=== PATIENT | female | born 1990 | race African-American/Black ===

== ENCOUNTER 2017-08-23 00:05 | Emergency (ER) | payer SELFPAY ==
--- OUTSIDE RECORDS SUMMARY | 2017-08-23 00:08 | XMS REPORT ---
:1990 [facility] Address [address] [place] [address] Dr. Hernandez [address] [place] [id number] Care Team Providers Name Role Phone UNKNOWN, REFFERING Primary Care Provider Unavailable SAMPSON TRISTAN M.D. Unavailable Unavailable Problems This patient has no known problems. Allergies, Adverse Reactions, Alerts This patient has no known allergies or adverse reactions. Medications This patient has no known medications.
[2017-08-23] MEDS ORDERED: NA CHLORIDE 0.9% 1,000 ML ONE (01:10)
[2017-08-23] MEDS ORDERED: ONDANSETRON 4 MG/2 ML VIAL ONE (01:16)
[2017-08-23] MEDS ORDERED: FENTANYL CITR 100 MCG/2 ML ONE (01:16)
[2017-08-23 02:13] LABS: Absolute Lymphocytes (CBC) 1.8 K/uL (0.7-4.9); Absolute Monocytes 0.6 K/uL (0.1-1.3); Absolute Neutrophil 3.5 K/uL (1.8-8.0); Basophils % 0.5 % (0-1.3); Eosinophils % 5.3 % (0-4.4); Hematocrit 32.2 % (36.0-45.0); Lymphocytes % 28.4 % (15.3-44.8); MCH 29.2 pg (27.0-35.0); MCV 87.2 fL (80-100); Monocytes % 9.1 % (3.3-12.3)
[2017-08-23] MEDS ORDERED: KETOROLAC 30 MG/ML INJ ONE (02:33)
[2017-08-23 02:44] LABS: Glucose Level 78 mg/dL (65-120); Lipase 18 U/L (22-51)
[2017-08-23 02:45] LABS: Glomerular Filtration Rate > 60 mL/min (>60)
[2017-08-23 02:50] LABS: ALT/SGPT 9 IU/L (10-60); AST/SGOT 14 IU/L (10-42); Albumin 3.6 g/dL (3.2-5.5); Amylase Level 93 U/L (28-100); BUN Blood Urea Nitrogen 9 mg/dL (6-20); Bilirubin Direct < 0.1 mg/dL (0-0.2); Bilirubin Total 0.4 mg/dL (0.3-1.2); Glomerular Filtration Rate > 90 mL/min (=/>90); Protein, Total 6.9 g/dL (6.0-8.3)
[2017-08-23 03:02] LABS: Bicarbonate 29 mEq/L (21-31); Sodium Level 141 mEq/L (135-145)
[2017-08-23 03:04] LABS: Potassium 2.8 mEq/L (3.6-5.0)
[2017-08-23] MEDS ORDERED: POTASSIUM 25 MEQ EFFERV TAB ONE (03:43)
[2017-08-23] MEDS ORDERED: KCL 20 MEQ/100 mL IVPB 20 MEQ/100 ML BAG IV ONE (03:43)
[2017-08-23] MEDS ORDERED: NA CHLORIDE 0.9% 250 ML ONE (03:52)
[2017-08-23 04:00] LABS: Urine Blood NEGATIVE (NEG); Urine Glucose NEGATIVE (NEG); Urine Protein NEGATIVE (NEG); Urine Specific Gravity 1.015 (1.005-1.030); Urine pH 7.5 (5.0-7.0)
[2017-08-23 04:08] LABS: Alkaline Phosphatase 51 IU/L (42-121)
[2017-08-23 04:15] LABS: Urine Amorphous Sediment 1+ /HPF (NONE SEEN); Urine Bacteria <20 /HPF (<20); Urine Culture Reflex Order NOT NEEDED; Urine RBC NONE SEEN /HPF (NONE SEEN)
--- NOTE | 2017-08-23 04:48 | ER ---
Nurse's Notes [facility] Name: Emilie Holland Age: 27 yrs Sex: Female : 1990 Arrival Date: 08/23/2017 Time: 00:08 Bed 16 Private MD: Diagnosis: Lower abdominal pain, unspecified;Left lower quadrant abdominal swelling, mass and lump;Hypokalemia Presentation: 08/23 00:25 Presenting complaint: Patient states: she has hx of abdominal mass and endometriosis bb has been trying to get on Medicaid for treatment but mass seems to be getting bigger and pain has worsened the last three days now is 10/10. Transition of care: patient was not received from another setting of care. Onset of symptoms is unknown. Care prior to arrival: None. 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 - Social history:: Smoking status: Patient uses tobacco products, smokes one pack cigarettes per day. Patient uses alcohol, occasionally. Patient/guardian denies using street drugs. Screenin:31 Fall Risk None identified. fu 06:14 Abuse screen: Denies threats or abuse. Nutritional screening: No deficits noted. fu Assessment: 00:46 General: Appears uncomfortable, Behavior is calm, cooperative, appropriate for age, fu Denies fever, chills. Pain: Complains of pain in abdomen Pain does not radiate. Pain currently is 8 out of 10 on a pain scale. at worst was 10 out of 10 on a pain scale. Neuro: Level of Consciousness is awake, alert, obeys commands. Respiratory: Breath sounds are clear bilaterally. 04:15 Reassessment: patient resting on stretcher, room air, IV potassium ongoing to IV access fu in left AC. . Vital Signs: 00:28 BP 126 / 80; Pulse 105; Resp 18 S; Temp 98.8(O); Pulse Ox 98% on R/A; Weight 74.84 kg bb (R); Height 5 ft. 2 in. (157.48 cm) (R); Pain 10/10; 02:15 BP 98 / 60; Pulse 84; Resp 18; Pulse Ox 97% on R/A; Pain 10/10; fu 03:15 BP 108 / 68; Pulse 75; Resp 16; Pulse Ox 95% on R/A; fu 04:45 BP 112 / 72; Pulse 78; Resp 16; Pulse Ox 97% on R/A; Pain 0/10; fu 00:28 Body Mass Index 30.18 (74.84 kg, 157.48 cm) ED Course: 00:08 Patient arrived in ED. al2 00:25 Manny Zavala PA is PHCP. cp 00:25 Jonathan Vee MD is Attending Physician. cp 00:26 Triage completed. bb 00:28 Arm band placed on Patient placed in an exam room, on a stretcher, on pulse oximetry. bb 00:49 Door closed. Warm blanket given. socks given to pt. ak1 00:54 Benjamin Avila, RN is Primary Nurse. fu 00:55 Inserted saline lock: 20 gauge in left antecubital area, using aseptic technique. Blood fu collected. 03:03 Notified Nurse Practitioner and/or Physician Manager Fine of a critical lab result(s), potassium of 2.8 Manny GALLARDO notified. 03:43 Urine --Ancillary (enter results) Sent. cc 03:43 Urine Dipstick--Ancillary (enter results) Sent. cc 03:43 EKG done, by ED staff. cc 04:15 Patient has correct armband on for positive identification. Side rails up X2. fu 05:06 Appears to be sleeping. fu 05:22 Awaiting: IV Potassium to finish. Patient for discharge. fu 05:50 IV discontinued, bleeding controlled, Pressure dressing applied. fu 06:00 No provider procedures requiring assistance completed. fu Administered Medications: 01:00 Drug: NS 0.9% 1000 ml Route: IV; Rate: 1 bolus; Site: left antecubital; fu 01:05 Drug: Zofran 4 mg Route: IVP; Infused Over: 2 mins; Site: left antecubital; fu 01:10 Drug: fentaNYL (PF) 25 mcg Route: IVP; Site: left antecubital; fu 02:17 Drug: TORadol 30 mg Route: IVP; Site: left antecubital; fu 03:30 Drug: Potassium Effervescent Tablet 50 mEq Route: PO; fu 03:50 Drug: Potassium Chloride 20 mEq Route: IV; Rate: calculated rate; Site: left fu antecubital; 05:30 Not Given (as per PAULINA Houston): UltRAM 50 mg PO once fu Outcome: 04:48 Discharge ordered by MD. cp 06:12 Discharged to home via wheelchair. fu 06:12 Condition: improved 06:12 Discharge instructions given to patient, family, Instructed on discharge instructions, follow up and referral plans. Demonstrated understanding of instructions, follow-up care, medications, Prescriptions given X 2. 06:15 Patient left the ED. fu Signatures: Bernice Ron RN RN Justina Osborne Amber, RN RN wv1 Manny Zavala PA PA cp Umadhay, Felix, RN RN Elise Costa Corrections: (The following items were deleted from the chart) 05:05 04:45 BP 108 / 68; Pulse 75bpm; Resp 16bpm; Pulse Ox 95% RA; fu fu 05:27 05:25 Reassessment: patient resting on stretcher, room air, IV potassium ongoing to IV fu access in left AC. . fu
--- NOTE | 2017-08-23 04:49 | EDPHYS ---
Physician Documentation [facility] Name: Emilie Holland Age: 27 yrs Sex: Female : 1990 Arrival Date: 08/23/2017 Time: 00:08 Bed 16 Private MD: ED Physician Jonathan Vee HPI: 08/23 00:45 This 27 yrs old Black Female presents to ER via Ambulatory with complaints of Back Pain.cp 00:45 The patient presents with abdominal pain in the lower abdomen. cp 00:45 Onset: The symptoms/episode began/occurred and became worse 3 day(s) ago, chronic. cp 00:45 The symptoms do not radiate. cp 00:45 Associated signs and symptoms: Pertinent negatives: anorexia, blood in stools, chest cp pain, constipation, diarrhea, dysuria, fever, vaginal discharge, vomiting. 00:45 The patient has experienced similar episodes in the past, chronically, but today's cp symptoms are worse, more painful. 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 - Social history:: Smoking status: Patient uses tobacco products, smokes one pack cigarettes per day. Patient uses alcohol, occasionally. Patient/guardian denies using street drugs. ROS: 01:00 Constitutional: Negative for body aches, chills, fever, poor PO intake. cp 01:00 Eyes: Negative for injury, pain, redness, and discharge. cp 01:00 ENT: Negative for drainage from ear(s), ear pain, sore throat, difficulty swallowing, difficulty handling secretions. 01:00 Cardiovascular: Negative for chest pain, edema, palpitations. 01:00 Respiratory: Negative for cough, shortness of breath, wheezing. 01:00 Abdomen/GI: Positive for abdominal pain, of the right lower quadrant and left lower quadrant, Negative for vomiting, diarrhea, constipation, anorexia, black/tarry stool, rectal bleeding. 01:00 Back: Negative for injury or acute deformity, radiated pain. 01:00 : Negative for urinary symptoms, vaginal bleeding, vaginal discharge. 01:00 Skin: Negative for cellulitis, rash. 01:00 Neuro: Negative for altered mental status, dizziness, headache, weakness. 01:00 All other systems are negative. Exam: 01:05 Constitutional: The patient appears in no acute distress, alert, awake, non-toxic, well cp developed, well nourished. 01:05 Head/Face: Normocephalic, atraumatic. cp 01:05 Eyes: Periorbital structures: appear normal, Conjunctiva: normal, no exudate, no injection, Sclera: no appreciated abnormality, Lids and lashes: appear normal, bilaterally. 01:05 ENT: External ear(s): are unremarkable, Nose: is normal, Mouth: Lips: moist, Oral mucosa: moist, Posterior pharynx: is normal, airway is patent, no erythema, no exudate. 01:05 Chest/axilla: Inspection: normal, Palpation: is normal, no crepitus, no tenderness. 01:05 Cardiovascular: Rate: tachycardic, Rhythm: regular. 01:05 Respiratory: the patient does not display signs of respiratory distress, Respirations: normal, no use of accessory muscles, no retractions, no splinting, no tachypnea, labored breathing, is not present, Breath sounds: are clear throughout, no decreased breath sounds, no stridor, no wheezing. 01:05 Abdomen/GI: Inspection: abdomen appears normal, Bowel sounds: active, all quadrants, Palpation: soft, in all quadrants, moderate abdominal tenderness, in the left lower quadrant, voluntary guarding, is elicited in the left lower quadrant, noted tender mass left lower abdomen. 01:05 Back: pain, is absent, ROM is normal. 01:05 Skin: cellulitis, is not appreciated, no rash present. 01:05 Neuro: Orientation: to person, place \T\ time. Mentation: lucid, able to follow commands, Cerebellar function: is grossly normal, Motor: moves all fours, strength is normal, Sensation: is normal. Vital Signs: 00:28 BP 126 / 80; Pulse 105; Resp 18 S; Temp 98.8(O); Pulse Ox 98% on R/A; Weight 74.84 kg bb (R); Height 5 ft. 2 in. (157.48 cm) (R); Pain 10/10; 02:15 BP 98 / 60; Pulse 84; Resp 18; Pulse Ox 97% on R/A; Pain 10/10; fu 03:15 BP 108 / 68; Pulse 75; Resp 16; Pulse Ox 95% on R/A; fu 04:45 BP 112 / 72; Pulse 78; Resp 16; Pulse Ox 97% on R/A; Pain 0/10; fu 00:28 Body Mass Index 30.18 (74.84 kg, 157.48 cm) bb MDM: 00:32 Patient medically screened. cp 01:00 Differential diagnosis: bowel obstruction, Ectopic , Endometriosis, Ovarian cp Torsion, Pelvic Inflammatory Disease, Pyelonephritis, Ureterolithiasis, urinary tract infection. 04:45 Data reviewed: vital signs, nurses notes, old medical records, labs, radiology reports cp from previous ED visits lab test result(s), EKG, and as a result, I will discharge patient. 04:45 Counseling: I had a detailed discussion with the patient and/or guardian regarding: the cp historical points, exam findings, and any diagnostic results supporting the discharge/admit diagnosis, lab results, the need for outpatient follow up, an OB/Gyne specialist, to return to the emergency department if symptoms worsen or persist or if there are any questions or concerns that arise at home. Response to treatment: the patient's symptoms have markedly improved after treatment, VSS. Pain improved, patient observed sleeping in exam room. 08/23 00:45 Order name: Amylase, Serum cp 08/23 00:45 Order name: Basic Metabolic Panel cp 08/23 00:45 Order name: CBC with Diff cp 08/23 00:45 Order name: Creatinine for Radiology cp 08/23 00:45 Order name: Hepatic Function cp 08/23 00:45 Order name: Lipase cp 08/23 02:40 Order name: CBC with Automated Diff; Complete Time: 02:43 EDMS 08/23 02:43 Interpretation: Normal except: RBC 3.70; HGB 10.8; HCT 32.2; MCV 87.2; EOSINOPHIL % 5.3.cp 08/23 02:44 Order name: Basic Metabolic Panel; Complete Time: 04:33 EDMS 08/23 04:34 Interpretation: Normal except: K 2.8. cp 08/23 02:44 Order name: Lipase; Complete Time: 04:33 EDMS 08/23 02:45 Interpretation: LIP 18; Reviewed. cp 08/23 02:45 Order name: Creatinine (Radiology Only); Complete Time: 02:55 EDMS 08/23 02:55 Interpretation: Within normal limits. cp 08/23 02:48 Order name: Urine Dipstick--Ancillary (enter results) cc 08/23 02:48 Order name: Urine --Ancillary (enter results) cc 08/23 02:51 Order name: Liver (Hepatic) Function; Complete Time: 04:33 EDMS 08/23 02:55 Interpretation: Normal except: SGPT 9. cp 08/23 00:45 Order name: Urine Test (obtain specimen); Complete Time: 02:43 cp 08/23 00:45 Order name: IV Saline Lock; Complete Time: 01:19 cp 08/23 00:45 Order name: Labs collected and sent; Complete Time: 01:19 cp 08/23 00:45 Order name: Urine Dipstick-Ancillary (obtain specimen); Complete Time: 02:43 cp 08/23 02:51 Order name: Amylase Level; Complete Time: 04:33 EDMS 08/23 03:18 Order name: EKG; Complete Time: 03:37 cp 08/23 04:00 Order name: Urine --Ancillary; Complete Time: 04:33 EDMS 08/23 04:00 Order name: Urine Dipstick-Ancillary; Complete Time: 04:33 EDMS 08/23 04:16 Order name: Urine Microscopic Only; Complete Time: 04:33 EDMS 08/23 04:34 Interpretation: Reviewed. cp 08/23 03:18 Order name: EKG - Nurse/Tech; Complete Time: 03:43 cp Administered Medications: 01:00 Drug: NS 0.9% 1000 ml Route: IV; Rate: 1 bolus; Site: left antecubital; fu 01:05 Drug: Zofran 4 mg Route: IVP; Infused Over: 2 mins; Site: left antecubital; fu 01:10 Drug: fentaNYL (PF) 25 mcg Route: IVP; Site: left antecubital; fu 02:17 Drug: TORadol 30 mg Route: IVP; Site: left antecubital; fu 03:30 Drug: Potassium Effervescent Tablet 50 mEq Route: PO; fu 03:50 Drug: Potassium Chloride 20 mEq Route: IV; Rate: calculated rate; Site: left fu antecubital; 05:30 Not Given (as per PAULINA Houston): UltRAM 50 mg PO once fu Disposition: 19:29 Co-signature as Attending Physician, Jonathan Vee MD. Disposition: 08/23/17 04:48 Discharged to Home. Impression: Lower abdominal pain, unspecified, Left lower quadrant abdominal swelling, mass and lump, Hypokalemia. - Condition is Stable. - Discharge Instructions: Chronic Pain, Potassium Content of Foods, Pelvic Mass, Hypokalemia. - Prescriptions for Potassium Chloride 10 mEq Oral Capsule, Sustained Release - take 1 tablet by ORAL route every 12 hours for 5 days; 10 tablet. Diclofenac Sodium 75 mg Oral Tablet Sustained Release - take 1 tablet by ORAL route 2 times per day; 30 tablet. - Medication Reconciliation Form, Thank You Letter, Antibiotic Education, Prescription Opioid Use form. - Follow up: Private Physician; When: 1 - 2 days; Reason: Recheck today's complaints. - Problem is chronic. - Symptoms have improved. Signatures: Dispatcher [employer] EDMS Bernice Ron RN RN Manny Johnson PA PA cp Starr, Gregory, MD MD Benjamin Avila RN RN Corrections: (The following items were deleted from the chart) 01:02 00:46 UA MICROSCOPIC+U.LAB.BRZ ordered. EDMS EDMS
[2017-08-23 06:27] VITALS: TEMP 98.8
[2017-08-23 06:31] VITALS: BP 112/72; O2SAT 97
--- NOTE | 2017-08-23 06:34 | EKG ---
Test Date: 2017-08-23 Test Time: 03:27:16 Salt Manager: BRO MEASUREMENT RESULTS: Intervals: Rate: 75 [place]: 138 QRSD: 78 QT: 408 QTc: 455 Ferney: P: 59 [place]: 138 QRS: 29 T: 29 INTERPRETIVE STATEMENTS: Normal sinus rhythm Nonspecific T wave abnormality Abnormal ECG Compared to ECG 06/12/2017 20:29:02 T-wave abnormality now present Prolonged QT interval no longer present Electronically Signed On 08-23-17 06:33:47 CDT by Buzz Cooney
== END 2017-08-23 06:15 | disposition home or self-care (01) ==
LOC: ER 00:05
DX: R22.2 Localized swelling, mass and lump, trunk (principal); E87.6 Hypokalemia; F17.210 Nicotine dependence, cigarettes, uncomplicated; F41.9 Anxiety disorder, unspecified; Z88.5 Allergy status to narcotic agent; Z91.048 Other nonmedicinal substance allergy status
CPT/HCPCS: 36415; 80048; 80076; 81003; 81015; 81025; 82150; 83690; 85025; 93005; 96374; 96375; 99284; J2405; J3010; J7030

== ENCOUNTER 2017-09-24 18:37 | Emergency (ER) | payer SELFPAY ==
--- OUTSIDE RECORDS SUMMARY | 2017-09-24 18:39 | XMS REPORT ---
:1990 [facility] Address [address] [place] [address] Dr. Hernandez [address] [place] [id number] Care Team Providers Name Role Phone UNKNOWN, REFFERING Primary Care Provider Unavailable SAMPSON TRISTAN M.D. Unavailable Unavailable Problems This patient has no known problems. Allergies, Adverse Reactions, Alerts This patient has no known allergies or adverse reactions. Medications This patient has no known medications. Encounters Start End Encounter Admission Attending Care Care Encounter Date/Time Date/Time Type Type Clinicians Facility Department ID 2017-06-14 2017-06-17 Inpatient [facility] [id number] 21:05:00 13:02:00 SAMPSON Pickard M.D.
[2017-09-24 19:35] LABS: Urine Blood NEGATIVE (NEG); Urine Glucose NEGATIVE (NEG); Urine Protein 1+ (NEG); Urine Specific Gravity 1.025 (1.005-1.030); Urine pH 6.5 (5.0-7.0)
[2017-09-24 19:36] LABS: Absolute Lymphocytes (CBC) 2.1 K/uL (0.7-4.9); Absolute Monocytes 0.5 K/uL (0.1-1.3); Absolute Neutrophil 3.7 K/uL (1.8-8.0); Basophils % 0.9 % (0-1.3); Eosinophils % 4.5 % (0-4.4); Hematocrit 39.5 % (36.0-45.0); Lymphocytes % 31.1 % (15.3-44.8); MCH 29.1 pg (27.0-35.0); MCV 88.4 fL (80-100); MPV 8.3 fL (7.6-11.3); Monocytes % 7.8 % (3.3-12.3); RBC Red Blood Cell Count 4.47 M/uL (3.86-4.86)
[2017-09-24 19:44] LABS: Bicarbonate 27 mEq/L (21-31); Glucose Level 78 mg/dL (65-120); Lipase 16 U/L (22-51); Potassium 3.3 mEq/L (3.6-5.0); Sodium Level 138 mEq/L (135-145)
[2017-09-24 19:50] LABS: ALT/SGPT 13 IU/L (10-60); AST/SGOT 18 IU/L (10-42); Albumin 4.3 g/dL (3.2-5.5); Alkaline Phosphatase 55 IU/L (42-121); BUN Blood Urea Nitrogen 10 mg/dL (6-20); Bilirubin Direct 0.1 mg/dL (0-0.2); Bilirubin Total 0.7 mg/dL (0.3-1.2); Protein, Total 8.2 g/dL (6.0-8.3)
[2017-09-24] MEDS ORDERED: FENTANYL CITR 100 MCG/2 ML ONE (20:37)
[2017-09-24] MEDS ORDERED: POTASSIUM 25 MEQ EFFERV TAB ONE (20:38)
[2017-09-24] MEDS ORDERED: ONDANSETRON 4 MG/2 ML VIAL ONE (20:38)
--- NOTE | 2017-09-24 21:35 | ER ---
Nurse's Notes [facility] Name: Emilie Holland Age: 27 yrs Sex: Female : 1990 Arrival Date: 09/24/2017 Time: 18:40 Bed 26 Private MD: Diagnosis: Unspecified abdominal pain Presentation: 09/24 18:45 Presenting complaint: Patient states: "My endometriosis is causing me to be in pain." aj reports pain started 1 week ago and got worse today. Transition of care: patient was not received from another setting of care. Onset of symptoms was September 17, 2017. Initial Sepsis Screen: Does the patient meet any 2 criteria? No. Patient's initial sepsis screen is negative. Does the patient have a suspected source of infection? No. Patient's initial sepsis screen is negative. Care prior to arrival: None. 18:45 Method Of Arrival: Ambulatory 18:45 Acuity: ADITYA 3 aj Triage Assessment: 18:48 General: Appears in no apparent distress. comfortable, Behavior is calm, cooperative, aj appropriate for age. Pain: Complains of pain in suprapubic area, right inguinal area and left inguinal area Pain currently is 8 out of 10 on a pain scale. Neuro: Level of Consciousness is awake, alert, obeys commands, Oriented to person, place, time, situation, Appropriate for age. Respiratory: Airway is patent Respiratory effort is even, unlabored, Respiratory pattern is regular, symmetrical. GI: Reports nausea. Derm: Skin is intact, is healthy with good turgor, Skin is pink, warm \\T\\ dry. normal. 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 - Social history:: Smoking status: Patient uses tobacco products, smokes one pack cigarettes per day. Patient uses street drugs, marijuana. Screenin:04 Abuse screen: Denies threats or abuse. Nutritional screening: No deficits noted. ea Tuberculosis screening: No symptoms or risk factors identified. Fall Risk None identified. Assessment: 19:02 General: Appears uncomfortable, Behavior is calm, cooperative, appropriate for age. ea Pain: Complains of pain in suprapubic area Quality of pain is described as crampy, Pain began suddenly. Neuro: Level of Consciousness is awake, alert, obeys commands, Oriented to person, place, time, situation. Cardiovascular: No deficits noted. Patient's skin is warm and dry. Respiratory: No deficits noted. Breath sounds are clear bilaterally. GI: Bowel sounds present X 4 quads. Abd is soft and non tender X 4 quads. : Reports endometrosis. Derm: Skin is dry, Skin is normal, Skin temperature is warm. 20:50 Reassessment: Patient and/or family updated on plan of care and expected duration. Pain ea level reassessed. Patient is alert, oriented x 3, equal unlabored respirations, skin warm/dry/pink. 21:28 Reassessment: Patient and/or family updated on plan of care and expected duration. Pain ea level reassessed. pt resting with eyes closed, respirations even and unlabored, chest expansions even and symmetrical. 22:13 Reassessment: Patient and/or family updated on plan of care and expected duration. Pain ea level reassessed. Patient is alert, oriented x 3, equal unlabored respirations, skin warm/dry/pink. discharge instructions given to patient, verbalized understanding of instructions. Vital Signs: 18:48 BP 125 / 79; Pulse 86; Resp 18; Temp 98.1; Pulse Ox 99% on R/A; Weight 72.57 kg; Height aj 5 ft. 2 in. (157.48 cm); Pain 8/10; 19:02 BP 130 / 89; Pulse 80; Resp 18 S; Pulse Ox 99% on R/A; ea 20:51 BP 127 / 86; Pulse 78; Resp 18 S; Pulse Ox 98% on R/A; ea 22:20 BP 130 / 78; Pulse 80; Resp 18 S; Temp 98(O); Pulse Ox 99% ; ea 18:48 Body Mass Index 29.26 (72.57 kg, 157.48 cm) aj ED Course: 18:40 Patient arrived in ED. mr 18:47 Triage completed. aj 18:48 Arm band placed on left wrist. Patient placed in an exam room. aj 18:52 Raymond Magaña NP is PHCP. pm1 18:53 Manny Ho MD is Attending Physician. pm1 18:58 Maryam Diaz RN is Primary Nurse. ea 18:58 Patient has correct armband on for positive identification. Bed in low position. Call ea light in reach. Side rails up X 1. 19:30 Inserted saline lock: 22 gauge in right forearm, using aseptic technique. Blood ea collected. 21:34 Herlinda Solis MD is Referral Physician. pm1 21:35 Dimple Mckinnon MD is Referral Physician. pm1 22:21 No provider procedures requiring assistance completed. ea 22:25 IV discontinued, intact, bleeding controlled, No redness/swelling at site. Pressure ea dressing applied. Administered Medications: 20:47 Drug: Potassium Effervescent Tablet 50 mEq Route: PO; ea 22:26 Follow up: Response: No adverse reaction ea 20:47 Drug: fentaNYL (PF) 25 mcg Route: IVP; Site: right forearm; ea 21:25 Follow up: Response: No adverse reaction; Pain is decreased ea 20:47 Drug: Zofran 4 mg Route: IVP; Site: right forearm; ea 21:25 Follow up: Response: No adverse reaction ea Outcome: 21:35 Discharge ordered by MD. pm1 22:21 Condition: good ea 22:21 Discharge instructions given to patient, Instructed on discharge instructions, follow up and referral plans. medication usage, Demonstrated understanding of instructions, follow-up care, Prescriptions given X 2. 22:25 Discharged to home ambulatory, with significant other. ea 22:25 Patient left the ED. ea Signatures: Sara Montgomery, RN RN Mone Jones mr Raymond Magaña, JAMIE PIN GAME MACHINE INSPECTOR pm1 Maryam Diaz RN RN ea
--- NOTE | 2017-09-24 21:36 | EDPHYS ---
Physician Documentation [facility] Name: Emilie Holland Age: 27 yrs Sex: Female : 1990 Arrival Date: 09/24/2017 Time: 18:40 Bed 26 Private MD: ED Physician Manny Ho HPI: 09/24 19:26 This 27 yrs old Black Female presents to ER via Ambulatory with complaints of Abdominal pm1 Pain, Back Pain. 19:26 The patient presents with abdominal pain from her endometriosis. Onset: The pm1 symptoms/episode began/occurred 5 month(s) ago, and became worse 1 week(s) ago. The symptoms do not radiate. Associated signs and symptoms: Pertinent negatives: nausea, vomiting, and diarrhea, chest pain, dysuria, fever, shortness of breath, vaginal discharge. Modifying factors: The symptoms are alleviated by nothing, the symptoms are aggravated by nothing. The patient has been recently seen at the [facility] Emergency Department, last month, for similar complaints. 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 - Social history:: Smoking status: Patient uses tobacco products, smokes one pack cigarettes per day. Patient uses street drugs, marijuana. ROS: 19:26 Constitutional: Negative for fever, chills, and weight loss, Eyes: Negative for injury, pm1 pain, redness, and discharge, ENT: Negative for injury, pain, and discharge, Neck: Negative for injury, pain, and swelling, Cardiovascular: Negative for chest pain, palpitations, and edema, Respiratory: Negative for shortness of breath, cough, wheezing, and pleuritic chest pain. 19:26 Back: Negative for injury and pain, : Negative for injury, bleeding, discharge, and swelling, MS/Extremity: Negative for injury and deformity, Skin: Negative for injury, rash, and discoloration, Neuro: Negative for headache, weakness, numbness, tingling, and seizure. 19:26 Abdomen/GI: Positive for abdominal pain, of the left of suprapubic area, mass, Negative for nausea, vomiting, and diarrhea. Exam: 19:26 Constitutional: This is a well developed, well nourished patient who is awake, alert, pm1 and in no acute distress. Head/Face: Normocephalic, atraumatic. Eyes: Pupils equal round and reactive to light, extra-ocular motions intact. Lids and lashes normal. Conjunctiva and sclera are non-icteric and not injected. Cornea within normal limits. Periorbital areas with no swelling, redness, or edema. ENT: Nares patent. No nasal discharge, no septal abnormalities noted. Tympanic membranes are normal and external auditory canals are clear. Oropharynx with no redness, swelling, or masses, exudates, or evidence of obstruction, uvula midline. Mucous membranes moist. Neck: Trachea midline, no thyromegaly or masses palpated, and no cervical lymphadenopathy. Supple, full range of motion without nuchal rigidity, or vertebral point tenderness. No Meningismus. Chest/axilla: Normal chest wall appearance and motion. Nontender with no deformity. No lesions are appreciated. Cardiovascular: Regular rate and rhythm with a normal S1 and S2. No gallops, murmurs, or rubs. Normal PMI, no JVD. No pulse deficits. Respiratory: Lungs have equal breath sounds bilaterally, clear to auscultation and percussion. No rales, rhonchi or wheezes noted. No increased work of breathing, no retractions or nasal flaring. 19:26 Back: No spinal tenderness. No costovertebral tenderness. Full range of motion. Skin: Warm, dry with normal turgor. Normal color with no rashes, no lesions, and no evidence of cellulitis. MS/ Extremity: Pulses equal, no cyanosis. Neurovascular intact. Full, normal range of motion. 19:26 Abdomen/GI: Inspection: abdomen appears normal, Bowel sounds: normal, Palpation: abdomen is soft and non-tender, soft, in all quadrants, nontender, in all quadrants, mass, that is nontender, approximately 2 cm(s), of the left suprapubic area, rebound tenderness, is not appreciated. 19:26 Neuro: Orientation: is normal, Motor: moves all fours, Gait: is steady, at a normal pace, without difficulty. Vital Signs: 18:48 BP 125 / 79; Pulse 86; Resp 18; Temp 98.1; Pulse Ox 99% on R/A; Weight 72.57 kg; Height aj 5 ft. 2 in. (157.48 cm); Pain 8/10; 19:02 BP 130 / 89; Pulse 80; Resp 18 S; Pulse Ox 99% on R/A; ea 20:51 BP 127 / 86; Pulse 78; Resp 18 S; Pulse Ox 98% on R/A; ea 22:20 BP 130 / 78; Pulse 80; Resp 18 S; Temp 98(O); Pulse Ox 99% ; ea 18:48 Body Mass Index 29.26 (72.57 kg, 157.48 cm) aj MDM: 18:53 Patient medically screened. [facility] 21:26 Data reviewed: vital signs. Data interpreted: Pulse oximetry: on room air is 98 %. pm1 Interpretation: normal. Counseling: I had a detailed discussion with the patient and/or guardian regarding: the historical points, exam findings, and any diagnostic results supporting the discharge/admit diagnosis, lab results, the need for outpatient follow up, for definitive care, an OB/Gyne specialist, to return to the emergency department if symptoms worsen or persist or if there are any questions or concerns that arise at home. 09/24 19:02 Order name: Basic Metabolic Panel; Complete Time: 20:06 pm1 09/24 19:02 Order name: CBC with Diff; Complete Time: 20:06 pm1 09/24 19:02 Order name: Hepatic Function; Complete Time: 20:06 pm1 09/24 19:02 Order name: Lipase; Complete Time: 20:06 pm09/24 19:29 Order name: Urine Dipstick--Ancillary (enter results); Complete Time: 20:06 2 09/24 19:29 Order name: Urine --Ancillary (enter results); Complete Time: 20:06 2 09/24 19:02 Order name: Urine Test (obtain specimen); Complete Time: 19:48 pm1 09/24 19:02 Order name: IV Saline Lock; Complete Time: 19:48 pm1 09/24 19:02 Order name: Labs collected and sent; Complete Time: 19:48 pm1 09/24 19:02 Order name: Urine Dipstick-Ancillary (obtain specimen); Complete Time: 19:48 pm1 Administered Medications: 20:47 Drug: Potassium Effervescent Tablet 50 mEq Route: PO; ea 22:26 Follow up: Response: No adverse reaction ea 20:47 Drug: fentaNYL (PF) 25 mcg Route: IVP; Site: right forearm; ea 21:25 Follow up: Response: No adverse reaction; Pain is decreased ea :47 Drug: Zofran 4 mg Route: IVP; Site: right forearm; ea 21:25 Follow up: Response: No adverse reaction ea Disposition: 09/24/17 21:35 Discharged to Home. Impression: Unspecified abdominal pain. - Condition is Stable. - Discharge Instructions: Abdominal Pain, Adult. - Prescriptions for Diclofenac Sodium 75 mg Oral Tablet Sustained Release - take 1 tablet by ORAL route 2 times per day; 30 tablet. Zofran 4 mg Oral Tablet - take 1 tablet by ORAL route every 8 hours As needed; 20 tablet. - Medication Reconciliation Form, Thank You Letter form. - Follow up: Emergency Department; When: As needed; Reason: Worsening of condition. Follow up: Herlinda Solis MD; When: 2 - 3 days; Reason: Recheck today's complaints, Continuance of care, Re-evaluation by your physician. Follow up: Dimple Mckinnon MD; When: 2 - 3 days; Reason: Recheck today's complaints, Continuance of care, Re-evaluation by your physician. - Problem is chronic. - Symptoms have improved. Addendum: 09/27/2017 07:24 Co-signature as Attending Physician, Manny Ho MD I agree with the assessment and c bowen plan of care. Signatures: Dispatcher [employer] Sara Viramontes RN RN aj Anderson, Corey, MD MD cha Marinas, Patrick, EQUIPMENT OR MACHINERY CLEANER EQUIPMENT OR MACHINERY CLEANER pm1 Maryam Diaz RN RN ea
[2017-09-24] MEDS ORDERED: DIPHENHYDRAMINE 50 MG/ML VIAL ONE (21:39)
[2017-09-24 22:45] VITALS: BP 130/78; TEMP 98; O2SAT 99
== END 2017-09-24 22:25 | disposition home or self-care (01) ==
LOC: ER 18:37
DX: R10.9 Unspecified abdominal pain (principal); F17.210 Nicotine dependence, cigarettes, uncomplicated; Z88.5 Allergy status to narcotic agent; Z91.048 Other nonmedicinal substance allergy status
CPT/HCPCS: 36415; 80048; 80076; 81003; 81025; 83690; 85025; 96374; 96375; 99284; J2405; J3010

== ENCOUNTER 2017-09-27 14:00 | Emergency (ER) | payer SELFPAY ==
--- OUTSIDE RECORDS SUMMARY | 2017-09-27 14:02 | XMS REPORT ---
:1990 [facility] [address] [place] [address] Dr. Hernandez [address] [place] [id number] Care Team Providers Name Role Phone UNKNOWN, [...] Department ID 2017-06-14 2017-06-17 Inpatient E [facility]ALEA [facility] [id number] 21:05:00 13:02:00 SAMPSON Pickard M.D.
[2017-09-27 16:26] LABS: Absolute Lymphocytes (CBC) 1.8 K/uL (0.7-4.9); Absolute Monocytes 0.5 K/uL (0.1-1.3); Absolute Neutrophil 4.1 K/uL (1.8-8.0); Basophils % 0.7 % (0-1.3); Eosinophils % 5.2 % (0-4.4); Hematocrit 38.9 % (36.0-45.0); Lymphocytes % 26.6 % (15.3-44.8); MCV 88.9 fL (80-100); MPV 8.8 fL (7.6-11.3); Monocytes % 7.6 % (3.3-12.3); RBC Red Blood Cell Count 4.37 M/uL (3.86-4.86)
[2017-09-27 16:29] LABS: Bicarbonate 27 mEq/L (21-31); Glucose Level 81 mg/dL (65-120); Potassium 3.5 mEq/L (3.6-5.0); Sodium Level 136 mEq/L (135-145)
[2017-09-27 16:30] LABS: BUN Blood Urea Nitrogen 8 mg/dL (6-20)
[2017-09-27] MEDS ORDERED: ONDANSETRON 4 MG/2 ML VIAL ONE (16:56)
[2017-09-27] MEDS ORDERED: KETOROLAC 30 MG/ML INJ ONE (16:57)
[2017-09-27 17:03] LABS: Urine Blood NEGATIVE (NEG); Urine Glucose NEGATIVE (NEG); Urine Protein NEGATIVE (NEG); Urine pH 6.5 (5.0-7.0)
--- NOTE | 2017-09-27 17:12 | ER ---
Nurse's Notes [facility] Name: Emilie Holland Age: 27 yrs Sex: Female : 1990 Arrival Date: 09/27/2017 Time: 14:01 Bed 30 Private MD: Diagnosis: Abdominal and pelvic pain-chronic Presentation: 09/27 14:05 Presenting complaint: EMS states: abd pain x 3 days has been getting worse. Pt reports ss a history of endometriosis. Transition of care: patient was not received from another setting of care. Onset of symptoms was September 24, 2017. Initial Sepsis Screen: Does the patient meet any 2 criteria? No. Patient's initial sepsis screen is negative. Does the patient have a suspected source of infection? No. Patient's initial sepsis screen is negative. Care prior to arrival: Glucose check: 86. 14:05 Method Of Arrival: EMS: [facility] ss 14:05 Acuity: ADITYA 3 ss 14:10 Note Patient reports she was seen here in the ER on 09/24, and was given medication and ss told to follow up with a specialist, but has not yet because she does not have insurance. Triage Assessment: 18:42 General: Appears in no apparent distress. Behavior is calm, cooperative. ak1 Historical: - Allergies: 14:09 Hydrocodone-Acetaminophen; ss 14:09 Iodine; ss - Home Meds: 14:09 Zofran Oral [Active]; diclofenac sodium [Active]; ss - PMHx: 14:09 Post concussive syndrome; Endometrosis; Anxiety; ss - PSHx: 14:09 ; ss - Immunization history:: Adult Immunizations up to date. - Social history:: Smoking status: Patient uses tobacco products, smokes one-half pack cigarettes per day. Screenin:42 Abuse screen: Denies threats or abuse. Denies injuries from another. Nutritional ak1 screening: No deficits noted. Tuberculosis screening: No symptoms or risk factors identified. Fall Risk None identified. Assessment: 18:42 Pain: Complains of pain in abdomen. GI: Bowel sounds present X 4 quads. Abd is soft and ak1 non tender. Vital Signs: 14:09 BP 118 / 65; Pulse 98; Resp 15; Temp 97.4(TE); Pulse Ox 99% on R/A; Weight 72.57 kg; ss Height 5 ft. 2 in. (157.48 cm); Pain 10/10; 14:09 Body Mass Index 29.26 (72.57 kg, 157.48 cm) ED Course: 14:01 Patient arrived in ED. as 14:07 Triage completed. 14:09 Arm band placed on right wrist. 15:26 Shey Degroot FNP-C [facility]. kb 15:27 Manny Ho MD is Attending Physician. kb 15:46 Penny Butler, RN is Primary Nurse. ak1 16:12 Initial lab(s) drawn, by me, sent to lab. Inserted saline lock: 22 gauge in right 3 antecubital area, using aseptic technique. Blood collected. 16:36 Urine collected: clean catch specimen, clear. 3 18:42 Patient has correct armband on for positive identification. Bed in low position. Call ak1 light in reach. Side rails up X 1. Adult w/ patient. Pulse ox on. NIBP on. 18:44 No provider procedures requiring assistance completed. IV discontinued, intact, ak1 bleeding controlled, No redness/swelling at site. Pressure dressing applied. Administered Medications: 16:45 Not Given (Patient Refused): fentaNYL (PF) 25 mcg IVP once ak1 17:04 Drug: Zofran 4 mg Route: IVP; Site: right antecubital; ak1 17:04 Drug: TORadol 30 mg Route: IVP; Site: right antecubital; ak1 Outcome: 17:12 Discharge ordered by MD. kb 18:44 Discharged to home ambulatory, with family. ak1 18:44 Condition: good 18:44 Discharge instructions given to patient, family, Instructed on discharge instructions, follow up and referral plans. Demonstrated understanding of instructions, follow-up care, pt waited for d/c due to primary nurse doing one on one care with critical patient. pt very unhappy that multiple trips to main ER nurses station did not result in any other nurse including charge nurse discharging pt. 18:45 Patient left the ED. ak1 Signatures: Shey Degroot FNP-C FNP-Lidia Carlson Shelby RN RN Penny Butler, RN RN ak1 Maria De Jesus Mello [facility]
--- NOTE | 2017-09-27 17:13 | EDPHYS ---
Physician Documentation [facility] Name: Emilie Holland Age: 27 yrs Sex: Female : 1990 Arrival Date: 09/27/2017 Time: 14:01 Bed 30 Private MD: ED Physician Manny Ho HPI: 09/27 17:08 This 27 yrs old Black Female presents to ER via EMS with complaints of Abdominal Pain. kb 17:08 The patient presents with abdominal pain that is diffuse. Onset: The symptoms/episode kb began/occurred 2 year(s) ago. The symptoms do not radiate. Associated signs and symptoms: none. The symptoms are described as achy, constant. Modifying factors: The symptoms are alleviated by nothing, the symptoms are aggravated by pressure. Severity of pain: At its worst the pain was moderate in the emergency department the pain is unchanged. The patient has experienced similar episodes in the past. The patient has been recently seen at the [facility] Emergency Department, this week, for similar complaints labs were performed, was given a prescription for pain medications, was given a prescription for an antiemetic. Pt states she has had abd pain for 2 years and she comes in when it gets bad. States she was diagnosed with endometriosis and a mass a while ago. Told she needed to follow up with [facility] to have surgery, but has not been able to yet. . Historical: - Allergies: 14:09 Hydrocodone-Acetaminophen; ss 14:09 Iodine; ss - Home Meds: 14:09 Zofran Oral [Active]; diclofenac sodium [Active]; ss - PMHx: 14:09 Post concussive syndrome; Endometrosis; Anxiety; ss - PSHx: 14:09 ; ss - Immunization history:: Adult Immunizations up to date. - Social history:: Smoking status: Patient uses tobacco products, smokes one-half pack cigarettes per day. ROS: 17:08 Constitutional: Negative for fever, chills, and weight loss, Cardiovascular: Negative kb for chest pain, palpitations, and edema, Respiratory: Negative for shortness of breath, cough, wheezing, and pleuritic chest pain, Back: Negative for injury and pain, : Negative for injury, bleeding, discharge, and swelling, MS/Extremity: Negative for injury and deformity, Skin: Negative for injury, rash, and discoloration, Neuro: Negative for headache, weakness, numbness, tingling, and seizure. 17:08 Abdomen/GI: Positive for abdominal pain, Negative for nausea, vomiting, and diarrhea, constipation, abdominal cramps, abdominal distension, anorexia. Exam: 17:08 Constitutional: This is a well developed, well nourished patient who is awake, alert, kb and in no acute distress. Head/Face: Normocephalic, atraumatic. Chest/axilla: Normal chest wall appearance and motion. Nontender with no deformity. No lesions are appreciated. Cardiovascular: Regular rate and rhythm with a normal S1 and S2. No gallops, murmurs, or rubs. Normal PMI, no JVD. No pulse deficits. Respiratory: Lungs have equal breath sounds bilaterally, clear to auscultation and percussion. No rales, rhonchi or wheezes noted. No increased work of breathing, no retractions or nasal flaring. Back: No spinal tenderness. No costovertebral tenderness. Full range of motion. Skin: Warm, dry with normal turgor. Normal color with no rashes, no lesions, and no evidence of cellulitis. MS/ Extremity: Pulses equal, no cyanosis. Neurovascular intact. Full, normal range of motion. Neuro: Awake and alert, GCS 15, oriented to person, place, time, and situation. Cranial nerves II-XII grossly intact. Motor strength 5/5 in all extremities. Sensory grossly intact. Cerebellar exam normal. Normal gait. 17:08 Abdomen/GI: Inspection: abdomen appears normal, Bowel sounds: normal, in all quadrants, Palpation: soft, in all quadrants, mild abdominal tenderness, in all quadrants. Vital Signs: 14:09 BP 118 / 65; Pulse 98; Resp 15; Temp 97.4(TE); Pulse Ox 99% on R/A; Weight 72.57 kg; ss Height 5 ft. 2 in. (157.48 cm); Pain 10/10; 14:09 Body Mass Index 29.26 (72.57 kg, 157.48 cm) ss MDM: 15:30 Patient medically screened. [facility] 17:08 Data reviewed: vital signs, nurses notes. Data interpreted: Pulse oximetry: on room air kb is 99 %. Interpretation: normal. Counseling: I had a detailed discussion with the patient and/or guardian regarding: the historical points, exam findings, and any diagnostic results supporting the discharge/admit diagnosis, lab results, the need for outpatient follow up, an OB/Gyne specialist, to return to the emergency department if symptoms worsen or persist or if there are any questions or concerns that arise at home. 09/27 15:51 Order name: CBC with Diff; Complete Time: 16:31 kb 09/27 15:51 Order name: Basic Metabolic Panel; Complete Time: 16:38 kb 09/27 16:57 Order name: Urine Dipstick--Ancillary (enter results); Complete Time: 17:07 eb 09/27 16:57 Order name: Urine --Ancillary (enter results); Complete Time: 17:07 eb 09/27 15:51 Order name: Urine Dipstick-Ancillary (obtain specimen); Complete Time: 16:37 kb 09/27 15:51 Order name: Urine Test (obtain specimen); Complete Time: 16:37 kb Administered Medications: 16:45 Not Given (Patient Refused): fentaNYL (PF) 25 mcg IVP once ak1 17:04 Drug: Zofran 4 mg Route: IVP; Site: right antecubital; ak1 17:04 Drug: TORadol 30 mg Route: IVP; Site: right antecubital; ak1 Disposition: 09/28 09:14 Co-signature as Attending Physician, Manny Ho MD I agree with the assessment and binh plan of care. Disposition: 09/27/17 17:12 Discharged to Home. Impression: Abdominal and pelvic pain - chronic. - Condition is Stable. - Discharge Instructions: Abdominal Pain, Women. - Medication Reconciliation Form, Thank You Letter, Antibiotic Education, Prescription Opioid Use form. - Follow up: Emergency Department; When: As needed; Reason: Worsening of condition. Follow up: Private Physician; When: 2 - 3 days; Reason: Recheck today's complaints, Continuance of care, Re-evaluation by your physician. Signatures: Dispatcher [employer] Shey Ruiz, BAILEY DAMICO-Manny Zaldivar MD MD cha Smirch, Shelby, RN RN Penny White RN RN ak1
[2017-09-27 18:53] VITALS: BP 118/65; TEMP 97.4; O2SAT 99
== END 2017-09-27 18:45 | disposition home or self-care (01) ==
LOC: ER 14:00
DX: R10.9 Unspecified abdominal pain (principal); R10.2 Pelvic and perineal pain
CPT/HCPCS: 36415; 80048; 81003; 81025; 85025; 96374; 96375; 99284; J2405

== ENCOUNTER 2017-12-23 18:09 | Emergency (ER) | payer SELFPAY ==
--- OUTSIDE RECORDS SUMMARY | 2017-12-23 18:11 | XMS REPORT ---
:1990 [facility] [address] [place] [address] Dr. Hernandez [address] [place] [id number] Care Team Providers Name Role Phone UNKNOWN, [...] Department ID 2017-06-14 2017-06-17 Inpatient E [facility]A [facility] [id number] 21:05:00 13:02:00 SAMPSON Pickard M.D.
[2017-12-23] MEDS ORDERED: NA CHLORIDE 0.9% 1,000 ML ONE ×3 (18:34→21:29)
[2017-12-23] MEDS ORDERED: ACETAMINOPHEN 500 MG TAB ONE (19:38)
[2017-12-23 19:39] LABS: Absolute Lymphocytes (CBC) 1.1 K/uL (0.7-4.9); Absolute Monocytes 1.9 K/uL (0.1-1.3); Absolute Neutrophil 16.7 K/uL (1.8-8.0); Basophils % 0.3 % (0-1.3); Eosinophils % 0.1 % (0-4.4); Hematocrit 39.4 % (36.0-45.0); Lymphocytes % 5.4 % (15.3-44.8); MCH 30.2 pg (27.0-35.0); MCV 91.2 fL (80-100); MPV 9.2 fL (7.6-11.3); Monocytes % 9.6 % (3.3-12.3); RBC Red Blood Cell Count 4.32 M/uL (3.86-4.86)
[2017-12-23 20:13] LABS: Urine Blood 2+ (NEG); Urine Glucose NEGATIVE (NEG); Urine Protein 2+ (NEG); Urine Specific Gravity >1.030 (1.005-1.030); Urine pH 5.5 (5.0-7.0)
--- NOTE | 2017-12-23 20:13 | RAD REPORT ---
EXAM DESCRIPTION: Matilda Single View12/23/2017 7:36 pm CLINICAL HISTORY: cough COMPARISON: none FINDINGS: The lungs appear clear of acute infiltrate. The heart is normal size IMPRESSION: No acute abnormalities displayed
[2017-12-23 20:22] LABS: ALT/SGPT 21 U/L (12-78); AST/SGOT 19 U/L (15-37); Albumin 3.3 g/dL (3.4-5.0); Alkaline Phosphatase 74 U/L (45-117); Amylase Level 85 U/L (25-115); BUN Blood Urea Nitrogen 16 mg/dL (7-18); Bicarbonate 25 mmol/L (21-32); Bilirubin Direct 0.1 mg/dL (0-0.2); Bilirubin Total 0.4 mg/dL (0.2-1.0); CKMB Creatine Kinase MB < 1.0 ng/mL (0.3-3.6); Creatine Phosphokinase 168 U/L (26-192); Glucose Level 86 mg/dL (74-106); Lipase 61 U/L (73-393); Potassium 3.5 mmol/L (3.5-5.1); Protein, Total 8.3 g/dL (6.4-8.2); Sodium Level 134 mmol/L (136-145)
[2017-12-23 20:22] LABS: Urine Amorphous Sediment 1+ /HPF (NONE SEEN); Urine Bacteria <20 /HPF (<20); Urine Culture Reflex Order NOT NEEDED; Urine Mucus SLIGHT /HPF (NONE SEEN)
[2017-12-23] MEDS ORDERED: DEXAMETHASONE 10 MG/ML VIAL ONE (20:36)
[2017-12-23] MEDS ORDERED: MORPHINE 4 MG/ML SYR ONE (20:38)
[2017-12-23] MEDS ORDERED: KETOROLAC 30 MG/ML INJ ONE (20:38)
[2017-12-23] MEDS ORDERED: CEFTRIAXONE/SWI 1gm 1 GM/10 ML SYR ONE (20:38)
[2017-12-23] MEDS ORDERED: CLINDAMYCIN 900MG/D5W 900 MG/50 ML BAG IV ONE (22:29)
[2017-12-23] MEDS ORDERED: MAGNE/ALUM HYDROXD 30 ML UCUP ONE (22:42)
[2017-12-23] MEDS ORDERED: LIDOCAINE VISCOUS 2% SOLN 15 ML UDC ONE (22:43)
--- NOTE | 2017-12-23 23:11 | EDPHYS ---
Physician Documentation [facility] Name: Emilie Holland Age: 27 yrs Sex: Female : 1990 Arrival Date: 12/23/2017 Time: 18:10 Bed 17 Private MD: None, None ED Physician Kvng Dupree HPI: 12/23 19:20 This 27 yrs old Black Female presents to ER via Ambulatory with complaints of Flu cp Symptoms. 19:20 The patient reports fever, that was measured at 102.7 degrees Fahrenheit. cp 19:20 Onset: The symptoms/episode began/occurred 3 day(s) ago. Associated signs and symptoms: cp Pertinent positives: cough, nausea, sore throat. 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 - Social history:: Smoking status: Patient uses tobacco products, smokes one pack cigarettes per day. - Ebola Screening: : No symptoms or risks identified at this time. ROS: 19:25 Constitutional: Positive for body aches, fever, poor PO intake. cp 19:25 Eyes: Negative for injury, pain, redness, and discharge. cp 19:25 ENT: Positive for ear pain, sore throat, Negative for drainage from ear(s), rhinorrhea, cp sinus congestion, difficulty swallowing, difficulty handling secretions. 19:25 Neck: Positive for swollen nodes, Negative for stiffness. 19:25 Cardiovascular: Negative for edema, palpitations. 19:25 Respiratory: Positive for cough, Negative for shortness of breath, wheezing. 19:25 Abdomen/GI: Positive for nausea, Negative for vomiting, diarrhea, constipation. 19:25 : Negative for urinary symptoms, vaginal bleeding, vaginal discharge. 19:25 Skin: Negative for cellulitis, rash. 19:25 Neuro: Positive for headache, Negative for altered mental status, seizure activity. 19:25 All other systems are negative. Exam: 19:32 Constitutional: The patient appears in no acute distress, alert, awake, non-toxic, well cp developed, well nourished, uncomfortable. 19:32 Head/Face: Normocephalic, atraumatic. cp 19:32 Eyes: Periorbital structures: appear normal, Pupils: equal, round, and reactive to cp light and accomodation, Extraocular movements: intact throughout, Conjunctiva: normal, no exudate, no injection, Sclera: no appreciated abnormality, Lids and lashes: appear normal, bilaterally. 19:32 ENT: External ear(s): are unremarkable, Ear canal(s): erythema, bilaterally, TM's: bulging, is not appreciated, bilaterally, erythema, bilaterally, Nose: is normal, Mouth: Lips: dry, Oral mucosa: dry, Posterior pharynx: is normal, airway is patent, no erythema, no exudate, Voice: is normal. 19:32 Neck: ROM/movement: is normal, is supple, no range of motions limitations, no cp meningismus, no nuchal rigidity, Lymph nodes: lymphadenopathy is appreciated, anterior cervical nodes. 19:32 Chest/axilla: Inspection: normal, Palpation: is normal, no crepitus, no tenderness. 19:32 Cardiovascular: Rate: tachycardic, Rhythm: regular. 19:32 Respiratory: the patient does not display signs of respiratory distress, Respirations: normal, no use of accessory muscles, no retractions, no splinting, no tachypnea, labored breathing, is not present, Breath sounds: are clear throughout, no decreased breath sounds, no stridor, no wheezing. 19:32 Abdomen/GI: Inspection: obese Bowel sounds: active, all quadrants, Palpation: soft, in all quadrants, mild abdominal tenderness, in the right lower quadrant and left lower quadrant, voluntary guarding, is not appreciated, involuntary guarding, is not appreciated. 19:32 Back: CVA tenderness, is absent. 19:32 Skin: cellulitis, is not appreciated, no rash present. 19:32 Neuro: Orientation: to person, place \T\ time. Mentation: lucid, able to follow commands, Cerebellar function: is grossly normal, Motor: moves all fours, strength is normal, Sensation: no obvious gross deficits. 19:33 ECG was reviewed by the Attending Physician. Vital Signs: 18:36 BP 116 / 74; Pulse 144; Resp 22; Temp 100.4(O); Pulse Ox 96% on R/A; Weight 78.47 kg; ph Height 5 ft. 2 in. (157.48 cm); Pain 10/10; 20:01 BP 117 / 69; Pulse 138; Resp 20; Pulse Ox 97% on R/A; Pain 10/10; ed1 20:57 BP 105 / 62; Pulse 121; Resp 18; Temp 98.6; Pulse Ox 97% on R/A; Pain 6/10; ed1 21:57 BP 111 / 70; Pulse 121; Resp 20; Temp 98.9(O); Pulse Ox 97% on R/A; bs1 22:57 BP 111 / 68; Pulse 101; Resp 19; Temp 98.9(O); Pulse Ox 100% on R/A; Pain 4/10; bs1 18:36 Body Mass Index 31.64 (78.47 kg, 157.48 cm) ph MDM: 18:23 Patient medically screened. cp 20:00 Differential diagnosis: viral Infection, bacterial infection, bronchitis, pneumonia cp UTI, gastroenteritis, meningitis, dehydration, sepsis, tonsillitis. 23:08 Data reviewed: vital signs, nurses notes, lab test result(s), EKG, radiologic studies, cp plain films. 23:08 Test interpretation: by ED physician or midlevel provider: ECG, plain radiologic cp studies. 23:10 Counseling: I had a detailed discussion with the patient and/or guardian regarding: the cp historical points, exam findings, and any diagnostic results supporting the discharge/admit diagnosis, lab results, radiology results, the need for outpatient follow up, a family practitioner, to return to the emergency department if symptoms worsen or persist or if there are any questions or concerns that arise at home. 23:10 Response to treatment: the patient's symptoms have markedly improved after treatment, cp VSS. Pain and symptoms improved. Will discharge to home for continued monitoring. 12/23 19:17 Order name: Urine Culture cp 12/23 19:17 Order name: Urine Microscopic Only; Complete Time: 20:39 cp 12/23 20:39 Interpretation: Normal except: UWBC 5-10; URBC 5-10; SQEPI 20-50. cp 12/23 19:17 Order name: Amylase, Serum; Complete Time: 20:39 cp 12/23 19:17 Order name: Basic Metabolic Panel; Complete Time: 20:39 cp 07/18 21:52 Interpretation: Normal except: NA 134; GFR 65; CA 8.2. cp 18 19:17 Order name: Blood Culture Adult (2) cp 12/23 19:17 Order name: CBC with Diff; Complete Time: 20:15 cp 18 21:53 Interpretation: Normal except: WBC 19.8; SVEN% 84.6; LYM% 5.4; NEUT A 16.7; MNA 1.9. cp /18 19:17 Order name: Ckmb; Complete Time: 20:39 cp 18 19:17 Order name: CPK; Complete Time: 20:39 cp 18 19:17 Order name: Lactate; Complete Time: 20:15 cp 18 19:17 Order name: LFT's; Complete Time: 20:39 cp 18 20:40 Interpretation: Normal except: TP 8.3; ALB 3.3; GLOB 5.0; A/G 0.7. cp 18 19:17 Order name: Lipase; Complete Time: 20:39 cp 18 19:17 Order name: Procalcitonin; Complete Time: 20:39 cp 18 20:40 Interpretation: Abnormal: Procalcitonin 0.62. cp 18 19:17 Order name: Ptt, Activated; Complete Time: 20:39 cp 12/23 19:17 Order name: Ector Screen Profile; Complete Time: 20:39 cp 18 20:40 Interpretation: MONO NEG; Reviewed. cp 18 19:17 Order name: Urine Test (obtain specimen); Complete Time: 19:57 cp 18 19:17 Order name: Chest Single View XRAY; Complete Time: 20:15 cp 18 19:17 Order name: Accucheck; Complete Time: 19:41 cp 18 19:17 Order name: Cardiac monitoring; Complete Time: 19:42 cp 18 19:17 Order name: EKG - Nurse/Tech; Complete Time: 19:42 cp 18 20:04 Order name: Urine Dipstick--Ancillary (enter results); Complete Time: 20:15 ms 18 21:53 Interpretation: Normal except: UKET 1+; UBLD 2+; UPROT 2+. cp 18 20:04 Order name: Urine --Ancillary (enter results); Complete Time: 20:15 ms 12/23 21:53 Interpretation: Reviewed. cp 12/23 19:17 Order name: IV Saline Lock - Large Bore; Complete Time: 19:42 cp 12/23 19:17 Order name: Labs collected and sent; Complete Time: 19:42 cp 12/23 19:17 Order name: O2 Per Protocol; Complete Time: 19:42 cp 12/23 19:17 Order name: O2 Sat Monitoring; Complete Time: 19:42 cp 12/23 19:17 Order name: Urine Dipstick-Ancillary (obtain specimen); Complete Time: 19:57 cp 12/23 21:25 Order name: PO challenge; Complete Time: 21:34 cp EC:33 Rate is 141 beats/min. Rhythm is regular. MD interval is normal at 116 msec. QRS cp interval is normal at 72 msec. QT interval is normal. Interpreted by me. Reviewed by me. Administered Medications: 19:41 Drug: Acetaminophen 1000 mg Route: PO; ed1 23:26 Follow up: Response: No adverse reaction bs1 19:42 Drug: NS 0.9% (30 ml/kg) 30 ml/kg Route: IV; Rate: bolus; Site: right antecubital; ed1 20:46 Drug: TORadol 30 mg Route: IVP; Site: right antecubital; bb 23:26 Follow up: Response: No adverse reaction bs1 20:46 Drug: Decadron - Dexamethasone 10 mg Route: IVP; Site: right antecubital; bb 23:26 Follow up: Response: No adverse reaction bs1 20:46 Drug: Rocephin - (cefTRIAXone) 1 grams Route: IVPB; Infused Over: 30 mins; Site: right bb antecubital; 20:47 Drug: morphine 2 mg Route: IVP; Site: right antecubital; bb 23:26 Follow up: Response: No adverse reaction bs1 21:34 Drug: NS 0.9% 1000 ml Route: IV; Rate: 1 bolus; Site: right forearm; bs1 23:30 Follow up: IV Status: Completed infusion bs1 22:38 Drug: Clindamycin 900 mg Route: IVPB; Infused Over: 30 mins; Site: right forearm; bs1 23:30 Follow up: IV Status: Completed infusion bs1 23:23 Drug: Lortab Liquid 15 ml Route: PO; bs1 23:27 Follow up: Response: No adverse reaction bs1 Disposition: 12/23/17 23:10 Discharged to Home. Impression: Acute tonsillitis. - Condition is Stable. - Discharge Instructions: Tonsillitis. - Prescriptions for Clindamycin HCl 300 mg Oral Capsule - take 1 capsule by ORAL route every 6 hours for 10 days; 40 capsule. Tylenol- Codeine #3 300-30 mg Oral Tablet - take 2 tablets by ORAL route every 6 hours As needed; 15 tablet. - Medication Reconciliation Form, Thank You Letter, Antibiotic Education, Prescription Opioid Use form. - Follow up: Private Physician; When: 1 - 2 days; Reason: Recheck today's complaints. - Problem is new. - Symptoms have improved. Addendum: 12/25/2017 20:03 Co-signature as Attending Physician, Kvng Dupree MD I agree with the assessment and w a plan of care. Signatures: Dispatcher [employer] EDMS Bernice Ron RN RN bb Henna Colon LVN LEGAL ADMINISTRATIVE SECRETARY ed1 Natasha Frias RN RN ph Sally, Manny, PA PA cp Kvng Dupree MD MD wa Salazar, Brittany RN RN bs1 Corrections: (The following items were deleted from the chart) 12/23 21:52 20:39 Normal except: NA 134; GFR 65. cp cp 21:53 20:15 Normal except: WBC 19.8; SVEN% 84.6; LYM% 5.4; NEUT A 16.7. cp cp 23:29 23:10 12/23/2017 23:10 Discharged to Home. Impression: Acute tonsillitis. Condition is bs1 Stable. Forms are Medication Reconciliation Form, Thank You Letter, Antibiotic Education, Prescription Opioid Use. Follow up: Private Physician; When: 1 - 2 days; Reason: Recheck today's complaints. Problem is new. Symptoms have improved. cp
--- NOTE | 2017-12-23 23:11 | ER ---
Nurse's Notes [facility] Name: Emilie Holland Age: 27 yrs Sex: Female : 1990 Arrival Date: 12/23/2017 Time: 18:10 Bed 17 Private MD: None, None Diagnosis: Acute tonsillitis Presentation: 12/23 18:34 Presenting complaint: Patient states: " On Thursday I started getting a cough and sore ph throat, then my ears started hurting and I started getting body aches and running a fever." TMAX 102.7, pt also reports nausea, denies V/D or abdominal pain. Transition of care: patient was not received from another setting of care. Onset of symptoms was December 23, 2017. Risk Assessment: Do you want to hurt yourself or someone else? Patient reports no desire to harm self or others. Initial Sepsis Screen: Does the patient meet any 2 criteria? No. Patient's initial sepsis screen is negative. Does the patient have a suspected source of infection? No. Patient's initial sepsis screen is negative. Care prior to arrival: None. 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 - Social history:: Smoking status: Patient uses tobacco products, smokes one pack cigarettes per day. - Ebola Screening: : No symptoms or risks identified at this time. Screenin:55 Abuse screen: Denies threats or abuse. Denies injuries from another. Nutritional ed1 screening: No deficits noted. Tuberculosis screening: No symptoms or risk factors identified. Fall Risk None identified. Assessment: 18:55 General: Appears uncomfortable, Behavior is calm, cooperative. Pain: Complains of pain ed1 in bilat ears, head, throat Pain currently is 10 out of 10 on a pain scale. Quality of pain is described as aching, throbbing, Pain began 2-3 days ago. Is continuous. Neuro: Level of Consciousness is awake, alert, obeys commands, Oriented to person, place, time, situation. Cardiovascular: Denies chest pain, Heart tones S1 S2 present. Respiratory: Airway is patent Respiratory effort is even, unlabored, Respiratory pattern is regular, symmetrical, Breath sounds are clear bilaterally. GI: Reports nausea. : No signs and/or symptoms were reported regarding the genitourinary system. EENT: Oral mucosa is dry. Derm: Skin is intact, is healthy with good turgor, Skin is dry, Skin is normal, Skin temperature is hot. Musculoskeletal: Circulation, motion, and sensation intact. 20:01 Reassessment: Patient appears in no apparent distress at this time. No changes from ed1 previously documented assessment. Patient and/or family updated on plan of care and expected duration. Pain level reassessed. Patient is alert, oriented x 3, equal unlabored respirations, skin warm/dry/pink. Patient states symptoms have not improved. 20:57 Reassessment: Patient appears in no apparent distress at this time. No changes from ed1 previously documented assessment. Patient and/or family updated on plan of care and expected duration. Pain level reassessed. Patient is alert, oriented x 3, equal unlabored respirations, skin warm/dry/pink. Patient states feeling better. Patient states symptoms have improved. 21:08 Reassessment: Report received from AKOSUA Aguillon. General: Appears in no apparent bs1 distress. uncomfortable, Behavior is calm, cooperative, appropriate for age. Pain: Complains of pain in bilateral ears, head/throat. Neuro: Level of Consciousness is awake, alert, obeys commands. Cardiovascular: Denies chest pain, Heart tones S1 S2 present Capillary refill < 3 seconds. GI: Reports nausea. : No signs and/or symptoms were reported regarding the genitourinary system. EENT: Oral mucosa is dry. Derm: Skin is intact, Skin is pink, warm \\T\\ dry. normal. Musculoskeletal: Circulation, motion, and sensation intact. Capillary refill < 3 seconds. 22:00 Reassessment: Patient tolerated PO challenge, given 1 cup of sprite. bs1 23:00 Reassessment: Patient appears in no apparent distress at this time. Patient and/or bs1 family updated on plan of care and expected duration. Pain level reassessed. Patient is alert, oriented x 3, equal unlabored respirations, skin warm/dry/pink. patient informed of DC instructions, medications, when to return to ER, patient states understanding of POC. Vital Signs: 18:36 BP 116 / 74; Pulse 144; Resp 22; Temp 100.4(O); Pulse Ox 96% on R/A; Weight 78.47 kg; ph Height 5 ft. 2 in. (157.48 cm); Pain 10/10; 20:01 BP 117 / 69; Pulse 138; Resp 20; Pulse Ox 97% on R/A; Pain 10/10; ed1 20:57 BP 105 / 62; Pulse 121; Resp 18; Temp 98.6; Pulse Ox 97% on R/A; Pain 6/10; ed1 21:57 BP 111 / 70; Pulse 121; Resp 20; Temp 98.9(O); Pulse Ox 97% on R/A; bs1 22:57 BP 111 / 68; Pulse 101; Resp 19; Temp 98.9(O); Pulse Ox 100% on R/A; Pain 4/10; bs1 18:36 Body Mass Index 31.64 (78.47 kg, 157.48 cm) ph ED Course: 18:10 Patient arrived in ED. sb2 18:10 None, None is Private Physician. sb2 18:19 Henna Colon LVN is Primary Nurse. ed1 18:23 Manny Zavala PA is PHCP. cp 18:23 Kvng Dupree MD is Attending Physician. cp 18:36 Triage completed. ph 18:37 Arm band placed on Patient placed in an exam room, in view of staff members, on cardiac ph monitor, on pulse oximetry. 18:55 Patient has correct armband on for positive identification. ed1 18:55 Inserted saline lock: 20 gauge in right antecubital area, using aseptic technique. ed1 19:34 X-ray completed. Portable x-ray completed in exam room. Patient tolerated procedure bb2 well. 19:36 Chest Single View XRAY In Process Unspecified. EDMS 20:58 Primary Nurse role handed off by Henna Colon LVN ed1 21:08 Jayshree Angel, RN is Primary Nurse. bs1 23:27 No provider procedures requiring assistance completed. IV discontinued, bleeding bs1 controlled, No redness/swelling at site. Pressure dressing applied. Administered Medications: 19:41 Drug: Acetaminophen 1000 mg Route: PO; ed1 23:26 Follow up: Response: No adverse reaction bs1 19:42 Drug: NS 0.9% (30 ml/kg) 30 ml/kg Route: IV; Rate: bolus; Site: right antecubital; ed1 20:46 Drug: TORadol 30 mg Route: IVP; Site: right antecubital; bb 23:26 Follow up: Response: No adverse reaction bs1 20:46 Drug: Decadron - Dexamethasone 10 mg Route: IVP; Site: right antecubital; bb 23:26 Follow up: Response: No adverse reaction bs1 20:46 Drug: Rocephin - (cefTRIAXone) 1 grams Route: IVPB; Infused Over: 30 mins; Site: right bb antecubital; 20:47 Drug: morphine 2 mg Route: IVP; Site: right antecubital; bb 23:26 Follow up: Response: No adverse reaction bs1 21:34 Drug: NS 0.9% 1000 ml Route: IV; Rate: 1 bolus; Site: right forearm; bs1 23:30 Follow up: IV Status: Completed infusion bs1 22:38 Drug: Clindamycin 900 mg Route: IVPB; Infused Over: 30 mins; Site: right forearm; bs1 23:30 Follow up: IV Status: Completed infusion bs1 23:23 Drug: Lortab Liquid 15 ml Route: PO; bs1 23:27 Follow up: Response: No adverse reaction bs1 Outcome: 23:10 Discharge ordered by . cp 23:27 Discharged to home with family. bs1 23:27 Condition: stable 23:27 Discharge instructions given to patient, Instructed on discharge instructions, follow up and referral plans. medication usage, Demonstrated understanding of instructions, follow-up care, medications, Prescriptions given X 2. 23:29 Patient left the ED. bs1 Signatures: Dispatcher [employer] EDMS Bernice Ron RN RN bb Henna Colon LVN RESULTS ENGINEER ed1 Natasha Frias RN RN Manny Han, PAULINA GALLARDO cp Jayshree French bb2 Jayshree Angel RN RN bs1 Criss Gill sb2
[2017-12-23] MEDS ORDERED: HYDROCOD 2.5mg-ACETAMIN 108mg/5mL Soln ONE (23:20)
[2017-12-23 23:36] VITALS: TEMP 98.9
[2017-12-23 23:38] VITALS: BP 111/68; O2SAT 100
--- NOTE | 2017-12-24 13:54 | EKG ---
Test Date: 2017-12-23 Test Time: 19:25:49 Payloader Machine Operator: MATILDE MEASUREMENT RESULTS: Intervals: Rate: 141 [place]: 116 QRSD: 72 QT: 300 QTc: 459 Gordon: P: 63 [place]: 116 QRS: 116 T: 27 INTERPRETIVE STATEMENTS: Sinus tachycardia Right axis deviation Abnormal ECG Compared to ECG 08/23/2017 03:27:16 Right-axis deviation now present Sinus rhythm no longer present T-wave abnormality no longer present Electronically Signed On 12-24-17 13:52:06 CDT by Crow [place]
== END 2017-12-23 23:29 | disposition home or self-care (01) ==
LOC: ER 18:09
DX: J03.90 Acute tonsillitis, unspecified (principal); F17.210 Nicotine dependence, cigarettes, uncomplicated; Z88.5 Allergy status to narcotic agent; Z88.6 Allergy status to analgesic agent; Z91.048 Other nonmedicinal substance allergy status
CPT/HCPCS: 36415; 71045; 80048; 80076; 81003; 81015; 81025; 82150; 82550; 82553; 82962; 83605; 83690; 84145; 85025; 85730; 86308; 87040; 87086; 87088; 93005; 96361; 96365; 96375; 99284; J0696; J1100; J7030

== ENCOUNTER 2018-01-17 11:08 | Emergency (ER) | payer SELFPAY ==
--- OUTSIDE RECORDS SUMMARY | 2018-01-17 11:10 | XMS REPORT ---
:1990 [facility] Address [address] [place] [address] Dr. Hernaned[address] [place] [id number] Care Team Providers Name Role Phone UNKNOWN, [...] Department ID 2017-06-14 2017-06-17 Inpatient [facility] [id number] 21:05:00 13:02:00 SAMPSON Pickard M.D.
[2018-01-17 12:24] LABS: Absolute Lymphocytes (CBC) 1.8 K/uL (0.7-4.9); Absolute Monocytes 0.5 K/uL (0.1-1.3); Absolute Neutrophil 3.3 K/uL (1.8-8.0); Basophils % 0.5 % (0-1.3); Eosinophils % 2.1 % (0-4.4); Hematocrit 36.2 % (36.0-45.0); Lymphocytes % 31.7 % (15.3-44.8); MCH 30.7 pg (27.0-35.0); MCV 90.4 fL (80-100); MPV 8.6 fL (7.6-11.3); Monocytes % 8.8 % (3.3-12.3)
[2018-01-17] MEDS ORDERED: ONDANSETRON 4 MG/2 ML VIAL ONE (12:25)
[2018-01-17 12:39] LABS: BUN Blood Urea Nitrogen 9 mg/dL (7-18); Bicarbonate 25 mmol/L (21-32); Glucose Level 84 mg/dL (74-106); Potassium 3.4 mmol/L (3.5-5.1); Sodium Level 141 mmol/L (136-145)
--- NOTE | 2018-01-17 12:46 | RAD REPORT ---
EXAM DESCRIPTION: RAD - Chest Pa And Lat (2 Views) - 01/17/2018 11:57 am CLINICAL HISTORY: Back pain, chest pain COMPARISON: December 24 TECHNIQUE: PA and lateral views of the chest were obtained. FINDINGS: The lungs are clear of a focal mass, infiltrate or failure finding. Lung markings are tyra lar to the comparison. Heart size is normal and central vasculature is within normal limits. No pl eural effusion or pneumothorax seen. No acute bone finding. Thoracic scoliosis is stable. No aortic abnormality. IMPRESSION: No acute cardiopulmonary process. No significant change from comparison.
--- NOTE | 2018-01-17 13:32 | ER ---
Nurse's Notes [facility] Name: Emilie Holland Age: 27 yrs Sex: Female : 1990 Arrival Date: 01/17/2018 Time: 11:10 Bed 20 Private MD: None, None Diagnosis: Chest pain, unspecified Presentation: 01/17 11:17 Presenting complaint: Patient states: Substernal chest pain and back pain since aj1 yesterday. Reports shortness of breath, palpitations, nausea dizziness. Denies syncope, vomiting. Denies cough, fever. Transition of care: patient was not received from another setting of care. Onset of symptoms was January 16, 2018. Risk Assessment: Do you want to hurt yourself or someone else? Patient reports no desire to harm self or others. Initial Sepsis Screen: Does the patient meet any 2 criteria? HR > 90 bpm. No. Patient's initial sepsis screen is negative. Does the patient have a suspected source of infection? No. Patient's initial sepsis screen is negative. Care prior to arrival: None. 11:17 Method Of Arrival: Ambulatory aj1 11:17 Acuity: ADITYA 3 aj1 Triage Assessment: 11:24 General: Appears in no apparent distress. comfortable, Behavior is calm, cooperative, aj1 appropriate for age. Pain: Complains of pain in back and mid-sternal area Pain currently is 8 out of 10 on a pain scale. Neuro: Level of Consciousness is awake, alert, obeys commands. Cardiovascular: Reports chest pain, Patient's skin is warm and dry. Respiratory: Reports shortness of breath Airway is patent Respiratory effort is even, unlabored, Respiratory pattern is regular, symmetrical. 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 - Social history:: Smoking status: Patient uses tobacco products, smokes one pack cigarettes per day. - Ebola Screening: : Patient denies travel to an Ebola-affected area in the 21 days before illness onset. - Family history:: not pertinent. - Hospitalizations: : No recent hospitalization is reported. Screenin:16 Abuse screen: Denies threats or abuse. Nutritional screening: No deficits noted. em Tuberculosis screening: No symptoms or risk factors identified. Fall Risk None identified. Assessment: 11:44 General: Appears in no apparent distress. comfortable, Behavior is cooperative, em anxious, Reports chest pain for 2 days, with nausea, denies vomiting, has hx of anxiety. Pain: Complains of pain in mid-sternal area Pain radiates to back Pain currently is 8 out of 10 on a pain scale. Pain began 2-3 days ago. Neuro: Level of Consciousness is awake, alert, obeys commands, Oriented to person, place, time, situation. Cardiovascular: Capillary refill < 3 seconds Patient's skin is warm and dry. Respiratory: Airway is patent Respiratory effort is even, unlabored, Respiratory pattern is regular, symmetrical. GI: Abdomen is round non-distended, Reports nausea, Patient currently denies vomiting. : No signs and/or symptoms were reported regarding the genitourinary system. EENT: No signs and/or symptoms were reported regarding the EENT system. Derm: Skin is intact, Skin is pink, warm \T\ dry. Musculoskeletal: Range of motion: intact in all extremities. 11:45 Reassessment: I agree with previous assessment. hb 13:19 Reassessment: Patient appears in no apparent distress at this time. Patient and/or em family updated on plan of care and expected duration. Pain level reassessed. Patient is alert, oriented x 3, equal unlabored respirations, skin warm/dry/pink. Vital Signs: 11:24 BP 132 / 96; Pulse 96; Resp 18; Temp 98.2; Pulse Ox 99% on R/A; Weight 83.01 kg (R); aj1 Height 5 ft. 2 in. (157.48 cm) (R); Pain 8/10; 12:15 BP 123 / 101; Pulse 87; Resp 18; Pulse Ox 97% on R/A; Pain 8/10; em 13:10 BP 112 / 86; Pulse 73; Resp 18; Pulse Ox 97% on R/A; Pain 3/10; em 11:24 Body Mass Index 33.47 (83.01 kg, 157.48 cm) aj1 ED Course: 11:10 Patient arrived in ED. sb2 11:10 None, None is Private Physician. sb2 11:21 Triage completed. aj1 11:24 Arm band placed on Patient placed in an exam room. aj1 11:26 Kevon Aazr MD is Attending Physician. rn 11:45 Chris Kelly LVN is Primary Nurse. em 11:54 XRAY Chest Pa And Lat (2 Views) In Process Unspecified. EDMS 12:16 Patient has correct armband on for positive identification. Pulse ox on. NIBP on. em 12:16 No provider procedures requiring assistance completed. Initial lab(s) drawn, by me, em sent to lab. Inserted saline lock: 20 gauge in right antecubital area, using aseptic technique. Blood collected. Patient maintains SpO2 saturation greater than 95% on room air. 13:58 IV discontinued, intact, bleeding controlled, No redness/swelling at site. Pressure em dressing applied. Administered Medications: 12:40 Drug: Zofran 4 mg Route: IVP; Site: right antecubital; hb 13:48 Follow up: Response: No adverse reaction; Nausea is decreased em 13:57 Drug: TORadol 30 mg Route: IVP; Site: right antecubital; hb 13:59 Follow up: Response: Medication administered at discharge. em Outcome: 13:31 Discharge ordered by MD. rn 13:58 Discharged to home ambulatory. em 13:58 Condition: good 13:58 Discharge instructions given to patient, Instructed on discharge instructions, follow up and referral plans. Demonstrated understanding of instructions, follow-up care. 14:00 Patient left the ED. em Signatures: Dispatcher [employer] EDElizabeth Dozier RN RN aj1 Chris Kelly LVN LVN em Kevon Azar MD MD rn Baxter, Heather, RN RN hb Billeau, Sheri sb2
--- NOTE | 2018-01-17 13:32 | EDPHYS ---
Physician Documentation [facility] Name: Emilie Holland Age: 27 yrs Sex: Female : 1990 Arrival Date: 01/17/2018 Time: 11:10 Bed 20 Private MD: None, None ED Physician Kevon Azar HPI: 01/17 11:44 This 27 yrs old Black Female presents to ER via Ambulatory with complaints of Chest rn Pain. 11:44 The patient or guardian reports chest pain that is located primarily in the substernal rn area. The pain does not radiate. Associated signs and symptoms: Pertinent positives: lightheadedness, + fatigue, anxiety. The chest pain is described as aching. Duration: The patient or guardian reports a single episode, that is still ongoing. Modifying factors: The symptoms are alleviated by nothing. the symptoms are aggravated by emotionally stressful situations. Severity of pain: At its worst the pain was mild in the emergency department the pain is unchanged. The patient has experienced similar episodes in the past. Reports chest pain, aching, non-radiating, assoc with feelings of anxiety, has had this happen multiple times, feels alittle different than other anxiety, states is worried because of somewhat recent suicide of her significant other, no fever/cough/sob. . 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 - Social history:: Smoking status: Patient uses tobacco products, smokes one pack cigarettes per day. - Ebola Screening: : Patient denies travel to an Ebola-affected area in the 21 days before illness onset. - Family history:: not pertinent. - Hospitalizations: : No recent hospitalization is reported. ROS: 11:44 Constitutional: Negative for fever, chills, and weight loss, Eyes: Negative for injury, rn pain, redness, and discharge, Neck: Negative for injury, pain, and swelling, Respiratory: Negative for shortness of breath, cough, wheezing, and pleuritic chest pain, Abdomen/GI: Negative for abdominal pain, nausea, vomiting, diarrhea, and constipation, MS/Extremity: Negative for injury and deformity, Skin: Negative for injury, rash, and discoloration, Neuro: Negative for numbness, tingling, and seizure. Exam: 11:44 Constitutional: This is a well developed, well nourished patient who is awake, alert, rn and in no acute distress. Legs crossed and using her phone. Head/Face: Normocephalic, atraumatic. Eyes: Pupils equal round and reactive to light, extra-ocular motions intact. Lids and lashes normal. Conjunctiva and sclera are non-icteric and not injected. Cornea within normal limits. Periorbital areas with no swelling, redness, or edema. Neck: Trachea midline, no thyromegaly or masses palpated, and no cervical lymphadenopathy. Supple, full range of motion without nuchal rigidity, or vertebral point tenderness. No Meningismus. Cardiovascular: Regular rate and rhythm with a normal S1 and S2. No gallops, murmurs, or rubs. Normal PMI, no JVD. No pulse deficits. Respiratory: Lungs have equal breath sounds bilaterally, clear to auscultation and percussion. No rales, rhonchi or wheezes noted. No increased work of breathing, no retractions or nasal flaring. Abdomen/GI: Soft, non-tender, with normal bowel sounds. No distension or tympany. No guarding or rebound. No evidence of tenderness throughout. Skin: Warm, dry with normal turgor. Normal color with no rashes, no lesions, and no evidence of cellulitis. MS/ Extremity: Pulses equal, no cyanosis. Neurovascular intact. Full, normal range of motion. Equal circumference. Neuro: Awake and alert, GCS 15, oriented to person, place, time, and situation. Cranial nerves II-XII grossly intact. Motor strength 5/5 in all extremities. Sensory grossly intact. Vital Signs: 11:24 BP 132 / 96; Pulse 96; Resp 18; Temp 98.2; Pulse Ox 99% on R/A; Weight 83.01 kg (R); aj1 Height 5 ft. 2 in. (157.48 cm) (R); Pain 8/10; 12:15 BP 123 / 101; Pulse 87; Resp 18; Pulse Ox 97% on R/A; Pain 8/10; em 13:10 BP 112 / 86; Pulse 73; Resp 18; Pulse Ox 97% on R/A; Pain 3/10; em 11:24 Body Mass Index 33.47 (83.01 kg, 157.48 cm) aj1 MDM: 11:26 Patient medically screened. rn 13:29 Differential diagnosis: acute pericarditis, anxiety, chest wall pain, costochondritis, rn gastritis, gastroesophageal reflux disease (GERD), pericarditis, pleurisy, pneumothorax. Data reviewed: vital signs, nurses notes, lab test result(s), EKG, radiologic studies, plain films, and as a result, I will discharge patient. Counseling: I had a detailed discussion with the patient and/or guardian regarding: the historical points, exam findings, and any diagnostic results supporting the discharge/admit diagnosis, lab results, radiology results, the need for outpatient follow up, to return to the emergency department if symptoms worsen or persist or if there are any questions or concerns that arise at home. Special discussion: Based on the patient's history, exam, and Dx evaluation, there is no indication for emergent intervention or inpatient Tx. It is understood by the patient/guardian that if the Sx's persist or worsen they need to return immediately for re-evaluation. I discussed with the patient/guardian in detail that at this point there is no indication for admission to the hospital. It is understood, however, that if the symptoms persist or worsen the patient needs to return immediately for re-evaluation. ED course: Meets PERC criteria, normal trop and ECG will dc home. . 01/17 11:39 Order name: CBC with Diff; Complete Time: 12:43 rn 01/17 11:39 Order name: Basic Metabolic Panel; Complete Time: 12:43 rn 01/17 11:39 Order name: XRAY Chest Pa And Lat (2 Views); Complete Time: 12:52 rn 01/17 11:39 Order name: Troponin (emerg Dept Use Only); Complete Time: 12:43 rn 01/17 11:39 Order name: IV Start; Complete Time: 12:14 rn 01/17 11:39 Order name: EKG; Complete Time: 11:40 rn 01/17 11:39 Order name: EKG - Nurse/Tech; Complete Time: 12:15 rn Administered Medications: 12:40 Drug: Zofran 4 mg Route: IVP; Site: right antecubital; hb 13:48 Follow up: Response: No adverse reaction; Nausea is decreased em 13:57 Drug: TORadol 30 mg Route: IVP; Site: right antecubital; hb 13:59 Follow up: Response: Medication administered at discharge. em Disposition: 01/17/18 13:31 Discharged to Home. Impression: Chest pain, unspecified. - Condition is Stable. - Discharge Instructions: Nonspecific Chest Pain. - Medication Reconciliation Form, Thank You Letter, Antibiotic Education, Prescription Opioid Use form. - Follow up: Private Physician; When: As needed; Reason: Recheck today's complaints, Re-evaluation by your physician. - Problem is new. - Symptoms have improved. Signatures: Dispatcher [employer] Elizabeth Joe RN RN aj1 Chris Kelly, ACCOUNTS PAYABLE PROCESSOR ACCOUNTS PAYABLE PROCESSOR Kevon Sánchez MD MD rn Baxter, Heather, RN RN Corrections: (The following items were deleted from the chart) 14:00 13:31 01/17/2018 13:31 Discharged to Home. Impression: Chest pain, unspecified. em Condition is Stable. Forms are Medication Reconciliation Form, Thank You Letter, Antibiotic Education, Prescription Opioid Use. Follow up: Private Physician; When: As needed; Reason: Recheck today's complaints, Re-evaluation by your physician. Problem is new. Symptoms have improved. rn
[2018-01-17] MEDS ORDERED: KETOROLAC 30 MG/ML INJ ONE (13:54)
[2018-01-17 14:06] VITALS: TEMP 98.2
[2018-01-17 14:07] VITALS: O2SAT 97
[2018-01-17 14:09] VITALS: BP 112/86
--- NOTE | 2018-01-17 15:15 | EKG ---
Test Date: 2018-01-17 Test Time: 12:21:08 Sustainability Specialist: TATYANA MEASUREMENT RESULTS: Intervals: Rate: 80 HI: 126 QRSD: 76 QT: 420 QTc: 484 Tatum: P: 65 HI: 126 QRS: 62 T: 39 INTERPRETIVE STATEMENTS: Normal sinus rhythm Prolonged QT Abnormal ECG Compared to ECG 12/23/2017 19:25:49 Prolonged QT interval now present Sinus tachycardia no longer present Right-axis deviation no longer present Electronically Signed On 01-17-18 15:14:21 CDT by Buzz Cooney
== END 2018-01-17 14:00 | disposition home or self-care (01) ==
LOC: ER 11:08
DX: R07.9 Chest pain, unspecified (principal); F41.9 Anxiety disorder, unspecified; F17.210 Nicotine dependence, cigarettes, uncomplicated; Z88.5 Allergy status to narcotic agent; Z88.6 Allergy status to analgesic agent; Z91.048 Other nonmedicinal substance allergy status
CPT/HCPCS: 36415; 71046; 80048; 84484; 85025; 93005; 96374; 96375; 99284; J2405

== ENCOUNTER 2018-04-14 08:11 | Emergency (ER) | payer SELFPAY ==
--- OUTSIDE RECORDS SUMMARY | 2018-04-14 08:14 | XMS REPORT ---
:1990 Author Organization [facility] Address [address] [place] [address] [address] [place] [address] Care Team Providers Name Role Phone UNKNOWN, [...] Department ID 2017-06-14 2017-06-17 Inpatient E [facility] [id number] 21:05:00 13:02:00 SAMPSON Pickard M.D.
[2018-04-14 08:58] LABS: Urine Blood NEGATIVE (NEG); Urine Glucose NEGATIVE (NEG); Urine Protein NEGATIVE (NEG)
[2018-04-14 09:08] LABS: Urine Bacteria <20 /HPF (<20); Urine Culture Reflex Order NOT NEEDED; Urine RBC NONE SEEN /HPF (NONE SEEN)
[2018-04-14 09:10] LABS: Absolute Lymphocytes (CBC) 1.9 K/uL (0.7-4.9); Absolute Monocytes 0.4 K/uL (0.1-1.3); Absolute Neutrophil 1.9 K/uL (1.8-8.0); Basophils % 1.2 % (0-1.3); Eosinophils % 2.8 % (0-4.4); Hematocrit 33.4 % (36.0-45.0); Lymphocytes % 43.1 % (15.3-44.8); MCH 31.4 pg (27.0-35.0); MCV 92.1 fL (80-100); MPV 8.9 fL (7.6-11.3); Monocytes % 9.9 % (3.3-12.3); RBC Red Blood Cell Count 3.62 M/uL (3.86-4.86)
[2018-04-14 09:28] LABS: ALT/SGPT 15 U/L (12-78); AST/SGOT 11 U/L (15-37); Alkaline Phosphatase 81 U/L (45-117); BUN Blood Urea Nitrogen 8 mg/dL (7-18); Bicarbonate 24 mmol/L (21-32); Bilirubin Direct < 0.1 mg/dL (0-0.2); Bilirubin Total 0.2 mg/dL (0.2-1.0); Glucose Level 83 mg/dL (74-106); Lipase 147 U/L (73-393); Potassium 3.4 mmol/L (3.5-5.1); Protein, Total 6.5 g/dL (6.4-8.2); Sodium Level 141 mmol/L (136-145)
--- NOTE | 2018-04-14 09:42 | ER ---
Nurse's Notes [facility] Name: Emilie Holland Age: 27 yrs Sex: Female : 1990 Arrival Date: 04/14/2018 Time: 08:14 Bed 17 Private MD: None, None Diagnosis: Lower abdominal pain, unspecified Presentation: 04/14 08:25 Presenting complaint: Patient states: LLQ pain that has been continuous x 2.5 years, ss gets worse about once a month during menstrual cycle. Pt reports she is not on her cycle so she is concerned something else may be going on. Transition of care: patient was not received from another setting of care. Onset of symptoms is unknown. Risk Assessment: Do you want to hurt yourself or someone else? Patient reports no desire to harm self or others. Initial Sepsis Screen: Does the patient meet any 2 criteria? HR > 90 bpm. Does the patient have a suspected source of infection? No. Patient's initial sepsis screen is negative. Care prior to arrival: None. 08:25 Method Of Arrival: Ambulatory ss 08:25 Acuity: ADITYA 3 ss Historical: - Allergies: 08:36 Hydrocodone-Acetaminophen; ss 08:36 Tramadol HCl; ss 08:36 Iodine; ss - PMHx: 08:36 Anxiety; Endometrosis; Post concussive syndrome; ovarian cysts; "5 cysts on stomach"; ss - Immunization history:: Adult Immunizations up to date. - Social history:: Smoking status: Patient uses tobacco products, smokes one pack cigarettes per day. - Ebola Screening: : Patient denies exposure to infectious person Patient denies travel to an Ebola-affected area in the 21 days before illness onset. - Family history:: not pertinent. - Hospitalizations: : No recent hospitalization is reported. Screenin:47 Abuse screen: Denies threats or abuse. Denies injuries from another. Nutritional hb screening: No deficits noted. Tuberculosis screening: No symptoms or risk factors identified. Fall Risk None identified. Assessment: 08:48 General: Appears in no apparent distress. Behavior is calm, cooperative. Pain: Pain hb currently is 6 out of 10 on a pain scale. Neuro: Level of Consciousness is awake, alert, obeys commands, Oriented to person, place, time, situation. Cardiovascular: Heart tones S1 S2 present Capillary refill < 3 seconds Patient's skin is warm and dry. Respiratory: Airway is patent Trachea midline Respiratory effort is even, unlabored, Respiratory pattern is regular, symmetrical, Breath sounds are clear bilaterally. GI: Abdomen is non-distended, Bowel sounds present X 4 quads. Abd is soft X 4 quads Abdomen is tender to palpation LUQ Reports upper abdominal pain, diarrhea, nausea. : No signs and/or symptoms were reported regarding the genitourinary system. EENT: No signs and/or symptoms were reported regarding the EENT system. Derm: Skin is intact, is healthy with good turgor. Musculoskeletal: No signs and/or symptoms reported regarding the musculoskeletal system. 09:59 Reassessment: Patient appears in no apparent distress at this time. Patient and/or sv family updated on plan of care and expected duration. Pain level reassessed. Patient is alert, oriented x 3, equal unlabored respirations, skin warm/dry/pink. Pt was sleeping under blankets upon entry to the room. Pt easily woken up. 10:06 Reassessment: Waiting for Dr Azar to speak with pt regarding discharge diagnosis. sv 10:33 Reassessment: Patient appears in no apparent distress at this time. Patient and/or sv family updated on plan of care and expected duration. Pain level reassessed. Patient is alert, oriented x 3, equal unlabored respirations, skin warm/dry/pink. Dr Azar spoke with the pt regarding discharge. Vital Signs: 08:36 BP 139 / 99; Pulse 102; Resp 15; Temp 98.3; Pulse Ox 98% on R/A; Weight 78.47 kg; ss Height 5 ft. 2 in. (157.48 cm); Pain 8/10; 09:28 BP 138 / 90; Pulse 106; Resp 18; Pulse Ox 95% ; sv 08:36 Body Mass Index 31.64 (78.47 kg, 157.48 cm) ED Course: 08:14 Patient arrived in ED. sb2 08:14 None, None is Private Physician. sb2 08:25 Kevon Azar MD is Attending Physician. rn 08:32 Inserted saline lock: 20 gauge in right antecubital area, using aseptic technique. hb Blood collected. 08:35 Triage completed. ss 08:35 Patient has correct armband on for positive identification. Placed in gown. Bed in low hb position. Call light in reach. Side rails up X 1. 08:36 Jayda, Berenice, RN is Primary Nurse. sv 08:36 Arm band placed on right wrist. 09:00 Urine collected: clean catch specimen, cloudy. [facility] 09:27 Basic Metabolic Panel Sent. sv 09:27 CBC with Diff Sent. sv 09:28 Hepatic Function Sent. sv 09:28 Lipase Sent. sv 09:29 Awaiting lab results, Awaiting re-evaluation by ER provider. sv 10:33 No provider procedures requiring assistance completed. IV discontinued, intact, sv bleeding controlled, No redness/swelling at site. Pressure dressing applied. Administered Medications: 09:59 Drug: TORadol 30 mg Route: IVP; Site: right antecubital; sv 10:34 Follow up: Response: No adverse reaction sv Outcome: 09:41 Discharge ordered by . rn 10:33 Discharged to home ambulatory, with family. sv 10:33 Condition: stable 10:33 Discharge instructions given to patient, Instructed on discharge instructions, follow up and referral plans. Demonstrated understanding of instructions, follow-up care. 10:34 Patient left the ED. sv Signatures: Berenice Montelongo, RN Kevon Huynh MD MD rn Smirch, Shelby, RN RN ss Baxter, Heather, RN RN hb Martinez, Maria 5 Criss Gill sb2
--- NOTE | 2018-04-14 09:42 | EDPHYS ---
Physician Documentation [facility] Name: Emilie Holland Age: 27 yrs Sex: Female : 1990 Arrival Date: 04/14/2018 Time: 08:14 Bed 17 Private MD: None, None ED Physician Kevon Azar HPI: 04/14 08:38 This 27 yrs old Black Female presents to ER via Ambulatory with complaints of Abdominal rn Pain. 08:38 The patient presents with abdominal pain. Onset: The symptoms/episode began/occurred 2 rn year(s) ago. The symptoms do not radiate. Associated signs and symptoms: Pertinent negatives: nausea and vomiting, blood in stools, chest pain, constipation, diarrhea, dysuria, fever, hematuria, shortness of breath, vaginal discharge, vomiting, vomiting blood. Modifying factors: The symptoms are alleviated by nothing, the symptoms are aggravated by nothing. Severity of pain: At its worst the pain was moderate in the emergency department the pain has improved. The patient has experienced similar episodes in the past, chronically. REports abd pain, "stays in pain", for 2 years, told has ovarian cysts and cysts of stomach, no fever/vomiting, + diarrhea, no change in her symptoms, reports has days where pain gets worse, usually period related, and today was one of those days. Pain left lower abd and suprapubic.. Historical: - Allergies: 08:36 Hydrocodone-Acetaminophen; ss 08:36 Tramadol HCl; ss 08:36 Iodine; ss - PMHx: 08:36 Anxiety; Endometrosis; Post concussive syndrome; ovarian cysts; "5 cysts on stomach"; ss - Immunization history:: Adult Immunizations up to date. - Social history:: Smoking status: Patient uses tobacco products, smokes one pack cigarettes per day. - Ebola Screening: : Patient denies exposure to infectious person Patient denies travel to an Ebola-affected area in the 21 days before illness onset. - Family history:: not pertinent. - Hospitalizations: : No recent hospitalization is reported. ROS: 08:38 Constitutional: Negative for fever, chills, and weight loss, Neck: Negative for injury, rn pain, and swelling, Cardiovascular: Negative for chest pain, palpitations, and edema, Respiratory: Negative for shortness of breath, cough, wheezing, and pleuritic chest pain, Abdomen/GI: + abd pain and diarrhea Back: Negative for injury and pain, MS/Extremity: Negative for injury and deformity, Skin: Negative for injury, rash, and discoloration, Neuro: Negative for headache, weakness, numbness, tingling, and seizure. Exam: 08:38 Constitutional: This is a well developed, well nourished patient who is awake, alert, rn and in no acute distress. Head/Face: Normocephalic, atraumatic. ENT: MMM Abdomen/GI: soft, mild suprapubic and LLQ tenderness, no rebound Back: No spinal tenderness. No CVAT Skin: Warm, dry with normal turgor. Normal color with no rashes, no lesions, and no evidence of cellulitis. MS/ Extremity: Pulses equal, no cyanosis. Neurovascular intact. Full, normal range of motion. Equal circumference. Neuro: Awake and alert, GCS 15, oriented to person, place, time, and situation. Cranial nerves II-XII grossly intact. Motor strength 5/5 in all extremities. Sensory grossly intact. Vital Signs: 08:36 BP 139 / 99; Pulse 102; Resp 15; Temp 98.3; Pulse Ox 98% on R/A; Weight 78.47 kg; ss Height 5 ft. 2 in. (157.48 cm); Pain 8/10; 09:28 BP 138 / 90; Pulse 106; Resp 18; Pulse Ox 95% ; sv 08:36 Body Mass Index 31.64 (78.47 kg, 157.48 cm) ss MDM: 08:25 Patient medically screened. rn 09:39 Differential diagnosis: Dysmenorrhea, Ectopic , Endometriosis, non-specific rn abd pain, Ureterolithiasis, urinary tract infection. Data reviewed: vital signs, nurses notes, old medical records, lab test result(s), and as a result, I will discharge patient. Counseling: I had a detailed discussion with the patient and/or guardian regarding: the historical points, exam findings, and any diagnostic results supporting the discharge/admit diagnosis, lab results, the need for outpatient follow up, to return to the emergency department if symptoms worsen or persist or if there are any questions or concerns that arise at home. Response to treatment: the patient's symptoms have mildly improved after treatment, and as a result, I will discharge patient. ED course: No new symptoms, normal bloodwork, symptoms for 2 years, likely ovarian cyst vs endometriosis. . 10:34 ED course: Pt sleeping upon my return.. rn 04/14 08:30 Order name: Basic Metabolic Panel rn 04/14 08:30 Order name: CBC with Diff rn 04/14 08:30 Order name: Hepatic Function rn 04/14 08:30 Order name: Lipase rn 04/14 08:30 Order name: Urine Microscopic Only; Complete Time: 09:39 rn 04/14 08:31 Order name: Basic Metabolic Panel; Complete Time: 09:39 EDMS 04/14 08:30 Order name: IV Saline Lock; Complete Time: 08:47 rn 04/14 08:30 Order name: Labs collected and sent; Complete Time: 08:47 rn 04/14 08:31 Order name: CBC with Automated Diff; Complete Time: 09:39 EDMS 04/14 08:31 Order name: Liver (Hepatic) Function; Complete Time: 09:39 EDMS 04/14 08:31 Order name: Lipase; Complete Time: 09:39 EDMS 04/14 08:46 Order name: Urine Dipstick--Ancillary (enter results); Complete Time: 09:02 bd 04/14 08:46 Order name: Urine --Ancillary (enter results); Complete Time: 09:02 bd 04/14 08:30 Order name: Urine Test (obtain specimen); Complete Time: 08:46 rn 04/14 08:30 Order name: Urine Dipstick-Ancillary (obtain specimen); Complete Time: 08:46 rn Administered Medications: 09:59 Drug: TORadol 30 mg Route: IVP; Site: right antecubital; sv 10:34 Follow up: Response: No adverse reaction sv Disposition: 04/14/18 09:41 Discharged to Home. Impression: Lower abdominal pain, unspecified. - Condition is Stable. - Discharge Instructions: Abdominal Pain, Adult. - Medication Reconciliation Form, Thank You Letter, Antibiotic Education, Prescription Opioid Use form. - Follow up: Private Physician; When: As needed; Reason: Recheck today's complaints, Re-evaluation by your physician. - Problem is chronic. - Symptoms have improved. Signatures: Dispatcher [employer] Berenice Murray RN RN sv Nieto, Roman, MD MD rn Smirch, Shelby, RN RN ss Corrections: (The following items were deleted from the chart) 10:34 09:41 04/14/2018 09:41 Discharged to Home. Impression: Lower abdominal pain, sv unspecified. Condition is Stable. Forms are Medication Reconciliation Form, Thank You Letter, Antibiotic Education, Prescription Opioid Use. Follow up: Private Physician; When: As needed; Reason: Recheck today's complaints, Re-evaluation by your physician. Problem is chronic. Symptoms have improved. rn
[2018-04-14] MEDS ORDERED: KETOROLAC 30 MG/ML INJ ONE (10:03)
[2018-04-14 10:52] VITALS: TEMP 98.3
[2018-04-14 10:54] VITALS: BP 138/90; O2SAT 95
== END 2018-04-14 10:34 | disposition home or self-care (01) ==
LOC: ER 08:11
DX: R10.32 Left lower quadrant pain (principal); F17.210 Nicotine dependence, cigarettes, uncomplicated; Z88.5 Allergy status to narcotic agent; Z91.048 Other nonmedicinal substance allergy status
CPT/HCPCS: 36415; 80048; 80076; 81003; 81015; 81025; 83690; 85025; 96374; 99283

== ENCOUNTER 2018-04-21 18:52 | Emergency (ER) | payer SELFPAY ==
--- OUTSIDE RECORDS SUMMARY | 2018-04-21 18:54 | XMS REPORT ---
:1990 [facility] Address [address] [place] [address] Dr. Hernandez [address] [place] [id number] Care Team Providers Name Role Phone UNKNOWN, [...] Department ID 2017-06-14 2017-06-17 Inpatient E AZALEA [facility] [id number] 21:05:00 13:02:00 SAMPSON Pickard M.D.
[2018-04-21] MEDS ORDERED: NA CHLORIDE 0.9% 1,000 ML ONE (20:38)
[2018-04-21] MEDS ORDERED: HALOPERIDOL LACT 5 MG/ML INJ ONE (20:38)
[2018-04-21 21:54] LABS: Absolute Lymphocytes (CBC) 0.6 K/uL (0.7-4.9); Absolute Monocytes 0.7 K/uL (0.1-1.3); Absolute Neutrophil 9.3 K/uL (1.8-8.0); Basophils % 0.3 % (0-1.3); Eosinophils % 0.4 % (0-4.4); Hematocrit 37.5 % (36.0-45.0); MCH 31.4 pg (27.0-35.0); MCV 91.6 fL (80-100); MPV 8.9 fL (7.6-11.3); Monocytes % 6.7 % (3.3-12.3); RBC Red Blood Cell Count 4.09 M/uL (3.86-4.86)
[2018-04-21 22:15] LABS: Blood Morphology Comment NOT SEEN (NOT SEEN); Platelet Estimate ADEQ
[2018-04-21 22:34] LABS: ALT/SGPT 17 U/L (12-78); AST/SGOT 21 U/L (15-37); Alkaline Phosphatase 65 U/L (45-117); BUN Blood Urea Nitrogen 6 mg/dL (7-18); Bicarbonate 21 mmol/L (21-32); Bilirubin Total 0.3 mg/dL (0.2-1.0); Glucose Level 83 mg/dL (74-106); Potassium 3.9 mmol/L (3.5-5.1); Sodium Level 138 mmol/L (136-145)
[2018-04-21 22:35] LABS: Albumin 3.4 g/dL (3.4-5.0); Bilirubin Direct < 0.1 mg/dL (0-0.2); Protein, Total 7.6 g/dL (6.4-8.2)
[2018-04-21 22:37] LABS: Lipase 108 U/L (73-393)
[2018-04-21 23:17] LABS: Urine Specific Gravity 1.025 (1.005-1.030)
[2018-04-21 23:17] LABS: Urine Blood TRACE (NEG); Urine Glucose NEGATIVE (NEG); Urine Protein NEGATIVE (NEG); Urine Specific Gravity 1.025 (1.005-1.030); Urine pH 6.5 (5.0-7.0)
--- NOTE | 2018-04-22 00:45 | EDPHYS ---
Physician Documentation [facility] Name: Emilie Holland Age: 27 yrs Sex: Female : 1990 Arrival Date: 04/21/2018 Time: 18:55 Bed 26 Private MD: None, None ED Physician Jonathan Vee HPI: 04/22 02:05 This 27 yrs old Black Female presents to ER via Wheelchair with complaints of Vomiting, gs Abdominal Pain. 02:05 The patient presents to the emergency department with nausea, vomiting, abdominal pain. gs Onset: The symptoms/episode began/occurred 1 week(s) ago. Possible causes: flare up of bowel problem. The symptoms are aggravated by food . Associated signs and symptoms: Pertinent negatives: dysuria, fever. Severity of symptoms: At their worst the symptoms were moderate in the emergency department the symptoms are unchanged. The patient has experienced similar episodes in the past, chronically. The patient has been recently seen by a physician:. 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 - Social history:: Smoking status: Patient uses tobacco products, smokes one-half pack cigarettes per day. - Ebola Screening: : Patient negative for fever greater than or equal to 101.5 degrees Fahrenheit, and additional compatible Ebola Virus Disease symptoms Patient denies exposure to infectious person Patient denies travel to an Ebola-affected area in the 21 days before illness onset No symptoms or risks identified at this time. ROS: 04/22 02:05 All other systems are negative. gs Exam: 02:05 Head/Face: Normocephalic, atraumatic. Eyes: Pupils equal round and reactive to light, gs extra-ocular motions intact. Lids and lashes normal. Conjunctiva and sclera are non-icteric and not injected. Cornea within normal limits. Periorbital areas with no swelling, redness, or edema. ENT: Nares patent. No nasal discharge, no septal abnormalities noted. Tympanic membranes are normal and external auditory canals are clear. Oropharynx with no redness, swelling, or masses, exudates, or evidence of obstruction, uvula midline. Mucous membranes moist. Neck: Trachea midline, no thyromegaly or masses palpated, and no cervical lymphadenopathy. Supple, full range of motion without nuchal rigidity, or vertebral point tenderness. No Meningismus. Chest/axilla: Normal chest wall appearance and motion. Nontender with no deformity. No lesions are appreciated. Respiratory: Lungs have equal breath sounds bilaterally, clear to auscultation and percussion. No rales, rhonchi or wheezes noted. No increased work of breathing, no retractions or nasal flaring. Back: No spinal tenderness. No costovertebral tenderness. Full range of motion. Skin: Warm, dry with normal turgor. Normal color with no rashes, no lesions, and no evidence of cellulitis. MS/ Extremity: Pulses equal, no cyanosis. Neurovascular intact. Full, normal range of motion. Neuro: Awake and alert, GCS 15, oriented to person, place, time, and situation. Cranial nerves II-XII grossly intact. Motor strength 5/5 in all extremities. Sensory grossly intact. Cerebellar exam normal. Normal gait. 02:05 Constitutional: The patient appears alert, awake. 02:05 Cardiovascular: Rate: tachycardic, Rhythm: regular, Pulses: no pulse deficits are appreciated. 02:05 Abdomen/GI: Palpation: moderate abdominal tenderness, in all quadrants, rebound tenderness, is not appreciated. Vital Signs: 04/21 19:04 BP 135 / 93; Pulse 117; Resp 20; Temp 100.1; Pulse Ox 97% on R/A; Weight 77.11 kg; aj Height 5 ft. 2 in. (157.48 cm); 23:55 BP 128 / 67; Pulse 112; Resp 18; Temp 99.8(O); Pulse Ox 98% on R/A; Pain 2/10; mg2 04/22 00:58 BP 122 / 85; Pulse 102; Resp 19; Pulse Ox 100% on R/A; Pain 0/10; mg2 04/21 19:04 Body Mass Index 31.09 (77.11 kg, 157.48 cm) aj MDM: 04/21 20:23 Patient medically screened. 04/22 02:05 Differential diagnosis: Nonspecific abd pain, pancreatitis, appendicitis. Data reviewed: vital signs, nurses notes. Counseling: I had a detailed discussion with the patient and/or guardian regarding: the historical points, exam findings, and any diagnostic results supporting the discharge/admit diagnosis, the need for outpatient follow up. Response to treatment: the patient's symptoms have resolved after treatment, and as a result, I will discharge patient. 04/21 20:26 Order name: Basic Metabolic Panel; Complete Time: 22:45 gs 04/21 20:26 Order name: CBC with Diff; Complete Time: 22:19 04/21 20:26 Order name: Hepatic Function; Complete Time: 22:45 04/21 20:26 Order name: Lipase; Complete Time: 22:45 04/21 22:04 Order name: Manual Differential; Complete Time: 22:19 EDMS 04/21 22:26 Order name: Urine Dipstick--Ancillary (enter results); Complete Time: 23:19 em 04/21 20:26 Order name: IV Saline Lock; Complete Time: 20:42 04/21 20:26 Order name: Labs collected and sent; Complete Time: 20:42 04/21 21:10 Order name: Misc. Order: lab recollect needed; Complete Time: 21:42 04/21 22:27 Order name: Urine --Ancillary (enter results); Complete Time: 23:19 em 04/21 23:17 Order name: CT Stone Protocol gs Administered Medications: 04/21 20:36 Drug: NS 0.9% 1000 ml Route: IV; Rate: 1 bolus; Site: left antecubital; Delivery: tl3 Primary tubing; 23:17 Follow up: Response: No adverse reaction; IV Status: Completed infusion mg2 20:37 Drug: HALdol 2.5 mg Route: IVP; Infused Over: 1 mins; Site: right antecubital; tl3 23:17 Follow up: Response: No adverse reaction; Marked relief of symptoms mg2 Disposition: 04/22/18 00:44 Discharged to Home. Impression: Chronic pain syndrome, Vomiting. - Condition is Stable. - Discharge Instructions: Nausea and Vomiting, Adult. - Prescriptions for Zofran 4 mg Oral Tablet - take 1 tablet by ORAL route every 12 hours As needed; 6 tablet. - Medication Reconciliation Form, Thank You Letter, Antibiotic Education, Prescription Opioid Use, Family Work Release form. - Follow up: None, None; When: 2 - 3 days; Reason: Re-evaluation by your physician. Signatures: Dispatcher [employer] Sara Viramontes RN Maritza Yanez RN RN ss Jonathan Vee MD MD Dinorah Tafoya RN RN tl3 Judd Laguerre RN RN mg2 Corrections: (The following items were deleted from the chart) 04/22 00:59 00:44 04/22/2018 00:44 Discharged to Home. Impression: Chronic pain syndrome; Vomiting. mg2 Condition is Stable. Forms are Medication Reconciliation Form, Thank You Letter, Antibiotic Education, Prescription Opioid Use. Follow up: None None; When: 2 - 3 days; Reason: Re-evaluation by your physician. gs
--- NOTE | 2018-04-22 00:45 | ER ---
Nurse's Notes [facility] Name: Emilie Holland Age: 27 yrs Sex: Female : 1990 Arrival Date: 04/21/2018 Time: 18:55 Bed 26 Private MD: None, None Diagnosis: Chronic pain syndrome;Vomiting Presentation: 04/21 19:03 Presenting complaint: Patient states: Fever and body aches with nausea that started aj last night. Transition of care: patient was not received from another setting of care. Onset of symptoms was April 20, 2018. Risk Assessment: Do you want to hurt yourself or someone else? Patient reports no desire to harm self or others. Initial Sepsis Screen: Does the patient meet any 2 criteria? No. Patient's initial sepsis screen is negative. Does the patient have a suspected source of infection? No. Patient's initial sepsis screen is negative. Care prior to arrival: None. 19:03 Method Of Arrival: Wheelchair aj 19:03 Acuity: ADITYA 3 aj Triage Assessment: 19:04 General: Appears in no apparent distress. uncomfortable, Behavior is calm, cooperative, aj appropriate for age. Pain: Complains of pain in entire body. Neuro: Level of Consciousness is awake, alert, obeys commands, Oriented to person, place, time, situation, Appropriate for age. Respiratory: Airway is patent Respiratory effort is even, unlabored, Respiratory pattern is regular, symmetrical. GI: Reports nausea, vomiting. Derm: Skin is intact, is healthy with good turgor, Skin is pink, warm \\T\\ dry. normal. 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 - Social history:: Smoking status: Patient uses tobacco products, smokes one-half pack cigarettes per day. - Ebola Screening: : Patient negative for fever greater than or equal to 101.5 degrees Fahrenheit, and additional compatible Ebola Virus Disease symptoms Patient denies exposure to infectious person Patient denies travel to an Ebola-affected area in the 21 days before illness onset No symptoms or risks identified at this time. Screenin:24 Abuse screen: Denies threats or abuse. Denies injuries from another. Nutritional mg2 screening: No deficits noted. Tuberculosis screening: No symptoms or risk factors identified. Fall Risk IV access (20 points). Assessment: 20:24 General: Appears in no apparent distress. uncomfortable, Behavior is calm, cooperative. mg2 Pain: Complains of pain in abdomen Pain does not radiate. Pain currently is 5 out of 10 on a pain scale. Neuro: Level of Consciousness is awake, alert, obeys commands, Oriented to person, place, time, situation. Cardiovascular: Capillary refill < 3 seconds Patient's skin is warm and dry. Respiratory: Airway is patent Respiratory effort is even, unlabored, Respiratory pattern is regular, symmetrical. GI: Pt is actively vomiting clear fluid. : No deficits noted. EENT: No deficits noted. Derm: Skin is intact, is healthy with good turgor, Skin is pink, warm \\T\\ dry. normal. Musculoskeletal: No signs and/or symptoms reported regarding the musculoskeletal system. 22:10 Reassessment: patient is sleeping. improved. mg2 23:55 Reassessment: Patient appears in no apparent distress at this time. Patient and/or mg2 family updated on plan of care and expected duration. Pain level reassessed. Patient is alert, oriented x 3, equal unlabored respirations, skin warm/dry/pink. Vital Signs: 19:04 BP 135 / 93; Pulse 117; Resp 20; Temp 100.1; Pulse Ox 97% on R/A; Weight 77.11 kg; aj Height 5 ft. 2 in. (157.48 cm); 23:55 BP 128 / 67; Pulse 112; Resp 18; Temp 99.8(O); Pulse Ox 98% on R/A; Pain 2/10; mg2 04/22 00:58 BP 122 / 85; Pulse 102; Resp 19; Pulse Ox 100% on R/A; Pain 0/10; mg2 04/21 19:04 Body Mass Index 31.09 (77.11 kg, 157.48 cm) aj ED Course: 04/21 18:55 Patient arrived in ED. mr 18:55 None, None is Private Physician. mr 19:03 Triage completed. aj 19:04 Arm band placed on left wrist. Patient placed in waiting room, Patient notified of wait aj time. 19:49 Judd Laguerre, RN is Primary Nurse. mg2 20:11 Jonathan Vee MD is Attending Physician. gs 20:24 No provider procedures requiring assistance completed. Inserted saline lock: 20 gauge mg2 in right antecubital area, using aseptic technique. Blood collected. 20:26 Patient has correct armband on for positive identification. Pulse ox on. NIBP on. mg2 21:00 Urine collected: clean catch specimen, clear, omega colored. jp3 23:41 CT Stone Protocol In Process Unspecified. EDMS 23:47 CT completed. Patient tolerated procedure well. Patient moved to [place] via wheelchair. Patient moved back from [place]. 04/22 00:43 None, None is Referral Physician. gs 00:58 IV discontinued, intact, bleeding controlled, No redness/swelling at site. Pressure mg2 dressing applied. Administered Medications: 04/21 20:36 Drug: NS 0.9% 1000 ml Route: IV; Rate: 1 bolus; Site: left antecubital; Delivery: tl3 Primary tubing; 23:17 Follow up: Response: No adverse reaction; IV Status: Completed infusion mg2 20:37 Drug: HALdol 2.5 mg Route: IVP; Infused Over: 1 mins; Site: right antecubital; tl3 23:17 Follow up: Response: No adverse reaction; Marked relief of symptoms mg2 Outcome: 04/22 00:44 Discharge ordered by . gs 00:58 Discharged to home ambulatory, with family. mg2 00:58 Condition: stable 00:58 Discharge instructions given to patient, family, Instructed on discharge instructions, follow up and referral plans. medication usage, Demonstrated understanding of instructions, follow-up care, medications, Prescriptions given X 1. 00:59 Patient left the ED. mg2 Signatures: Dispatcher [employer] EDMS Sara Montgomery, CHAVEZ scott Sinai Brown Ervin Jonathan Vee MD MD Dinorah Tafoya RN RN tl3 Judd Laguerre, Christoph Foy RN jp3
[2018-04-22 03:30] VITALS: TEMP 99.8
[2018-04-22 03:32] VITALS: BP 122/85; O2SAT 100
--- NOTE | 2018-04-22 08:16 | RAD REPORT ---
EXAM DESCRIPTION: CT - Stone Protocol - 04/22/2018 2:48 am CLINICAL HISTORY: Abdominal pain. Left lower quadrant pain COMPARISON: April 2017 TECHNIQUE: Computed axial tomography of the abdomen pelvis was obtained without oral or IV contrast. Lack of IV and oral contrast limits evaluation of solid organs, bowel, and vessels. Coronal reformat дмитрий images were obtained and reviewed. Preliminary report was generated by [employer] and rev iewed prior to dictation is All CT scans are performed using dose optimization technique as appropriate and may include automated exposure control or mA/KV adjustment according to patient size. FINDINGS: A renal calculus is not seen. An ureteral calculus is not noted. A bladder calculus is not present. The liver, spleen, pancreas and adrenals appear grossly normal There is no evidence of diverticulitis. The appendix appears normal A 4 centimeter cyst is present within the left pelvis. A 2.9 centimeter mass is present within the anterior subcutaneous fat of the left pelvis abutting the rectus muscle. It has enlarged since the prior exam in which it measured 2.1 centimeters IMPRESSION: Negative for a genitourinary calculus 4 centimeter left ovarian cyst without significant free fluid. Follow up ultrasound in a couple month s is recommended to assess stability/resolution Enlargement of a 2.9 centimeter mass within the anterior subcutaneous fat of the left pelvis. This ma y represent an endometrioma. Neoplasm is another consideration. The mass would be amenable to an ultr asound-guided core biopsy
== END 2018-04-22 00:59 | disposition home or self-care (01) ==
LOC: ER 18:52
DX: G89.4 Chronic pain syndrome (principal); F17.210 Nicotine dependence, cigarettes, uncomplicated; Z88.5 Allergy status to narcotic agent; Z88.6 Allergy status to analgesic agent; Z91.048 Other nonmedicinal substance allergy status
CPT/HCPCS: 36415; 74176; 76377; 80048; 80076; 81003; 81025; 83690; 85025; 96361; 96374; 99284; J1630; J7030

== ENCOUNTER 2018-06-22 09:38 | Emergency (ER) | payer SELFPAY ==
--- OUTSIDE RECORDS SUMMARY | 2018-06-22 09:51 | XMS REPORT ---
:1990 [facility] Address [address] [place] [address] Dr. Hernandez [address] [place] [address] Care Team Providers Name Role Phone UNKNOWN, [...] Department ID 2017-06-14 2017-06-17 Inpatient E [facility] [id number] 21:05:00 13:02:00 SAMPSON Pickard M.D.
[2018-06-22 10:28] LABS: Urine Blood NEGATIVE (NEG); Urine Glucose NEGATIVE (NEG); Urine Protein NEGATIVE (NEG); Urine Specific Gravity 1.025 (1.005-1.030)
[2018-06-22 10:31] LABS: Urine Bacteria <20 /HPF (<20); Urine RBC NONE SEEN /HPF (NONE SEEN)
[2018-06-22 10:32] LABS: Urine Culture Reflex Order NOT NEEDED
--- NOTE | 2018-06-22 11:32 | RAD REPORT ---
EXAM DESCRIPTION: US - 1St Trimest Single 1St Fetus - 06/22/2018 11:16 am CLINICAL HISTORY: with abdominal pain COMPARISON: None FINDINGS: The uterus measures 9 x 7 x 7 centimeters. A gestational sac is present within the endomet rium. Within this is a pole crown-rump length 1.6 centimeters. Cardiac activity 163 beats per m inute. Left ovary normal in size and echotexture A 6.5 centimeter right ovarian cyst is present. Blood flow within the right ovary is seen. Small amount of free fluid IMPRESSION: Single live intrauterine with an estimated gestational age 8 weeks 3 days GERMAN 01/29/2019 6.5 centimeter right ovarian cyst. Followup ultrasound in a couple of months recommended to assess st ability/resolution
--- NOTE | 2018-06-22 11:32 | RAD REPORT ---
EXAM DESCRIPTION: US - Renal Ultrasound-Complete - 06/22/2018 11:12 am CLINICAL HISTORY: . Abdominal pain/right flank pain COMPARISON: None. FINDINGS: The right kidney measures 11 cm with a normal echotexture. The left kidney measures 13 cm with a normal echotexture. Hydronephrosis is not seen. The bladder is decompressed and not well evaluated IMPRESSION: Unremarkable renal ultrasound.
[2018-06-22 11:48] LABS: Absolute Lymphocytes (CBC) 1.7 K/uL (0.7-4.9); Absolute Monocytes 0.6 K/uL (0.1-1.3); Absolute Neutrophil 4.1 K/uL (1.8-8.0); Basophils % 0.9 % (0-1.3); Eosinophils % 2.1 % (0-4.4); Hematocrit 37.5 % (36.0-45.0); Lymphocytes % 26.3 % (15.3-44.8); Monocytes % 8.4 % (3.3-12.3); RBC Red Blood Cell Count 4.13 M/uL (3.86-4.86)
[2018-06-22 11:54] LABS: BUN Blood Urea Nitrogen 6 mg/dL (7-18); Bicarbonate 25 mmol/L (21-32); Glucose Level 78 mg/dL (74-106); Potassium 3.8 mmol/L (3.5-5.1); Sodium Level 139 mmol/L (136-145)
--- NOTE | 2018-06-22 12:21 | ER ---
Nurse's Notes [facility] Name: Emilie Holland Age: 27 yrs Sex: Female : 1990 Arrival Date: 06/22/2018 Time: 09:40 Bed 15 Private MD: None, None Diagnosis: Low back pain Presentation: 06/22 09:44 Presenting complaint: Patient states: LMP- 04/22/18; i have back pain for a week now hj and have a bad cough as week; reports N/V; haven't visited OB yet; denies fever;. Transition of care: patient was not received from another setting of care. Onset of symptoms was June 22, 2018. Risk Assessment: Do you want to hurt yourself or someone else? Patient reports no desire to harm self or others. Initial Sepsis Screen: Does the patient meet any 2 criteria? No. Patient's initial sepsis screen is negative. Does the patient have a suspected source of infection? No. Patient's initial sepsis screen is negative. Care prior to arrival: None. 09:44 Method Of Arrival: Ambulatory 09:44 Acuity: ADITYA 3 Triage Assessment: 09:47 General: Appears in no apparent distress. uncomfortable, Behavior is calm, cooperative, hj appropriate for age. Pain: Complains of pain in back Pain currently is 8 out of 10 on a pain scale. Musculoskeletal: Circulation, motion, and sensation intact. Capillary refill. 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 - Social history:: Smoking status: Patient uses tobacco products, Patient/guardian denies using alcohol. - Ebola Screening: : Patient negative for fever greater than or equal to 101.5 degrees Fahrenheit, and additional compatible Ebola Virus Disease symptoms Patient denies exposure to infectious person Patient denies travel to an Ebola-affected area in the 21 days before illness onset. Screenin:47 Abuse screen: Denies threats or abuse. Denies injuries from another. Nutritional hj screening: No deficits noted. Tuberculosis screening: No symptoms or risk factors identified. Fall Risk None identified. Assessment: 09:46 General: Appears in no apparent distress. uncomfortable, Behavior is calm, cooperative, hj appropriate for age. Pain: Complains of pain in back Pain currently is 8 out of 10 on a pain scale. Neuro: Level of Consciousness is awake, alert, obeys commands, Oriented to person, place, time, situation, Appropriate for age. Cardiovascular: Capillary refill < 3 seconds Patient's skin is warm and dry. Respiratory: Airway is patent Respiratory effort is even, unlabored, Respiratory pattern is regular, symmetrical. Respiratory: Reports cough that is. GI: No signs and/or symptoms were reported involving the gastrointestinal system. : No signs and/or symptoms were reported regarding the genitourinary system. EENT: No signs and/or symptoms were reported regarding the EENT system. Derm: No signs and/or symptoms reported regarding the dermatologic system. Musculoskeletal: Reports pain in back. 11:16 Reassessment: pt in US not back yet;. hj 11:48 Reassessment: awaiting results and POC;. Vital Signs: 09:47 BP 111 / 70; Pulse 81; Resp 18; Temp 98.4(TE); Pulse Ox 100% on R/A; Weight 77.11 kg; hj Height 5 ft. 2 in. (157.48 cm); Pain 8/10; 11:48 BP 125 / 75; Pulse 80; Resp 18; Pulse Ox 100% on R/A; hj 09:47 Body Mass Index 31.09 (77.11 kg, 157.48 cm) ED Course: 09:40 Patient arrived in ED. mr 09:41 None, None is Private Physician. mr 09:44 Herbert Atwood, CHAVEZ is Primary Nurse. hj 09:46 Triage completed. hj 09:47 Arm band placed on right wrist. hj 09:48 Patient has correct armband on for positive identification. Bed in low position. Call light in reach. Side rails up X 1. 10:05 Jonathan Vee MD is Attending Physician. gs 10:09 Urine Microscopic Only Sent. hj 11:14 Renal Ultrasound-Complete In Process Unspecified. EDMS 11:16 1St Trimest Single 1St Fetus In Process Unspecified. EDMS 12:57 No provider procedures requiring assistance completed. IV discontinued, intact, hj bleeding controlled, No redness/swelling at site. Pressure dressing applied. Administered Medications: No medications were administered Outcome: 12:20 Discharge ordered by . gs 12:58 Discharged to home ambulatory. hj 12:58 Condition: stable 12:58 Discharge instructions given to patient, Instructed on discharge instructions, follow up and referral plans. medication usage, Demonstrated understanding of instructions, follow-up care, medications, Prescriptions given X 1. 12:58 Patient left the ED. Signatures: Dispatcher [employer] EDNJ Sinai Brown RaiHerbert RN RN Jonathan Carr MD MD Corrections: (The following items were deleted from the chart) 09:49 09:47 Pulse 81bpm; Resp 18bpm; Pulse Ox 100% RA; Temp 98.4F Temporal; 77.11 kg; Height hj 5 ft. 2 in.; BMI: 31.0; Pain 8/10; hj
--- NOTE | 2018-06-22 12:21 | EDPHYS ---
Physician Documentation [facility] Name: Emilie Holland Age: 27 yrs Sex: Female : 1990 Arrival Date: 06/22/2018 Time: 09:40 Bed 15 Private MD: None, None ED Physician Jonathan Vee HPI: 06/22 11:38 This 27 yrs old Black Female presents to ER via Ambulatory with complaints of right gs sides back pain. 11:40 The patient presents with pain that is acute. The symptoms are located in the right low gs back. The pain does not radiate. Associated signs and symptoms: Pertinent negatives: abdominal pain, chest pain, hematuria, incontinence. The problem was sustained from twisting. Modifying factors: the patient symptoms are aggravated by any movement. Severity of symptoms: At their worst the symptoms were moderate, in the emergency department the symptoms are unchanged. The patient has experienced similar episodes in the past, a few times. The patient has not recently seen a physician. 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 - Social history:: Smoking status: Patient uses tobacco products, Patient/guardian denies using alcohol. - Ebola Screening: : Patient negative for fever greater than or equal to 101.5 degrees Fahrenheit, and additional compatible Ebola Virus Disease symptoms Patient denies exposure to infectious person Patient denies travel to an Ebola-affected area in the 21 days before illness onset. ROS: 11:40 All other systems are negative. gs Exam: 11:40 Head/Face: Normocephalic, atraumatic. Eyes: Pupils equal round and reactive to light, gs extra-ocular motions intact. Lids and lashes normal. Conjunctiva and sclera are non-icteric and not injected. Cornea within normal limits. Periorbital areas with no swelling, redness, or edema. ENT: Nares patent. No nasal discharge, no septal abnormalities noted. Tympanic membranes are normal and external auditory canals are clear. Oropharynx with no redness, swelling, or masses, exudates, or evidence of obstruction, uvula midline. Mucous membranes moist. Neck: Trachea midline, no thyromegaly or masses palpated, and no cervical lymphadenopathy. Supple, full range of motion without nuchal rigidity, or vertebral point tenderness. No Meningismus. Chest/axilla: Normal chest wall appearance and motion. Nontender with no deformity. No lesions are appreciated. Cardiovascular: Regular rate and rhythm with a normal S1 and S2. No gallops, murmurs, or rubs. Normal PMI, no JVD. No pulse deficits. Respiratory: Lungs have equal breath sounds bilaterally, clear to auscultation and percussion. No rales, rhonchi or wheezes noted. No increased work of breathing, no retractions or nasal flaring. Abdomen/GI: Soft, non-tender, with normal bowel sounds. No distension or tympany. No guarding or rebound. No evidence of tenderness throughout. 11:40 Skin: Warm, dry with normal turgor. Normal color with no rashes, no lesions, and no evidence of cellulitis. MS/ Extremity: Pulses equal, no cyanosis. Neurovascular intact. Full, normal range of motion. Neuro: Awake and alert, GCS 15, oriented to person, place, time, and situation. Cranial nerves II-XII grossly intact. Motor strength 5/5 in all extremities. Sensory grossly intact. Cerebellar exam normal. Normal gait. 11:40 Constitutional: The patient appears alert, awake. 11:40 Back: CVA tenderness, that is moderate, is noted on the right. Vital Signs: 09:47 BP 111 / 70; Pulse 81; Resp 18; Temp 98.4(TE); Pulse Ox 100% on R/A; Weight 77.11 kg; Height 5 ft. 2 in. (157.48 cm); Pain 8/10; 11:48 BP 125 / 75; Pulse 80; Resp 18; Pulse Ox 100% on R/A; hj 09:47 Body Mass Index 31.09 (77.11 kg, 157.48 cm) MDM: 10:15 Patient medically screened. 11:40 Differential diagnosis: Pyelonephritis sprain, Ureterolithiasis. Data reviewed: vital gs signs, nurses notes. Counseling: I had a detailed discussion with the patient and/or guardian regarding: the historical points, exam findings, and any diagnostic results supporting the discharge/admit diagnosis, lab results, radiology results, the need for outpatient follow up. Response to treatment: the patient's symptoms have mildly improved after treatment. 11:40 ED course: pt requests a few codeine pills for pain says Tylenol doesn't work gave warning for opiates during . 06/22 10:02 Order name: Urine Microscopic Only; Complete Time: 11:25 06/22 10:13 Order name: Urine Dipstick--Ancillary (enter results); Complete Time: 11:25 bd 06/22 10:13 Order name: Urine --Ancillary (enter results); Complete Time: 11: 06/22 10:16 Order name: CBC with Diff; Complete Time: 12:24 gs 06/22 10:16 Order name: Basic Metabolic Panel; Complete Time: 12:24 06/22 10:02 Order name: Urine Dipstick-Ancillary (obtain specimen); Complete Time: 10: 06/22 10:02 Order name: Urine Test (obtain specimen); Complete Time: 10: 06/22 10:22 Order name: 1St Trimest Single 1St Fetus; Complete Time: 11:37 EDMS 06/22 11:10 Order name: Renal Ultrasound-Complete; Complete Time: 11:37 EDMS Administered Medications: No medications were administered Disposition: 06/22/18 12:20 Discharged to Home. Impression: Low back pain. - Condition is Stable. - Discharge Instructions: Back Pain, Adult. - Prescriptions for Tylenol- Codeine #3 300-30 mg Oral Tablet - take 1 tablet by ORAL route every 6 hours As needed; 6 tablet. - Medication Reconciliation Form, Thank You Letter, Antibiotic Education, Prescription Opioid Use form. - Follow up: Private Physician; When: 2 - 3 days; Reason: Re-evaluation by your physician. Signatures: Dispatcher [employer] EDHerbert Caldwell RN RN hj Starr, Gregory, MD MD gs Corrections: (The following items were deleted from the chart) 10:02 10:02 UA MICROSCOPIC+U.LAB.BRZ ordered. EDMS EDMS 10:22 10:17 OB Complete+US.RAD.BRZ ordered. EDMS EDMS 11:10 10:17 Rp Exam Limited+US.RAD.BRZ ordered. EDIL EDMS 12:58 12:20 06/22/2018 12:20 Discharged to Home. Impression: Low back pain. Condition is hj Stable. Forms are Medication Reconciliation Form, Thank You Letter, Antibiotic Education, Prescription Opioid Use. Follow up: Private Physician; When: 2 - 3 days; Reason: Re-evaluation by your physician. gs
[2018-06-22 13:05] VITALS: TEMP 98.4; O2SAT 100
[2018-06-22 13:06] VITALS: BP 125/75
== END 2018-06-22 12:58 | disposition home or self-care (01) ==
LOC: ER 09:38
DX: O26.891 Other specified pregnancy related conditions, first trimester (principal); M54.5 Low back pain; O34.81 Maternal care for other abnormalities of pelvic organs, first trimester; N83.201 Unspecified ovarian cyst, right side; Z3A.08 8 weeks gestation of pregnancy
CPT/HCPCS: 36415; 76770; 76801; 80048; 81003; 81015; 81025; 85025; 99283

== ENCOUNTER 2018-08-26 09:48 | Emergency (ER) | payer OTHER ==
--- OUTSIDE RECORDS SUMMARY | 2018-08-26 09:51 | XMS REPORT ---
:1990 [facility] Address [address] [place] [address] [address]. [address] [place] [address] Care Team Providers Name Role Phone UNKNOWN, [...] Department ID 2017-06-14 2017-06-17 Inpatient E AZALEA [facility] [id number] 21:05:00 13:02:00 SAMPSON Pickard M.D.
--- NOTE | 2018-08-26 10:09 | EDPHYS ---
Physician Documentation [facility] Name: Emilie Holland Age: 28 yrs Sex: Female : 1990 Arrival Date: 08/26/2018 Time: 09:51 Bed 14 Private MD: None, None ED Physician Jordan Carmichael HPI: 08/26 10:30 This 28 yrs old Black Female presents to ER via Ambulatory with complaints of abscess pm1 tooth. 18:43 The patient presents with pain, swelling. The problem is located in the lower left pm1 second molar. 18:43 Onset: The symptoms/episode began/occurred 3 day(s) ago. Duration: The symptoms are pm1 continuous. Modifying factors: The symptoms are alleviated by nothing, the symptoms are aggravated by nothing. Associated signs and symptoms: Pertinent negatives: dysphagia, fever, inability to eat, nausea, vomiting. The patient has experienced similar episodes in the past, multiple times. The patient has not recently seen a physician. Patient ate breakfast this AM. 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 - Social history:: Smoking status: . - Ebola Screening: : Patient denies travel to an Ebola-affected area in the 21 days before illness onset. ROS: 18:43 Constitutional: Negative for fever, chills, and weight loss, Eyes: Negative for injury, pm1 pain, redness, and discharge. 18:43 Neck: Negative for injury, pain, and swelling, Cardiovascular: Negative for chest pain, palpitations, and edema, Respiratory: Negative for shortness of breath, cough, wheezing, and pleuritic chest pain, Abdomen/GI: Negative for abdominal pain, nausea, vomiting, diarrhea, and constipation, Back: Negative for injury and pain, : Negative for injury, bleeding, discharge, and swelling, MS/Extremity: Negative for injury and deformity, Skin: Negative for injury, rash, and discoloration, Neuro: Negative for headache, weakness, numbness, tingling, and seizure. 18:43 ENT: Positive for dental pain, Negative for ear pain, sinus pain, sore throat, difficulty swallowing, difficulty handling secretions, hoarseness. Exam: 18:43 Constitutional: This is a well developed, well nourished patient who is awake, alert, pm1 and in no acute distress. Head/Face: Normocephalic, atraumatic. Eyes: Pupils equal round and reactive to light, extra-ocular motions intact. Lids and lashes normal. Conjunctiva and sclera are non-icteric and not injected. Cornea within normal limits. Periorbital areas with no swelling, redness, or edema. 18:43 Neck: Trachea midline, no thyromegaly or masses palpated, and no cervical lymphadenopathy. Supple, full range of motion without nuchal rigidity, or vertebral point tenderness. No Meningismus. Chest/axilla: Normal chest wall appearance and motion. Nontender with no deformity. No lesions are appreciated. Cardiovascular: Regular rate and rhythm with a normal S1 and S2. No gallops, murmurs, or rubs. Normal PMI, no JVD. No pulse deficits. Respiratory: Lungs have equal breath sounds bilaterally, clear to auscultation and percussion. No rales, rhonchi or wheezes noted. No increased work of breathing, no retractions or nasal flaring. Abdomen/GI: Soft, non-tender, with normal bowel sounds. No distension or tympany. No guarding or rebound. No evidence of tenderness throughout. Back: No spinal tenderness. No costovertebral tenderness. Full range of motion. Skin: Warm, dry with normal turgor. Normal color with no rashes, no lesions, and no evidence of cellulitis. MS/ Extremity: Pulses equal, no cyanosis. Neurovascular intact. Full, normal range of motion. 18:43 ENT: External ear(s): are unremarkable, Ear canal(s): are normal, TM's: are normal, Nose: is normal, Mouth: is normal, no abscess, no drooling, no injury, no laceration, no lesion(s), (-) tongue elevation (-) trismus no ulcerations, Posterior pharynx: is normal, airway is patent, no erythema, no exudate, no peritonsilar mass, no pooling of secretions, no swelling, Dental exam: dental caries, that is mild, specifically in the lower left second molar (#18). 18:43 Neuro: Orientation: is normal, Motor: is normal, moves all fours. Vital Signs: 09:56 BP 113 / 72; Pulse 108; Resp 19; Temp 98.5(O); Pulse Ox 98% on R/A; Pain 10/10; tw2 MDM: 09:57 Patient medically screened. pm1 10:05 Data reviewed: vital signs. Data interpreted: Pulse oximetry: on room air is 98 %. pm1 Interpretation: normal. Counseling: I had a detailed discussion with the patient and/or guardian regarding: the historical points, exam findings, and any diagnostic results supporting the discharge/admit diagnosis, the need for outpatient follow up, for definitive care, a dentist, to return to the emergency department if symptoms worsen or persist or if there are any questions or concerns that arise at home. 10:10 ED course: Patient offered narcotics medication for her pain. Patient refused wants to pm1 check with her OB if she can take it. She usually has to take Benadryl with the pain medications. 08/26 10:09 Order name: FHT's; Complete Time: 10:15 pm1 Administered Medications: 10:06 Not Given (md discretion): Clindamycin 600 mg IM once tw2 10:12 Drug: Tylenol 650 mg Route: PO; tw2 10:18 Follow up: Response: No adverse reaction tw2 10:12 Drug: Augmentin 875 mg Route: PO; tw2 10:18 Follow up: Response: No adverse reaction tw2 Disposition: 08/27 07:13 Co-signature as Attending Physician, Jordan Carmichael MD I agree with the assessment and kdr plan of care. Disposition: 08/26/18 10:08 Discharged to Home. Impression: Dental pain, Periapical abscess without sinus. - Condition is Stable. - Discharge Instructions: Dental Abscess, Dental Pain, Diet and Dental Disease. - Prescriptions for Augmentin 875- 125 mg Oral Tablet - take 1 tablet by ORAL route every 12 hours for 10 days; 20 tablet. - Medication Reconciliation Form, Thank You Letter, Antibiotic Education, Prescription Opioid Use form. - Follow up: Emergency Department; When: As needed; Reason: Worsening of condition. Follow up: Private Physician; When: 2 - 3 days; Reason: Recheck today's complaints, Continuance of care, Re-evaluation by your physician. - Problem is new. - Symptoms have improved. - Notes: Take tylenol as needed for your pain Signatures: Jordan Carmichael MD MD kdr Raymond Magaña NP ACCESS TECH pm1 Michelle Kovacs RN RN tw2 Corrections: (The following items were deleted from the chart) 08/26 10:09 10:08 08/26/2018 10:08 Discharged to Home. Impression: Dental pain. Condition is pm1 Stable. Forms are Medication Reconciliation Form, Thank You Letter, Antibiotic Education, Prescription Opioid Use. Follow up: Emergency Department; When: As needed; Reason: Worsening of condition. Follow up: Private Physician; When: 2 - 3 days; Reason: Recheck today's complaints, Continuance of care, Re-evaluation by your physician. Problem is new. Symptoms have improved. pm1 10:19 10:09 08/26/2018 10:08 Discharged to Home. Impression: Dental pain; Periapical abscess tw2 without sinus. Condition is Stable. Discharge Instructions: Dental Pain. Forms are Medication Reconciliation Form, Thank You Letter, Antibiotic Education, Prescription Opioid Use. Follow up: Emergency Department; When: As needed; Reason: Worsening of condition. Follow up: Private Physician; When: 2 - 3 days; Reason: Recheck today's complaints, Continuance of care, Re-evaluation by your physician. Problem is new. Symptoms have improved. pm1
--- NOTE | 2018-08-26 10:09 | ER ---
Nurse's Notes [facility] Name: Emilie Holland Age: 28 yrs Sex: Female : 1990 Arrival Date: 08/26/2018 Time: 09:51 Bed 14 Private MD: None, None Diagnosis: Dental pain;Periapical abscess without sinus Presentation: 08/26 09:55 Presenting complaint: Patient states: i have a tooth that needs to be pulled but they tw2 wont pull it until i have the baby, i am 18 weeks , i have an ob appt next week. Transition of care: patient was not received from another setting of care. Onset of symptoms was August 26, 2018. Risk Assessment: Do you want to hurt yourself or someone else? Patient reports no desire to harm self or others. Initial Sepsis Screen: Does the patient meet any 2 criteria? No. Patient's initial sepsis screen is negative. Does the patient have a suspected source of infection? No. Patient's initial sepsis screen is negative. Care prior to arrival: None. 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 - Social history:: Smoking status: . - Ebola Screening: : Patient denies travel to an Ebola-affected area in the 21 days before illness onset. Screenin:02 Abuse screen: Denies threats or abuse. Nutritional screening: No deficits noted. tw2 Tuberculosis screening: No symptoms or risk factors identified. Fall Risk None identified. Assessment: 10:00 General: Appears in no apparent distress. Behavior is calm, cooperative, appropriate tw2 for age. Pain: Complains of pain in left corner of mouth, upper left first molar, upper left second molar, upper left third molar, lower left second molar, lower left first molar and lower left second bicuspid. Neuro: Level of Consciousness is awake, alert, obeys commands, Oriented to person, place, time, situation. Cardiovascular: Capillary refill < 3 seconds Patient's skin is warm and dry. Respiratory: Airway is patent Respiratory effort is even, unlabored, Respiratory pattern is regular, symmetrical. GI: No signs and/or symptoms were reported involving the gastrointestinal system. : No signs and/or symptoms were reported regarding the genitourinary system. EENT: Reports pain since "a tooth that needs to be pulled". Musculoskeletal: No signs and/or symptoms reported regarding the musculoskeletal system. 10:18 Reassessment: Patient appears in no apparent distress at this time. No changes from tw2 previously documented assessment. Patient is alert, oriented x 3, equal unlabored respirations, skin warm/dry/pink. Vital Signs: 09:56 BP 113 / 72; Pulse 108; Resp 19; Temp 98.5(O); Pulse Ox 98% on R/A; Pain 10/10; tw2 Vitals: 10:15 Heart Tones 132 bmp. tw2 ED Course: 09:51 Patient arrived in ED. mr 09:51 None, None is Private Physician. mr 09:51 Bed in low position. Call light in reach. Pulse ox on. NIBP on. Warm blanket given. tw2 09:55 Michelle Kovacs, CHAVEZ is Primary Nurse. tw2 09:56 Triage completed. tw2 09:57 Raymond Magaña NP is PHCP. pm1 09:57 Jordan Carmichael MD is Attending Physician. pm1 09:57 Arm band placed on. tw2 10:15 No provider procedures requiring assistance completed. Patient did not have IV access tw2 during this emergency room visit. Administered Medications: 10:06 Not Given (md discretion): Clindamycin 600 mg IM once tw2 10:12 Drug: Tylenol 650 mg Route: PO; tw2 10:18 Follow up: Response: No adverse reaction tw2 10:12 Drug: Augmentin 875 mg Route: PO; tw2 10:18 Follow up: Response: No adverse reaction tw2 Outcome: 10:08 Discharge ordered by MD. pm1 10:18 Discharged to home ambulatory. tw2 10:18 Condition: stable 10:18 Discharge instructions given to patient, Instructed on discharge instructions, follow up and referral plans. medication usage, Demonstrated understanding of instructions, follow-up care, medications, Prescriptions given X 1. 10:19 Patient left the ED. tw2 Signatures: Sinai Brown Patrick, NP [employer] pm1 Michelle Kovacs RN RN tw2
[2018-08-26] MEDS ORDERED: ACETAMINOPHEN 325 MG TABLET ONE (10:20)
[2018-08-26] MEDS ORDERED: AMOX/K CLAV 875 MG TAB ONE (10:20)
[2018-08-26 10:30] VITALS: BP 113/72; TEMP 98.5; O2SAT 98
== END 2018-08-26 10:19 | disposition home or self-care (01) ==
LOC: ER 09:48
DX: K04.7 Periapical abscess without sinus (principal); Z88.5 Allergy status to narcotic agent; Z88.8 Allergy status to other drugs, medicaments and biological substances
CPT/HCPCS: 99284

== ENCOUNTER 2018-08-31 09:02 | Emergency (ER) | payer OTHER ==
--- OUTSIDE RECORDS SUMMARY | 2018-08-31 09:04 | XMS REPORT ---
:1990 Author Organization [facility] Address [address] [place] [address] [address]. [address] [place] [address] Care Team Providers Name Role Phone UNKNOWN, [...] Department ID 2017-06-14 2017-06-17 Inpatient E AZALEA [facility] [id number] 21:05:00 13:02:00 SAMPSON Pickard M.D.
[2018-08-31] MEDS ORDERED: ACETAMINOPHEN 325 MG TABLET ONE (11:13)
[2018-08-31 11:44] LABS: Absolute Lymphocytes (CBC) 1.9 K/uL (0.7-4.9); Absolute Monocytes 0.6 K/uL (0.1-1.3); Absolute Neutrophil 5.6 K/uL (1.8-8.0); Basophils % 0.4 % (0-1.3); Eosinophils % 1.9 % (0-4.4); Hematocrit 33.5 % (36.0-45.0); Lymphocytes % 22.9 % (15.3-44.8); MPV 8.8 fL (7.6-11.3); Monocytes % 7.7 % (3.3-12.3); RBC Red Blood Cell Count 3.73 M/uL (3.86-4.86)
[2018-08-31 11:45] LABS: ALT/SGPT 13 U/L (12-78); AST/SGOT 14 U/L (15-37); Alkaline Phosphatase 58 U/L (45-117); BUN Blood Urea Nitrogen 6 mg/dL (7-18); Bicarbonate 26 mmol/L (21-32); Bilirubin Total 0.4 mg/dL (0.2-1.0); Glucose Level 76 mg/dL (74-106); Potassium 4.2 mmol/L (3.5-5.1); Protein, Total 6.9 g/dL (6.4-8.2); Sodium Level 141 mmol/L (136-145)
[2018-08-31 12:14] LABS: Urine Blood NEGATIVE (NEG); Urine Glucose NEGATIVE (NEG); Urine Protein TRACE (NEG); Urine Specific Gravity 1.015 (1.005-1.030)
--- NOTE | 2018-08-31 12:37 | ER ---
Nurse's Notes [facility] Name: Emilie Holland Age: 28 yrs Sex: Female : 1990 Arrival Date: 08/31/2018 Time: 09:04 Bed 19 Private MD: Diagnosis: Fall from standing height;Lower abdominal pain. Presentation: 08/31 09:10 Presenting complaint: Patient states: LMP- unknown, but US says 18 weeks 5 days from [facility], today i was running around with my son and fell down forward and hurt my L side of my body and and inner thigh; denies vaginal bleeding; denies N/V; pain is 10/10; denies hitting head and LOC;. Transition of care: patient was not received from another setting of care. Onset of symptoms was August 31, 2018. Risk Assessment: Do you want to hurt yourself or someone else? Patient reports no desire to harm self or others. Initial Sepsis Screen: Does the patient meet any 2 criteria? No. Patient's initial sepsis screen is negative. Does the patient have a suspected source of infection? No. Patient's initial sepsis screen is negative. Care prior to arrival: None. 09:10 Method Of Arrival: Ambulatory 09:10 Acuity: ADITYA 4 09:14 Mechanism of Injury: Fall from standing position. Trauma event details: Injury occurred in the [facility], Injury occurred: at home. Injury occurred: August 31, 2018 Injury occurred at: 07:30. Trauma Activation: Not Applicable Physician: ED Physician; Name: ; Notified At: ; Arrived At: Physician: General Surgeon; Name: ; Notified At: ; Arrived At: Physician: Radiology; Name: ; Notified At: ; Arrived At: Physician: Respiratory; Name: ; Notified At: ; Arrived At: Physician: Lab; Name: ; Notified At: ; Arrived At: Historical: - Allergies: 09:14 Hydrocodone-Acetaminophen (Vomiting); 09:14 Iodine; 09:14 Tramadol HCl; - Home Meds: 09:14 Vitamin Oral [Active]; - PMHx: 09:14 "5 cysts on stomach"; Anxiety; Endometrosis; Ovarian cysts; Post concussive syndrome; - PSHx: 09:14 ; hj - Immunization history:: Adult Immunizations up to date. - Social history:: Smoking status: Patient/guardian denies using tobacco, Patient/guardian denies using alcohol. - Immunization history: Last tetanus immunization: - up to date. - Ebola Screening: : Patient negative for fever greater than or equal to 101.5 degrees Fahrenheit, and additional compatible Ebola Virus Disease symptoms Patient denies exposure to infectious person Patient denies travel to an Ebola-affected area in the 21 days before illness onset. Screenin:14 Abuse screen: Denies threats or abuse. Denies injuries from another. Nutritional hj screening: No deficits noted. Tuberculosis screening: No symptoms or risk factors identified. Fall Risk None identified. Primary Survey: 09:45 NO uncontrolled hemorrhage observed. A: The patient is alert. Airway: patent, No hb supplemental oxygen in use on arrival. Breathing/Chest: Respiratory pattern: regular, Respiratory effort: spontaneous, unlabored, Chest inspection: symmetrical rise and fall of the chest. Circulation: Skin color: pink, Skin temperature: warm, dry. Disability Alert. Exposure/Environment: A warming method has been applied: A warm blanket has been provided to the patient. 10:45 Reassessment Airway Airway Patent Breathing/Chest Respiratory pattern Regular hb Respiratory effort Spontaneous Unlabored Chest inspection Symmetrical Circulation Color [place] Disability Alert. 11:45 Reassessment Airway Airway Patent Breathing/Chest Respiratory pattern Regular hb Respiratory effort Spontaneous Unlabored Chest inspection Symmetrical Circulation Temperature Warm Disability Alert. Secondary Survey: 09:45 HEENT: No deficits noted. Gastrointestinal: Abdomen is soft. : No deficits noted. No hb signs and/or symptoms were reported regarding the genitourinary system. Musculoskeletal: Reports pain in left thigh, left knee, lower abdomen, left elbow. Assessment: 09:45 General: Appears in no apparent distress. uncomfortable, Behavior is calm, cooperative. hb Pain: Pain currently is 8 out of 10 on a pain scale. Neuro: Level of Consciousness is awake, alert, obeys commands, Oriented to person, place, time, situation. EENT: No deficits noted. No signs and/or symptoms were reported regarding the EENT system. Cardiovascular: Heart tones S1 S2 present Capillary refill < 3 seconds Patient's skin is warm and dry. Respiratory: Airway is patent Respiratory effort is even, unlabored, Respiratory pattern is regular, symmetrical, Breath sounds are clear bilaterally. GI: Abdomen is round Bowel sounds present X 4 quads. Abd is soft and non tender X 4 quads. : No signs and/or symptoms were reported regarding the genitourinary system. Derm: Skin is healthy with good turgor. Musculoskeletal: Reports pain in left elbow, left thigh, left knee, lower abdomen. Injury Description: abrasions to left elbow, left thigh, left knee, contusion noted ot left thigh. Vital Signs: 09:15 BP 109 / 68; Pulse 106; Resp 18; Temp 98.0(O); Pulse Ox 98% on R/A; Weight 82.1 kg; hj Height 5 ft. 2 in. (157.48 cm); Pain 10/10; 10:45 BP 118 / 68; Pulse 100; Resp 16; Pulse Ox 99% on R/A; hb 09:15 Body Mass Index 33.10 (82.10 kg, 157.48 cm) hj Vitals: 11:22 Heart Tones 146 BPM, variable. hb Brooklyn Coma Score: 09:45 Eye Response: spontaneous(4). Verbal Response: oriented(5). Motor Response: obeys hb commands(6). Total: 15. Trauma Score (Adult): 09:45 Eye Response: spontaneous(1); Verbal Response: oriented(1); Motor Response: obeys hb commands(2); Systolic BP: > 89 mm Hg(4); Respiratory Rate: 10 to 29 per min(4); Brooklyn Score: 15; Trauma Score: 12 10:45 Eye Response: spontaneous(1); Verbal Response: oriented(1); Motor Response: obeys hb commands(2); Systolic BP: > 89 mm Hg(4); Respiratory Rate: 10 to 29 per min(4); Brooklyn Score: 15; Trauma Score: 12 11:45 Eye Response: spontaneous(1); Verbal Response: oriented(1); Motor Response: obeys hb commands(2); Systolic BP: > 89 mm Hg(4); Respiratory Rate: 10 to 29 per min(4); Wagner Score: 15; Trauma Score: 12 ED Course: 09:04 Patient arrived in ED. as 09:13 Triage completed. hj 09:14 Arm band placed on left wrist. hj 09:16 Patient has correct armband on for positive identification. Placed in gown. Bed in low hj position. Call light in reach. Side rails up X 1. 09:45 Patient maintains SpO2 saturation greater than 95% on room air. hb 09:51 Vashti Whitley, RN is Primary Nurse. hb 10:12 Thermoregulation: warm blanket given to patient. hb 10:26 Urine collected: clean catch specimen, cloudy, omega colored. jb1 10:29 Will Harrington MD is Attending Physician. ps1 11:18 Inserted saline lock: 20 gauge in right antecubital area, using aseptic technique. hb Blood collected. 12:41 No provider procedures requiring assistance completed. IV discontinued, intact, tw2 bleeding controlled, No redness/swelling at site. Pressure dressing applied. Administered Medications: 11:21 Drug: Tylenol 650 mg Route: PO; hb 12:30 Follow up: Response: No adverse reaction; Pain is decreased hb Intake: 12:41 PO: 0ml; Total: 0ml. tw2 Outcome: 12:36 Discharge ordered by . ps1 12:41 Discharged to home ambulatory. tw2 12:41 Condition: stable 12:41 Discharge instructions given to patient, family, Instructed on discharge instructions, follow up and referral plans. Demonstrated understanding of instructions, follow-up care. 12:42 Patient's length of stay in the Emergency Department was greater than 2 hours. d/t tw2 resultsPatient's length of stay extended due to 12:43 Patient left the ED. tw2 Signatures: Timi Pfeiffer jb1 Lidia Mancini Henry, RN RN hj Baxter, Heather, RN RN hb Wise, Tara, RN RN tw2 Will Harrington MD MD ps1 Corrections: (The following items were deleted from the chart) 09:17 09:15 Pulse 106bpm; Resp 18bpm; Pulse Ox 98% RA; Temp 98.0F Oral; 82.1 kg; Height 5 ft. hj 2 in.; BMI: 33.1; Pain 10; hj
--- NOTE | 2018-08-31 12:37 | EDPHYS ---
Physician Documentation [facility] Name: Emilie Holland Age: 28 yrs Sex: Female : 1990 Arrival Date: 08/31/2018 Time: 09:04 Bed 19 Private MD: ED Physician Will Harrington HPI: 08/31 12:30 This 28 yrs old Black Female presents to ER via Ambulatory with complaints of Fall ps1 Injury - 18 Weeks Preg. 12:30 patient reported 18wks gestation presenting with fall. Patient states that she had a ps1 fall from standing height. Has lower abdominal pain. Rated as moderate. No VB, LOF, Ctx, or LOM. FHT 146. Historical: - Allergies: 09:14 Hydrocodone-Acetaminophen (Vomiting); hj 09:14 Iodine; hj 09:14 Tramadol HCl; hj - Home Meds: 09:14 Vitamin Oral [Active]; hj - PMHx: 09:14 "5 cysts on stomach"; Anxiety; Endometrosis; Ovarian cysts; Post concussive syndrome; hj - PSHx: 09:14 ; hj - Immunization history:: Adult Immunizations up to date. - Social history:: Smoking status: Patient/guardian denies using tobacco, Patient/guardian denies using alcohol. - Immunization history: Last tetanus immunization: - up to date. - Ebola Screening: : Patient negative for fever greater than or equal to 101.5 degrees Fahrenheit, and additional compatible Ebola Virus Disease symptoms Patient denies exposure to infectious person Patient denies travel to an Ebola-affected area in the 21 days before illness onset. ROS: 12:30 Constitutional: Negative for fever, chills, and weight loss, Eyes: Negative for injury, ps1 pain, redness, and discharge, Cardiovascular: Negative for chest pain, palpitations, and edema, Respiratory: Negative for shortness of breath, cough, wheezing, and pleuritic chest pain, MS/Extremity: Negative for injury and deformity, Skin: Negative for injury, rash, and discoloration, Neuro: Negative for headache, weakness, numbness, tingling, and seizure. 12:30 Abdomen/GI: Positive for abdominal pain. Exam: 12:30 Constitutional: This is a well developed, well nourished patient who is awake, alert, ps1 and in no acute distress. Head/Face: Normocephalic, atraumatic. Chest/axilla: Normal chest wall appearance and motion. Nontender with no deformity. No lesions are appreciated. Cardiovascular: Regular rate and rhythm. No gallops, murmurs, or rubs. Normal PMI, no JVD. No pulse deficits. Respiratory: Lungs have equal breath sounds bilaterally, clear to auscultation and percussion. No rales, rhonchi or wheezes noted. No increased work of breathing, no retractions or nasal flaring. Abdomen/GI: Soft, non-tender, with normal bowel sounds. No distension or tympany. No guarding or rebound. No evidence of tenderness throughout. MS/ Extremity: Pulses equal, no cyanosis. Neurovascular intact. Full, normal range of motion. Neuro: Awake and alert, GCS 15, oriented to person, place, time, and situation. Cranial nerves II-XII grossly intact. Sensory grossly intact. Psych: Awake, alert, with orientation to person, place and time. Behavior, mood, and affect are within normal limits. Vital Signs: 09:15 BP 109 / 68; Pulse 106; Resp 18; Temp 98.0(O); Pulse Ox 98% on R/A; Weight 82.1 kg; Height 5 ft. 2 in. (157.48 cm); Pain 10/10; 10:45 BP 118 / 68; Pulse 100; Resp 16; Pulse Ox 99% on R/A; hb 09:15 Body Mass Index 33.10 (82.10 kg, 157.48 cm) Gary Coma Score: 09:45 Eye Response: spontaneous(4). Verbal Response: oriented(5). Motor Response: obeys hb commands(6). Total: 15. Trauma Score (Adult): 09:45 Eye Response: spontaneous(1); Verbal Response: oriented(1); Motor Response: obeys hb commands(2); Systolic BP: > 89 mm Hg(4); Respiratory Rate: 10 to 29 per min(4); Gary Score: 15; Trauma Score: 12 10:45 Eye Response: spontaneous(1); Verbal Response: oriented(1); Motor Response: obeys hb commands(2); Systolic BP: > 89 mm Hg(4); Respiratory Rate: 10 to 29 per min(4); Wagner Score: 15; Trauma Score: 12 11:45 Eye Response: spontaneous(1); Verbal Response: oriented(1); Motor Response: obeys hb commands(2); Systolic BP: > 89 mm Hg(4); Respiratory Rate: 10 to 29 per min(4); Wagner Score: 15; Trauma Score: 12 MDM: 10:57 Patient medically screened. ps1 12:30 Data reviewed: vital signs, nurses notes, and as a result, I will discharge patient. ps1 Special discussion: Based on the patient's Hx, exam, and Dx evaluation, there is no indication for emergent surgery or inpatient Tx. It is understood by the patient/guardian that if the Sx's persist or worsen they need to return immediately for re-evaluation. 08/31 09:49 Order name: Urine Dipstick--Ancillary (enter results); Complete Time: 12:22 bd 08/31 09:49 Order name: Urine --Ancillary (enter results) 08/31 10:59 Order name: CBC with Diff; Complete Time: 11:55 ps1 08/31 10:59 Order name: CMP; Complete Time: 11:55 ps1 08/31 11:24 Order name: FHT's; Complete Time: 11:24 hb Administered Medications: 11:21 Drug: Tylenol 650 mg Route: PO; hb 12:30 Follow up: Response: No adverse reaction; Pain is decreased hb Disposition: 08/31/18 12:36 Discharged to Home. Impression: Fall from standing height, Lower abdominal pain.. - Condition is Stable. - Discharge Instructions: Abdominal Pain During . - Medication Reconciliation Form, Thank You Letter, Antibiotic Education, Prescription Opioid Use form. - Follow up: Private Physician; When: 48 Hours; Reason: Continuance of care. Follow up: Emergency Department; When: As needed; Reason: Worsening of condition. - Problem is new. - Symptoms have improved. Signatures: Dispatcher [employer] EDMS Herbert Atwood RN RN Vashti Whitley RN RN Michelle Kovacs RN RN tw2 Will Harrington MD MD ps1 Corrections: (The following items were deleted from the chart) 12:43 12:36 08/31/2018 12:36 Discharged to Home. Impression: Fall from standing height; Lower tw2 abdominal pain.. Condition is Stable. Forms are Medication Reconciliation Form, Thank You Letter, Antibiotic Education, Prescription Opioid Use. Follow up: Private Physician; When: 48 Hours; Reason: Continuance of care. Follow up: Emergency Department; When: As needed; Reason: Worsening of condition. Problem is new. Symptoms have improved. ps1
[2018-08-31 12:48] VITALS: TEMP 98
[2018-08-31 12:49] VITALS: BP 118/68; O2SAT 99
== END 2018-08-31 12:43 | disposition home or self-care (01) ==
LOC: ER 09:02
DX: O26.892 Other specified pregnancy related conditions, second trimester (principal); R10.30 Lower abdominal pain, unspecified; Z3A.18 18 weeks gestation of pregnancy; W18.30XA Fall on same level, unspecified, initial encounter; Z88.5 Allergy status to narcotic agent; Z88.8 Allergy status to other drugs, medicaments and biological substances
CPT/HCPCS: 36415; 80053; 81003; 81025; 85025; 99284

== ENCOUNTER 2019-02-03 11:14 | Emergency (ER) | payer MEDICAID, OTHER ==
--- OUTSIDE RECORDS SUMMARY | 2019-02-03 11:24 | XMS REPORT ---
:1990 [facility] Address [address] [place] [address] [address] [place] [address] Care Team Providers Name Role Phone UNKNOWN, [...] Department ID 2017-06-14 2017-06-17 Inpatient E AZALEA [facility] [id number] 21:05:00 13:02:00 SAMPSON Pickard M.D.
--- OUTSIDE RECORDS SUMMARY | 2019-02-03 11:24 | XMS REPORT | Summary of Care ---
:[address] [facility] Address [address] [place] [id number] Care Team Providers Name Role Phone Sylvia Wolf Insurance Hmo Cassius Reagan Primary Care Provider Reason for Visit Reason Comments Care Encounter Details Date Type Department Care Team Description 01/10/2019 Routine [facility]- Cassius Reagan High risk , antepartum (Primary Dx); Visit MOOKIE Velarde Previous section; [address] [place] [address]; [place], [place] Maternal tobacco use in third trimester [address] [place], [place] [phone] [id number] Allergies Active Allergy Reactions Severity Noted Date Comments Hydrocodone Nausea and/or Vomiting 11/11/2016 Iodine Anaphylaxis 10/04/2012 Seafood/Fish Anaphylaxis 10/04/2012 documented as of this encounter (statuses as of 01/10/2019) Medications Medication Sig Dispensed Refills Start Date End Date Status traMADOL 50 mg tablet Take 1 tablet by 12 tablet 0 11/12/2016 Active mouth every 6 (six) hours as needed for Pain (scale 7-10) for up to 12 doses. vit Take 1 Packet by 30 Each 6 06/29/2018 Active 56-xwun-ndkrr-dha mouth daily. (SELECT-OB + DHA) 29 mg iron-1 mg -250 mg combo packIndications: High risk , antepartum proMETHazine 25 mg Take 1 tablet by 30 tablet 1 10/11/2018 Active tabletIndications: mouth every 4 Nausea and vomiting in (four) hours as prior to 22 needed for Nausea weeks gestation, High and Vomiting risk , (N/V). antepartum metroNIDAZOLE 250 mg Take 2 tablets by 14 tablet 0 11/15/2018 Active tabletIndications: 29 mouth 2 (two) weeks gestation of times daily. , BV (bacterial vaginosis), Round ligament pain Hospital, Clinic, or Other Ordered Dose Route Frequency Start Date End Date Status Facility Administered Medication medroxyPROGESTERone 150 mg IM [id number] 08/15/2014 Active (DEPO-PROVERA) injection 150 mgIndications: Routine gynecological examination documented as of this encounter (statuses as of 01/10/2019) Active Problems Problem Noted Date Drug use 11/23/2018 Acute bilateral low back pain with bilateral sciatica 11/23/2018 Abnormal maternal glucose tolerance, antepartum 10/19/2018 Maternal tobacco use in second trimester 10/18/2018 Right ovarian cyst 09/01/2018 Heartburn during 07/27/2018 Multiparity 06/29/2018 Endometriosis 06/29/2018 Depression, unspecified depression type 06/29/2018 Anxiety disorder, unspecified type 06/29/2018 Hx of abnormal Pap smear 08/17/2013 Overview: 2013- NIL with absent ECC. Repeat in 1 year 2012- ASCUS High risk , antepartum 10/04/2012 Overview: Medical records received. DOS- 10/29/2012. O+, beta hcg- 01799. Endovaginal US: Single IUP at 8 weeks 6 days. GERMAN-06/04/2013. ICD10 Diagnosis Term Beef Skinner Utility Tobacco use disorder 10/04/2012 Previous section 10/04/2012 Overview: X2. Awaiting medical records. Medical records: 03/03/2011- Primary low transverse . Failure to progress. Medical records: 03/16/2012- Repeat low transverse . Estimated Date of Delivery Comments Yes 01/27/2019 Based on last menstrual period of 04/22/2018 (Within Days) documented as of this encounter (statuses as of 01/10/2019) Resolved Problems Problem Noted Date Resolved Date Chlamydia trachomatis infection of lower genitourinary sites 08/22/201406/29 Surveillance of previously prescribed contraceptive method 08/15/20142018 Overview: ICD10 Diagnosis Term Beef Skinner Utility Encounter for routine gynecological examination 08/15/2014 06/29/2018 Overview: ICD10 Diagnosis Term Beef Skinner Utility Screening for STD (sexually transmitted disease) 08/15/2014 06/29/2018 Obesity 08/15/2014 06/29/2018 Overview: ICD10 Diagnosis Term Beef Skinner Utility Depo-Provera contraceptive status 08/08/2013 06/29/2018 Immune to rubella 10/15/2012 08/15/2014 Immune to varicella 10/15/2012 08/08/2013 Papanicolaou smear of cervix with atypical squamous cells of 10/08/201208/17 undetermined significance (ASC-US) Overview: Refer to colpo prior to 32 weeks Abnormal maternal glucose tolerance, antepartum 10/05/2012 08/08/2013 Overview: 3 hour gtt-passed. Repeat at 28 weeks Pain pelvic 10/04/2012 08/08/2013 Heartburn in 10/04/2012 08/08/2013 BV (bacterial vaginosis) 10/04/2012 08/08/2013 Nausea 10/04/2012 08/08/2013 documented as of this encounter (statuses as of 01/10/2019) Immunizations Name Administration Dates Next Due Influenza Virus Vaccine 06/14/2017 Rubella 10/04/2012, 09/17/2010 TDAP (ADACEL) VACCINE 11/08/2018 Td 02/03/2006 Varicella (varivax)(chicken pox) 09/17/2010 documented as of this encounter Social History Tobacco Use Types Packs/Day Years Used Date Current Some Day Smoker Cigarettes 0.15 1 Started: 2012 Smokeless Tobacco: Never Used Alcohol Use Drinks/Week oz/Week Comments Yes 1 Glasses of wine 0.6 on occasion Estimated Date of Delivery Comments Yes 01/27/2019 Based on last menstrual period of 04/22/2018 (Within Days) Sex Assigned at Date Recorded Not on file Job Start Date Occupation Industry Not on file Not on file Not on file Travel History Travel Start Travel End No recent travel history available. documented as of this encounter Last Filed Vital Signs Vital Sign Reading Time Taken Comments Blood Pressure 126/70 01/10/2019 12:58 PM CDT Pulse 99 01/10/2019 12:58 PM CDT Temperature 37.1 C (98.7 F) 01/10/2019 12:58 PM CDT Respiratory Rate 18 01/10/2019 12:58 PM CDT Oxygen Saturation - - Inhaled Oxygen Concentration - - Weight 83.1 kg (183 lb 2 oz) 01/10/2019 12:58 PM CDT Height 157.5 cm (5' 2") 01/10/2019 12:58 PM CDT Body Mass Index 33.49 01/10/2019 12:58 PM CDT documented in this encounter Progress Notes Cassius Reagan, [employer]CH[employer] - 01/10/2019 12:45 PM CDT Chief complaint: Chief Complaint Patient presents with Care HPI CC: Follow Up Visit Emilie Holland is a 28 year old, , Black or female. Patient's last menstrual period was 04/22/2018 (within days). She is 37w4d with an intrauterine . Her estimated date of delivery is 2018, by Last Menstrual Period. She complains of lower pain, same a previous weeks. Patient reports tried of being . She reports +FM and denies contractions, LOF and bleeding today. Patient denies current or past physical, sexual or emotional abuse. Histories OB History Para Term AB Living 5 3 3 1 3 SAB TAB Ectopic Multiple Live Births 1 3 # Outcome Date GA Lbr Jt/2nd Weight Sex Delivery Anes PTL Lv 5 Current 4 Term 13 M CS-LTranv JORGE Comments: System Generated. Please review and update details. Complications: Other Excessive Bleeding 3 Term 03/16/12 39w0d 6 lb 14 oz (3.118 kg) F CS-LTranv EPIDURAL JORGE Comments: repeat c/section 2 Term 03/03/11 39w0d 6 lb 7 oz (2.92 kg) M CS-LTranv EPIDURAL JORGE Comments: failure to dilate 1 SAB 2008 OB History Para Term AB Living 5 3 3 1 3 SAB TAB Ectopic Multiple Live Births 1 3 # Outcome Date GA Lbr Jt/2nd Weight Sex Delivery Anes PTL Lv 5 Current 4 Term 13 M CS-LTranv JORGE Comments: System Generated. Please review and update details. Complications: Other Excessive Bleeding 3 Term 03/16/12 39w0d 6 lb 14 oz (3.118 kg) F CS-LTranv EPIDURAL JORGE Comments: repeat c/section 2 Term 03/03/11 39w0d 6 lb 7 oz (2.92 kg) M CS-LTranv EPIDURAL JORGE Comments: failure to dilate 1 2008 Past Medical History: Diagnosis Date Abnormal maternal glucose tolerance, antepartum resolved Anxiety disorder, unspecified type 06/29/2018 not taking medication at this time. BV (bacterial vaginosis) 10/04/2012 resolved Depression, unspecified depression type 06/29/2018 not taking medication at this time. Drug use 11/23/2018 Endometriosis 06/29/2018 ongoing Papanicolaou smear of cervix with atypical squamous cells of undetermined significance (ASC-US) 10/08/2012 Screening for STD (sexually transmitted disease) 08/15/2014 resolved Staph infection Tobacco use disorder 10/04/2012 Vision problem wears glasses Family History Problem Relation Age of Onset Heart Mother Hypertension Mother Hypertension Father Cancer Maternal Grandmother lung No Significant Medical Problems Sister No Significant Medical Problems Brother Cancer Maternal Grandfather Cancer Paternal Grandfather Arthritis NoFHx Breast Cancer NoFHx Colon Cancer NoFHx defects NoFHx Asthma NoFHx Ovarian Cancer NoFHx Uterine Cancer NoFHx Depression NoFHx High cholesterol NoFHx Osteoporosis NoFHx Psychiatry NoFHx Other - see comments NoFHx Neurological NoFHx Mental retardation NoFHx Family Status Relation Name Status Mo Alive Fa Alive MGMo Sis Alive Bro Alive MGFa PGMo Alive PGFa NoFHx (Not Specified) Past Surgical History: Procedure Laterality Date SECTION 2010,2011,2012 Social History Socioeconomic History Marital status: Single Spouse name: Not on file Number of children: 2 Years of education: 12+ Highest education level: Not on file Occupational History Occupation: [employer] Social Needs Financial resource strain: Not on file Food insecurity: Worry: Not on file Inability: Not on file Transportation needs: Medical: Not on file Non-medical: Not on file Tobacco Use Smoking status: Current Some Day Smoker Packs/day: 0.15 Years: 1.00 Pack years: 0.15 Types: Cigarettes Start date: 2012 Smokeless tobacco: Never Used Substance and Sexual Activity Alcohol use: Yes Alcohol/week: 0.6 oz Types: 1 Glasses of wine per week Comment: on occasion Drug use: No Sexual activity: Yes Partners: Male control/protection: Injection, None Comment: last sexual intercourse 06/01/2018 Lifestyle Physical activity: Days per week: Not on file Minutes per session: Not on file Stress: Not on file Relationships Social connections: Talks on phone: Not on file Gets together: Not on file Attends scientologist service: Not on file Active member of club or organization: Not on file Attends meetings of clubs or organizations: Not on file Relationship status: Not on file Intimate partner violence: Fear of current or ex partner: Not on file Emotionally abused: Not on file Physically abused: Not on file Forced sexual activity: Not on file Other Topics Concern Service Not Asked Blood Transfusions No Caffeine Concern Not Asked Occupational Exposure Not Asked Hobby Hazards Not Asked Sleep Concern Not Asked Stress Concern Not Asked Weight Concern Not Asked Special Diet Not Asked Back Care Not Asked Exercise Not Asked Bike Helmet Not Asked Seat Belt Not Asked Self-Exams Not Asked Social History Narrative Pt states her scientologist preference is Worship Lives alone. No domestic violence or abuse at this time. Social History Substance and Sexual Activity Sexual Activity Yes Partners: Male control/protection: Injection, None Comment: last sexual intercourse 06/01/2018 Labs No new labs Radiology Radiology pending. Allergies Emilie is allergic to hydrocodone; iodine; and seafood/fish. Medications Emilie has a current medication list which includes the following prescription(s ): metronidazole, promethazine, vit 18-uhof-xtaqq-dha, and tramadol, and the following Facility-Administered Medications: medroxyprogesterone. Review of Systems Eyes: Negative for visual disturbance. Cardiovascular: Negative for leg swelling. Gastrointestinal: Negative for abdominal pain, nausea and vomiting. Genitourinary: Negative for vaginal bleeding, vaginal discharge and pelvic pain. Neurological: Negative for headaches. BP 126/70 (BP Location: Right arm, Patient Position: Sitting, BP CUFF SIZE: Adult Small) | Pulse 99 | Temp 37.1 C (98.7 F) (Oral) | Resp 18 | Ht 5' 2 " (1.575 m) | Wt 183 lb 2 oz (83.1 kg) | LMP 04/22/2018 (Within Days) | BMI 33.49 kg/m Pregravid BMI: 32.9 Physical Exam PHYSICAL: General Exam: Neurological: Normal Abdomen: Normal Extremities: Normal Pelvic Exam: Uterus: 38cm Weeks Assessment/Plan High risk , antepartum (primary encounter diagnosis) Previous section [place] Comment: Routine Visit Plan: POCT URINALYSIS W/O SPECIFIC GRAVITY Denies zika virus risk, signs and symptoms such as fever,rash,joint pain, conjunctivitis (red eyes), muscle pain, headaches; outside [place] travel to areas affected by zika, and FOB exposure to zika. Educated on use of mosquito repellent. Maternal tobacco use in third trimester Comment: current smoker Plan: smoking cessation encouraged Return to clinic in 2 weeks. Discussed treatment options. Medications as ordered. Reviewed patient instructions and provided printed copy. This visit did not involve counseling and coordination that comprised more than 50% of the visit time. MOOKIE Varela 01/10/2019 1:54 PM documented in this encounter Plan of Treatment Date Type Specialty Care Team Description 01/17/2019 Routine OB Satellites Cassius Reagan, Visit [employer]CH[employer] [address] [place] [address] [phone] 01/20/2019 Hospital Encounter Obstetrics Ken Juarez MD [address], [place] [address] [phone] 01/20/2019 Surgery Surgery Faculty, Ob SECTION [address] [place] [id number] Health Maintenance Due Date Last Done Comments PNEUMOCOCCAL 0-64 YEARS COMBINED 1996 SERIES (1 of 1 - PPSV23) INFLUENZA VACCINE 02/06/2019 06/14/2017, 06/14/2017 PAP SMEAR 06/29/2021 06/29/2018, 08/15/2014, 08/08/2013, Additional history exists DTaP,Tdap,and Td Vaccines (3 - Td) 11/08/2028 11/08/2018, 02/03/2006 documented as of this encounter Procedures Procedure Name Priority Date/Time Associated Comments Diagnosis POCT URINALYSIS W/O Routine 01/10/2019 1:02 PM High risk Results for this SPECIFIC GRAVITY CDT , procedure are in antepartum the results section. documented in this encounter Results POCT URINALYSIS W/O SPECIFIC GRAVITY (01/10/2019 1:02 PM CDT) POCT PH U . 5 - 8 mg/dl POCT U LEUK EST . Negative - Negative POCT U NIT . Negative - Negative POCT U PROT neg Negative - Negative POCT U GLU neg Negative - Negative POCT U KETONE . Negative - Negative POCT U BLD . Negative - Negative Specimen Urine - URINE, CLEAN CATCH documented in this encounter Visit Diagnoses Diagnosis High risk , antepartum - Primary Previous section Other postprocedural status [place] Maternal tobacco use in third trimester documented in this encounter Insurance Payer Benefit Plan / Subscriber ID Effective Phone Address Type Group Dates BERTRAM BURDEN xxxxxxxxx 2018-[address] [place] [id number] MANAGED MEDICAID [place], [place] documented as of this encounter Advance Directives Name Relationship Healthcare Agent Communication Relationship Lizzy Holland Mother Primary healthcare agent
--- OUTSIDE RECORDS SUMMARY | 2019-02-03 11:24 | XMS REPORT | Summary of Care ---
:1990 Author Organization [facility] Address [address] [place] [id number] Care Team Providers Name Role Phone Sylvia Wolf Insurance Hmo Cassius Reagan WEAP[employer] MECHANIC Primary Care Provider Reason for Visit Reason Comments Care Encounter Details Date Type Department Care Team Description 01/03/2019 Routine [facility]- Cassius Reagan High risk , antepartum (Primary Dx); Visit MOOKIE Velarde Previous section; [address] [place] [address]; [place], [place] Tobacco use disorder [id number] [place], [place] [phone] [address] Allergies Active Allergy Reactions Severity Noted Date Comments Hydrocodone Nausea and/or Vomiting 11/11/2016 Iodine Anaphylaxis 10/04/2012 Seafood/Fish Anaphylaxis 10/04/2012 documented as of this encounter (statuses as of 01/03/2019) Medications Medication Sig Dispensed Refills Start Date End Date Status traMADOL 50 mg tablet Take 1 tablet by 12 tablet 0 11/12/2016 Active mouth every 6 (six) hours as needed for Pain (scale 7-10) for up to 12 doses. vit Take 1 Packet by 30 Each 6 06/29/2018 Active 85-yuuc-abcpo-dha mouth daily. (SELECT-OB + DHA) 29 mg [...] Facility Administered Medication medroxyPROGESTERone 150 mg IM [id number] 08/15/2014 Active (DEPO-PROVERA) injection 150 mgIndications: Routine gynecological examination documented as of this encounter (statuses as of 01/03/2019) Active Problems Problem Noted Date Drug use [...] records received. DOS- 10/29/2012. O+, beta hcg- 90292. Endovaginal US: Single IUP at 8 weeks 6 days. GERMAN-06/04/2013. ICD10 Diagnosis Term Coffee Urn Attendant Utility Tobacco use disorder 10/04/2012 Previous section 10/04/2012 Overview: X2. Awaiting medical records. Medical records: 03/03/2011- Primary low transverse . Failure to progress. Medical records: 03/16/2012- Repeat low transverse . Estimated Date of Delivery Comments Yes 01/27/2019 Based on last menstrual period of 04/22/2018 (Within Days) documented as of this encounter (statuses as of 01/03/2019) Resolved Problems Problem Noted Date Resolved Date Chlamydia trachomatis infection of lower genitourinary sites 08/22/201406/29 Surveillance of previously prescribed contraceptive method 08/15/20142018 Overview: ICD10 Diagnosis Term Coffee Urn Attendant Utility Encounter for routine gynecological examination 08/15/2014 06/29/2018 Overview: ICD10 Diagnosis Term Coffee Urn Attendant Utility Screening for STD (sexually transmitted disease) 08/15/2014 06/29/2018 Obesity 08/15/2014 06/29/2018 Overview: ICD10 Diagnosis Term Coffee Urn Attendant Utility Depo-Provera contraceptive status 08/08/2013 06/29/2018 Immune [...] as of this encounter (statuses as of 01/03/2019) Immunizations Name Administration Dates Next Due Influenza [...] Sign Reading Time Taken Comments Blood Pressure 125/65 01/03/2019 12:58 PM CDT Pulse 97 01/03/2019 12:58 PM CDT Temperature 36.8 C (98.3 F) 01/03/2019 12:58 PM CDT Respiratory Rate 16 01/03/2019 12:58 PM CDT Oxygen Saturation - - Inhaled Oxygen Concentration - - Weight 82.1 kg (181 lb) 01/03/2019 12:58 PM CDT Height 157.5 cm (5' 2") 01/03/2019 12:58 PM CDT Body Mass Index 33.11 01/03/2019 12:58 PM CDT documented in this encounter Progress Notes Cassius Reagan, WEAPONS MECHANIC - 01/03/2019 12:45 PM CDT Chief complaint: Chief Complaint Patient presents with Care HPI CC: Follow Up Visit Emilie Holland is a 28 year old, , Black or female. Patient's last menstrual period was 04/22/2018 (within days). She is 36w4d with an intrauterine . Her estimated date of delivery is 2018, by Last Menstrual Period. She has no complaints today. She reports +FM and denies contractions, LOF and bleeding today. Patient denies current or past physical, sexual or emotional abuse. Histories OB History Para Term AB Living 5 3 3 1 3 SAB TAB Ectopic Multiple Live Births 1 3 # Outcome Date GA Lbr Jt/2nd Weight Sex Delivery Anes PTL Lv 5 Current 4 Term 05/20/13 M CS-LTranv JORGE Comments: System Generated. Please [...] level: Not on file Occupational History Occupation: [employer] Social Needs Financial resource strain: Not on [...] file Gets together: Not on file Attends anabaptism service: Not on file Active member of [...] Asked Social History Narrative Pt states her anabaptism preference is Sikh Lives alone. No domestic violence or abuse at this time. Social History Substance and Sexual Activity Sexual Activity Yes Partners: Male control/protection: Injection, None Comment: last sexual intercourse 06/01/2018 Labs Labs are pending. Radiology No new radiology. Allergies Emilie is allergic to hydrocodone; iodine; and seafood/fish. Medications Emilie has a current medication list which includes the following prescription(s ): metronidazole, promethazine, vit 47-gymu-xmgnr-dha, and tramadol, and the following Facility-Administered Medications: medroxyprogesterone. Review of Systems Eyes: Negative for visual disturbance. Cardiovascular: Negative for leg swelling. Gastrointestinal: Negative for abdominal pain, nausea and vomiting. Genitourinary: Negative for vaginal bleeding, vaginal discharge and pelvic pain. Neurological: Negative for headaches. BP 125/65 (BP Location: Right arm, Patient Position: Sitting, BP CUFF SIZE: Adult Medium) | Pulse 97 | Temp 36.8 C (98.3 F) (Oral) | Resp 16 | Ht 5 ' 2" (1.575 m) | Wt 181 lb (82.1 kg) | LMP 04/22/2018 (Within Days) | BMI 33.11 kg/m Pregravid BMI: 32.9 Physical Exam PHYSICAL: General Exam: Neurological: Normal Abdomen: Normal Extremities: Normal Pelvic Exam: Vagina: Deckhand Sponge Boat present for the exam: Kasia Holbrook RN Cervix: Closed/50/-3 Membrane status: Intact Uterus: 37cm Weeks Assessment/Plan High risk , antepartum (primary encounter diagnosis) Previous section [place] Comment: Routine Visit Plan: CBC WITH DIFF, GROUP B STREPTOCOCCUS BY PCR, CBC WITH DIFFERENTIAL, POCT URINALYSIS GLUCOSE & PROTEIN Denies zika virus risk, signs and symptoms such as fever,rash,joint pain, conjunctivitis (red eyes), muscle pain, headaches; outside [place] travel to areas affected by zika, and FOB exposure to zika.Educated on use of mosquito repellent. Tobacco use disorder Comment: current smoker Plan: smoking cessation encouraged. Return to clinic in 2 weeks. Discussed treatment options. Medications as ordered. Reviewed patient instructions and provided printed copy. This visit did not involve counseling and coordination that comprised more than 50% of the visit time. MOOKIE Varela 01/03/2019 1:31 PM documented in this encounter Plan of Treatment Date Type Specialty Care Team Description 01/10/2019 Routine OB Satellites Cassius Reagan, Visit [employer] MECH[employer]IC [address] [place] [address] [phone] 01/20/2019 Hospital Encounter Obstetrics Ken Juarez MD [address] [place] [address] 01/20/2019 Surgery Surgery Faculty, Ob SECTION [address] [place] [address] Name Type Priority Associated Diagnoses Date/Time CBC WITH DIFF LAB Routine High risk , 01/03/2019 12:50 PM antepartum CDT GROUP B STREPTOCOCCUS BY LAB Routine High risk , 01/03/2019 12:50 PM PCR antepartum CDT CBC WITH DIFFERENTIAL LAB Routine High risk , 01/03/2019 12:50 PM antepartum CDT Health Maintenance Due Date Last Done Comments PNEUMOCOCCAL 0-64 YEARS COMBINED 1996 SERIES (1 of 1 - PPSV23) INFLUENZA VACCINE 02/06/2019 06/14/2017 PAP SMEAR 06/29/2021 06/29/2018, 08/15/2014, 08/08/2013, Additional history exists DTaP,Tdap,and Td Vaccines (3 - Td) 11/08/2028 11/08/2018, 02/03/2006 documented as of this encounter Procedures Procedure Name Priority Date/Time Associated Comments Diagnosis POCT URINALYSIS Routine 01/03/2019 1:00 PM High risk Results for this GLUCOSE & PROTEIN CDT , procedure are in antepartum the results section. documented in this encounter Results POCT URINALYSIS GLUCOSE & PROTEIN (01/03/2019 1:00 PM CDT) POCT U PROT trace Negative - Negative POCT U GLU neg Negative - Negative Specimen Urine - URINE, CLEAN CATCH documented in this encounter Visit Diagnoses Diagnosis High risk , antepartum - Primary Previous section Other postprocedural status [place] Tobacco use disorder documented in this encounter Insurance Payer Benefit Plan / Subscriber ID Effective Phone Address Type Group Dates BERTRAM BURDEN xxxxxxxxx 2018-[address] Medicaid HEALTHCARE - [facility] [id number] MANAGED MEDICAID [place], [place]ICAID [place] documented as of this encounter Advance Directives Name Relationship Healthcare Agent Communication Relationship Lizzy Holland Mother Primary healthcare agent
--- OUTSIDE RECORDS SUMMARY | 2019-02-03 11:25 | XMS REPORT | Summary of Care ---
:1990 Author Organization [facility] Address [address] [place] [id number] Care Team Providers Name Role Phone Sylvia Wolf Insurance [employer] Cassius Reagan [employer] INSTALLER Primary Care Provider Reason for Referral (Routine) Status Reason Specialty Diagnoses / Referred By Contact Referred To Procedures Contact New Request Diagnoses S/P section Mariah Allen MD Procedures DISCHARGE FOLLOW-UP: [facility] [address] [place] [address]. [place] [address] Reason for Visit Auth/Cert Status Reason Specialty Diagnoses / Referred By Contact Referred To Contact Procedures Obstetrics Diagnoses 39 weeks C section Jsa3 Procedures [place] FULL ROUT OBSTE CARE, DELIV SECTION [address] [place] [address] Encounter Details Date Type Department Care Team Description 01/20/2019 - Hospital Encounter Mother Baby Unit Gonsalo Alejandre [address] [id number] 39 weeks gestation 01/23/2019 (J7C) Marcia Wong MD [address] [id number] of [address] [place] [id number] Allergies Active Allergy Reactions Severity Noted Date Comments Hydrocodone Nausea and/or Vomiting 11/11/2016 Iodine Anaphylaxis 10/04/2012 Seafood/Fish Anaphylaxis 10/04/2012 documented as of this encounter (statuses as of 01/23/2019) Medications Medication Sig Dispensed Refills Start Date End Date Status docusate calcium Take 1 capsule 60 capsule 1 01/22/2019 Active 240 mg by mouth once capsuleIndication daily as s: S/P needed for section Constipation. ferrous sulfate Take 1 tablet 60 tablet 2 01/22/2019 Active 325 mg (65 mg by mouth 2 iron) (two) times tabletIndications daily. : S/P section ibuprofen 600 mg Take 1 tablet 60 tablet 1 01/22/2019 Active tabletIndications by mouth every : S/P 6 (six) hours section as needed for Pain (scale 1-3) or Pain (scale 4-6) (Pain). Take with food or milk. HYDROcodone-aceta Take 1 tablet 28 tablet 0 01/22/2019 01/29/2019 Active minophen 5-325 mg by mouth every tabletIndications 6 (six) hours : S/P as needed for section Pain (scale 7-10) (Pain scale above 4) for up to 7 days. traMADOL 50 mg Take 1 tablet 12 tablet 0 11/12/2016 01/22/2019 Discontinued tablet by mouth every 6 (six) hours as needed for Pain (scale 7-10) for up to 12 doses. vit Take 1 Packet 30 Each 6 06/29/2018 01/22/2019 Discontinued [id number] by mouth (SELECT-OB + DHA) daily. 29 mg iron-1 mg -250 mg combo packIndications: High risk , antepartum documented as of this encounter (statuses as of 01/23/2019) Active Problems Problem Noted Date 39 weeks gestation of 01/19/2019 Drug use 11/23/2018 Acute bilateral low back [...] ECC. Repeat in 1 year 2012- [facility] Supervision of high risk in third trimester 10/04/2012 Overview: Medical records received. DOS- 10/29/2012. O+, beta hcg- [address]84. Endovaginal US: Single IUP at 8 weeks 6 days. GERMAN-06/04/2013. ICD10 Diagnosis Term Fork Assembler Utility Tobacco use disorder 10/04/2012 Previous section 10/04/2012 Overview: X2. Awaiting medical records. Medical records: 03/03/2011- Primary low transverse . Failure to progress. Medical records: 03/16/2012- Repeat low transverse . Comments Yes documented as of this encounter (statuses as of 01/23/2019) Resolved Problems Problem Noted Date Resolved Date Chlamydia trachomatis infection of lower genitourinary sites 08/22/201406/29 Surveillance of previously prescribed contraceptive method 08/15/20142018 Overview: ICD10 Diagnosis Term Fork Assembler Utility Encounter for routine gynecological examination 08/15/2014 06/29/2018 Overview: ICD10 Diagnosis Term [employer] Screening for STD (sexually transmitted disease) 08/15/2014 06/29/2018 Obesity 08/15/2014 06/29/2018 Overview: ICD10 Diagnosis Term [employer] Utility Depo-Provera contraceptive status 08/08/2013 06/29/2018 Immune [...] as of this encounter (statuses as of 01/23/2019) Immunizations Name Administration Dates Next Due Influenza Virus Vaccine 06/14/2017 Rubella 10/04/2012, 09/17/2010 TDAP (ADACEL) VACCINE 11/08/2018 Td 02/03/2006 Varicella (varivax)(chicken pox) 09/17/2010 documented as of this encounter Social History Tobacco Use Types Packs/Day Years Used Date Current Some Day Smoker Cigarettes 0.15 1 Started: 2012 Smokeless Tobacco: Never Used Alcohol Use Drinks/Week oz/Week Comments Yes 1 Glasses of wine 0.6 on occasion Comments Yes Sex Assigned at Date Recorded Not on file Job Start Date Occupation Industry Not on file Not on file Not on file Travel History Travel Start Travel End No recent travel history available. documented as of this encounter Last Filed Vital Signs Vital Sign Reading Time Taken Comments Blood Pressure 119/89 01/23/2019 8:00 AM CDT Pulse 111 01/23/2019 8:00 AM CDT Temperature 36.7 C (98 F) 01/23/2019 8:00 AM CDT Respiratory Rate 18 01/23/2019 8:00 AM CDT Oxygen Saturation 98% 01/23/2019 8:00 AM CDT Inhaled Oxygen Concentration - - Weight 85 kg (187 lb 6.3 oz) 01/20/2019 7:29 AM CDT Height 157.5 cm (5' 2.01") 01/20/2019 7:29 AM CDT Body Mass Index 34.27 01/20/2019 7:29 AM CDT documented in this encounter Discharge Instructions Marietta Camargo RN - 01/23/2019Multidisciplinary Discharge Instructions (may include diet, dressing changes, activity limits, written materials given to patient: DIET: Eat a well balanced diet; drink 6-8 glasses of fluids daily; eat fruits and green, leafy vegetables. DAILY ACTIVITIES: 1. As much as you feel able to do. Rest when you are tired. 2. Limitations: Specify; No heavy lifting other than your baby for 4 weeks if you had surgery. TREATMENT AT HOME 1. Use a well-fitting bra to prevent breast engorgement 2. Resume intercourse as instructed by your physician. 3. Do not use douches or tampons for four weeks. 4. To help prevent urinary tract infection; after each urination and bowel movement, wipe and dry from front to back and change byron pad. 5. Follow discharge instructions regarding baby care. 6. Follow family planning instructions. IMMEDIATE TREATMENT - Call Clinic or Your Physician 1. Increase in pain and tenderness of uterus. 2. Increased vaginal bleeding (bright red blood which soaks 2 pads in 1 hour or pass large clots). 3. Foul smelling vaginal discharge. 4. Burning in the tube that empties the urine from the bladder. 5. Painful breast engorgement or cracked nipples. 6. Pain, discharges, or gaping incision. 7. Temperature greater than 38.0C or 100.4F 8. Pain and tenderness of calf or thigh muscles. 9. No bowel movements in 4 days. For Problems or Questions Call: OB Clinic Family Planning [phone] or Emergency: Go to the closest emergency room or call 911 AttachmentsThe following attachments cannot be sent through Care Everywhere., Breast Care After (Israeli), After (Israeli) Depression, Understanding (Israeli)Incision Care (Israeli)documented in this encounter Progress Notes Sylvia Alfred, CNP - 01/23/2019 7:56 AM CDT RENEWABLE ENERGY PROJECT MANAGER note Emilie Holland 01/23/2019 Subjective: Overnight patient had no complaints. Her pain is well controlled on oral pain medications. She is tolerating a regular diet. She has passed flatus post-operatively. She is ambulating without difficulty. Lochia is scant. She is urinating without difficulty. Patient denies having headache, RUQ pain, vision changes, dizziness. Objective: Patient Vitals for the past 24 hrs: BP Temp Temp src Pulse Resp SpO2 01/23/19 0800 119/89 36.7 C (98 F) Oral 111 18 98 % 01/23/19 0000 118/81 36.7 C (98 F) Oral 98 18 98 % 01/22/19 2000 114/70 36.7 C (98.1 F) Oral 105 19 99 % 01/22/19 1600 124/68 36.9 C (98.4 F) Oral 107 19 98 % Intake/Output Summary (Last 24 hours) at 01/23/2019 0934 Last data filed at 01/23/2019 0400 Gross per 24 hour Intake Output 800 ml Net -800 ml PE: General: alert and oriented x4 Lungs: clear to auscultation bilaterally Cardiology: regular rhythm, tachycardia noted Abdomen: soft, non-distended, appropriately tender to palpation post- operatively. Bowel sounds present, fundus is firm below level of umbilicus Incision: Clean, dry, with jhonatan intact, no erythema or induration noted. Extremities: no calf tenderness bilaterally LABS: WBC x10^3 (/uL) Date Value 08/08/2013 6.3 10/04/2012 4.7 WBC (10*3/L) Date Value 01/21/2019 13.57 (H) 01/20/2019 12.05 (H) HGB Date Value 01/21/2019 10.7 g/dL (L) 01/20/2019 10.4 g/dL (L) 08/08/2013 11.8 G/DL 10/04/2012 12.1 G/DL HCT (%) Date Value 01/21/2019 34.1 (L) 01/20/2019 32.4 (L) 08/08/2013 36.2 10/04/2012 36.5 PLT x10^3 (/uL) Date Value 08/08/2013 364 (H) 10/04/2012 345 PLT (10*3/L) Date Value 01/21/2019 259 01/20/2019 264 Assessment: Emilie Holland is a 28 year [id number]#3s/p repeatLTCS on at 39w0d forERCS. Plan: Postoperative Review: - Admitted for:ERCS - Surgical procedure:Repeat Lower uterine transverse sectionwith no extension - Skin incision:pfannenstiel - Closure:jhonatan - Estimated blood loss:1000mL - Intraoperative Complications:area of bladded denuded, reinforced with suture intraoperatively - Clinical trials:none - Preop H/H:10.4 / 32.4 - Postop H/H:10.7/34.1 Bladder reinforcement - Bladder with area appearing denuded and thin - Reinforced with suture intra-op - Garcia was removed POD#2, patient reports being able to urinate. Clear yellow per patient. - UOP sufficient volume Tachycardia - apical pulse 110 - patient denies all tox s/s - denies feeling light headed or having dizziness - will order CBC Depressionand Anxiety -Stopped medications at start of - denies SI/HI today, denies need for meds Postoperative care: - Diet: Advance as tolerated - Fluid: Encourage oral intake - Activity: Encourage ambulation and incentive spirometry - Pain: False Pass and Ibuprofen - DVT prophylaxis: SCDs TEDs when not ambulating Discharge Planning - Contraception:undecided, will address in clinic - Vaccines:None indicated - [facility] - Dispo: Anticipate dischargePOD#3 if meeting discharge criteria and CBC appropriate BRIANNE Newell Yoana Barnhart MD - 01/23/2019 6:54 AM CDT POST-OPERATIVE PROGRESS NOTE 01/23/2019 6:54 AM Subjective: Overnight patient had no complaints. Her pain is well controlled on oral pain medications. She is tolerating a regular diet. She has passed flatus. She is ambulating without difficulty. Lochia is Scant. She is urinating without garcia. Patient denies chest pain, SOB, n/v, headache, RUQ pain, vision changes, dizziness. Objective: VITALS: Patient Vitals for the past 24 hrs: BP Temp Temp src Pulse Resp SpO2 01/23/19 0000 118/81 36.7 C (98 F) Oral 98 18 98 % 01/22/19 2000 114/70 36.7 C (98.1 F) Oral 105 19 99 % 01/22/19 1600 124/68 36.9 C (98.4 F) Oral 107 19 98 % 01/22/19 0800 115/72 36.7 C (98 F) Oral 105 19 98 % I/O: Intake/Output Summary (Last 24 hours) at 01/23/2019 0654 Last data filed at 01/23/2019 0400 Gross per 24 hour Intake Output 800 ml Net -800 ml PE: General: patient alert and in no acute distress Lungs: clear to auscultation bilaterally Cardiology: regular rate and rhythm, no murmur Abdomen: normal tenderness to palpation, soft, bowel sounds present. Fundus is firm and at umbilicus Incision: Clean, dry, and intact, no erythema or induration Extremities: no clubbing, cyanosis, or edema : deferred MEDS: Current Facility-Administered Medications Medication Dose Route Frequency Last Rate Last Dose famotidine (PEPCID AC) tablet 20 mg 20 mg Oral [id number] 20 mg at 01/23/19 06 benzocaine-menthol (DERMOPLAST) 20-0.5 % topical spray Topical PRN bisacodyl (DULCOLAX) suppository 10 mg 10 mg Rectal QDAILYPRN diphenhydrAMINE (BENADRYL) 25 mg in NaCl 0.9% (NS) piggyback 25 mg IV Piggyback Q6HPRN diphenhydrAMINE (BENADRYL) tablet 25 mg 25 mg Oral Q6HPRN 25 mg at 221 docusate calcium (SURFAK) capsule 240 mg 240 mg Oral QDAILYPRN 240 mg at 01/23/19 06 HYDROcodone-acetaminophen (NORCO 5) 5-325 mg tablet 1 tablet 1 tablet Oral Q6HPRN 1 tablet at01/21/19 2229 HYDROcodone-acetaminophen (NORCO) 10-325 mg tablet 1 tablet 1 tablet Oral Q6HPRN 1 tablet at 01/21/19 1450 ibuprofen (IBU) tablet 600 mg 600 mg Oral Q6HPRN 600 mg at 01/22/19 0729 magnesium hydroxide (MILK OF MAGNESIA) 400 mg/5 mL suspension 30 mL 30 mL Oral QDAILYPRN 30 mL at 01/23/19 06 ondansetron (ZOFRAN (PF)) injection 4 mg 4 mg Slow IV Push Q8HPRN ondansetron (ZOFRAN) tablet 4 mg 4 mg Oral PRN - SEE INSTRUCTIONS simethicone (GAS RELIEF) chewable tablet 160 mg 160 mg Oral PC+HSPRN 160 mg at 01/23/19 022 bupivacaine 0.0625% epidural infusion 250 mL Epidural CONTINUOUS HYDROcodone-acetaminophen (NORCO 5) 5-325 mg tablet 2 tablet 2 tablet Oral Q6HPRN 2 tablet at01/23/19 022 ibuprofen (IBU) tablet 600 mg 600 mg Oral Q6H 600 mg at 01/23/19 022 LABS: WBC x10^3 (/uL) Date Value 08/08/2013 6.3 10/04/2012 4.7 WBC (10*3/L) Date Value 01/21/2019 13.57 (H) 01/20/2019 12.05 (H) HGB Date Value 01/21/2019 10.7 g/dL (L) 01/20/2019 10.4 g/dL (L) 08/08/2013 11.8 G/DL 10/04/2012 12.1 G/DL HCT (%) Date Value 01/21/2019 34.1 (L) 01/20/2019 32.4 (L) 08/08/2013 36.2 10/04/2012 36.5 PLT x10^3 (/uL) Date Value 08/08/2013 364 (H) 10/04/2012 345 PLT (10*3/L) Date Value 01/21/2019 259 01/20/2019 264 Assessment: Emilie Holland is a 28 year [id number]#3s/p repeatLTCS on at 39w0d forERCS. Patient is recovering well: hemodynamically stable, good UOP, pain well-controlled, vitals within normal limits. Plan: Postoperative Review: - Admitted for:ERCS - Surgical procedure:Repeat Lower uterine transverse sectionwith no extension - Skin incision:pfannenstiel - Closure:jhonatan - Estimated blood loss:1000mL - Intraoperative Complications:none - Clinical trials:none - Urine output:900cc overnight - Preop H/H:10.4 / 32.4 - Postop H/H:10.7/34.1 Bladder reinforcement - Bladder with area appearing denuded and thin - Reinforced with suture intra-op - Garcia was removed POD#2, patient reports being able to urinate. Clear yellow per patient. Depressionand Anxiety -Stopped medications at start of - No symptoms today. Antepartum Course Reviewed - 1 [id number], Seronegative, Rimmune, VZVimmune, Blood TypeO+, GBSneg, PAPNIL 06/2018 Postoperative care: - Diet: Advance as tolerated - Fluid: Encourage oral intake - Activity: Encourage ambulation and incentive spirometry - Pain: False Pass and Ibuprofen - DVT prophylaxis: SCDs and TEDs when not ambulating Discharge Planning - Contraception:Will discuss - Vaccines:None - Follow up in 5-7 [facility] - Follow Up: follow-up in 3-6 weeks [facility] - Dispo: Anticipate dischargePOD#3 Baby's Status - APGARs8,8 - Weight: 3190 g - Location:With mother Disposition: Patient POD#3. Garcia removed yesterday s/p bladder injury. Patient able to urinate and is doing well. Stable and appropriate for discharge today. No further milestones to meet. Yoana Cr MD PGY-2, Department of Obstetrics and Gynecology Pager# [phone] Summer Castillo SW - 01/22/2019 12:46 PM CDTSOCIAL WORK NOTE Final PLAN: After CPS worker, Cristel Trevizo staffed case with production welding supervisor it was decided that infant can returnhome with MOB. No formal documents needed. This change was due to MOB's current UDS screen. MOB will discharge under supervision of MGNeeraj, Lizzy Holland and/or Radha Sanders. CPS will f/u with family at home. PLAN: to discharge home with MOB. CPS will f/u at home. Summer Stapleton LMSW Furnace Fitter [phone] office [phone] cell Summer Castillo SW - 01/22/2019 11:27 AM CDTSOCIAL WORK NOTE F/u note: Spoke with CPS worker, Cristel Trevizo ph: [phone] this am. MOB is free to discharge today. However, will need to stay until PCSP ( Paternal Child safety Placement) is in place. CPS willemail form to worker to be placed on 's chart for discharge. will be placed with maternal grandmother and aunt. CPS worker is finalizing plan with her production welding supervisor. MGM and aunt is preparing their home for and MOB's other children, with expected readiness around 6pm, which is whenMOB will discharge. 's meconium drug screen has not returned, but will not hold up discharge once PCSP is complete. PLAN: Pending CPS worker to email PCSP document for infant's discharge. CPS will f/u with meconium drug screen results. MOB to discharge later this evening. .Summer Stapleton LMSW Furnace Fitter [phone] office [phone] cell star Mone Valadez, [facility] - 01/22/2019 7:41 AM CDT Advance Practice Registered Nurse Faculty Note: S: No complaints. Tolerating PO liquids. (+)flatus. No excessive vaginal bleeding. Good pain control on PO meds. Pt feeling well. O- Gen: NAD, AOX3 CV/Pulm: RRR/CTAB Abd: Soft, ATTP, BS (+), fundus firm Inc: C/D/I Ext: No calf tenderness Vitals: Patient Vitals for the past 24 hrs: BP Temp Temp src Pulse Resp SpO2 01/22/19 0000 125/76 36.8 C (98.3 F) Oral 92 19 98 % 01/21/19 2055 125/71 37.5 C (99.5 F) Oral 89 19 98 % 01/21/19 1530 134/73 36.6 C (97.8 F) 74 18 01/21/19 1130 131/67 36.9 C (98.4 F) Axillary 79 18 100 % Intake/Output Summary (Last 24 hours) at 01/22/2019 0741 Last data filed at 01/22/2019 0026 Gross per 24 hour Intake 250 ml Output 900 ml Net -650 ml LABS: WBC x10^3 (/uL) Date Value 08/08/2013 6.3 10/04/2012 4.7 WBC (10*3/L) Date Value 01/21/2019 13.57 (H) 01/20/2019 12.05 (H) HGB Date Value 01/21/2019 10.7 g/dL (L) 01/20/2019 10.4 g/dL (L) 08/08/2013 11.8 G/DL 10/04/2012 12.1 G/DL HCT (%) Date Value 01/21/2019 34.1 (L) 01/20/2019 32.4 (L) 08/08/2013 36.2 10/04/2012 36.5 PLT x10^3 (/uL) Date Value 08/08/2013 364 (H) 10/04/2012 345 PLT (10*3/L) Date Value 01/21/2019 259 01/20/2019 264 AST(SGOT) (U/L) Date Value 10/14/2017 21 04/10/2017 19 ALT(SGPT) (U/L) Date Value 10/14/2017 40 04/10/2017 20 CREATININE (mg/dL) Date Value 06/05/2018 0.50 10/14/2017 0.70 PROTEIN (no units) Date Value 11/15/2018 Negative 06/05/2018 Negative MEDICATIONS: Current Facility-Administered Medications Medication Dose Route Frequency Last Rate Last Dose benzocaine-menthol (DERMOPLAST) 20-0.5 % topical spray Topical PRN bisacodyl (DULCOLAX) suppository 10 mg 10 mg Rectal QDAILYPRN diphenhydrAMINE (BENADRYL) 25 mg in NaCl 0.9% (NS) piggyback 25 mg IV Piggyback Q6HPRN diphenhydrAMINE (BENADRYL) tablet 25 mg 25 mg Oral Q6HPRN 25 mg at 0732 docusate calcium (SURFAK) capsule 240 mg 240 mg Oral QDAILYPRN 240 mg at 01/22/19 0026 HYDROcodone-acetaminophen (NORCO 5) 5-325 mg tablet 1 tablet 1 tablet Oral Q6HPRN 1 tablet at01/21/19 2229 HYDROcodone-acetaminophen (NORCO) 10-325 mg tablet 1 tablet 1 tablet Oral Q6HPRN 1 tablet at 01/21/19 1450 ibuprofen (IBU) tablet 600 mg 600 mg Oral Q6HPRN 600 mg at 01/22/19 0729 magnesium hydroxide (MILK OF MAGNESIA) 400 mg/5 mL suspension 30 mL 30 mL Oral QDAILYPRN 30 mL at 01/22/19 0026 ondansetron (ZOFRAN (PF)) injection 4 mg 4 mg Slow IV Push Q8HPRN ondansetron (ZOFRAN) tablet 4 mg 4 mg Oral PRN - SEE INSTRUCTIONS simethicone (GAS RELIEF) chewable tablet 160 mg 160 mg Oral PC+HSPRN 160 mg at 01/22/19 0728 bupivacaine 0.0625% epidural infusion 250 mL Epidural CONTINUOUS HYDROcodone-acetaminophen (NORCO 5) 5-325 mg tablet 2 tablet 2 tablet Oral Q6HPRN 2 tablet at01/22/19 0729 ibuprofen (IBU) tablet 600 mg 600 mg Oral Q6H 600 mg at 01/22/19 0026 naloxone (NARCAN) injection 0.4 mg 0.4 mg Slow IV Push PRN - SEE INSTRUCTIONS Emilie Holland is a 28 year old POD#2 s/p repeat LTCS on 2018 at 39w0d for ERCS. Patient is recovering well: hemodynamically stable, good UOP, pain well-controlled, vitals within normal limits. Plan: Postoperative Review: - Admitted for: ERCS - Surgical procedure: Repeat Lower uterine transverse section with no extension - Skin incision: pfannenstiel - Closure: jhonatan - Estimated blood loss: 1000 mL - Intraoperative Complications: none - Clinical trials: none - Urine output: 900cc overnight - Preop H/H: 10.4 / 32.4 - Postop H/H: 10.7/34.1 Bladder reinforcement - Bladder with area appearing denuded and thin - Reinforced with suture intra-op - Garcia removal on POD#3 Depressionand Anxiety -Stopped medications at start of - No symptoms today. Postoperative care: -s/p c/s . No s/sx of infection at this visit. Denies any problems. VSS stable. labs was reviewed from a coinciding resident note from same day visit. Post-op instructions given and pt understands. Ambulation encouraged. BRIANNE Garrison #[id number] 01/22/2019 7:41 AM Ryan Pabon MD - 01/22/2019 7:15 AM CDT POST-OPERATIVE PROGRESS NOTE 01/22/2019 7:15 AM Subjective: Overnight patient had no complaints. Her pain is well controlled on oral pain medications. She is tolerating a regular diet. She has not passed flatus. She is ambulating without difficulty. Lochia is Scant. She is urinating without garcia. Patient denies chest pain, SOB, n/v, headache, RUQpain, vision changes, dizziness. Objective: VITALS: Patient Vitals for the past 24 hrs: BP Temp Temp src Pulse Resp SpO2 01/22/19 0000 125/76 36.8 C (98.3 F) Oral 92 19 98 % 01/21/19 2055 125/71 37.5 C (99.5 F) Oral 89 19 98 % 01/21/19 1530 134/73 36.6 C (97.8 F) 74 18 01/21/19 1130 131/67 36.9 C (98.4 F) Axillary 79 18 100 % I/O: Intake/Output Summary (Last 24 hours) at 01/22/2019 0715 Last data filed at 01/22/2019 0026 Gross per 24 hour Intake 250 ml Output 900 ml Net -650 ml PE: General: patient alert and in no acute distress Lungs: clear to auscultation bilaterally Cardiology: regular rate and rhythm, no murmur Abdomen: normal tenderness to palpation, soft, bowel sounds present. Fundus is firm and at umbilicus Incision: Clean, dry, and intact, no erythema or induration Extremities: no clubbing, cyanosis, or edema : deferred MEDS: Current Facility-Administered Medications Medication Dose Route Frequency Last Rate Last Dose benzocaine-menthol (DERMOPLAST) 20-0.5 % topical spray Topical PRN bisacodyl (DULCOLAX) suppository 10 mg 10 mg Rectal QDAILYPRN diphenhydrAMINE (BENADRYL) 25 mg in NaCl 0.9% (NS) piggyback 25 mg IV Piggyback Q6HPRN diphenhydrAMINE (BENADRYL) tablet 25 mg 25 mg Oral Q6HPRN 25 mg at 222 docusate calcium (SURFAK) capsule 240 mg 240 mg Oral QDAILYPRN 240 mg at 01/22/19 0026 HYDROcodone-acetaminophen (NORCO 5) 5-325 mg tablet 1 tablet 1 tablet Oral Q6HPRN 1 tablet at01/21/19 2229 HYDROcodone-acetaminophen (NORCO) 10-325 mg tablet 1 tablet 1 tablet Oral Q6HPRN 1 tablet at 01/21/19 1450 ibuprofen (IBU) tablet 600 mg 600 mg Oral Q6HPRN magnesium hydroxide (MILK OF MAGNESIA) 400 mg/5 mL suspension 30 mL 30 mL Oral QDAILYPRN 30 mL at 01/22/19 0026 ondansetron (ZOFRAN (PF)) injection 4 mg 4 mg Slow IV Push Q8HPRN ondansetron (ZOFRAN) tablet 4 mg 4 mg Oral PRN - SEE INSTRUCTIONS simethicone (GAS RELIEF) chewable tablet 160 mg 160 mg Oral PC+HSPRN 160 mg at 01/22/19 0026 bupivacaine 0.0625% epidural infusion 250 mL Epidural CONTINUOUS HYDROcodone-acetaminophen (NORCO 5) 5-325 mg tablet 2 tablet 2 tablet Oral Q6HPRN 2 tablet at01/21/19 0430 ibuprofen (IBU) tablet 600 mg 600 mg Oral Q6H 600 mg at 01/22/19 0026 naloxone (NARCAN) injection 0.4 mg 0.4 mg Slow IV Push PRN - SEE INSTRUCTIONS LABS: WBC x10^3 (/uL) Date Value 08/08/2013 6.3 10/04/2012 4.7 WBC (10*3/L) Date Value 01/21/2019 13.57 (H) 01/20/2019 12.05 (H) HGB Date Value 01/21/2019 10.7 g/dL (L) 01/20/2019 10.4 g/dL (L) 08/08/2013 11.8 G/DL 10/04/2012 12.1 G/DL HCT (%) Date Value 01/21/2019 34.1 (L) 01/20/2019 32.4 (L) 08/08/2013 36.2 10/04/2012 36.5 PLT x10^3 (/uL) Date Value 08/08/2013 364 (H) 10/04/2012 345 PLT (10*3/L) Date Value 01/21/2019 259 01/20/2019 264 Assessment: Emilie Holland is a 28 year old POD#2 s/p repeat LTCS on 2018 at 39w0d for ERCS. Patient is recovering well: hemodynamically stable, good UOP, pain well-controlled, vitals within normal limits. Plan: Postoperative Review: - Admitted for: ERCS - Surgical procedure: Repeat Lower uterine transverse section with no extension - Skin incision: pfannenstiel - Closure: jhonatan - Estimated blood loss: 1000 mL - Intraoperative Complications: none - Clinical trials: none - Urine output: 900cc overnight - Preop H/H: 10.4 / 32.4 - Postop H/H: 10.7/34.1 Bladder reinforcement - Bladder with area appearing denuded and thin - Reinforced with suture intra-op - Per patient, someone last night told her she would be POD#3 today and thus garcia could be removed. - Garcia was removed yesterday, patient reports being able to urinate. Clear yellow per patient. Depressionand Anxiety -Stopped medications at start of - No symptoms today. Antepartum Course Reviewed - 1 hour 151, Sero negative, Rimmune, VZVimmune, Blood Type O+, GBS neg, PAP NIL 06/2018 Postoperative care: - Diet: Advance as tolerated - Fluid: Encourage oral intake - Activity: Encourage ambulation and incentive spirometry - Pain: [place] and Ibuprofen - DVT prophylaxis: SCDs and TEDs when not ambulating Discharge Planning - Contraception: Will discuss - Vaccines: None - Follow up in 5-7 days for incision check and/or staple removal at [facility] - Follow Up: follow-up in 3-6 weeks at [facility] - Dispo: Anticipate discharge POD#3 Baby's Status - APGARs 8 , 8 - Weight: 3190 g - Location: With mother Dispo: Patient POD#2. Garcia removed yesterday. Patient able to urinate but after discussion with faculty, decision was made to keep patient until POD#3 for bladder injury. Ryan Escobar MDElectronically signed by Mariah Allen MD at 2018 7:27 PM CDT Associated attestation - Mariah Allen MD - 01/22/2019 7:27 PM CDTI was faculty on 01/22/2019 and agree with note below. Patient is a 28 year old A1 POD 2 s/p rLTCS. Plan by prior faculty to keep patient in house until POD 3 due to bladder reinforcement. I roundedon this patient and discussed the plan of care with the residents. Mariah Allen MD PGY 6 MFM Fellow Rachel Hagen, [facility] - 01/21/2019 3:10 PM CDTTHIS NOTE IS COPIED FROM BABY 'S CHART: Social Work Note OUTSEWER interviewed MOB: Emilie Holland ph: [phone], who reports residing at [address] [place], [place] [id number] [address] with her three other children, ages 5, 6, and 7 years old. MOB reports FOB: Jovan Navarro is expected to be involved in baby's life. MOB reports having a car seat and all other necessary items for baby to go home with. MOB is already established with [facility] and will make baby an appointment.MOB reports plans to follow-up with a private phlebotomy services technician in [place]. MOB reports she has transportation home (her mother) and to appointments. MOB reports a history of anxiety and depression. MOB reports she stopped taking medication when she found out she was but states plans to resume the medication again. MOB unable to recall whatthe name of the medication was. MOB reports she sometimes feels sad because her childrens' father committed suicide two years ago. MOB provided educational material on PPD. Signs/symptoms reviewed and MOB encouraged to notify physician if experiencing any signs/ symptoms of PPD. MOB reports she previously smoke marijuana but states she stopped when she found out she was . MOB reports she would smoke marijuana to help with her endometriosis pain. Per MOB, she drank alcohol occasionally prior to this but denies any concerns for alcohol abuse. MOB reports she does not plan to start smoking marijuana again. OUTSEWER contacted CPS hotline and made a report with Jovan id: [id number], reference# [id number], due to MOB's UDS+ on 11/15/18 for Benzos, amphetamines and methamphetamines. OUTSEWER received a call from CPS financial investigator Cristel Trevizo ph: [phone], who reports she is en route to the hospital to make contact with MOB. Plan: Pending CPS recommendations Rachel Hagen LMSW Care Management Pager: [phone] documented in this encounter Plan of Treatment Date Type Specialty Care Team Description 01/27/2019 Nurse Visit OB Satellites Visit, Osorio-Rmchp Nurse 02/10/2019 Routine Visit OB Satellites Cassius Reagan, [employer] [address] [place] [address] [phone] Name Type Priority Associated Diagnoses Date/Time URINE DRUG (LCMSMS) - LAB ANTOINE 01/21/2019 9:25 PM CDT SYNTHETIC OPIATES PANEL URINE DRUG (LCMSMS) - LAB NATOINE 01/21/2019 9:25 PM CDT OPIATES PANEL Name Type Priority Associated Diagnoses Order Schedule Rho (D) Immune Globulin LAB Routine ONCE for 1 Occurrences starting 01/21/2019 until 01/21/2019 URINE DRUG (LCMSMS) - LAB Routine ONCE for 1 Occurrences SYNTHETIC OPIATES PANEL starting 01/22/2019 until 01/22/2019, 1 completed URINE DRUG (LCMSMS) - LAB Routine ONCE for 1 Occurrences OPIATES PANEL starting 01/22/2019 until 01/22/2019, 1 completed Health Maintenance Due Date Last Done Comments PNEUMOCOCCAL 0-64 YEARS COMBINED 1996 SERIES (1 of 1 - PPSV23) INFLUENZA VACCINE (#1) 2019 06/14/2017, 06/14/2017 PAP SMEAR 06/29/2021 06/29/2018, 08/15/2014, 08/08/2013, Additional history exists DTaP,Tdap,and Td Vaccines (3 - Td) 11/08/2028 11/08/2018, 02/03/2006 documented as of this encounter Procedures Procedure Name Priority Date/Time Associated Comments Diagnosis CBC WITH DIFFERENTIAL ANTOINE 01/23/2019 10:30 Results for this AM CDT procedure are in the results section. CBC WITH DIFF ANTOINE 01/23/2019 10:30 Results for this AM CDT procedure are in the results section. GALV/CLC ONLY - URINE ANTOINE 01/21/2019 9:25 Results for this DRUG (IMMUNOASSAY) - PM CDT procedure are in COMPREHENSIVE DRUG the results SCREEN section. GALV/CLC ONLY - URINE ANTOINE 01/21/2019 9:25 Results for this DRUG (IMMUNOASSAY) - PM CDT procedure are in L&D PANEL W/REFLEX the results section. CBC WITH DIFFERENTIAL Routine 01/21/2019 4:40 Results for this AM CDT procedure are in the results section. CBC WITH DIFF Routine 01/21/2019 4:40 Results for this AM CDT procedure are in the results section. VENOUS CORD GAS ANTOINE 01/20/2019 12:12 Results for this PM CDT procedure are in the results section. ARTERIAL CORD GAS ANTOINE 01/20/2019 12:12 Results for this PM CDT procedure are in the results section. SECTION 01/20/2019 10:38 sp repeat cs AM CDT GALV ONLY - SYPHILIS ANTOINE 01/20/2019 8:02 Results for this IGG/IGM AM CDT procedure are in the results section. CBC WITH DIFFERENTIAL ANTOINE 01/20/2019 8:02 Results for this AM CDT procedure are in the results section. HEPATITIS B SURFACE ANTOINE 01/20/2019 8:02 Results for this ANTIGEN AM CDT procedure are in the results section. CBC WITH DIFF ANTOINE 01/20/2019 8:02 Results for this AM CDT procedure are in the results section. TYPE AND SCREEN Routine 01/20/2019 7:43 Results for this AM CDT procedure are in the results section. L&D VISIT Routine 09/26/2018 12:01 (NON-DELIVERED) AM CDT documented in this encounter Results CBC WITH DIFFERENTIAL (01/23/2019 10:30 AM CDT) WBC 9.17 4.30 - 11.10 [facility] 10*3/L SERVICES RBC 2.94 (L) 3.93 - 5.25 [facility] 10*6/L SERVICES HGB 8.3 (L) 11.6 - 15.0 [facility] g/dL SERVICES HCT 26.6 (L) 35.7 - 45.2 % [facility] SERVICES MCV 90.5 80.6 - 95.5 fL [facility] MCH 28.2 25.9 - 32.8 pg [facility] MCHC 31.2 (L) 31.6 - 35.1 [facility] g/dL SERVICES RDW-SD 48.7 39.0 - 49.9 fL [facility] SERVICES RDW-CV 14.8 12.0 - 15.5 % [facility] PLT 274 166 - 358 [facility] 10*3/L SERVICES MPV 10.4 9.5 - 12.9 fL [facility] SERVICES NRBC/100 WBC 0.0 0.0 - 10.0 /100 [facility] WBCs SERVICES NRBC x10^3 <0.01 10*3/L [facility] GRAN MAT (NEUT) % 65.4 % [facility] IMM GRAN % 0.40 % [facility] LYMPH % 21.2 % [facility] MONO % 8.9 % [facility] EOS % 3.8 % [facility] BASO % 0.3 % [facility] GRAN MAT x10^3(ANC) 5.99 1.88 - 7.09 [facility] 10*3/uL SERVICES IMM GRAN x10^3 0.04 0.00 - 0.06 [facility] 10*3/uL SERVICES LYMPH x10^3 1.94 1.32 - 3.29 [facility] 10*3/uL SERVICES MONO x10^3 0.82 0.33 - 0.92 [facility] 10*3/uL SERVICES EOS x10^3 0.35 0.03 - 0.39 [facility] 10*3/uL SERVICES BASO x10^3 0.03 0.01 - 0.07 [facility] 10*3/uL SERVICES Specimen Blood - ARM, LEFT Performing Organization Address City/State/Zipcode Phone Number [facility] CLIA: [id number], [address] [place] [phone] [facility] GALV/CLC ONLY - URINE DRUG (IMMUNOASSAY) - COMPREHENSIVE DRUG SCREEN (2018 9:25 PM CDT) AMPHET Negative Negative [facility] QUIN U Negative Negative [facility] BENZO U Negative Negative [facility] Cocaine Metabolite Negative Negative [facility] METHADONE Negative Negative [facility] OPIATES Presumptive Negative [facility] Positive (A) SERVICES PCP Negative Negative [facility] THC Negative Negative [facility] Specimen Urine - URINE, CATHETERIZED Narrative Performed At Urine Drug Cutoff Ranges [facility] Cocaine: 150 ng/mL Benzodiazepines: 200 ng/mL Methadone: 300 ng/mL Amphetamine: 1,000 ng/mL Opiates: 300 ng/mL Cannabinoids:50 ng/mL Phencyclidine: 25 ng/mL Barbiturates:200 ng/mL The results are to be used only for medical (i.e., treatment) purposes. Unconfirmed screening results must not be used for non-medical purposes (e.g., employment testing, legal testing). Performing Organization Address City/State/Zipcode Phone Number [facility] CLIA: [id number], [address] [place] [phone] [facility] DRUG PANEL 5 LABOR & DELIVERY URINE (01/21/2019 9:25 PM CDT) Cocaine Metabolite Negative Negative [facility] OPIATES Presumptive Negative [facility] Positive (A) SERVICES THC Negative Negative [facility] Specimen Urine - URINE, CATHETERIZED Narrative Performed At Urine Drug Cutoff Ranges [facility] Cocaine: 150 ng/mL Opiates: 300 ng/mL Cannabinoids:50 ng/mL The results are to be used only for medical (i.e., treatment) purposes. Unconfirmed screening results must not be used for non-medical purposes (e.g., employment testing, legal testing). Performing Organization Address City/[facility] Phone Number [facility] CLIA: [id number], [address] [place] [phone] [facility] CBC WITH DIFFERENTIAL (01/21/2019 4:40 AM CDT) WBC 13.57 (H) 4.30 - 11.10 [facility] 10*3/L SERVICES RBC 3.77 (L) 3.93 - 5.25 [facility] 10*6/L SERVICES HGB 10.7 (L) 11.6 - 15.0 [facility] g/dL SERVICES HCT 34.1 (L) 35.7 - 45.2 % [facility] MCV 90.5 80.6 - 95.5 fL [facility] MCH 28.4 25.9 - 32.8 pg [facility] MCHC 31.4 (L) 31.6 - 35.1 [facility] g/dL SERVICES RDW-SD 48.3 39.0 - 49.9 fL [facility] SERVICES RDW-CV 14.7 12.0 - 15.5 % [facility] SERVICES PLT 259 166 - 358 [facility] 10*3/L SERVICES MPV 10.5 9.5 - 12.9 fL [facility] NRBC/100 WBC 0.0 0.0 - 10.0 /100 [facility] WBCs SERVICES NRBC x10^3 <0.01 10*3/L [facility] GRAN MAT (NEUT) % 80.9 % [facility] IMM GRAN % 0.70 % [facility] LYMPH % 9.2 % [facility] MONO % 8.0 % [facility] EOS % 1.0 % [facility] BASO % 0.2 % [facility] GRAN MAT x10^3(ANC) 10.99 (H) 1.88 - 7.09 [facility] 10*3/uL SERVICES IMM GRAN x10^3 0.09 (H) 0.00 - 0.06 [facility] 10*3/uL SERVICES LYMPH x10^3 1.25 (L) 1.32 - 3.29 [facility] 10*3/uL SERVICES MONO x10^3 1.08 (H) 0.33 - 0.92 [facility] 10*3/uL SERVICES EOS x10^3 0.13 0.03 - 0.39 [facility] 10*3/uL SERVICES BASO x10^3 0.03 0.01 - 0.07 [facility] 10*3/uL SERVICES Specimen Blood - ARM, RIGHT Performing Organization Address City/State/Zipcode Phone Number [facility] CLIA: [id number], [address] [place] [address] [phone] [facility] Venous Cord Gas (01/20/2019 12:12 PM CDT) VENOUS BASE EXCESS, -2.3 mEq/L [facility] CORD SERVICES VENOUS PH, CORD 7.35 7.25 - 7.45 [facility] VENOUS PC02, CORD 43 27 - 49 mmHg [facility] VENOUS PO2, CORD 45 (H) 17 - 41 mmHg [facility] VENOUS BICARBONATE, 23 12 - 29 mEq/L [facility] CORD SERVICES Specimen Blood Performing Organization Address City/[facility]/Zipcode Phone Number [facility] CLIA: [id number], [address] [place], [place] [address] [facility] Arterial Cord Gas (01/20/2019 12:12 PM CDT) BASE EXCESS, CORD -3.9 mEq/L [facility] AC PH, CORD (BEAKER) 7.25 7.18 - 7.38 [facility] PC02, CORD 56 32 - 66 mmHg [facility] PO2, CORD 21 10 - 30 mmHg [facility] BICARBONATE, CORD 24 17 - 27 mEq/L [facility] Specimen Blood Performing Organization Address City/State/Zipcode Phone Number [facility] CLIA: [id number], [address] [place], [place] [address] [facility] CBC WITH DIFFERENTIAL (01/20/2019 8:02 AM CDT) WBC 12.05 (H) 4.30 - 11.10 [facility] 10*3/L SERVICES RBC 3.64 (L) 3.93 - 5.25 [facility] 10*6/L SERVICES HGB 10.4 (L) 11.6 - 15.0 [facility] g/dL SERVICES HCT 32.4 (L) 35.7 - 45.2 % [facility] SERVICES MCV 89.0 80.6 - 95.5 fL [facility] MCH 28.6 25.9 - 32.8 pg [facility] MCHC 32.1 31.6 - 35.1 [facility] g/dL SERVICES RDW-SD 48.2 39.0 - 49.9 fL [facility] RDW-CV 14.9 12.0 - 15.5 % [facility] PLT 264 166 - 358 [facility] 10*3/L SERVICES MPV 10.8 9.5 - 12.9 fL [facility] NRBC/100 WBC 0.0 0.0 - 10.0 /100 [facility] WBCs SERVICES NRBC x10^3 <0.01 10*3/L [facility] GRAN MAT (NEUT) % 69.0 % [facility] IMM GRAN % 0.70 % [facility] LYMPH % 21.4 % [facility] MONO % 7.7 % [facility] EOS % 0.8 % [facility] BASO % 0.4 % [facility] GRAN MAT x10^3(ANC) 8.31 (H) 1.88 - 7.09 [facility] 10*3/uL SERVICES IMM GRAN x10^3 0.08 (H) 0.00 - 0.06 [facility] 10*3/uL SERVICES LYMPH x10^3 2.58 1.32 - 3.29 [facility] 10*3/uL SERVICES MONO x10^3 0.93 (H) 0.33 - 0.92 [facility] 10*3/uL SERVICES EOS x10^3 0.10 0.03 - 0.39 [facility] 10*3/uL SERVICES BASO x10^3 0.05 0.01 - 0.07 [facility] 10*3/uL SERVICES Specimen Blood - VENOUS Performing Organization Address City/State/Zipcode Phone Number [facility] CLIA: [id number], [address] [place] [phone] [facility] GALV ONLY - SYPHILIS IGG/IGM (01/20/2019 8:02 AM CDT) Syphilis IgG/IgM Non-reactive Non-reactive [facility] SERVICES Specimen Blood - VENOUS Narrative Performed At Non-reactive - No serologic evidence of T. pallidum [facility] infection. Cannot exclude incubating or early syphilis. Submit a second specimen in 2-4 weeks if syphilis is clinically suspected. Equivocal - Further testing to follow. Reactive - Further testing to follow. Performing Organization Address City/State/Zipcode Phone Number [facility] CLIA: [id number], [address] [place] [address] [phone] [facility] Hepatitis B Surface Antigen (01/20/2019 8:02 AM CDT) Pathologist [facility] HBsAg HEPATITIS B Negative [facility] SURFACE ANTIGEN SERVICES NEGATIVE HBsAg 0.06 [facility] Semi-Quantitative SERVICES Specimen Blood - VENOUS Performing Organization Address City/[facility]/Zipcode Phone Number [facility] CLIA: [id number], [address] [place] [phone] [facility] Type and Screen - ONCE Routine (01/20/2019 7:43 AM CDT) Pathologist [facility] ABO & RH O POSITIVE LAB Comment: Performed at [facility] Laboratory Services - [facility] Blood [place] [address] Toll Free: [phone] CLIA No. [id number] IAT Negative LAB Comment: Performed at [facility] Laboratory Services - [facility] Blood [place] [address] Toll Free: [phone] CLIA No. [id number] Specimen Blood Performing Organization Address City/State/Zipcode Phone Number [facility] documented in this encounter Visit Diagnoses Diagnosis 39 weeks gestation of - Primary state, incidental S/P section Other postprocedural status Tobacco use disorder Supervision of high risk in third trimester Unspecified high-risk Right ovarian cyst Other and unspecified ovarian cyst Previous section Other postprocedural status Multiparity Maternal tobacco use in second trimester Heartburn during Endometriosis Endometriosis, site unspecified Drug use Other, mixed, or unspecified nondependent drug abuse, unspecified Depression, unspecified depression type Anxiety disorder, unspecified type Acute bilateral low back pain with bilateral sciatica Abnormal maternal glucose tolerance, antepartum documented in this encounter Administered Medications Medication Order MAR Action Action Date Dose Rate Site benzocaine-menthol (DERMOPLAST) Given 01/21/2019 6:33 AM CDT 20-0.5 % topical spray Topical, PRN, Starting Thu01/21/19 at 0523, Until Discontinued, Routine, Localized pain bupivacaine 0.0625% epidural infusion 250 mL Epidural, at 6 mL/hr, CONTINUOUS, Starting [facility] 01/20/19 at 1700, Until Discontinued, 250 mL diphenhydrAMINE (BENADRYL) tablet 25 mg Given 01/23/2019 8:47 AM CDT 25 mg 25 mg, Oral, Q6HPRN, Starting Thu01/21/19 at 0522, Until Discontinued, Routine, Sleep, Itching Given 01/23/2019 2:22 AM CDT 25 mg Given 01/22/2019 7:52 PM CDT 25 mg docusate calcium (SURFAK) capsule 240 mg Given 01/23/2019 6:06 AM CDT 240 mg 240 mg, Oral, QDAILYPRN, Starting Thu01/21/19 at 0522, Until Discontinued, Routine, Constipation Given 01/22/2019 7:52 PM CDT 240 mg Given 01/22/2019 12:26 AM CDT 240 mg famotidine (PEPCID AC) tablet 20 mg Given 01/23/2019 6:06 AM CDT 20 mg 20 mg, Oral, [id number], Starting Thu01/23/19 at 0431, Until Discontinued, Routine, Heartburn HYDROcodone-acetaminophen (NORCO 5) 5-325 Given 01/21/2019 10:29 PM CDT 1 tablet mg tablet 1 tablet 1 tablet, Oral, Q6HPRN, Starting Thu01/21/19 at 0522, Until Discontinued, Routine, Pain (scale 4-6) HYDROcodone-acetaminophen (NORCO 5) 5-325 Given 01/23/2019 8:48 AM CDT 2 tablets mg tablet 2 tablet 2 tablet, Oral, Q6HPRN, Starting Thu01/20/19 at 1913, Until Discontinued, Routine, Pain (scale 7-10) Given 01/23/2019 2:22 AM CDT 2 tablets Given 01/22/2019 7:53 PM CDT 2 tablets HYDROcodone-acetaminophen (NORCO) 10-325 Given 01/21/2019 2:50 PM CDT 1 tablet mg tablet 1 tablet 1 tablet, Oral, Q6HPRN, Starting Thu01/21/19 at 0522, Until Discontinued, Routine, Pain (scale 7-10) ibuprofen (IBU) tablet 600 mg Given 01/22/2019 7:29 AM CDT 600 mg 600 mg, Oral, Q6HPRN, Starting Thu01/21/19 at 0522, Until Discontinued, Routine, Pain (scale 1-3) ibuprofen (IBU) tablet 600 mg Given 01/23/2019 8:47 AM CDT 600 mg 600 mg, Oral, Q6H, First dose on Thu01/20/19 at 1930, Until Discontinued, Routine Given 01/23/2019 2:22 AM CDT 600 mg Given 01/22/2019 7:53 PM CDT 600 mg magnesium hydroxide (MILK OF MAGNESIA) 400 Given 01/23/2019 6:06 AM CDT 30 mL mg/5 mL suspension 30 mL 30 mL, Oral, QDAILYPRN, Starting Thu01/21/19 at 0522, Until Discontinued, Routine, Constipation Given 01/22/2019 7:52 PM CDT 30 mL Given 01/22/2019 12:26 AM CDT 30 mL simethicone (GAS RELIEF) chewable tablet 160 Given 01/23/2019 8:48 AM CDT 160 mg mg 160 mg, Oral, PC+HSPRN, Starting Thu01/21/19 at 0522, Until Discontinued, Routine, Gas Given 01/23/2019 2:22 AM CDT 160 mg Given 01/22/2019 12:58 PM CDT 160 mg Medication Order MAR Action Action Date Dose Rate Site acetaminophen (TYLENOL) tablet Given 01/20/2019 8:42 AM CDT 650 mg 650 mg 650 mg, Oral, ONCE, 1 dose, Laura 01/20/19 at 0745, Routine ceFAZolin in dextrose (iso-os) (ANCEF) 2 Given 01/20/2019 10:45 AM CDT 2 g gram/100 mL Piggyback 2 g 2 g (2,000 mg), IV Piggyback, O.R. HOLDING ONCE, 1 dose, Starting Laura 01/20/19 at 0741, Until Thu01/20/19 at 1045, 100 mL, Reason for Anti-Infective: Surgical Prophylaxis, Surgical Prophylaxis: PRODUCTION CONTROLLER, Duration of therapy: within 24 hours of surgery diphenhydrAMINE (BENADRYL) injection 25 mg Given 01/20/2019 10:58 PM CDT 25 mg 25 mg, Slow IV Push, Q4HPRN, Starting Thu01/20/19 at 1301, Until Thu01/21/19 at 1300, Routine, Itching, PACU Given 01/20/2019 7:27 PM CDT 25 mg Given 01/20/2019 1:09 PM CDT 25 mg hydrOXYzine (ATARAX) tablet 10 mg Given 01/21/2019 1:48 AM CDT 10 mg 10 mg, Oral, ONCE NOW, 1 dose, Thu01/21/19 at 0245, Routine hydrOXYzine (ATARAX) tablet 50 mg Given 01/21/2019 9:15 AM CDT 50 mg 50 mg, Oral, ONCE, 1 dose, Thu01/21/19 at 0830, Routine ketorolac (TORADOL) injection 30 mg Given 01/20/2019 2:12 PM CDT 30 mg 30 mg, Slow IV Push, ONCE, 1 dose, Laura 01/20/19 at 1500, Routine, PACU, front desk team member approving Restricted medication: LD PACU lactated ringers IV infusion New Bag 01/20/2019 8:01 AM CDT 1,000 mL 125 mL/hr 1,000 mL at 125 mL/hr, 1,000 mL, IV Infusion, CONTINUOUS, Starting Thu01/20/19 at 0745, Until Thu01/21/19 at 0522, Routine nalbuphine (NUBAIN) injection 5 mg Given 01/20/2019 2:00 PM CDT 5 mg 5 mg, Intravenous, PRN, 1 dose, Starting Laura 01/20/19 at 1355, Until Laura 01/20/19 at 1400, Routine, itching, PACU ondansetron (ZOFRAN (PF)) injection 4 mg Given 01/20/2019 7:28 PM CDT 4 mg 4 mg, Slow IV Push, ONCE, 1 dose, Laura 01/20/19 at 2015, Routine sodium citrate-citric acid (BICITRA) 500-334 Given 01/20/2019 10:45 AM CDT 30 mL mg/5 mL solution 30 mL 30 mL, Oral, PRE-PROCEDURE ONCE, 1 dose, Starting Laura 01/20/19 at 0741, Until Laura 01/20/19 at 1045, Routine, Surgery/Procedure documented in this encounter Insurance Payer Benefit Plan / Subscriber ID Effective Phone Address Type Group Dates BERTRAM BURDEN xxxxxxxxx 2018-[address] [place] [id number] MANAGED MED[place], [place]ICA[place] documented as of this encounter Advance Directives Name Relationship Healthcare Agent Communication Relationship Lizzy Holland Mother Primary healthcare agent
--- OUTSIDE RECORDS SUMMARY | 2019-02-03 11:25 | XMS REPORT | Summary of Care ---
:1990 Author Organization [facility] Address [address] [place] [address] Care Team Providers Name Role Phone Sylvia Wolf Insurance Hmo Cassius Reagan ACCOUNTS PAYABLES CLERK Primary Care Provider Reason for Visit Reason Comments Staple Removal Encounter Details Date Type Department Care Team Description 01/31/2019 Nurse Visit [facility]- Cassius Reagan, ACCOUNTS PAYABLES CLERK [address], [place] [address] Encounter for [facility] Visit, [facility] Nurse removal (Primary Dx) [address] [place] [phone] Allergies Active Allergy Reactions Severity Noted Date Comments Hydrocodone Nausea and/or Vomiting 11/11/2016 Iodine Anaphylaxis 10/04/2012 Seafood/Fish Anaphylaxis 10/04/2012 documented as of this encounter (statuses as of 01/31/2019) Medications Medication Sig Dispensed Refills Start Date End Date Status docusate calcium 240 Take 1 capsule by 60 capsule 1 01/22/2019 Active mg mouth once daily capsuleIndications: as needed for S/P section Constipation. ferrous sulfate 325 Take 1 tablet by 60 tablet 2 01/22/2019 Active mg (65 mg iron) mouth 2 (two) tabletIndications: times daily. S/P section ibuprofen 600 mg Take 1 tablet by 60 tablet 1 01/22/2019 Active tabletIndications: mouth every 6 S/P section (six) hours as needed for Pain (scale 1-3) or Pain (scale 4-6) (Pain). Take with food or milk. documented as of this encounter (statuses as of 01/31/2019) Active Problems Problem Noted Date 39 weeks [...] records received. DOS- 10/29/2012. O+, beta hcg- 83838. Endovaginal US: Single IUP at 8 weeks 6 days. GERMAN-06/04/2013. ICD10 Diagnosis Term Still Operator Brandy Utility Tobacco use disorder 10/04/2012 Previous section 10/04/2012 Overview: X2. Awaiting medical records. Medical records: 03/03/2011- Primary low transverse . Failure to progress. Medical records: 03/16/2012- Repeat low transverse . documented as of this encounter (statuses as of 01/31/2019) Resolved Problems Problem Noted Date Resolved Date Chlamydia trachomatis infection of lower genitourinary sites 08/22/201406/29 Surveillance of previously prescribed contraceptive method 08/15/20142018 Overview: ICD10 Diagnosis Term Still Operator Brandy Utility Encounter for routine gynecological examination 08/15/2014 06/29/2018 Overview: ICD10 Diagnosis Term Still Operator Brandy Utility Screening for STD (sexually transmitted disease) 08/15/2014 06/29/2018 Obesity 08/15/2014 06/29/2018 Overview: ICD10 Diagnosis Term Still Operator Brandy Utility Depo-Provera contraceptive status 08/08/2013 06/29/2018 Immune [...] as of this encounter (statuses as of 01/31/2019) Immunizations Name Administration Dates Next Due Influenza Virus Vaccine 06/14/2017 Rubella 10/04/2012, 09/17/2010 TDAP (ADACEL) VACCINE 11/08/2018 Td 02/03/2006 Varicella (varivax)(chicken pox) 09/17/2010 documented as of this encounter Social History Tobacco Use Types Packs/Day Years Used Date Current Some Day Smoker Cigarettes 0.15 1 Started: 2012 Smokeless Tobacco: Never Used Alcohol Use Drinks/Week oz/Week Comments Yes 1 Glasses of wine 0.6 on occasion Sex Assigned at Date Recorded Not on file Job Start Date Occupation Industry Not on file Not on file Not on file Travel History Travel Start Travel End No recent travel history available. documented as of this encounter Last Filed Vital Signs Vital Sign Reading Time Taken Comments Blood Pressure 123/78 01/31/2019 11:13 AM CDT Pulse 66 01/31/2019 11:13 AM CDT Temperature 37.6 C (99.7 F) 01/31/2019 11:13 AM CDT Respiratory Rate 16 01/31/2019 11:13 AM CDT Oxygen Saturation - - Inhaled Oxygen Concentration - - Weight 74.4 kg (164 lb 2 oz) 01/31/2019 11:13 AM CDT Height 157.5 cm (5' 2") 01/31/2019 11:13 AM CDT Body Mass Index 30.02 01/31/2019 11:13 AM CDT documented in this encounter Patient Instructions Patient InstructionsJanice Abbott LVN - 01/31/2019 10:45 AM CDT Incision Care Remember: Follow-up visits allow your healthcare provider to make sure your incision is healing well. Be sure to keep your appointments. Stitches (sutures),surgical jhonatan, special strips of surgical tape, or surgical skin glue may beused to close incisions. They also help stop bleeding and speed healing. To help your incision heal,follow the tips on this handout. Home care Tips for home care include the following: Always wash your hands before and after touching your incision. Keep your incision clean and dry. Avoid doing things that could cause dirt or sweat to get on your incision. Dont pick at scabs. They help protect the wound. Keep your incision out of water. Take a sponge bath to avoid getting your incision wet, unless your healthcare provider tells you otherwise. Ask your provider when can you take a shower or bathe. Ask your provider about the best way to keep your incision dry when bathing or showering. Pat stitches dry if they get wet. Dont rub. Leave the bandage (dressing) in place until you are told to remove it or change it. Change it only as directed, using clean hands. After the first 12 hours, change your dressing every 24 hours, or as directed by your healthcare provider. Change your dressing if it gets wet or soiled. Care for specific closures Follow these guidelines unless yourhealthcare provider tells you otherwise: Stitches or jhonatan. Once you no longer need to keep these dry, clean the wound daily. First remove the bandage using clean hands. Then wash the area gently with soap and warm water. Use a wet cotton swab to loosen and remove any blood or crust that forms. After cleaning, put a thin layer of antibiotic ointment on. Then put on a new bandage. Skin glue. Dont put liquid, ointment, or cream on your wound while the glue is in place.Avoid activities that cause heavy sweating. Protect the wound from sunlight. Do not scratch, rub, or pickat the glue. Do not put tape directly over the glue.The glue should peel off within 5 to 10 days. Surgical tape. Keep the area dry. If it gets wet, blot the area dry with a clean towel. Surgical tape usually falls off within 7 to 10 days. If it has not fallen off after 10 days, contact your healthcare provider before taking it off yourself. If you are told to remove the tape,put mineral oil or petroleum jelly on a cotton ball. Gently rub the tape until it is removed. Changing your dressing Leave the dressing (bandage) in place until you are told to remove it or change it. Follow the instructions below unless told otherwise by your healthcare provider: Always wash your hands before changing your dressing. After the first48 hours, the incision wound usually will have closed. At this point, leave the incision uncovered and open to the air.If the incision has not closed keep it covered. Cover your incision only if your clothing is rubbing it or causing irritation. Change your dressing if it gets wet or soiled. Follow-up care Follow up with your healthcare provider to ask how long sutures or jhonatan should be left in place. Be sure to return for stitch or staple removal as directed. If dissolving stitches were used in your mouth, these will not need to be removed. They should fall out or dissolve on their own. If tape closures were used, remove them yourself when your provider recommends if they have not fallen off on their own. Ifskin glue was used, the glue will wear off by itself. When to seek medical care Call your healthcare provider if you have any of the following: More pain, redness, swelling, bleeding, or foul-smelling discharge around the incision area Fever of 100.4F (38C) or higher, or as directed by your healthcare provider Shaking chills Vomiting or nausea that doesn't go away Numbness, coldness, or tingling around the incision area, or changes in skin color Opening of the sutures or wound Stitches or jhonatan come apart or fall out or surgical tape falls off before 7 days or as directed by your healthcare provider Date Last Reviewed: 05/08/201619996337-2348 [employer]. [address] [place] [address]. All rights reserved. This information is not intended as a substitute for professional medical care. Always follow your healthcare professional's instructions. documented in this encounter Progress Notes Janice Abbott LVN - 01/31/2019 10:45 AM CDTNurse Visit:: Patient in clinic for staple removal. Delivered .01/20/2019 Pt voiding and stooling without difficulties, not constipated. Pt eating well and drinking water daily. She is bottle feeding. care no concerns voiced has help at home. She denies depression/suicidal/homocial ideation, Denies any domestic violence. LT incision well approximated and intact, superficial wound separation. Per provider patient to return in 1 wk for follow-up on incision. No ss of infection. Skin cleansed via aseptic technique, jhonatan removed w/o any difficulty. Steri-strips applied. C/S inc care reviewed and warning S/S given ER warnings discussed, she voiced understanding and agrees with plan. documented in this encounter Plan of Treatment Date Type Specialty Care Team Description 02/08[facility]2019 [facility] Routine Visit OB Satellites Cassius Reagan, ACCOUNTS PAYABLES CLERK [address], [place] [id number] Health Maintenance Due Date Last Done Comments PNEUMOCOCCAL 0-64 YEARS COMBINED 1996 SERIES (1 of 1 - PPSV23) INFLUENZA VACCINE (#1) 2019 06/14/2017, 06/14/2017 PAP SMEAR 06/29/2021 06/29/2018, 08/15/2014, 08/08/2013, Additional history exists DTaP,Tdap,and Td Vaccines (3 - Td) 11/08/2028 11/08/2018, 02/03/2006 documented as of this encounter Results Not on filedocumented in this encounter Visit Diagnoses Diagnosis Encounter for staple removal - Primary Encounter for removal of sutures documented in this encounter Insurance Payer Benefit Plan / Subscriber ID Effective Phone Address Type Group Dates BERTRAM BURDEN xxxxxxxxx 2018-Anita [address] [place] [id number] MA[place]GED MEDICA[place], [place] documented as of this encounter Advance Directives Name Relationship Healthcare Agent Communication Relationship Lizzy Holland Mother Primary healthcare agent [phone] (mobile)
--- OUTSIDE RECORDS SUMMARY | 2019-02-03 11:25 | XMS REPORT | Summary of Care ---
:1990 Author Organization [facility] Address [address] [place] [id number] Care Team Providers Name Role Phone Sylvia Wolf Insurance Hmo Cassius Reagan WALL INSULATION SPRAYER Primary Care Provider Reason for Visit Reason Comments Care Encounter Details Date Type Department Care Team Description 01/17/2019 Routine [facility]- Cassius Reagan Supervision of high risk in third trimester (Primary Dx); Visit MOOKIE Velarde Previous section; [address] [place]; [place], [place] Tobacco use disorder [id number] [place], [place] [phone] Allergies Active Allergy Reactions Severity Noted Date Comments Hydrocodone Nausea and/or Vomiting 11/11/2016 Iodine Anaphylaxis 10/04/2012 Seafood/Fish Anaphylaxis 10/04/2012 documented as of this encounter (statuses as of 01/17/2019) Medications Medication Sig Dispensed Refills Start Date End Date Status traMADOL 50 mg tablet Take 1 tablet by 12 tablet 0 11/12/2016 Active mouth every 6 (six) hours as needed for Pain (scale 7-10) for up to 12 doses. vit Take 1 Packet by 30 Each 6 06/29/2018 Active 25-xyvh-gtzzp-dha mouth daily. (SELECT-OB + DHA) 29 mg [...] Facility Administered Medication medroxyPROGESTERone 150 mg IM [id number] 08/15/2014 Active (DEPO-PROVERA) injection 150 mgIndications: Routine gynecological examination documented as of this encounter (statuses as of 01/17/2019) Active Problems Problem Noted Date Drug use [...] records received. DOS- 10/29/2012. O+, beta hcg- 04824. Endovaginal US: Single IUP at 8 weeks 6 days. GERMAN-06/04/2013. ICD10 Diagnosis Term Press Helper Utility Tobacco use disorder 10/04/2012 Previous section 10/04/2012 Overview: X2. Awaiting medical records. Medical records: 03/03/2011- Primary low transverse . Failure to progress. Medical records: 03/16/2012- Repeat low transverse . Estimated Date of Delivery Comments Yes 01/27/2019 Based on last menstrual period of 04/22/2018 (Within Days) documented as of this encounter (statuses as of 01/17/2019) Resolved Problems Problem Noted Date Resolved Date Chlamydia trachomatis infection of lower genitourinary sites 08/22/201406/29 Surveillance of previously prescribed contraceptive method 08/15/20142018 Overview: ICD10 Diagnosis Term Press Helper Utility Encounter for routine gynecological examination 08/15/2014 06/29/2018 Overview: ICD10 Diagnosis Term Press Helper Utility Screening for STD (sexually transmitted disease) 08/15/2014 06/29/2018 Obesity 08/15/2014 06/29/2018 Overview: ICD10 Diagnosis Term Press Helper Utility Depo-Provera contraceptive status 08/08/2013 06/29/2018 Immune [...] as of this encounter (statuses as of 01/17/2019) Immunizations Name Administration Dates Next Due Influenza [...] Sign Reading Time Taken Comments Blood Pressure 130/70 01/17/2019 1:54 PM CDT Pulse 103 01/17/2019 1:54 PM CDT Temperature 36.6 C (97.8 F) 01/17/2019 1:54 PM CDT Respiratory Rate 16 01/17/2019 1:54 PM CDT Oxygen Saturation - - Inhaled Oxygen Concentration - - Weight 85 kg (187 lb 6 oz) 01/17/2019 1:54 PM CDT Height 157.5 cm (5' 2") 01/17/2019 1:54 PM CDT Body Mass Index 34.27 01/17/2019 1:54 PM CDT documented in this encounter Progress Notes Cassius Reagan, WALL INSULATION SPRAYER - 01/17/2019 1:45 PM CDT Chief complaint: Chief Complaint Patient presents with Care HPI CC: Follow Up Visit Emilie Holland is a 28 year old, , Black or female. Patient's last menstrual period was 04/22/2018 (within days). She is 38w4d with an intrauterine . Her estimated date [...] level: Not on file Occupational History Occupation: [employer] Social Needs Financial resource strain: Not on [...] file Gets together: Not on file Attends sabianist service: Not on file Active member of [...] Asked Social History Narrative Pt states her sabianist preference is Sikhism Lives alone. No domestic violence or abuse at this time. Social History Substance and Sexual Activity Sexual Activity Yes Partners: Male control/protection: Injection, None Comment: last sexual intercourse 06/01/2018 Labs No new labs Radiology No new radiology. Allergies Emilie is allergic to hydrocodone; iodine; and seafood/fish. Medications Emilie has a current medication list which includes the following prescription(s ): metronidazole, promethazine, vit 01-ltvg-xlbqw-dha, and tramadol, and the following Facility-Administered Medications: medroxyprogesterone. Review of Systems Eyes: Negative for visual disturbance. Cardiovascular: Negative for leg swelling. Gastrointestinal: Negative for abdominal pain, nausea and vomiting. Genitourinary: Negative for vaginal bleeding, vaginal discharge and pelvic pain. Neurological: Negative for headaches. BP 130/70 (BP Location: Right arm, Patient Position: Sitting, BP CUFF SIZE: Adult Medium) | Pulse 103 | Temp 36.6 C (97.8 F) (Oral) | Resp 16 | Ht 5 ' 2" (1.575 m) | Wt 187 lb 6 oz (85 kg) | LMP 04/22/2018 (Within Days) | BMI 34.27 kg/m Pregravid BMI: 32.9 Physical Exam PHYSICAL: General Exam: Neurological: Normal Abdomen: Normal Extremities: Normal Pelvic Exam: Uterus: 39 cm Weeks Assessment/Plan Supervision of high risk in third trimester (primary encounter diagnosis) Previous section Multiparity Comment: Routine Care Plan: POCT URINALYSIS W/O SPECIFIC GRAVITY Denies zika virus risk, signs and symptoms such as fever,rash,joint pain, conjunctivitis (red eyes), muscle pain, headaches; outside [place] travel to areas affected by zika, and FOB exposure to zika.Educated on use of mosquito repellent. Tobacco use disorder Comment: current smoker Plan: smoking cessation discussed Return to clinic in 3 weeks for PP Visit. Discussed treatment options. Medications as ordered. Reviewed patient instructions and provided printed copy. This visit did not involve counseling and coordination that comprised more than 50% of the visit time. MOOKIE Varela 01/17/2019 3:05 PM documented in this encounter Plan of Treatment Date Type Specialty Care Team Description 01/20/2019 Hospital Encounter Obstetrics Ken Juarez MD [address] [place] [address] 01/20/2019 Surgery Surgery Faculty, Ob SECTION [address] [place] [address] Health Maintenance Due Date Last Done Comments PNEUMOCOCCAL 0-64 YEARS COMBINED 1996 SERIES (1 of 1 - PPSV23) INFLUENZA VACCINE 02/06/2019 06/14/2017, 06/14/2017 PAP SMEAR 06/29/2021 06/29/2018, 08/15/2014, 08/08/2013, Additional history exists DTaP,Tdap,and Td Vaccines (3 - Td) 11/08/2028 11/08/2018, 02/03/2006 documented as of this encounter Procedures Procedure Name Priority Date/Time Associated Diagnosis Comments POCT URINALYSIS W/O Routine 01/17/2019 1:56 Supervision of high Results for this SPECIFIC GRAVITY PM CDT risk in procedure are in third trimester the results section. documented in this encounter Results POCT URINALYSIS W/O SPECIFIC GRAVITY (01/17/2019 1:56 PM CDT) POCT PH U . 5 - 8 mg/dl POCT U LEUK EST . Negative - Negative POCT U NIT . Negative - Negative POCT U PROT Trace Negative - Negative POCT U GLU Neg Negative - Negative POCT U KETONE . Negative - Negative POCT U BLD . Negative - Negative Specimen Urine - URINE, CLEAN CATCH documented in this encounter Visit Diagnoses Diagnosis Supervision of high risk in third trimester - Primary Unspecified high-risk Previous section Other postprocedural status Multiparity Tobacco use disorder documented in this encounter Insurance Payer Benefit Plan / Subscriber ID Effective Phone Address Type Group Dates BERTRAM BURDEN xxxxxxxxx 2018-Anita [address] [place] [id number] MANAGED MEDICAID [place], [place] documented as of this encounter Advance Directives Name Relationship Healthcare Agent Communication Relationship Lizzy Holland Mother Primary healthcare agent
--- OUTSIDE RECORDS SUMMARY | 2019-02-03 11:26 | XMS REPORT | Summary of Care ---
:1990 Author Organization [facility] - Health Address [address] [place] [address] Care Team Providers Name Role Phone Sylvia Wolf Insurance Hmo Cassius Reagna Primary Care Provider Encounter Details Date Type Department Care Team Description 01/20/2019 Orders Only [facility] Doctor Unassigned, [address] [facility] [place] [address] [address] [place] [address] Allergies Active Allergy Reactions Severity Noted Date Comments Hydrocodone Nausea and/or Vomiting 11/11/2016 Iodine Anaphylaxis 10/04/2012 Seafood/Fish Anaphylaxis 10/04/2012 documented as of this encounter (statuses as of 02/01/2019) Medications Medication Sig Dispensed Refills Start Date [...] as of this encounter (statuses as of 02/01/2019) Active Problems Problem Noted Date 39 weeks [...] records received. DOS- 10/29/2012. O+, beta hcg- 34261. Endovaginal US: Single IUP at 8 weeks 6 days. GERMAN-06/04/2013. ICD10 Diagnosis Term Bulk Receiver Utility Tobacco use disorder 10/04/2012 Previous section 10/04/2012 Overview: X2. Awaiting medical records. Medical records: 03/03/2011- Primary low transverse . Failure to progress. Medical records: 03/16/2012- Repeat low transverse . documented as of this encounter (statuses as of 02/01/2019) Resolved Problems Problem Noted Date Resolved Date Chlamydia trachomatis infection of lower genitourinary sites 08/22/201406/29 Surveillance of previously prescribed contraceptive method 08/15/20142018 Overview: ICD10 Diagnosis Term Bulk Receiver Utility Encounter for routine gynecological examination 08/15/2014 06/29/2018 Overview: ICD10 Diagnosis Term Bulk Receiver Utility Screening for STD (sexually transmitted disease) 08/15/2014 06/29/2018 Obesity 08/15/2014 06/29/2018 Overview: ICD10 Diagnosis Term Bulk Receiver Utility Depo-Provera contraceptive status 08/08/2013 06/29/2018 Immune [...] as of this encounter (statuses as of 02/01/2019) Immunizations Name Administration Dates Next Due Influenza [...] of this encounter Last Filed Vital Signs Not on filedocumented in this encounter Plan of Treatment Date Type Specialty Care Team Description 02/08/2019 Nurse Visit OB Satellites Visit, [facility] Nurse 02/10/2019 Routine Visit OB Satellites Cassius Reagan, OUTBOUND SUPERVISOR [address] [place] [address] [phone] Health Maintenance Due Date Last Done Comments PNEUMOCOCCAL 0-64 YEARS COMBINED 1996 SERIES (1 of 1 - PPSV23) INFLUENZA VACCINE (#1) 2019 06/14/2017, 06/14/2017 PAP SMEAR 06/29/2021 06/29/2018, 08/15/2014, 08/08/2013, Additional history exists DTaP,Tdap,and Td Vaccines (3 - Td) 11/08/2028 11/08/2018, 02/03/2006 documented as of this encounter Procedures Procedure Name Priority Date/Time Associated Diagnosis Comments HOSPITAL ADMISSION Routine 01/20/2019 12:01 AM CDT documented in this encounter Results Not on filedocumented in this encounter Insurance Payer Benefit Plan / Subscriber ID Effective Phone Address Type Group Dates BERTRAM BURDEN xxxxxxxxx 2018-Anita [address] [place] [id number] [place]ED MEDICA[place] documented as of this encounter Advance Directives Name Relationship Healthcare Agent Communication Relationship Lizzy Holland Mother Primary healthcare agent
[2019-02-03] MEDS ORDERED: CLINDAMYCIN IV 150 MG/ML (4 mL) VIAL ONE (13:01)
[2019-02-03] MEDS ORDERED: CODEINE 30MG/APAP 300MG TAB ONE (13:21)
--- NOTE | 2019-02-03 16:35 | ER ---
Nurse's Notes [facility] Name: Emilie Holland Age: 28 yrs Sex: Female : 1990 Arrival Date: 02/03/2019 Time: 11:19 Bed 8 Private MD: Diagnosis: Disruption of delivery wound Presentation: 02/03 11:43 Presenting complaint: Patient states: "I had a on the and I had the aj1 jhonatan taken out on Thursday, now its open and infected. Its draining pus and inflamed and it has an odor" Denies fever. Transition of care: patient was not received from another setting of care. Onset of symptoms was January 2019. Risk Assessment: Do you want to hurt yourself or someone else? Patient reports no desire to harm self or others. Initial Sepsis Screen: Does the patient meet any 2 criteria? No. Patient's initial sepsis screen is negative. Does the patient have a suspected source of infection? Yes: Skin breakdown/wound. Care prior to arrival: None. 11:43 Method Of Arrival: Ambulatory aj1 11:43 Acuity: ADITYA 3 aj1 Triage Assessment: 11:45 General: Appears in no apparent distress. uncomfortable, Behavior is calm, cooperative, aj1 appropriate for age. Pain: Complains of pain in right lower quadrant and left lower quadrant Pain currently is 6 out of 10 on a pain scale. Neuro: Level of Consciousness is awake, alert, obeys commands. Cardiovascular: Patient's skin is warm and dry. Respiratory: Airway is patent Respiratory effort is even, unlabored, Respiratory pattern is regular, symmetrical. 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 - Ebola Screening: : Patient denies travel to an Ebola-affected area in the 21 days before illness onset. - Social history:: Smoking status: Patient/guardian denies using tobacco. Screenin:25 Abuse screen: Denies threats or abuse. Denies injuries from another. Nutritional hb screening: No deficits noted. Tuberculosis screening: No symptoms or risk factors identified. Fall Risk None identified. Assessment: 12:20 General: Appears in no apparent distress. Behavior is calm, cooperative. Pain: Pain hb currently is 6 out of 10 on a pain scale. Neuro: Level of Consciousness is awake, alert, obeys commands, Oriented to person, place, time, situation. Cardiovascular: Capillary refill < 3 seconds Patient's skin is warm and dry. Respiratory: Airway is patent Respiratory effort is even, unlabored, Respiratory pattern is regular, symmetrical. GI: No signs and/or symptoms were reported involving the gastrointestinal system. : No signs and/or symptoms were reported regarding the genitourinary system. EENT: No signs and/or symptoms were reported regarding the EENT system. Derm: surgical site reddened, small amt of clear yellow discharge noted on dressing. Musculoskeletal: No signs and/or symptoms reported regarding the musculoskeletal system. 13:00 Reassessment: Patient appears in no apparent distress at this time. No changes from hb previously documented assessment. Patient and/or family updated on plan of care and expected duration. Pain level reassessed. Patient is alert, oriented x 3, equal unlabored respirations, skin warm/dry/pink. 13:09 Reassessment: Pt waiting IM shot time before discharge. sv Vital Signs: 11:45 BP 119 / 85; Pulse 83; Resp 16; Temp 97.7; Pulse Ox 98% on R/A; Weight 74.39 kg (R); aj1 Height 5 ft. 2 in. (157.48 cm) (R); Pain 6/10; 11:45 Body Mass Index 30.00 (74.39 kg, 157.48 cm) aj1 ED Course: 11:19 Patient arrived in ED. mr 11:45 Triage completed. aj1 11:45 Arm band placed on Patient placed in waiting room, Patient notified of wait time. aj1 12:13 Raymond Magaña NP is PHCP. pm1 12:13 Jordan Carmichael MD is Attending Physician. pm1 12:25 Patient has correct armband on for positive identification. Bed in low position. Call hb light in reach. Side rails up X 1. 13:00 Berenice Montelongo RN is Primary Nurse. sv 13:10 No provider procedures requiring assistance completed. Patient did not have IV access sv during this emergency room visit. Administered Medications: 13:05 Drug: Clindamycin 300 mg Route: IM; Site: right vastus lateralis; hb 13:06 Drug: Clindamycin 300 mg Route: IM; Site: left ventrogluteal; hb 13:25 Follow up: Response: No adverse reaction sv 13:25 Drug: Tylenol #3 (300 mg-30 mg) 1 tablet Route: PO; sv 13:25 Follow up: Response: Medication administered at discharge. sv Outcome: 12:57 Discharge ordered by MD. pm1 13:25 Discharged to home ambulatory, with family. sv 13:25 Condition: stable 13:25 Discharge instructions given to patient, Instructed on discharge instructions, follow up and referral plans. medication usage, wound care, Demonstrated understanding of instructions, follow-up care, medications, wound care, Prescriptions given X 1. 13:25 Patient left the ED. sv Signatures: Elizabeth Morrow RN RN aj1 Berenice Montelongo RN RN sv Rivera, Mary mr Marinas, Patrick, SCRATCHER TENDER SCRATCHER TENDER pm1 Vashti Whitley RN RN
--- NOTE | 2019-02-03 16:36 | EDPHYS ---
Physician Documentation [facility] Name: Emilie Holland Age: 28 yrs Sex: Female : 1990 Arrival Date: 02/03/2019 Time: 11:19 Bed 8 Private MD: ED Physician Jordan Carmichael HPI: 02/03 12:55 This 28 yrs old Black Female presents to ER via Ambulatory with complaints of C section pm1 reopened. 12:55 Wound dehiscence of . Patient on 01/20 and had her jhonatan removed 3 pm1 days ago. Onset: The symptoms/episode began/occurred today. Severity of symptoms: in the emergency department the symptoms are worse. The patient has not experienced similar symptoms in the past. The patient has been recently seen by a physician: staple removal on Thursday. 12:55 Small area of right side of dehiscence. 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 - Ebola Screening: : Patient denies travel to an Ebola-affected area in the 21 days before illness onset. - Social history:: Smoking status: Patient/guardian denies using tobacco. ROS: 12:55 Constitutional: Negative for fever, chills, and weight loss, Eyes: Negative for injury, pm1 pain, redness, and discharge, ENT: Negative for injury, pain, and discharge, Neck: Negative for injury, pain, and swelling, Cardiovascular: Negative for chest pain, palpitations, and edema, Respiratory: Negative for shortness of breath, cough, wheezing, and pleuritic chest pain, Abdomen/GI: Negative for abdominal pain, nausea, vomiting, diarrhea, and constipation, Back: Negative for injury and pain, MS/Extremity: Negative for injury and deformity. 12:55 Skin: Positive for of the suprapubic area, wound dehiscence on the right side. Exam: 12:55 Constitutional: This is a well developed, well nourished patient who is awake, alert, pm1 and in no acute distress. Head/Face: Normocephalic, atraumatic. Neck: Trachea midline, no thyromegaly or masses palpated, and no cervical lymphadenopathy. Supple, full range of motion without nuchal rigidity, or vertebral point tenderness. No Meningismus. Chest/axilla: Normal chest wall appearance and motion. Nontender with no deformity. No lesions are appreciated. Cardiovascular: Regular rate and rhythm with a normal S1 and S2. No gallops, murmurs, or rubs. Normal PMI, no JVD. No pulse deficits. Respiratory: Lungs have equal breath sounds bilaterally, clear to auscultation and percussion. No rales, rhonchi or wheezes noted. No increased work of breathing, no retractions or nasal flaring. 12:55 Back: No spinal tenderness. No costovertebral tenderness. Full range of motion. Skin: Warm, dry with normal turgor. Normal color with no rashes, no lesions, and no evidence of cellulitis. MS/ Extremity: Pulses equal, no cyanosis. Neurovascular intact. Full, normal range of motion. 12:55 Abdomen/GI: Inspection: abdomen appears normal, Bowel sounds: normal, Palpation: abdomen is soft and non-tender, in all quadrants, mass, is not appreciated, rebound tenderness, is not appreciated. 12:55 Neuro: Orientation: is normal, Motor: is normal, moves all fours. Vital Signs: 11:45 BP 119 / 85; Pulse 83; Resp 16; Temp 97.7; Pulse Ox 98% on R/A; Weight 74.39 kg (R); aj1 Height 5 ft. 2 in. (157.48 cm) (R); Pain 6/10; 11:45 Body Mass Index 30.00 (74.39 kg, 157.48 cm) aj MDM: 12:13 Patient medically screened. pm1 12:26 Data reviewed: vital signs. Data interpreted: Pulse oximetry: on room air is 98 %. pm1 Interpretation: normal. 12:55 Counseling: I had a detailed discussion with the patient and/or guardian regarding: the pm1 historical points, exam findings, and any diagnostic results supporting the discharge/admit diagnosis, the need for outpatient follow up, an OB/Gyne specialist, to return to the emergency department if symptoms worsen or persist or if there are any questions or concerns that arise at home. 12:55 ED course: Patient refused labs and CT imaging. 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 Administered Medications: 13:05 Drug: Clindamycin 300 mg Route: IM; Site: right vastus lateralis; hb 13:06 Drug: Clindamycin 300 mg Route: IM; Site: left ventrogluteal; hb 13:25 Follow up: Response: No adverse reaction sv 13:25 Drug: Tylenol #3 (300 mg-30 mg) 1 tablet Route: PO; sv 13:25 Follow up: Response: Medication administered at discharge. sv Disposition: 14:54 Co-signature as Attending Physician, Jordan Carmichael MD I agree with the assessment and kdr plan of care. Disposition: 02/03/19 12:57 Discharged to Home. Impression: Disruption of delivery wound. - Condition is Stable. - Discharge Instructions: Wound Dehiscence. - Prescriptions for Clindamycin HCl 300 mg Oral Capsule - take 1 capsule by ORAL route every 6 hours for 10 days; 40 capsule. Tylenol- Codeine #3 300-30 mg Oral Tablet - take 2 tablets by ORAL route every 6 hours As needed; 20 tablet. - Medication Reconciliation Form, Thank You Letter, Antibiotic Education, Prescription Opioid Use, Work release form form. - Follow up: Emergency Department; When: As needed; Reason: Worsening of condition. Follow up: Private Physician; When: 2 - 3 days; Reason: Recheck today's complaints, Continuance of care, Re-evaluation by your physician. - Problem is new. - Symptoms have improved. Signatures: Elizabeth Morrow RN RN aj1 Berenice Montelongo RN RN Jordan Fonseca MD MD kdr Marinas, Patrick, RESIDENT CARE ASSISTANT RESIDENT CARE ASSISTANT pm1 Vashti Whitley RN RN Corrections: (The following items were deleted from the chart) 13:25 12:57 02/03/2019 12:57 Discharged to Home. Impression: Disruption of delivery sv wound. Condition is Stable. Forms are Medication Reconciliation Form, Thank You Letter, Antibiotic Education, Prescription Opioid Use. Follow up: Emergency Department; When: As needed; Reason: Worsening of condition. Follow up: Private Physician; When: 2 - 3 days; Reason: Recheck today's complaints, Continuance of care, Re-evaluation by your physician. Problem is new. Symptoms have improved. pm1
[2019-02-03 18:41] VITALS: BP 119/85; TEMP 97.7; O2SAT 98
== END 2019-02-03 13:25 | disposition home or self-care (01) ==
LOC: ER 11:14
DX: O90.0 Disruption of cesarean delivery wound (principal); Z88.6 Allergy status to analgesic agent; Z91.09 Other allergy status, other than to drugs and biological substances
CPT/HCPCS: 96372; 99283; S0077

== ENCOUNTER 2019-06-18 03:55 | Emergency (ER) | payer MEDICAID, SELFPAY ==
--- OUTSIDE RECORDS SUMMARY | 2019-06-18 03:57 | XMS REPORT ---
:1990 Author Organization [facility] Address [address] [place] [address] [address]. [address] [place] [address] Care Team Providers Name Role Phone UNKNOWN, [...] Department ID 2017-06-14 2017-06-17 Inpatient E [facility] [id number] 21:05:00 13:02:00 SAMPSON Pickard M.D.
--- OUTSIDE RECORDS SUMMARY | 2019-06-18 03:59 | XMS REPORT | Summary of Care ---
:1990 Author Organization [facility] Address [address] [place] [id number] Care Team Providers Name Role Phone Sylvia Wolf Insurance Hmo Cassius Reagan CORNER CUTTER Primary Care Provider Reason for Visit Reason Comments NURSE VISIT Encounter Details Date Type Department Care Team Description 02/08/2019 Nurse Visit [facility]- Argenis Delvalle, CNP [address] [place], [place] [id number] Encounter for wound [place] Visit, [facility] Nurse care (Primary Dx) [address] [place] [address] Allergies Active Allergy Reactions Severity Noted Date Comments Hydrocodone Nausea and/or Vomiting 11/11/2016 Iodine Anaphylaxis 10/04/2012 Seafood/Fish Anaphylaxis 10/04/2012 documented as of this encounter (statuses as of 02/08/2019) Medications Medication Sig Dispensed Refills Start Date [...] as of this encounter (statuses as of 02/08/2019) Active Problems Problem Noted Date 39 weeks [...] records received. DOS- 10/29/2012. O+, beta hcg- 40825. Endovaginal US: Single IUP at 8 weeks 6 days. GERMAN-06/04/2013. ICD10 Diagnosis Term Utilization Review Rn Utility Tobacco use disorder 10/04/2012 Previous section 10/04/2012 Overview: X2. Awaiting medical records. Medical records: 03/03/2011- Primary low transverse . Failure to progress. Medical records: 03/16/2012- Repeat low transverse . documented as of this encounter (statuses as of 02/08/2019) Resolved Problems Problem Noted Date Resolved Date Chlamydia trachomatis infection of lower genitourinary sites 08/22/201406/29 Surveillance of previously prescribed contraceptive method 08/15/20142018 Overview: ICD10 Diagnosis Term Utilization Review Rn Utility Encounter for routine gynecological examination 08/15/2014 06/29/2018 Overview: ICD10 Diagnosis Term Utilization Review Rn Utility Screening for STD (sexually transmitted disease) 08/15/2014 06/29/2018 Obesity 08/15/2014 06/29/2018 Overview: ICD10 Diagnosis Term Utilization Review Rn Utility Depo-Provera contraceptive status 08/08/2013 06/29/2018 Immune [...] as of this encounter (statuses as of 02/08/2019) Immunizations Name Administration Dates Next Due Influenza [...] Sign Reading Time Taken Comments Blood Pressure 130/80 02/08/2019 3:30 PM CDT Pulse 90 02/08/2019 3:30 PM CDT Temperature 36.7 C (98 F) 02/08/2019 3:30 PM CDT Respiratory Rate 18 02/08/2019 3:30 PM CDT Oxygen Saturation - - Inhaled Oxygen Concentration - - Weight 73.1 kg (161 lb 4 oz) 02/08/2019 3:30 PM CDT Height 157.5 cm (5' 2") 02/08/2019 3:30 PM CDT Body Mass Index 29.49 02/08/2019 3:30 PM CDT documented in this encounter Progress Notes Yohannes Galo RN - 02/08/2019 2:30 PM CDTPatient in clinic for steri strip removal Delivered 01/20/2019 via Pt voiding and stooling without difficulties, not constipated . Pt eating well and drinking water daily. Infant care no concerns voiced has help at home. She denies depression/suicidal/homocial ideation, Denies any domestic violence. LT incision well approximated and intact. No ss of infection, induration or wound opening noted. C/S inc care reviewed and warning S/S given ER warnings discussed, she voiced understanding and agrees with plan. YOHANNES GALO RN 02/08/2019 3:40 PM documented in this encounter Plan of Treatment Date Type Specialty Care Team Description 02/10/2019 Routine Visit [facility] Csasius Reagan, CORNER CUTTER [address] [place] [address] Health Maintenance Due Date Last Done Comments PNEUMOCOCCAL 0-64 YEARS COMBINED 1996 SERIES (1 of 1 - PPSV23) INFLUENZA VACCINE (#1) 2019 06/14/2017, 06/14/2017 PAP SMEAR 06/29/2021 06/29/2018, 08/15/2014, 08/08/2013, Additional history exists DTaP,Tdap,and Td Vaccines (3 - Td) 11/08/2028 11/08/2018, 02/03/2006 documented as of this encounter Results Not on filedocumented in this encounter Visit Diagnoses Diagnosis Encounter for wound care - Primary Encounter for other specified aftercare documented in this encounter Insurance Payer Benefit Plan / Subscriber ID Effective Phone Address Type Group Dates BERTRAM BURDEN xxxxxxxxx 2018-Anita SINGH Medicaid HEALTHCARE - [place]ARE [id number] MANAGED MEDICAID [place], [place] documented as of this encounter Advance Directives Name Relationship Healthcare Agent Communication Relationship Lizzy Holland Mother Primary healthcare agent
--- OUTSIDE RECORDS SUMMARY | 2019-06-18 04:00 | XMS REPORT | Summary of Care ---
:1990 Author Organization [facility] Address [address] [place] [id number] Care Team Providers Name Role Phone Sylvia Wolf Insurance Hmo Cassius Reagan ANNEALER Primary Care Provider Reason for Visit Reason Comments Follow-up Encounter Details Date Type Department Care Team Description 02/17/2019 Telephone [facility] Case Management and Rachel Hagen LMSW Follow-up Utilization Review [address] [place] [id number] [place] [id number] Allergies Active Allergy Reactions Severity Noted Date Comments Hydrocodone Nausea and/or Vomiting 11/11/2016 Iodine Anaphylaxis 10/04/2012 Seafood/Fish Anaphylaxis 10/04/2012 documented as of this encounter (statuses as of 02/17/2019) Medications Medication Sig Dispensed Refills Start Date [...] as of this encounter (statuses as of 02/17/2019) Active Problems Problem Noted Date 39 weeks [...] records received. DOS- 10/29/2012. O+, beta hcg- 40891. Endovaginal US: Single IUP at 8 weeks 6 days. GERMAN-06/04/2013. ICD10 Diagnosis Term Foot And Ankle Surgeon Utility Tobacco use disorder 10/04/2012 Previous section 10/04/2012 Overview: X2. Awaiting medical records. Medical records: 03/03/2011- Primary low transverse . Failure to progress. Medical records: 03/16/2012- Repeat low transverse . documented as of this encounter (statuses as of 02/17/2019) Resolved Problems Problem Noted Date Resolved Date Chlamydia trachomatis infection of lower genitourinary sites 08/22/201406/29 Surveillance of previously prescribed contraceptive method 08/15/20142018 Overview: ICD10 Diagnosis Term Foot And Ankle Surgeon Utility Encounter for routine gynecological examination 08/15/2014 06/29/2018 Overview: ICD10 Diagnosis Term Foot And Ankle Surgeon Utility Screening for STD (sexually transmitted disease) 08/15/2014 06/29/2018 Obesity 08/15/2014 06/29/2018 Overview: ICD10 Diagnosis Term Foot And Ankle Surgeon Utility Depo-Provera contraceptive status 08/08/2013 06/29/2018 Immune [...] as of this encounter (statuses as of 02/17/2019) Immunizations Name Administration Dates Next Due Influenza [...] Treatment Date Type Specialty Care Team Description 03/08/2019 Office Visit [facility] Cassius Reagan, ANNEALER [address] [place] [address] [phone] Health Maintenance Due Date Last Done Comments [...] Effective Phone Address Type Group Dates BERTRAM BURDNE xxxxxxxxx 2018-Anita SINGH Medicaid HEALTHCARE [place] [id number] MANAGED MEDICAID [place] documented as of this encounter Advance Directives Name Relationship Healthcare Agent Communication Relationship Lizzy Holland Mother Primary healthcare agent
--- OUTSIDE RECORDS SUMMARY | 2019-06-18 04:00 | XMS REPORT | Summary of Care ---
:1990 Author Organization [facility] Address [address] [place] [id number] Care Team Providers Name Role Phone Sylvia Wolf Insurance [employer] Cassius Reagan SALES BROKER Primary Care Provider Reason for Visit Reason Comments Care Encounter Details Date Type Department Care Team Description 02/14/2019 Routine [facility]- Cassius Reagan care and Visit MOOKIE Velarde examination [address] immediately after [place], [place] delivery (Primary [id number] [place], [place] Dx) [phone] [id number] Allergies Active Allergy Reactions Severity Noted Date Comments Hydrocodone Nausea and/or Vomiting 11/11/2016 Iodine Anaphylaxis 10/04/2012 Seafood/Fish Anaphylaxis 10/04/2012 documented as of this encounter (statuses as of 02/14/2019) Medications Medication Sig Dispensed Refills Start Date [...] as of this encounter (statuses as of 02/14/2019) Active Problems Problem Noted Date 39 weeks [...] records received. DOS- 10/29/2012. O+, beta hcg- 90023. Endovaginal US: Single IUP at 8 weeks 6 days. GERMAN-06/04/2013. ICD10 Diagnosis Term Mold Technician Utility Tobacco use disorder 10/04/2012 Previous section 10/04/2012 Overview: X2. Awaiting medical records. Medical records: 03/03/2011- Primary low transverse . Failure to progress. Medical records: 03/16/2012- Repeat low transverse . documented as of this encounter (statuses as of 02/14/2019) Resolved Problems Problem Noted Date Resolved Date Chlamydia trachomatis infection of lower genitourinary sites 08/22/201406/29 Surveillance of previously prescribed contraceptive method 08/15/20142018 Overview: ICD10 Diagnosis Term Mold Technician Utility Encounter for routine gynecological examination 08/15/2014 06/29/2018 Overview: ICD10 Diagnosis Term Mold Technician Utility Screening for STD (sexually transmitted disease) 08/15/2014 06/29/2018 Obesity 08/15/2014 06/29/2018 Overview: ICD10 Diagnosis Term Mold Technician Utility Depo-Provera contraceptive status 08/08/2013 06/29/2018 Immune to rubella 10/15/2012 08/15/2014 Immune to varicella 10/15/2012 08/08/2013 Papanicolaou smear of cervix with atypical squamous cells of 10/08/2012 03/12 /2014 undetermined significance (ASC-US) Overview: Refer to colpo prior to 32 weeks Abnormal maternal glucose tolerance, antepartum 10/05/2012 08/08/2013 Overview: 3 hour gtt-passed. Repeat at 28 weeks Pain pelvic 10/04/2012 08/08/2013 Heartburn in 10/04/2012 08/08/2013 BV (bacterial vaginosis) 10/04/2012 08/08/2013 Nausea 10/04/2012 08/08/2013 documented as of this encounter (statuses as of 02/14/2019) Immunizations Name Administration Dates Next Due Influenza [...] Sign Reading Time Taken Comments Blood Pressure 115/70 02/14/2019 3:19 PM CDT Pulse 84 02/14/2019 3:19 PM CDT Temperature 36.7 C (98 F) 02/14/2019 3:19 PM CDT Respiratory Rate 16 02/14/2019 3:19 PM CDT Oxygen Saturation - - Inhaled Oxygen Concentration - - Weight 72.1 kg (159 lb) 02/14/2019 3:19 PM CDT Height - - Body Mass Index 29.08 02/08/2019 3:30 PM CDT documented in this encounter Progress Notes Cassius Reagan FNP - 02/14/2019 2:45 PM CDT Chief complaint: Chief Complaint Patient presents with Care HPI The patient is here for a routine PP visit. Patient delivered female infant via on 01/20/2019. She has no complaints today. She states that she is formula feeding her , is bonding well, and coping well with less sleep. She reports that she has no pain, small lochia, and denies all s/s ofPP depression. She wants Dep Provera for PP contraception. Histories OB History Para Term AB Living 5 4 4 1 4 SAB TAB Ectopic Multiple Live Births 1 0 4 # Outcome Date GA Lbr Jt/2nd Weight Sex Delivery Anes PTL Lv 5 Term 01/20/19 39w0d 7 lb 0.5 oz (3.19 kg) F , L None N JORGE 4 Term 05/20/13 M CS-LTranv JORGE Comments: System Generated. Please review and update details. Complications: Other Excessive Bleeding 3 Term 03/16/12 39w0d 6 lb 14 oz (3.118 kg) F CS-LTranv EPIDURAL JORGE Comments: repeat c/section 2 Term 03/03/11 39w0d 6 lb 7 oz (2.92 kg) M CS-LTranv EPIDURAL JORGE Comments: failure to dilate 1 SAB 2008 Past Medical History: Diagnosis Date Abnormal [...] Surgical History: Procedure Laterality Date SECTION 2010,2011,2012 SECTION N/A 01/20/2019 Surgeon: Marcia Wong MD; Location: Labor and Delivery - [place] Social History Socioeconomic History Marital status: Single Spouse name: Not on file Number of children: 2 Years of education: 12+ Highest education level: Not on file Occupational History Occupation: [employer] Social Needs Financial resource strain: Not on [...] file Gets together: Not on file Attends rastafarian service: Not on file Active member of [...] Asked Social History Narrative Pt states her rastafarian preference is Shinto Lives alone. No domestic violence or abuse at this time. Social History Substance and Sexual Activity Sexual Activity Yes Partners: Male control/protection: Injection, None Comment: last sexual intercourse 06/01/2018 Labs No new labs Radiology No new radiology. Allergies Emilie is allergic to hydrocodone; iodine; and seafood/fish. Medications Emilie has a current medication list which includes the following prescription(s ): docusate calcium,ferrous sulfate, and ibuprofen. Review of Systems Constitutional: Negative for activity change, appetite change, fatigue, unexpected weight change, weight gain and weight loss. HENT: Negative for sore throat. Eyes: Negative for visual disturbance. Respiratory: Negative for cough and shortness of breath. Breasts: Negative for discharge, mass, pain and unequal size. Cardiovascular: Negative for chest pain, palpitations and leg swelling. Gastrointestinal: Negative. Negative for abdominal pain, anal bleeding, blood in stool, constipation, diarrhea, nausea, rectal pain and vomiting. Genitourinary: Negative for bladder incontinence, dysuria, urgency, flank pain, vaginal bleeding, vaginal discharge, genital sores, vaginal pain and pelvic pain. Skin: Negative for color change and rash. Neurological: Negative. Negative for dizziness, syncope and headaches. Psychiatric/Behavioral: Negative for confusion, self-injury and sleep disturbance. The patient is not nervous/anxious. Hematological: Negative for cold intolerance and heat intolerance. Endocrine: Negative for hair loss, cold intolerance, heat intolerance, weight gain and weight loss. BP 115/70 (BP Location: Right arm, Patient Position: Sitting, BP CUFF SIZE: Adult Small) | Pulse 84 | Temp 36.7 C (98 F) (Oral) | Resp 16 | Wt 159 lb (72.1 kg) | LMP 04/22/2018 (Within Days) | BMI 29.08 kg/m Pregravid BMI: 32.9 Physical Exam Vitals reviewed. Constitutional: She is oriented to person, place, and time. She appears well- developed and well-nourished. Her body habitus is normal. Cardiovascular: Regular rate and rhythm. No peripheral edema present. Pulmonary/Chest: Normal inspiratory effort. Neuro/Psychiatric: Inappropriate mood and affect. She is oriented to person, place, and time. Skin: Skin normal. No lesion, no rash and no ulceration present. Lower Transverse noted, incision dry and intact External genitalia: Research Environmental Scientist present for the exam: MOOKIE Perdomo student Assessment/Plan care and examination immediately after delivery (primary encounter diagnosis) Comment: Routine PP Visit. Plan: Denies zika virus risk, signs and symptoms such as fever,rash,joint pain, conjunctivitis (red eyes), muscle pain, headaches; outside [place] travel to areas affected by zika, and FOB exposure to zika.Educated on use of mosquito repellent. Return to clinic in 4 weeks. Discussed treatment options. Medications as ordered. Reviewed patient instructions and provided printed copy. This visit did not involve counseling and coordination that comprised more than 50% of the visit time. MOOKIE Varela 02/14/2019 3:53 PM Kasia Membreno RN - 02/14/2019 2:45 PM CDTPt in clinic today for 3 wk pp visit. 1) Delivery method 2) Patient delivered on 01/20/2019 at [place] 3) Patient is currently bottlefeeding 4) Desired BCM: Depo provera 5) Patient denies pp depression Lochia: dark red, spotting on and off per patient. C/O: none. documented in this encounter Plan of Treatment Date Type Specialty Care Team Description 03/08/2019 Office Visit OB Satellites Cassius Reagan FNP [address] [place], [place] [id number] Health Maintenance Due Date Last Done Comments PNEUMOCOCCAL 0-64 YEARS COMBINED 1996 SERIES (1 of 1 - PPSV23) INFLUENZA VACCINE (#1) 2019 06/14/2017, 06/14/2017 PAP SMEAR 06/29/2021 06/29/2018, 08/15/2014, 08/08/2013, Additional history exists DTaP,Tdap,and Td Vaccines (3 - Td) 11/08/2028 11/08/2018, 02/03/2006 documented as of this encounter Results Not on filedocumented in this encounter Visit Diagnoses Diagnosis care and examination immediately after delivery - Primary documented in this encounter Insurance Payer Benefit Plan / Subscriber ID Effective Phone Address Type Group Dates BERTRAM BURDEN xxxxxxxxx 2018-Anita SINGH Medicaid HEALTHCARE - [facility] [id number] MANAGED MEDICAID [place], MEDICAID [place] documented as of this encounter Advance Directives Name Relationship Healthcare Agent Communication Relationship Lizzy Holland Mother Primary healthcare agent "
[2019-06-18] MEDS ORDERED: METHYLPREDNISOLONE 125 MG INJ ONE (04:16)
[2019-06-18] MEDS ORDERED: KETOROLAC 30 MG/ML INJ ONE (04:32)
[2019-06-18] MEDS ORDERED: DIPHENHYDRAMINE 50 MG/ML VIAL ONE (04:32)
[2019-06-18 04:54] LABS: Absolute Lymphocytes (CBC) 2.5 K/uL (0.7-4.9); Basophils % 0.7 % (0-1.3); Hematocrit 36.8 % (36.0-45.0); Lymphocytes % 27.7 % (15.3-44.8); MPV 8.4 fL (7.6-11.3); RBC Red Blood Cell Count 4.09 M/uL (3.86-4.86)
[2019-06-18 04:58] LABS: BUN Blood Urea Nitrogen 6 mg/dL (7-18); Bicarbonate 23 mmol/L (21-32); Glucose Level 77 mg/dL (74-106); Potassium 3.5 mmol/L (3.5-5.1); Sodium Level 142 mmol/L (136-145)
[2019-06-18] MEDS ORDERED: ONDANSETRON 4 MG/2 ML VIAL ONE ×2 (05:55→07:27)
--- NOTE | 2019-06-18 06:36 | ER ---
Nurse's Notes [facility] Name: Emilie Holland Age: 28 yrs Sex: Female : 1990 Arrival Date: 06/18/2019 Time: 03:56 Bed 8 Private MD: Diagnosis: Right Peritonsilar Abscess, Trismus Presentation: 06/18 04:05 Presenting complaint: Patient states: Sore throat x 2 weeks, now with pain radiating to lp1 right ear; no improvement; Denies any fever; States feeling swelling to right side of throat. Transition of care: patient was not received from another setting of care. Onset of symptoms was June 18, 2019. Risk Assessment: Do you want to hurt yourself or someone else? Patient reports no desire to harm self or others. Initial Sepsis Screen: Does the patient meet any 2 criteria? No. Patient's initial sepsis screen is negative. Does the patient have a suspected source of infection? No. Patient's initial sepsis screen is negative. Care prior to arrival: None. 04:05 Method Of Arrival: Ambulatory lp1 04:05 Acuity: ADITYA 4 lp1 WEALTH MANAGEMENT MANAGER: 04:08 LMP 06/08/2019 lp1 Historical: - Allergies: 04:09 Hydrocodone-Acetaminophen (Vomiting); lp1 04:09 Iodine; lp1 04:09 Tramadol HCl; lp1 - Home Meds: 04:09 None [Active]; lp1 - PMHx: 04:09 "5 cysts on stomach"; Anxiety; Endometrosis; Ovarian cysts; Post concussive syndrome; lp1 - PSHx: 04:09 ; lp1 - Immunization history:: Adult Immunizations up to date. - Social history:: Smoking status: Patient uses tobacco products, smokes one-half pack cigarettes per day. - Ebola Screening: : No symptoms or risks identified at this time. Screenin:09 Abuse screen: Denies threats or abuse. Denies injuries from another. Nutritional lp1 screening: No deficits noted. Tuberculosis screening: No symptoms or risk factors identified. Fall Risk None identified. Assessment: 04:11 General: Appears uncomfortable, Behavior is appropriate for age. Pain: Complains of lp1 pain in right ear and neck Pain currently is 10 out of 10 on a pain scale. Quality of pain is described as sharp, stabbing. Neuro: No deficits noted. Cardiovascular: No deficits noted. Respiratory: Airway is patent Respiratory effort is even, unlabored, Breath sounds are clear bilaterally. GI: No signs and/or symptoms were reported involving the gastrointestinal system. : No signs and/or symptoms were reported regarding the genitourinary system. EENT: Throat is reddened has enlarged tonsils on right with gag reflex present. Derm: Skin is intact, Skin is dry, Skin is normal. Musculoskeletal: No deficits noted. 04:30 Reassessment: Patient states allergy to seafood, IV contrast and reports pain to throat lp1 ; States given Benadryl prior to iodine; Provider notified, verbal order for Benadryl 25 mg IV, Toradol 15 mg IV. 05:50 Reassessment: Patient is alert, oriented x 3, equal unlabored respirations, skin lp1 warm/dry/pink. Patient returned from CT; complaint of nausea, Provider notified, verbal order for Zofran 4 mg IV now Patient states feeling better. Patient states symptoms have improved. 07:04 Reassessment: Patient appears in no apparent distress at this time. Patient and/or sv family updated on plan of care and expected duration. Pain level reassessed. Patient is alert, oriented x 3, equal unlabored respirations, skin warm/dry/pink. Patient states feeling better. Patient states symptoms have improved. 07:30 Reassessment: Patient appears in no apparent distress at this time. Patient and/or sv family updated on plan of care and expected duration. Pain level reassessed. Patient is alert, oriented x 3, equal unlabored respirations, skin warm/dry/pink. 08:50 Reassessment: Patient appears in no apparent distress at this time. Patient and/or sv family updated on plan of care and expected duration. Pain level reassessed. Patient is alert, oriented x 3, equal unlabored respirations, skin warm/dry/pink. Report given to EMS. Vital Signs: 04:08 BP 144 / 96; Pulse 95; Resp 18; Temp 98.3(O); Pulse Ox 100% on R/A; Weight 68.04 kg lp1 (R); Height 5 ft. 2 in. (157.48 cm); Pain 10/10; 06:00 BP 119 / 89; Pulse 87; Resp 18; Pulse Ox 100% on R/A; Pain 5/10; lp1 07:03 BP 129 / 84; Pulse 80; Resp 16; Temp 97.6(TE); Pulse Ox 97% ; sv 04:08 Body Mass Index 27.44 (68.04 kg, 157.48 cm) lp1 ED Course: 03:56 Patient arrived in ED. ds1 04:01 Jordan Carmichael MD is Attending Physician. kdr 04:05 Ayanna Baugh, RN is Primary Nurse. lp1 04:07 Triage completed. lp1 04:07 Arm band placed on. lp1 04:12 Patient has correct armband on for positive identification. lp1 04:20 Initial lab(s) drawn, by me, sent to lab. Strep swab sent to lab. Inserted saline lock: lp1 22 gauge in right antecubital area, using aseptic technique. Blood collected. 05:04 Note: Patient is allergic to iodine but has been pre-treated with Benadryl for CT APW kw1 exam. . 05:37 CT Soft Tissue Neck W/contr In Process Unspecified. EDMS 07:03 transfer approval from receiving facility. sv 07:04 Primary Nurse role handed off by Ayanna Baugh, RN sv 07:04 Berenice Montelongo, CHAVEZ is Primary Nurse. sv 07:37 No provider procedures requiring assistance completed. Patient transferred, IV remains sv in place. intact. 08:20 transfer transportation to receiving facility. sv Administered Medications: 04:26 Drug: SOLU-Medrol 125 mg Route: IVP; Site: right antecubital; lp1 05:08 Follow up: Response: No adverse reaction lp1 04:35 Drug: TORadol - Ketorolac 15 mg Route: IVP; Site: right antecubital; lp1 05:09 Follow up: Response: Pain is decreased lp1 04:35 Drug: Benadryl 25 mg Route: IVP; Site: right antecubital; lp1 05:09 Follow up: Response: No adverse reaction lp1 06:01 Drug: Zofran 4 mg Route: IVP; Site: right antecubital; lp1 06:26 Follow up: Response: Nausea is decreased lp1 06:50 Drug: Clindamycin 600 mg Route: IVPB; Infused Over: 30 mins; Site: right antecubital; lp1 07:20 Follow up: Response: No adverse reaction; IV Status: Completed infusion; IV Intake: 50mlsv 07:30 Drug: Zofran 4 mg Route: IVP; Site: right antecubital; sv 08:19 Follow up: Response: No adverse reaction sv 07:32 Drug: morphine 4 mg Route: IVP; Site: right antecubital; sv 08:19 Follow up: Pain 2/10 Adult; Response: No adverse reaction; Marked relief of symptoms; sv Pain is decreased; RASS: Alert and Calm (0) Intake: 07:20 IV: 50ml; Total: 50ml. sv Outcome: 06:35 ER care complete, transfer ordered by . kdr 07:25 Transferred by ground EMS to [facility], Transfer form completed. sv Note: Report given to Terra BYRNE 07:25 Condition: stable 07:25 Instructed on the need for transfer. 08:50 Patient left the ED. sv Signatures: Dispatcher [employer] Berenice Murray RN RN sv Jordan Carmichael MD MD kdr Sanford, Demi 1 Ayanna Baugh RN RN lp1 Sharon Puente 1
--- NOTE | 2019-06-18 06:36 | EDPHYS ---
Physician Documentation [facility] [place], [place] Name: Emilie Holland Age: 28 yrs Sex: Female : 1990 Arrival Date: 06/18/2019 Time: 03:56 Bed 8 Private MD: ED Physician Jordan Carmichael HPI: 06/18 04:23 This 28 yrs old Black Female presents to ER via Ambulatory with complaints of Sore kdr Throat, Ear Pain. 04:23 The patient presents with sore throat, dysphagia, of solids, of both solids and kdr liquids. The patient describes throat pain as constant, raw, the patient is unable to open their mouth due to pain. Onset: The symptoms/episode began/occurred gradually, 2 week(s) ago. Severity of symptoms: At their worst the symptoms were moderate, in the emergency department the symptoms are unchanged. Modifying factors: The symptoms are alleviated by nothing, the symptoms are aggravated by foods, swallowing, Patient's oral intake status: limited fluid intake, limited food intake. Associated signs and symptoms: The patient has no apparent associated signs or symptoms. The patient has not experienced similar symptoms in the past. The patient has not recently seen a physician. 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 - Social history:: Smoking status: Patient uses tobacco products, smokes one-half pack cigarettes per day. - Ebola Screening: : No symptoms or risks identified at this time. ROS: 04:23 Constitutional: Negative for fever, chills, and weight loss, Eyes: Negative for injury, kdr pain, redness, and discharge, Neck: Negative for injury, pain, and swelling, Cardiovascular: Negative for chest pain, palpitations, and edema, Respiratory: Negative for shortness of breath, cough, wheezing, and pleuritic chest pain, Abdomen/GI: Negative for abdominal pain, nausea, vomiting, diarrhea, and constipation, Back: Negative for injury and pain, : Negative for injury, bleeding, discharge, and swelling, MS/Extremity: Negative for injury and deformity, Skin: Negative for injury, rash, and discoloration, Neuro: Negative for headache, weakness, numbness, tingling, and seizure activity. Psych: Negative for depression, anxiety, suicide ideation, homicidal ideation, and hallucinations, Allergy/Immunology: Negative for hives, rash, and allergies, Endocrine: Negative for neck swelling, polydipsia, polyuria, polyphagia, and marked weight changes, Hematologic/Lymphatic: Negative for swollen nodes, abnormal bleeding, and unusual bruising. 04:23 ENT: Positive for difficulty swallowing, sore throat. 04:23 Neck: Positive for mass, pain at rest, swelling, swollen nodes, tenderness, of the right submandibular area, right posterior aspect of neck, right lateral aspect of neck and right anterior aspect of neck. Exam: 04:23 Constitutional: This is a well developed, well nourished patient who is awake, alert, kdr and in no acute distress. Head/Face: Normocephalic, atraumatic. Eyes: Pupils equal round and reactive to light, extra-ocular motions intact. Lids and lashes normal. Conjunctiva and sclera are non-icteric and not injected. Cornea within normal limits. Periorbital areas with no swelling, redness, or edema. Neck: Trachea midline, no thyromegaly or masses palpated, and no cervical lymphadenopathy. Supple, full range of motion without nuchal rigidity, or vertebral point tenderness. No Meningismus. Chest/axilla: Normal chest wall appearance and motion. Nontender with no deformity. No lesions are appreciated. Cardiovascular: Regular rate and rhythm with a normal S1 and S2. No gallops, murmurs, or rubs. Normal PMI, no JVD. No pulse deficits. Respiratory: Lungs have equal breath sounds bilaterally, clear to auscultation and percussion. No rales, rhonchi or wheezes noted. No increased work of breathing, no retractions or nasal flaring. Abdomen/GI: Soft, non-tender, with normal bowel sounds. No distension or tympany. No guarding or rebound. No evidence of tenderness throughout. Back: No spinal tenderness. No costovertebral tenderness. Full range of motion. Skin: Warm, dry with normal turgor. Normal color with no rashes, no lesions, and no evidence of cellulitis. MS/ Extremity: Pulses equal, no cyanosis. Neurovascular intact. Full, normal range of motion. Neuro: Awake and alert, GCS 15, oriented to person, place, time, and situation. Cranial nerves II-XII grossly intact. Motor strength 5/5 in all extremities. Sensory grossly intact. Cerebellar exam normal. Normal gait. Psych: Awake, alert, with orientation to person, place and time. Behavior, mood, and affect are within normal limits. 06:38 ENT: Mouth: unable to open mouth. kdr Vital Signs: 04:08 BP 144 / 96; Pulse 95; Resp 18; Temp 98.3(O); Pulse Ox 100% on R/A; Weight 68.04 kg lp1 (R); Height 5 ft. 2 in. (157.48 cm); Pain 10/10; 06:00 BP 119 / 89; Pulse 87; Resp 18; Pulse Ox 100% on R/A; Pain 5/10; lp1 07:03 BP 129 / 84; Pulse 80; Resp 16; Temp 97.6(TE); Pulse Ox 97% ; sv 04:08 Body Mass Index 27.44 (68.04 kg, 157.48 cm) lp1 MDM: 06:35 Patient medically screened. kdr 06:36 Data reviewed: vital signs, nurses notes, lab test result(s), radiologic studies. kdr Counseling: I had a detailed discussion with the patient and/or guardian regarding: the historical points, exam findings, and any diagnostic results supporting the discharge/admit diagnosis, lab results, radiology results, the need to transfer to another facility. 06/18 04:12 Order name: Strep; Complete Time: 06:34 kdr 06/18 04:12 Order name: CBC with Diff; Complete Time: 06:34 kdr 06/18 04:12 Order name: CT Soft Tissue Neck W/contr kdr 06/18 04:12 Order name: Chem 7; Complete Time: 06:34 kdr 06/18 05:00 Order name: Throat Culture EDMS Administered Medications: 04:26 Drug: SOLU-Medrol 125 mg Route: IVP; Site: right antecubital; lp1 05:08 Follow up: Response: No adverse reaction lp1 04:35 Drug: TORadol - Ketorolac 15 mg Route: IVP; Site: right antecubital; lp1 05:09 Follow up: Response: Pain is decreased lp1 04:35 Drug: Benadryl 25 mg Route: IVP; Site: right antecubital; lp1 05:09 Follow up: Response: No adverse reaction lp1 06:01 Drug: Zofran 4 mg Route: IVP; Site: right antecubital; lp1 06:26 Follow up: Response: Nausea is decreased lp1 06:50 Drug: Clindamycin 600 mg Route: IVPB; Infused Over: 30 mins; Site: right antecubital; lp1 07:20 Follow up: Response: No adverse reaction; IV Status: Completed infusion; IV Intake: 50mlsv 07:30 Drug: Zofran 4 mg Route: IVP; Site: right antecubital; sv 08:19 Follow up: Response: No adverse reaction sv 07:32 Drug: morphine 4 mg Route: IVP; Site: right antecubital; sv 08:19 Follow up: Pain 2/10 Adult; Response: No adverse reaction; Marked relief of symptoms; sv Pain is decreased; RASS: Alert and Calm (0) Disposition: 06/18/19 06:35 Transfer ordered to [facility]. Diagnosis is Right Peritonsilar Abscess, Trismus. - Reason for transfer: Higher level of care. - Accepting physician is ENT. - Condition is Fair. - Problem is an ongoing problem. - Symptoms have improved. Signatures: Dispatcher [employer] Berenice Murray RN RN sv Rittger, Kevin, MD MD kdr Ayanna Baugh RN RN lp1 Michelle Kovacs RN RN tw2 Corrections: (The following items were deleted from the chart) 08:50 06:35 06/18/2019 06:35 Transfer ordered to [facility]. Diagnosis is sv Right Peritonsilar Abscess, Trismus. Reason for transfer: Higher level of care. Accepting physician is ENT. Condition is Fair. Problem is an ongoing problem. Symptoms have improved. kdr
[2019-06-18] MEDS ORDERED: CLINDAMYCIN 600MG/D5W 600 MG/50 ML BAG IV ONE (06:49)
[2019-06-18] MEDS ORDERED: MORPHINE 4 MG/ML SYR ONE (07:28)
[2019-06-18 09:06] VITALS: BP 129/84; TEMP 97.6; O2SAT 97
--- NOTE | 2019-06-20 11:49 | RAD REPORT ---
EXAM DESCRIPTION: CT - Soft Tissue Neck W/Contr - 06/18/2019 7:14 am CLINICAL HISTORY: Right neck swelling COMPARISON: None. TECHNIQUE: Axial 3.[address] imaging of the neck performed. Reformatted coronal and sagittal images ob tained. Intravenous contrast utilized. Automated exposure control, adjustment of the mA and/or kV according to patient size, or use of itera tive reconstruction was performed. FINDINGS: There is enlargement of the palatine tonsils, right greater than left. The enlarged right palatine tonsil is causing leftward mass effect upon the pharynx with oropharyngeal narrowing. Within the right palatine tonsil is a low-density 2 cm fluid collection with peripheral enhancement consist ent with an abscess. Minimal right parapharyngeal soft tissue edema. The epiglottis is normal. No pre vertebral edema. There are large bilateral level two lymph nodes. Largest on the right is 2.1 x 2.0 x 1.9 cm. Largest on the left is 2.3 x 1.5 x 2.4 cm. Intraorbital contents appear normal as visualized. Clear paranasal sinuses. Image facial bones appear intact. Intact mandible and maxilla. Temporomandibular joints are maintained. Jugular and carotid vessels are well-opacified. Mild broad reversal of cervical lordosis without frac ture or subluxation. Normal thyroid. Clear lung apices. IMPRESSION: 1. [place] tonsillitis with pharyngitis. There is a right palatine tonsillar abscess. No subcutaneous or intralesional air. 2. Reversal of cervical lordosis may be due to patient positioning. Severe cervical spasm can also bowen ve this appearance. 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 The interpreting radiologist is f ully responsible for the content of the report.
== END 2019-06-18 08:50 | disposition short-term general hospital (02) ==
LOC: ER 03:55
DX: J36 Peritonsillar abscess (principal); R25.2 Cramp and spasm; F17.210 Nicotine dependence, cigarettes, uncomplicated; Z88.5 Allergy status to narcotic agent; Z88.6 Allergy status to analgesic agent; Z91.048 Other nonmedicinal substance allergy status
CPT/HCPCS: 36415; 70491; 80048; 85025; 87070; 87081; 96365; 96375; 99285; J1200; J2405; J2930

== ENCOUNTER 2019-06-24 21:23 | Inpatient (IN) | payer SELFPAY ==
--- OUTSIDE RECORDS SUMMARY | 2019-06-24 21:26 | XMS REPORT ---
:1990 Author Organization [facility] Address [address] [place] [address] Care Team Providers Name Role Phone UNKNOWN, REFFERING Primary Care Provider Unavailable MILES ZIMMERMAN Unavailable Unavailable SAMPSON TRISTAN M.D. Unavailable Unavailable Problems This patient has no known problems. Allergies, Adverse Reactions, Alerts This patient has no known allergies or adverse reactions. Medications This patient has no known medications. Encounters Start End Encounter Admission Attending Care Care Encounter Date/Time Date/Time Type Type Clinicians Facility Department ID 2017-06-14 2017-06-17 Inpatient [facility] [id number] 21:05:00 13:02:00 SAMPSON Pickard M.D. Results Test Description Test Time Test Comments Text Results Atomic Results Result Comments BASIC METABOLIC PANEL 2019-06-19 06:24:00 Test Item Value Reference Range Comments SODIUM (BEAKER) (test 139 meq/L 136-145 wskv=010) POTASSIUM (BEAKER) (test 3.8 meq/L 3.5-5.1 Specimen slightly hemolyzed oolm=321) CHLORIDE (BEAKER) (test 107 meq/L 98-107 kryb=508) CO2 (BEAKER) (test 24 meq/L 22-29 hadg=621) BLOOD UREA NITROGEN 6 mg/dL 7-21 (BEAKER) (test ollv=071) CREATININE (BEAKER) (test 0.65 mg/dL 0.57-1.25 Specimen slightly hemolyzed yvmf=903) GLUCOSE RANDOM (BEAKER) 90 mg/dL 70-105 (test vzzi=356) CALCIUM (BEAKER) (test 8.3 mg/dL 8.4-10.2 ossu=477) EGFR (BEAKER) (test 132 mL/min/1.73 sq m ESTIMATED GFR IS NOT fwvb=9519) ACCURATE CREATININE CLEARANCE IN PREDICTING GLOMERULAR FILTRATION RATE. ESTIMATED GFR IS NOT APPLICABLE FOR DIALYSIS PATIENTS. Insole Toe Snipping Machine Operator ID - MICHELLE [facility] (HEMOGRAM ONLY)2019-06-19 06:05:00 Test Item Value Reference Range Comments WHITE BLOOD CELL COUNT (BEAKER) (test gnsw=582) 13.2 K/ L 3.5-10.5 RED BLOOD CELL COUNT (BEAKER) (test kypj=945) 3.73 M/ L 3.93-5.22 HEMOGLOBIN (BEAKER) (test pawd=046) 11.2 GM/DL 11.2-15.7 HEMATOCRIT (BEAKER) (test yqyd=590) 33.4 % 34.1-44.9 MEAN CORPUSCULAR VOLUME (BEAKER) (test xbxa=904) 89.5 fL 79.4-94.8 MEAN CORPUSCULAR HEMOGLOBIN (BEAKER) (test 30.0 pg 25.6-32.2 crwa=971) MEAN CORPUSCULAR HEMOGLOBIN CONC (BEAKER) (test 33.5 GM/DL 32.2-35.5 xyrj=776) RED CELL DISTRIBUTION WIDTH (BEAKER) (test 14.7 % 11.7-14.4 jtcq=635) PLATELET COUNT (BEAKER) (test twlu=409) 391 K/CU MM 150-450 MEAN PLATELET VOLUME (BEAKER) (test yodw=251) 10.3 fL 9.4-12.3 NUCLEATED RED BLOOD CELLS (BEAKER) (test 0 /100 WBC 0-0 yzlf=678)
[2019-06-24] MEDS ORDERED: NA CHLORIDE 0.9% 1,000 ML ONE (22:43)
[2019-06-24] MEDS ORDERED: CEFTRIAXONE/SWI 1gm 1 GM/10 ML SYR ONE (22:43)
[2019-06-24] MEDS ORDERED: dexAMETHasone 10 MG/ML VIAL ONE (22:43)
[2019-06-24] MEDS ORDERED: CLINDAMYCIN 900MG/D5W 900 MG/50 ML IVPB IV ONE (22:43)
[2019-06-24 22:54] LABS: Absolute Lymphocytes (CBC) 2.1 K/uL (0.7-4.9); Basophils % 0.9 % (0-1.3); Hematocrit 35.2 % (36.0-45.0); Lymphocytes % 29.6 % (15.3-44.8); MPV 8.7 fL (7.6-11.3); RBC Red Blood Cell Count 3.96 M/uL (3.86-4.86)
[2019-06-24] MEDS ORDERED: DIPHENHYDRAMINE 50 MG/ML VIAL ONE (23:06)
[2019-06-24] MEDS ORDERED: FAMOTIDINE 20 MG/2 ML VIAL IV ONE (23:10)
[2019-06-24 23:11] LABS: ALT/SGPT 17 U/L (12-78); AST/SGOT 11 U/L (15-37); Albumin 3.4 g/dL (3.4-5.0); Alkaline Phosphatase 74 U/L (45-117); BUN Blood Urea Nitrogen 9 mg/dL (7-18); Bicarbonate 26 mmol/L (21-32); Bilirubin Total 0.2 mg/dL (0.2-1.0); Glucose Level 84 mg/dL (74-106); Potassium 3.6 mmol/L (3.5-5.1); Protein, Total 7.8 g/dL (6.4-8.2); Sodium Level 143 mmol/L (136-145)
--- NOTE | 2019-06-24 23:25 | ER ---
Nurse's Notes [facility] Name: Emilie Holland Age: 28 yrs Sex: Female : 1990 Arrival Date: 06/24/2019 Time: 21:25 Bed 30 Private MD: Diagnosis: Peritonsillar abscess Presentation: 06/24 21:54 Presenting complaint: Patient states: I have an abscess in my tonsils, I came on 1 Thursday and they transferred me to [facility], they gave me pain medicine and antibiotics, they didn't try to drain because they said that abscess was on the inside of my tonsil and not the outside. The pain is still unbearable, I feel like its swollen worse and they antibiotics aren't helping. Transition of care: patient was not received from another setting of care. Onset of symptoms was 2019. Risk Assessment: Do you want to hurt yourself or someone else? Patient reports no desire to harm self or others. Initial Sepsis Screen: Does the patient meet any 2 criteria? No. Patient's initial sepsis screen is negative. Does the patient have a suspected source of infection? Yes: Other: abscess. Care prior to arrival: None. 21:54 Method Of Arrival: Ambulatory aj1 21:54 Acuity: ADITYA 3 aj1 Triage Assessment: 21:58 General: Appears in no apparent distress. uncomfortable, Behavior is calm, cooperative, aj1 appropriate for age. Pain: Complains of pain in left aspect of posterior pharynx and right aspect of posterior pharynx. Neuro: Level of Consciousness is awake, alert, obeys commands. Cardiovascular: Patient's skin is warm and dry. 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 - Social history:: Smoking status: Patient reports the use of cigarette tobacco products, smokes one-half pack cigarettes per day. - Ebola Screening: : Patient denies travel to an Ebola-affected area in the 21 days before illness onset. - Family history:: not pertinent. Screenin:33 Abuse screen: Denies threats or abuse. Nutritional screening: Difficulty jv1 chewing/swallowing? Yes. Tuberculosis screening: No symptoms or risk factors identified. Fall Risk None identified. No fall in past 12 months (0 pts). Assessment: 23:20 General: Appears in no apparent distress. well groomed, Behavior is calm, cooperative, jv1 appropriate for age. Pain: Complains of pain in right buccal mucosa and soft palate and hard palate and right aspect of posterior pharynx and left aspect of posterior pharynx Pain radiates to right ear and left ear Pain currently is 8 out of 10 on a pain scale. Quality of pain is described as aching. Neuro: Level of Consciousness is awake, alert, obeys commands, Oriented to person, place, time, situation, Appropriate for age Training Executive are equal bilaterally Moves all extremities. Reports difficulty swallowing because of the pain in her throat. Cardiovascular: Denies chest pain, Heart tones S1 S2 Capillary refill < 3 seconds. Respiratory: Airway is patent Respiratory effort is even, unlabored, Respiratory pattern is regular, symmetrical, Breath sounds are clear bilaterally. GI: Abdomen is round non-distended, Bowel sounds present X 4 quads. Abd is soft and non tender. : No signs and/or symptoms were reported regarding the genitourinary system. EENT: Throat is reddened has enlarged tonsils bilaterally Reports difficulty swallowing since 06/22/19. Derm: Skin is intact, is healthy with good turgor. Musculoskeletal: Capillary refill < 3 seconds. 06/25 00:20 Reassessment: Patient appears in no apparent distress at this time. No changes from jv1 previously documented assessment. Patient and/or family updated on plan of care and expected duration. Pain level reassessed. Patient is alert, oriented x 3, equal unlabored respirations, skin warm/dry/pink. Patient denies pain at this time. Patient states feeling better. 01:27 Reassessment: Patient appears in no apparent distress at this time. No changes from jv1 previously documented assessment. Patient and/or family updated on plan of care and expected duration. Pain level reassessed. Patient is alert, oriented x 3, equal unlabored respirations, skin warm/dry/pink. Patient denies pain at this time. Patient states feeling better. 02:30 Reassessment: Patient appears in no apparent distress at this time. No changes from jv1 previously documented assessment. Patient and/or family updated on plan of care and expected duration. Pain level reassessed. Patient is alert, oriented x 3, equal unlabored respirations, skin warm/dry/pink. Patient denies pain at this time. Patient states feeling better. 03:00 Reassessment: Patient appears in no apparent distress at this time. No changes from jv1 previously documented assessment. Patient and/or family updated on plan of care and expected duration. Pain level reassessed. Patient is alert, oriented x 3, equal unlabored respirations, skin warm/dry/pink. Patient denies pain at this time. Patient states feeling better. Vital Signs: 06/24 21:58 BP 139 / 93; Pulse 87; Resp 18; Temp 98.2; Pulse Ox 99% on R/A; Weight 72.57 kg (R); aj1 Height 5 ft. 3 in. (160.02 cm) (R); 22:15 BP 130 / 80; Pulse 85; Resp 18; Temp 98.8; Pulse Ox 98% on R/A; Pain 6/10; jv1 23:00 BP 135 / 80; Pulse 90; Resp 20; Temp 98; Pulse Ox 98% on R/A; Pain 5/10; jv1 18 00:00 BP 132 / 81; Pulse 85; Resp 18; Temp 98.5; Pulse Ox 98% ; Pain 0/10; jv1 01:00 BP 132 / 88; Pulse 80; Resp 18; Temp 98.3; Pulse Ox 95% on R/A; Pain 0/10; jv1 02:00 BP 128 / 75; Pulse 80; Resp 18; Temp 98; Pulse Ox 100% on R/A; Pain 0/10; jv1 03:00 BP 115 / 73; Pulse 80; Resp 18; Temp 98; Pulse Ox 100% ; Pain 0/10; jv1 06/24 21:58 Body Mass Index 28.34 (72.57 kg, 160.02 cm) aj1 ED Course: 06/24 21:25 Patient arrived in ED. cl3 21:57 Triage completed. aj1 21:58 Arm band placed on. aj1 22:07 Manny Ho MD is Attending Physician. binh 22:42 Initial lab(s) drawn, by me, sent to lab. Inserted saline lock: 20 gauge in right lt1 antecubital area, using aseptic technique. 22:42 Comprehensive Metabolic Panel Sent. lt1 22:42 CBC with Diff Sent. lt1 23:24 Berenice Mello MD is Hospitalizing Provider. [facility] 23:33 Patient has correct armband on for positive identification. Call light in reach. Side jv1 rails up X 1. 23:45 Summer Taylor RN is Primary Nurse. [facility] 06/25 03:23 No provider procedures requiring assistance completed. Patient admitted, IV remains in jv1 place. Administered Medications: 06/24 22:48 Drug: Rocephin 1 grams Route: IV; Rate: per protocol; Site: right antecubital; jv1 23:35 Follow up: Response: Adverse reaction, Physician notified; Other; IV Status: Completed jv1 infusion 22:48 Drug: Decadron - Dexamethasone 10 mg Route: IVP; Site: right antecubital; jv1 23:34 Follow up: Response: No adverse reaction; Marked relief of symptoms jv1 22:48 Drug: Clindamycin 900 mg Route: IVPB; Infused Over: 30 mins; Site: right antecubital; jv1 06/25 03:22 Follow up: Response: No adverse reaction; IV Status: Completed infusion v1 06/24 22:49 Drug: NS 0.9% 1000 ml Route: IV; Rate: 1 bolus; Site: right antecubital; jv1 06/25 00:30 Follow up: Response: No adverse reaction; IV Status: Completed infusion v1 06/24 23:16 Drug: Benadryl 25 mg Route: IVP; Site: right antecubital; jv1 23:35 Follow up: Response: No adverse reaction; Marked relief of symptoms jv1 23:17 Drug: Pepcid 20 mg Route: IVP; Site: right antecubital; jv1 23:35 Follow up: Response: No adverse reaction; Marked relief of symptoms jv1 23:57 Drug: Zofran 4 mg Route: IVP; Infused Over: 2 mins; Site: left antecubital; jv1 06/25 00:21 Follow up: Response: No adverse reaction; Nausea is decreased jv1 06/24 23:58 Drug: morphine 2 mg Route: IVP; Site: left antecubital; jv1 06/25 00:21 Follow up: Response: No adverse reaction; Pain is decreased; RASS: Alert and Calm (0) jv1 Outcome: 06/24 23:25 Decision to Hospitalize by Provider. binh 06/25 02:54 Admitted to ER Hold. Please see [facility] for further documentation. jv1 03:23 Condition: improved jv1 07:29 Patient left the ED. iw Signatures: Elizabeth Morrow RN RN aj1 Manny Ho MD MD cha Williams, Irene, RN RN Nuria Mari RN RN jv1 Summer Taylor, CHAVEZ RN ls4 Jaycee De La Vega Charde cl3
--- NOTE | 2019-06-24 23:26 | EDPHYS ---
Physician Documentation [facility] Name: Emilie Holland Age: 28 yrs Sex: Female : 1990 Arrival Date: 06/24/2019 Time: 21:25 Bed 30 Private MD: ED Physician Manny Ho HPI: 06/24 22:29 This 28 yrs old Black Female presents to ER via Ambulatory with complaints of Abscess. binh 22:29 The patient presents with an abscess of the right aspect of posterior pharynx. ibnh Description: The affected area is moderate sized, confluent, erythematous. Onset: The symptoms/episode began/occurred 6 day(s) ago. Possible cause(s): unknown. Associated signs and symptoms: Pertinent positives: fever. Modifying factors: the symptoms are alleviated by remaining still. Severity of symptoms: At their worst the symptoms were moderate, in the emergency department the symptoms are unchanged. The patient has not experienced similar symptoms in the past. 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 - Social history:: Smoking status: Patient reports the use of cigarette tobacco products, smokes one-half pack cigarettes per day. - Ebola Screening: : Patient denies travel to an Ebola-affected area in the 21 days before illness onset. - Family history:: not pertinent. ROS: 22:29 Constitutional: Negative for fever, chills, and weight loss, Eyes: Negative for injury, binh pain, redness, and discharge, ENT: Negative for injury, pain, and discharge, Cardiovascular: Negative for chest pain, palpitations, and edema, Respiratory: Negative for shortness of breath, cough, wheezing, and pleuritic chest pain, Abdomen/GI: Negative for abdominal pain, nausea, vomiting, diarrhea, and constipation, Back: Negative for injury and pain, : Negative for injury, bleeding, discharge, and swelling, MS/Extremity: Negative for injury and deformity, Skin: Negative for injury, rash, and discoloration, Neuro: Negative for headache, weakness, numbness, tingling, and seizure, Psych: Negative for depression, anxiety, suicide ideation, homicidal ideation, and hallucinations, Allergy/Immunology: Negative for hives, rash, and allergies, Endocrine: Negative for neck swelling, polydipsia, polyuria, polyphagia, and marked weight changes, Hematologic/Lymphatic: Negative for swollen nodes, abnormal bleeding, and unusual bruising. 22:29 ENT: Positive for difficulty swallowing. 22:29 Neck: Positive for swelling, tenderness. Exam: 22:29 Constitutional: This is a well developed, well nourished patient who is awake, alert, binh and in no acute distress. Head/Face: Normocephalic, atraumatic. Eyes: Pupils equal round and reactive to light, extra-ocular motions intact. Lids and lashes normal. Conjunctiva and sclera are non-icteric and not injected. Cornea within normal limits. Periorbital areas with no swelling, redness, or edema. Neck: Trachea midline, no thyromegaly or masses palpated, and no cervical lymphadenopathy. Supple, full range of motion without nuchal rigidity, or vertebral point tenderness. No Meningismus. Chest/axilla: Normal chest wall appearance and motion. Nontender with no deformity. No lesions are appreciated. Cardiovascular: Regular rate and rhythm with a normal S1 and S2. No gallops, murmurs, or rubs. Normal PMI, no JVD. No pulse deficits. Respiratory: Lungs have equal breath sounds bilaterally, clear to auscultation and percussion. No rales, rhonchi or wheezes noted. No increased work of breathing, no retractions or nasal flaring. Abdomen/GI: Soft, non-tender, with normal bowel sounds. No distension or tympany. No guarding or rebound. No evidence of tenderness throughout. Back: No spinal tenderness. No costovertebral tenderness. Full range of motion. Skin: Warm, dry with normal turgor. Normal color with no rashes, no lesions, and no evidence of cellulitis. MS/ Extremity: Pulses equal, no cyanosis. Neurovascular intact. Full, normal range of motion. Neuro: Awake and alert, GCS 15, oriented to person, place, time, and situation. Cranial nerves II-XII grossly intact. Motor strength 5/5 in all extremities. Sensory grossly intact. Cerebellar exam normal. Normal gait. Psych: Awake, alert, with orientation to person, place and time. Behavior, mood, and affect are within normal limits. 22:29 ENT: Mouth: Oral mucosa: normal, pink and intact, moist, Gums: normal with healthy appearance, Tongue: is normal, abscess, that is moderate, of the hard palate, soft palate and right buccal mucosa, Posterior pharynx: Tonsils: enlarged on the right, with erythema, Uvula: midline, swelling, that is mild, erythema, that is moderate, exudate, is not appreciated. Vital Signs: 21:58 BP 139 / 93; Pulse 87; Resp 18; Temp 98.2; Pulse Ox 99% on R/A; Weight 72.57 kg (R); aj1 Height 5 ft. 3 in. (160.02 cm) (R); 22:15 BP 130 / 80; Pulse 85; Resp 18; Temp 98.8; Pulse Ox 98% on R/A; Pain 6/10; jv1 23:00 BP 135 / 80; Pulse 90; Resp 20; Temp 98; Pulse Ox 98% on R/A; Pain 5/10; jv1 18 00:00 BP 132 / 81; Pulse 85; Resp 18; Temp 98.5; Pulse Ox 98% ; Pain 0/10; jv1 01:00 BP 132 / 88; Pulse 80; Resp 18; Temp 98.3; Pulse Ox 95% on R/A; Pain 0/10; jv1 02:00 BP 128 / 75; Pulse 80; Resp 18; Temp 98; Pulse Ox 100% on R/A; Pain 0/10; jv1 03:00 BP 115 / 73; Pulse 80; Resp 18; Temp 98; Pulse Ox 100% ; Pain 0/10; jv1 06/24 21:58 Body Mass Index 28.34 (72.57 kg, 160.02 cm) aj1 MDM: 06/24 22:07 Patient medically screened. [facility] 22:34 Data reviewed: vital signs, nurses notes, lab test result(s), EKG, radiologic studies, [facility] CT scan. 06/24 22:28 Order name: CBC with Diff; Complete Time: 23:20 [facility] 06/24 22:28 Order name: Comprehensive Metabolic Panel; Complete Time: 23:20 [facility] 06/24 23:28 Order name: Urine Dipstick--Ancillary (enter results) ar5 06/24 23:28 Order name: Urine --Ancillary (enter results) ar5 06/25 04:54 Order name: CBC with Automated Diff EDMS 06/25 05:07 Order name: Basic Metabolic Panel EDMS 06/24 22:33 Order name: Soft Tissue Neck Wo Contr EDMS 06/25 06:12 Order name: CBC Smear Scan EDMS 06/24 22:28 Order name: Urine Dipstick-Ancillary (obtain specimen); Complete Time: 23:16 binh 06/24 22:28 Order name: Urine Test (obtain specimen); Complete Time: 23:16 [facility] Administered Medications: 22:48 Drug: Rocephin 1 grams Route: IV; Rate: per protocol; Site: right antecubital; jv1 23:35 Follow up: Response: Adverse reaction, Physician notified; Other; IV Status: Completed jv1 infusion 22:48 Drug: Decadron - Dexamethasone 10 mg Route: IVP; Site: right antecubital; jv1 23:34 Follow up: Response: No adverse reaction; Marked relief of symptoms jv1 22:48 Drug: Clindamycin 900 mg Route: IVPB; Infused Over: 30 mins; Site: right antecubital; jv1 06/25 03:22 Follow up: Response: No adverse reaction; IV Status: Completed infusion jv1 06/24 22:49 Drug: NS 0.9% 1000 ml Route: IV; Rate: 1 bolus; Site: right antecubital; jv1 06/25 00:30 Follow up: Response: No adverse reaction; IV Status: Completed infusion jv1 06/24 23:16 Drug: Benadryl 25 mg Route: IVP; Site: right antecubital; jv1 23:35 Follow up: Response: No adverse reaction; Marked relief of symptoms jv1 23:17 Drug: Pepcid 20 mg Route: IVP; Site: right antecubital; jv1 23:35 Follow up: Response: No adverse reaction; Marked relief of symptoms jv1 23:57 Drug: Zofran 4 mg Route: IVP; Infused Over: 2 mins; Site: left antecubital; jv1 06/25 00:21 Follow up: Response: No adverse reaction; Nausea is decreased jv1 06/24 23:58 Drug: morphine 2 mg Route: IVP; Site: left antecubital; jv1 06/25 00:21 Follow up: Response: No adverse reaction; Pain is decreased; RASS: Alert and Calm (0) jv1 Disposition: 06/24/19 23:25 Hospitalization ordered by Berenice Mello for Observation. Preliminary diagnosis is Peritonsillar abscess. - Bed requested for [facility] ER HOLD. - Status is Observation. iw - Condition is Fair. - Problem is new. - Symptoms have improved. UTI on Admission? No Signatures: Dispatcher [employer] EDRI Elizabeth Morrow RN RN aj1 Manny Ho MD MD cha Chretien, Felicia, RN RN fc Rosetta Velasquez RN RN iw Nuria Munguia RN RN jv1 Lalitha Goznales ar5 Corrections: (The following items were deleted from the chart) 06/24 22:33 22:29 Soft Tissue Neck W/Contr+CT.RAD.BRZ ordered. [facility] EDRI 06/25 00:56 06/24 23:25 Hospitalization Ordered by Berenice Mello MD for Observation. ar5 Preliminary diagnosis is Peritonsillar abscess. Bed requested for Telemetry/MedSurg (observation). Status is Observation. Condition is Fair. Problem is new. Symptoms have improved. UTI on Admission? No. binh 06/25 01:01 00:56 06/24/2019 23:25 Hospitalization Ordered by Berenice Mello MD for Observation. ar5 Preliminary diagnosis is Peritonsillar abscess. Bed requested for [facility] ER HOLD. Status is Observation. Condition is Fair. Problem is new. Symptoms have improved. UTI on Admission? No. ar5 07:29 01:01 06/24/2019 23:25 Hospitalization Ordered by Berenice Mello MD for Observation. iw Preliminary diagnosis is Peritonsillar abscess. Bed requested for [facility] ER HOLD. Status is Observation. Condition is Fair. Problem is new. Symptoms have improved. UTI on Admission? No. ar5
[2019-06-24] MEDS ORDERED: MORPHINE 4 MG/ML SYR ONE (23:52)
[2019-06-24] MEDS ORDERED: ONDANSETRON 4 MG/2 ML VIAL ONE (23:52)
[2019-06-25 00:45] LABS: Urine Blood NEGATIVE (NEG); Urine Glucose NEGATIVE (NEG); Urine Protein NEGATIVE (NEG)
[2019-06-25] MEDS ORDERED: DIPHENHYDRAMINE 50 MG/ML VIAL IV PRN (00:55)
[2019-06-25] MEDS: CLINDAMYCIN INJ 900 MG in NA CHLORIDE 0.9% 50 ML IV SCH ×5 (00:55→23:44)
[2019-06-25] MEDS: dexAMETHasone 10 MG/ML VIAL IV SCH ×4 (00:55→17:31)
[2019-06-25] MEDS ORDERED: ACETAMINOPHEN 500 MG TAB PO PRN (00:55)
[2019-06-25] MEDS ORDERED: ONDANSETRON 4 MG/2 ML VIAL IV PRN (00:55)
[2019-06-25] MEDS: NA CHLORIDE 0.9% 1,000 ML IV SCH ×4 (00:55→20:38)
[2019-06-25] MEDS ORDERED: NA CHLORIDE 0.9% 1,000 ML ONE ×3 (01:48→08:48)
[2019-06-25 03:51] VITALS: BMI 29.2
[2019-06-25] MEDS ORDERED: MORPHINE 4 MG/ML SYR ONE (04:05)
[2019-06-25] MEDS: MORPHINE 2 MG/ML SYR IV PRN ×4 (04:12→20:38)
[2019-06-25 04:51] LABS: Absolute Lymphocytes (CBC) 0.6 K/uL (0.7-4.9); Basophils % 1.6 % (0-1.3); Hematocrit 35.3 % (36.0-45.0); Lymphocytes % 9.1 % (15.3-44.8); MPV 8.4 fL (7.6-11.3); RBC Red Blood Cell Count 3.99 M/uL (3.86-4.86)
[2019-06-25 05:06] LABS: BUN Blood Urea Nitrogen 7 mg/dL (7-18); Bicarbonate 21 mmol/L (21-32); Glucose Level 115 mg/dL (74-106); Potassium 4.1 mmol/L (3.5-5.1); Sodium Level 143 mmol/L (136-145)
[2019-06-25] MEDS ORDERED: dexAMETHasone 4 MG/ML VIAL ONE (05:16)
[2019-06-25] MEDS ORDERED: CLINDAMYCIN 900MG/D5W 900 MG/50 ML IVPB IV ONE (05:16)
[2019-06-25 06:11] LABS: Blood Morphology Comment NOT SEEN (NOT SEEN); Platelet Estimate ADEQ; Urine White Blood Cell Casts OK
[2019-06-25] MEDS ORDERED: BUPIVACA 0.5%/EPI 0.0005%/PF 10 ML VIAL ONE (07:24)
[2019-06-25] MEDS ORDERED: OXYMETAZOLINE HCL 0.05% 15ML NAS ONE (07:46)
[2019-06-25] MEDS ORDERED: FENTANYL CITR 100 MCG/2 ML ONE (07:57)
[2019-06-25] MEDS ORDERED: MIDAZOLAM HCL 2 MG/2 ML INJ ONE (07:57)
[2019-06-25] MEDS ORDERED: ONDANSETRON 4 MG/2 ML VIAL ONE (07:57)
[2019-06-25] MEDS ORDERED: propofoL 200 MG/20 ML VIAL IV ONE (07:57)
[2019-06-25] MEDS ORDERED: GLYCOPYRROLATE 0.2 MG/ML SYR ONE (07:57)
[2019-06-25] MEDS ORDERED: ROCURONIUM 50 MG/5 ML VIAL IV ONE (07:58)
[2019-06-25] MEDS ORDERED: NEOSTIGMINE 1 MG/ML -5 ML ONE (07:58)
[2019-06-25] MEDS ORDERED: LIDOCAINE 1% MPF 5 ML VIAL ONE (07:58)
[2019-06-25] MEDS ORDERED: ALBUTEROL INHALER 60 PUFF/8 GM IH ONE (08:45)
[2019-06-25] MEDS ORDERED: dexAMETHasone 10 MG/ML VIAL ONE (08:46)
[2019-06-25] MEDS ORDERED: PROMETHAZINE INJ 25 MG/ML AMP ONE (09:18)
[2019-06-25] MEDS: HYDROMORPHONE HCL 1 MG/ML INJ ONE ×2 (09:20→09:27)
--- NOTE | 2019-06-25 09:23 | P.BOP ---
Preoperative diagnosis: R [employer]ERS [employer]PERS Postoperative diagnosis: R severe tonsillitis/pharyngitis, no abscess noted Primary procedure: I&D [employer] Dat Instructor: NONE,NONE Estimated blood loss: 10ml (due to nasal trauma during intubation) Specimen: none Findings: R tonsil, SP and pharygeal swelling withoit discrete abscess/fluid collect. Anesthesia: General Complications: None Implants: none Fluids & blood products: see peace. record Transferred to: Recovery Room Condition: Good
[2019-06-25] MEDS ORDERED: HYDROMORPHONE HCL 1 MG/ML INJ ONE (09:32)
[2019-06-25] MEDS ORDERED: DIPHENHYDRAMINE 50 MG/ML VIAL ONE (09:59)
[2019-06-25] MEDS ORDERED: MEPERIDINE HCL 25 MG/0.5 ML ONE (10:32)
[2019-06-25] MEDS: FAMOTIDINE 20 MG/2 ML VIAL IV SCH ×2 (11:00→20:37)
--- NOTE | 2019-06-25 19:27 | OP ---
Date of Procedure: 06/25/2019 Surgeon: Berenice Mello MD Preoperative Diagnosis: Right peritonsillar abscess. Postoperative Diagnosis: Right peritonsillar phlegmon and cellulitis of the pharynx, soft palate and tonsil. Indication For Procedure: Ms. Holland is a 28-year-old with a 3-week history of sore throat. She was seen in the emergency room on June 18 for sore throat, ear pain and fever. She was noted at that time on CT scan to have some concerns for a low-density 2 cm fluid collection concerning for an abscess with some adjacent lymphadenopathy of the right neck up to about 2 cm. The patient was at that time transferred to the [facility] for further evaluation. At that time, she did not undergo any procedure including aspiration or I and D. She was discharged on oral antibiotics. The name and duration of the antibiotics are uncertain. The patient did not have any improvement. She continued to have severe throat pain, right ear pain, difficulty swallowing, and limited p.o. intake due to her symptoms and she returned to the emergency room on June 24. At that time, she was evaluated by me. She was noted to have trismus of about 1 cm. She was noted to have severe swelling of the right palate and symptoms consistent with a right peritonsillar abscess. Repeat imaging was not performed. The risks, benefits, and alternatives to a bedside incision and drainage versus aspiration or procedure in the operating room was discussed with the patient. She opted for operative intervention due to degree of pain and severity of gag reflex. Description Of Procedure: The patient was brought to the operating room. Initial plan for a nasal intubation was made due to the degree of trismus. The patient developed bleeding during placement of the tube and visualization was difficult. The patient was then successfully intubated with the glide scope over a bougie. After successful intubation, she continued to have decreased oxygen saturation and a concern was made for some aspiration of blood. During the intubation process, the endotracheal tube was suctioned and some blood clot and secretions were removed and the patient's oxygen saturation improved. We were then able to proceed with the procedure. The head of bed was turned 90 degrees. A shoulder roll was placed and a head drape was applied. A McIvor mouth gag was placed within the oral cavity and suspended from the Nassar stand. The left tonsil was noted to be small with no significant swelling of the left pharyngeal wall or of the soft palate. The uvula was not significantly deviated, but the right soft palate was significantly edematous and firm to touch. 1 cm incision was made in the anterior tonsillar pillar, but no fluid collection was noted. This area was carefully probed with a tonsil clamp, but no discrete pocket of fluid or pus was elicited. An 18-gauge needle was then used to perform an aspiration at 3 locations including 2 of the soft palate including the medial and lateral aspects. Again, no purulence or fluid collection was noted and there was expected degree of bleeding from the needle poke. A final aspiration attempt was made in the mid tonsil plane. Direct pressure was applied to the incision and aspiration sites to obtain hemostasis. I concluded there was no formal fluid collection or mature abscess formation, but the patient's persistent symptoms were due to a phlegmon of the peritonsillar region. The procedure was concluded. An orogastric tube was passed for removal of stomach contents. The nasal cavity was thoroughly irrigated for removal of blood clot from the nose and nasopharynx. After thorough suctioning, the McIvor was released and removed. There was no evidence of damage to the patient's teeth, lips or tongue, and the mandible was mobile. The patient was then returned to care of anesthesia for awakening extubation in the operating room, which proceeded without difficulty. Complications: None, but possible aspiration of blood or oral secretions during intubation, Disposition: The patient was brought to the recovery room. Due to clinical findings prolonged course and failed outpatient antibiotics, decision was made to admit the patient for continued IV antibiotics, IV steroids, and p.o. challenge and further decision-making will depend the patient's clinical progress. OTIS Voice ID: [id number] Report ID: [id number] NANI
[2019-06-25 20:02] VITALS: O2SAT 98
[2019-06-26] MEDS: dexAMETHasone 10 MG/ML VIAL IV SCH ×2 (01:27→06:03)
[2019-06-26] MEDS: MORPHINE 2 MG/ML SYR IV PRN ×2 (01:28→09:14)
[2019-06-26] MEDS: NA CHLORIDE 0.9% 1,000 ML IV SCH ×2 (05:06→08:55)
[2019-06-26] MEDS: CLINDAMYCIN INJ 900 MG in NA CHLORIDE 0.9% 50 ML IV SCH (05:07)
[2019-06-26] MEDS: FAMOTIDINE 20 MG/2 ML VIAL IV SCH (09:15)
[2019-06-26 09:23] VITALS: TEMP 97.8
--- NOTE | 2019-06-26 11:18 | P.PN ---
Subjective Date of Service: 06/26/19 Chief Complaint: sore throat Subjective: Improving Pain is much better. Subjective throat swelling is much better. Tolerating liquids without significant difficulty Physical Examination - Vital Signs Temperature: 97.8 F Blood Pressure: 122/65 Pulse: 78 Respirations: 19 Pulse Ox (%): 96 - Physical Exam General: Alert, In no apparent distress HEENT: Atraumatic, Normocephalic, Mucous membr. moist/pink, Other (Trismus is significantly improved. R tonsl swelling much improved. Eschar at site of incision. No bleeding or pus is noted. SP swelling and erythema are much improved) Assessment & Plan - Problems (Diagnosis) (1) Peritonsillar cellulitis Current Visit: Yes Status: Acute Plan: d/c home. Rx for Clinda PO with Prednisone taper. FU with Dr Mello in 1-2 weeks or sooner if not improving or if worsening Discharge Plan: Home
[2019-06-26 15:01] VITALS: BP 122/77
== END 2019-06-26 12:30 | disposition home or self-care (01) | DRG 133 ==
LOC: ER 21:23 → OBSVTOIN 23:26 → ERHOLD 23:26 → 2ND 06-25 10:38
PROVIDERS: ADMIT Otolaryngology; ATTEND Otolaryngology
PROC: 0C9PXZX Drainage of Tonsils, External Approach, Diagnostic (ICD-10-PCS; principal; 2019-06-25 08:00)
DX: J36 Peritonsillar abscess (principal); J39.1 Other abscess of pharynx
CPT/HCPCS: 36415; 80048; 80053; 81003; 81025; 85025; 96365; 96366; 96368; 96375; 99285; J0696; J1100; J1170; J1200; J2175; J2250; J2270; J2405; J2550; J2704; J2710; J3010; J7030

== ENCOUNTER 2019-09-29 15:45 | Emergency (ER) | payer SELFPAY ==
--- OUTSIDE RECORDS SUMMARY | 2019-09-29 15:50 | XMS REPORT ---
:1990 Author Organization [facility] t Address [address] [place] [address] Care Team Providers Name Role Phone UNKNOWN Primary Care Provider Unavailable Flor ZIMMERMAN Unavailable Unavailable SAMPSON TRISTAN M.D. Unavailable Unavailable Problems This patient has no known problems. Allergies, Adverse Reactions, Alerts This patient has no known allergies or adverse reactions. Medications This patient has no known medications. Encounters Start End Encounter Admission Attending Care Care Encounter Date/Time Date/Time Type Type Clinicians Facility Department ID 2017-06-14 2017-06-17 [id number] 21:05:00 13:02:00 SAMPSON Pickard M.D. Results Test Description Test Time Test Comments Text Results Atomic Results Result Comments BASIC METABOLIC PANEL 2019-06-19 06:24:00 Test Item Value Reference Range Comments SODIUM (BEAKER) (test code 139 meq/L 136-145 = 381) POTASSIUM (BEAKER) (test 3.8 meq/L 3.5-5.1 Specime n slightly hemolyzed code = 379) CHLORIDE (BEAKER) (test 107 meq/L 98-107 code = 382) CO2 (BEAKER) (test code = 24 meq/L 22-29 355) BLOOD UREA NITROGEN 6 mg/dL 7-21 (BEAKER) (test code = 354) CREATININE (BEAKER) (test 0.65 mg/dL 0.57-1.25 Specim en slightly hemolyzed code = 358) GLUCOSE RANDOM (BEAKER) 90 mg/dL 70-105 (test code = 652) CALCIUM (BEAKER) (test code 8.3 mg/dL 8.4-10.2 = 697) EGFR (BEAKER) (test code = 132 mL/min/1.73 sq m ESTIMATED GFR IS NOT 1092) ACCURATE CREA TININE CLEARANCE IN PRE DICTING GLOMERULAR FILTR ATION RATE. ESTIMATED GFR IS NOT APPLICABLE FOR D IALYSIS PATIENTS. Biodiesel Plant Superintendent ID - [facility] [place] (HEMOGRAM ONLY)2019-06-19 06:05:00 Test Item Value Reference Range Comments WHITE BLOOD CELL COUNT (BEAKER) (test code = 13.2 K/ L 3.5 -10.5 775) RED BLOOD CELL COUNT (BEAKER) (test code = 761) 3.73 M/ L 3.93-5.22 HEMOGLOBIN (BEAKER) (test code = 410) 11.2 GM/DL 11.2-15.7 HEMATOCRIT (BEAKER) (test code = 411) 33.4 % 34.1-44.9 MEAN CORPUSCULAR VOLUME (BEAKER) (test code = 89.5 fL 79 .4-94.8 753) MEAN CORPUSCULAR HEMOGLOBIN (BEAKER) (test code 30.0 pg 25.6-32.2 = 751) MEAN CORPUSCULAR HEMOGLOBIN CONC (BEAKER) (test 33.5 GM/DL 32.2-35.5 code = 752) RED CELL DISTRIBUTION WIDTH (BEAKER) (test code 14.7 % 11.7-14.4 = 412) PLATELET COUNT (BEAKER) (test code = 756) 391 K/CU MM 150-45 0 MEAN PLATELET VOLUME (BEAKER) (test code = 754) 10.3 fL 9.4-12.3 NUCLEATED RED BLOOD CELLS (BEAKER) (test code = 0 /100 WBC 0-0 413)
--- NOTE | 2019-09-29 16:17 | ER ---
Nurse's Notes [facility] Name: Emilie Holland Age: 29 yrs Sex: Female : 1990 Arrival Date: 09/29/2019 Time: 15:47 Bed 16 Private MD: Diagnosis: Periapical abscess without sinus Presentation: 09/28 16:05 Chief complaint: Patient states: Pain and swelling in the right lower jaw for the past rb1 two days. Coronavirus screen: Proceed with normal triage. Patient denies a cough. Patient denies shortness of breath or difficulty breathing. Patient denies measured and/or subjective temperature greater than 100.4F prior to today's visit. Patient denies travel on a cruise ship or to a country the [facility] currently lists as an affected area. Patient denies contact with known and/or suspected case of COVID-19. Ebola Screen: Patient negative for fever greater than or equal to 101.5 degrees Fahrenheit, and additional compatible Ebola Virus Disease symptoms. Initial Sepsis Screen: Does the patient meet any 2 criteria? No. Patient's initial sepsis screen is negative. Does the patient have a suspected source of infection? Yes: Other: swelling in the right lower jaw, possible abscess. Risk Assessment: Do you want to hurt yourself or someone else? Patient reports no desire to harm self or others. Onset of symptoms was September 27, 2019. 16:05 Method Of Arrival: Ambulatory rb1 16:05 Acuity: ADITYA 4 rb1 Triage Assessment: 16:05 General: Appears in no apparent distress. comfortable, Behavior is calm, cooperative, rb1 Denies fever. Pain: Complains of pain in right lower jaw Pain began 2-3 days ago. EENT: Oral mucosa is moist. swelling noted to the right lower jaw, pt. reports a cracked tooth. Neuro: Level of Consciousness is awake, alert, obeys commands, Oriented to person, place, time, situation. Cardiovascular: Capillary refill < 3 seconds is brisk in bilateral fingers. Respiratory: Airway is patent Respiratory effort is even, unlabored, Respiratory pattern is regular, symmetrical. GI: No signs and/or symptoms were reported involving the gastrointestinal system. : No signs and/or symptoms were reported regarding the genitourinary system. Derm: Skin is dry, Skin is normal, Skin temperature is warm. Musculoskeletal: Range of motion: intact in all extremities. Historical: - Allergies: 16:05 Hydrocodone-Acetaminophen (Vomiting); Itching; rb1 16:05 Iodine; rb1 16:05 Tramadol HCl; rb1 - PMHx: 16:05 "5 cysts on stomach"; Anxiety; Endometrosis; Ovarian cysts; Post concussive syndrome; rb1 - PSHx: 16:05 ; rb1 - Immunization history:: Adult Immunizations up to date. - Social history:: Smoking status: Patient reports the use of cigarette tobacco products, smokes one-half pack cigarettes per day. Screenin:05 Abuse screen: Denies threats or abuse. Nutritional screening: No deficits noted. rb1 Tuberculosis screening: No symptoms or risk factors identified. Fall Risk None identified. Assessment: 16:05 General: See triage assessment. rb1 16:31 Reassessment: Discharge pending due to shot time. rb1 17:00 Reassessment: Patient appears in no apparent distress at this time. Patient and/or rb1 family updated on plan of care and expected duration. Pain level reassessed. Patient is alert, oriented x 3, equal unlabored respirations, skin warm/dry/pink. Vital Signs: 16:05 BP 131 / 75; Pulse 90; Resp 17; Temp 98.5(O); Pulse Ox 100% on R/A; Weight 72.57 kg rb1 (R); Height 5 ft. 2 in. (157.48 cm); Pain 8/10; 17:00 BP 110 / 68; Pulse 89; Resp 17; Pulse Ox 98% on R/A; Pain 6/10; rb1 16:05 Body Mass Index 29.26 (72.57 kg, 157.48 cm) [facility] ED Course: 15:47 Patient arrived in ED. ag5 16:04 Cici Dewey, CHAVEZ is Primary Nurse. rb1 16:05 Shey Degroot FNP-C is PHCP. kb 16:05 Jordan Carmichael MD is Attending Physician. kb 16:05 Arm band placed on right wrist. rb1 16:05 Bed in low position. Call light in reach. Side rails up X 1. Pulse ox on. NIBP on. rb1 16:33 Triage completed. rb1 17:02 No provider procedures requiring assistance completed. Patient did not have IV access rb1 during this emergency room visit. Administered Medications: 16:26 Drug: TORadol 30 mg Route: IM; Site: left deltoid; rb1 17:01 Follow up: Response: No adverse reaction rb1 16:26 Drug: Clindamycin 300 mg Route: PO; rb1 17:01 Follow up: Response: No adverse reaction rb1 Outcome: 16:16 Discharge ordered by . kb 17:02 Patient left the ED. rb1 17:02 Discharged to home ambulatory. rb1 17:02 Condition: stable 17:02 Discharge instructions given to patient, Instructed on discharge instructions, follow up and referral plans. medication usage, Demonstrated understanding of instructions, follow-up care, medications, Prescriptions given X 1. Signatures: Shey Degroot, MEDICAL RECEPTIONIST MEDICAL ASSISTANT-C MOOKIE-Cici Allan, RN RN rb1 Dru Esteves ag5
--- NOTE | 2019-09-29 16:17 | EDPHYS ---
Physician Documentation [facility] Name: Emilie Holland Age: 29 yrs Sex: Female : 1990 Arrival Date: 09/29/2019 Time: 15:47 Bed 16 Private MD: ED Physician Jordan Carmichael HPI: 09/28 16:18 This 29 yrs old Black Female presents to ER via Unassigned with complaints of Abscess. kb 16:19 The patient presents with pain, swelling. The problem is located in the lower right kb second molar (#31). Onset: The symptoms/episode began/occurred 2 day(s) ago. Duration: The symptoms are continuous. Modifying factors: The symptoms are alleviated by nothing, the symptoms are aggravated by nothing. Associated signs and symptoms: Pertinent positives: pain, redness in area, swelling, Pertinent negatives: anorexia, chills, dysphagia, fever, inability to eat, nausea, vomiting. Severity of symptoms: At their worst the symptoms were moderate, in the emergency department the symptoms are unchanged. The patient has experienced similar episodes in the past. The patient has not recently seen a physician. Pt reports toothache for 2 days, then swelling to right lower jaw started overnight and has gotten worse throughout the day. Historical: - Allergies: 16:05 Hydrocodone-Acetaminophen (Vomiting); Itching; rb1 16:05 Iodine; rb1 16:05 Tramadol HCl; rb1 - PMHx: 16:05 "5 cysts on stomach"; Anxiety; Endometrosis; Ovarian cysts; Post concussive syndrome; rb1 - PSHx: 16:05 ; rb1 - Immunization history:: Adult Immunizations up to date. - Social history:: Smoking status: Patient reports the use of cigarette tobacco products, smokes one-half pack cigarettes per day. ROS: 16:17 Constitutional: Negative for fever, chills, and weight loss, Neck: Negative for injury, kb pain, and swelling, Cardiovascular: Negative for chest pain, palpitations, and edema, Respiratory: Negative for shortness of breath, cough, wheezing, and pleuritic chest pain, Abdomen/GI: Negative for abdominal pain, nausea, vomiting, diarrhea, and constipation, MS/Extremity: Negative for injury and deformity, Skin: Negative for injury, rash, and discoloration, Neuro: Negative for headache, weakness, numbness, tingling, and seizure. 16:17 ENT: Positive for dental pain. Exam: 16:17 Constitutional: This is a well developed, well nourished patient who is awake, alert, kb and in no acute distress. Head/Face: Normocephalic, atraumatic. Neck: Trachea midline, no thyromegaly or masses palpated, and no cervical lymphadenopathy. Supple, full range of motion without nuchal rigidity, or vertebral point tenderness. No Meningismus. Chest/axilla: Normal chest wall appearance and motion. Nontender with no deformity. No lesions are appreciated. Cardiovascular: Regular rate and rhythm with a normal S1 and S2. No gallops, murmurs, or rubs. Normal PMI, no JVD. No pulse deficits. Respiratory: Lungs have equal breath sounds bilaterally, clear to auscultation and percussion. No rales, rhonchi or wheezes noted. No increased work of breathing, no retractions or nasal flaring. Abdomen/GI: Soft, non-tender, with normal bowel sounds. No distension or tympany. No guarding or rebound. No evidence of tenderness throughout. Skin: Warm, dry with normal turgor. Normal color with no rashes, no lesions, and no evidence of cellulitis. MS/ Extremity: Pulses equal, no cyanosis. Neurovascular intact. Full, normal range of motion. Neuro: Awake and alert, GCS 15, oriented to person, place, time, and situation. Cranial nerves II-XII grossly intact. Motor strength 5/5 in all extremities. Sensory grossly intact. Cerebellar exam normal. Normal gait. 16:17 ENT: Dental exam: abscess, that is moderate, specifically in the lower right second molar (#31), gum swelling, pain, that is moderate. Vital Signs: 16:05 BP 131 / 75; Pulse 90; Resp 17; Temp 98.5(O); Pulse Ox 100% on R/A; Weight 72.57 kg rb1 (R); Height 5 ft. 2 in. (157.48 cm); Pain 8/10; 17:00 BP 110 / 68; Pulse 89; Resp 17; Pulse Ox 98% on R/A; Pain 6/10; rb1 16:05 Body Mass Index 29.26 (72.57 kg, 157.48 cm) rb1 MDM: 16:05 Patient medically screened. kb 16:17 Data reviewed: vital signs, nurses notes. Data interpreted: Pulse oximetry: on room air kb is 100 %. Interpretation: normal. Counseling: I had a detailed discussion with the patient and/or guardian regarding: the historical points, exam findings, and any diagnostic results supporting the discharge/admit diagnosis, the need for outpatient follow up, a dentist, to return to the emergency department if symptoms worsen or persist or if there are any questions or concerns that arise at home. Administered Medications: 16:26 Drug: TORadol 30 mg Route: IM; Site: left deltoid; rb1 17:01 Follow up: Response: No adverse reaction rb1 16:26 Drug: Clindamycin 300 mg Route: PO; rb1 17:01 Follow up: Response: No adverse reaction rb1 Disposition: 18:36 Co-signature as Attending Physician, Jordan Carmichael MD I agree with the assessment and kdr plan of care. Disposition: 09/29/19 16:16 Discharged to Home. Impression: Periapical abscess without sinus. - Condition is Stable. - Discharge Instructions: Dental Pain, [id number], Dental Abscess, [id number]. - Prescriptions for Clindamycin HCl 300 mg Oral Capsule - take 1 capsule by ORAL route every 6 hours for 10 days; 40 capsule. - Medication Reconciliation Form, Thank You Letter, Antibiotic Education, Prescription Opioid Use form. - Follow up: Emergency Department; When: As needed; Reason: Worsening of condition. Follow up: Private Physician; When: 2 - 3 days; Reason: Recheck today's complaints, Continuance of care, Re-evaluation by your physician. Signatures: Shey Degroot, SECONDARY SPECIAL EDUCATION TEACHER-C MOOKIE-Jordan Mckay MD MD kdr Barber, Rebecca, RN RN rb1 Corrections: (The following items were deleted from the chart) 17:02 16:16 09/29/2019 16:16 Discharged to Home. Impression: Periapical abscess without rb1 sinus. Condition is Stable. Forms are Medication Reconciliation Form, Thank You Letter, Antibiotic Education, Prescription Opioid Use. Follow up: Emergency Department; When: As needed; Reason: Worsening of condition. Follow up: Private Physician; When: 2 - 3 days; Reason: Recheck today's complaints, Continuance of care, Re-evaluation by your physician. kb
[2019-09-29] MEDS ORDERED: KETOROLAC 30 MG/ML INJ ONE (16:30)
[2019-09-29 17:12] VITALS: BP 131/75; TEMP 98.5; O2SAT 100
== END 2019-09-29 17:02 | disposition home or self-care (01) ==
LOC: ER 15:45
DX: K04.7 Periapical abscess without sinus (principal); F17.210 Nicotine dependence, cigarettes, uncomplicated; Z88.5 Allergy status to narcotic agent; Z91.048 Other nonmedicinal substance allergy status
CPT/HCPCS: 96372; 99283

== ENCOUNTER 2020-04-24 08:41 | Emergency (ER) | payer SELFPAY ==
--- OUTSIDE RECORDS SUMMARY | 2020-04-24 08:47 | XMS REPORT | Clinical Summary ---
:1990 Author Organization [facility] Address [address] [place] [address] Care Team Providers Name Role Phone Unavailable Primary Care Provider Unavailable Allergies Active Allergy Reactions Severity Noted Date Comments Iodine And Iodide Containing Products 04/2020 Shellfish Containing Products 06/18/2019 Medications Medication Sig Dispensed Refills Start Date End Date Status acetaminophen-codeine Take 5 mLs by 120 mL 0 06/19/2019 (TYLENOL W/CODEINE) mouth every 4 120 mg-12 mg /5mL (four) hours as solution needed for up to 10 days. Max Daily Amount: 30 mLs amoxicillin-clavulana Take 1 tablet by 20 tablet 0 06/19/2019 06/29/2019 te (AUGMENTIN) mouth 2 (two) 875-125 mg per tablet times daily for 10 days. traMADol (ULTRAM) 50 Take 1 tablet 15 tablet 0 06/19/201906/09 mg tablet (50 mg total) by mouth every 6 (six) hours as needed for Pain for up to 10 days. Max Daily Amount: 200 mg Active Problems Problem Noted Date Peritonsillar abscess 06/18/2019 Encounters Date Type Specialty Care Team Description 06/18/2019 - Hospital Encounter Cardiology Cyndy Pedroza Perit onsillar abscess 06/19/2019 MD Philip Ray, MD Nieves after 04/24/2019 Social History Tobacco Use Types Packs/Day Years Used Date Current Every Day Smoker Cigarettes Sex Assigned at Date Recorded Not on file Last Filed Vital Signs Vital Sign Reading Time Taken Comments Blood Pressure 124/70 06/19/2019 11:20 AM SOFTWARE SPECIALIST Pulse 74 06/19/2019 11:20 AM SOFTWARE SPECIALIST Temperature 35.6 C (96.1 F) 06/19/2019 11:20 AM SOFTWARE SPECIALIST Respiratory Rate 18 06/19/2019 11:20 AM SOFTWARE SPECIALIST Oxygen Saturation 96% 06/19/2019 11:20 AM SOFTWARE SPECIALIST Inhaled Oxygen Concentration - - Weight 76.6 kg (168 lb 14.4 oz) 06/19/2019 7:15 AM SOFTWARE SPECIALIST Height 159 cm (5' 2.6") 06/18/2019 10:15 AM SOFTWARE SPECIALIST Body Mass Index 30.3 06/18/2019 10:15 AM SOFTWARE SPECIALIST Plan of Treatment Health Maintenance Due Date Last Done Comments PNEUMOCOCCAL VACCINE 0-64 YRS (1 of 1 - PPSV23) 1996 LIPID PANEL 2010 CERVICAL CANCER SCREENING PAP ONLY (Age 21-65) 08/19/2011 INFLUENZA VACCINE (#1) 2020 Procedures Procedure Name Priority Date/Time Associated Diagnosis Comme nts RHYTHM STRIP - SCAN 06/21/2019 11:00 AM SOFTWARE SPECIALIST BASIC METABOLIC Routine 06/19/2019 5:20 AM Resul ts for this PANEL (7) SOFTWARE SPECIALIST procedure are i n the results section. CBC (HEMOGRAM ONLY) Routine 06/19/2019 5:20 AM R esults for this SOFTWARE SPECIALIST procedure are i n the results section. after 04/24/2019 Results RHYTHM STRIP - SCAN (06/21/2019 11:00 AM SOFTWARE SPECIALIST) Narrative Performed At This result has an attachment that is no t available. CBC (Hemogram only) (06/19/2019 5:20 AM SOFTWARE SPECIALIST) Pathologist Sig nature WBC 13.2 (H) 3.5 - 10.5 K/L [facility] RBC 3.73 (L) 3.93 - 5.22 M/L [facility] Hemoglobin 11.2 11.2 - 15.7 GM/DL [facility] Hematocrit 33.4 (L) 34.1 - 44.9 % [facility] MCV 89.5 79.4 - 94.8 fL [facility] MCH 30.0 25.6 - 32.2 pg [facility] MCHC 33.5 32.2 - 35.5 GM/DL [facility] RDW 14.7 (H) 11.7 - 14.4 % [facility] Platelets 391 150 - 450 K/CU MM [facility] MPV 10.3 9.4 - 12.3 fL [facility] nRBC 0 0 - 0 /100 WBC [facility] Specimen Blood Performing Organization Address City/[facility]/Zipcode Phone Number [facility] [address] [place] [address] CENTER Basic Metabolic Panel (06/19/2019 5:20 AM SOFTWARE SPECIALIST) Sodium 139 136 - 145 meq/L [facility] Potassium 3.8Comment: Specimen 3.5 - 5.1 meq/L [facility] slightly hemolyzed [facility] Chloride 107 98 - 107 meq/L [facility] CO2 24 22 - 29 meq/L [facility] BUN 6 (L) 7 - 21 mg/dL [facility] Creatinine 0.65Comment: 0.57 - 1.25 [facility] Specimen slightly mg/dL [facility] hemolyzed [facility] Glucose 90 70 - 105 mg/dL [facility] Calcium 8.3 (L) 8.4 - 10.2 [facility] mg/dL [facility] EGFR 132Comment: mL/min/1.73 sq [facility] ESTIMATED GFR IS [facility] ACC[facility] CENTER CREATININE CLEARANCE IN PREDICTING GLOMERULAR FILTRATION RATE. ESTIMATED GFR IS NOT APPLICABLE FOR DIALYSIS PATIENTS. Specimen Blood Narrative Performed At [employer] - MICHELLE Pickard [facility] Performing Organization Address City/[facility]/Zipcode Phone Number [facility] [address] [place] [address] CENTER after 04/24/2019
--- OUTSIDE RECORDS SUMMARY | 2020-04-24 08:48 | XMS REPORT | Continuity of Care Document ---
:1990 Author Organization [facility] t Address [address] [place] [address] Care Team Providers Name Role Phone UNKNOWN Primary Care Physician Unavailable Flor Pedroza MD Attending Clinician Philip BLACK Attending Clinician Flor PEDROZA Attending Clinician Unavailable Xiao SANTOS Attending Clinician Tez DAMICO, R Attending Clinician Visit, Nurse Attending Clinician Unavailable Jimmy Alejandre Attending Clinician Neeraj Wong MD Attending Clinician Doctor Unassigned, Name Attending Clinician Unavailable SAMPSON TRISTAN M.D. Attending Clinician Unavailable Flor PEDROZA Admitting Clinician Unavailable Jimmy Alejandre Admitting Clinician SAMPSON TRISTAN M.D. Admitting Clinician Unavailable Problems Condition Condition Condition Status Onset Resolution Last Treating Co mments Source Name Details Category Date Date Treatment Clinician Date Peritonsil Peritonsil Disease Active [facility] Center Allergies, Adverse Reactions, Alerts Allergy Allergy Status Severity Reaction(s) Onset Inactive Treating Comm ents Source Name Type Date Date Clinician Iodine Propensi Active [facility] - Iodide adverse 00:00: Medical Containi reaction 00 Center ng s Products Shellfis Propensi Active [facility] - Containi adverse 00:00: Medical ng reaction 00 Center Products s Social History Social Habit Start Date Stop Date Quantity Comments Source History of tobacco Cigarette Smoker [facility] use [facility] Sex Assigned At [facility] Smoking Status Start Date Stop Date Source Current every day smoker 2019-06-18 00:00:00 [facility] Medications Ordered Filled Start Stop Current Ordering Indication Dosage Frequency Signature Comments Components Source Medication Medication Date Date Medication? Clinician (SIG) Name Name acetaminoph 2019- No 5mL Take [address] [address] en-codeine 06-19 by mouth [facility] s - (TYLENOL 00:00: 23:59 every 4 Medic al W/CODEINE) 00 :00 (four) Center 120 mg-12 hours as mg /5mL needed for solution up to 10 days. Max Daily Amount: 30 mLs amoxicillin 2019- No 1{tbl} Q.5D Take [address] -clavulanat 06-19 tablet by Jessica faulkner - e 00:00: 23:59 mouth 2 Medical (AUGMENTIN) 00 :00 (two) Center 875-125 mg times per tablet daily for 10 days. traMADol 2019- No 50mg Take [address] [facility] [address] (ULTRAM) 50 06-19 tablet (50 L ukes - mg tablet 00:00: 23:59 mg total) Me dical 00 :00 by mouth Center every 6 (six) hours as needed for Pain for up to 10 days. Max Daily Amount: 200 mg Vital Signs Vital Name Observation Time Observation Value Comments Source Systolic blood 2019-06-19 11:20:00 124 mm[Hg] [facility] Diastolic blood 2019-06-19 11:20:00 70 mm[Hg] [facility] S t [facility] rate 2019-06-19 11:20:00 74 /min [facility] Body temperature 2019-06-19 11:20:00 35.61 [facility] Respiratory rate 2019-06-19 11:20:00 18 /min [facility] Oxygen saturation in 2019-06-19 11:20:00 96 /min [facility] Arterial blood by Medical Ce nter Pulse oximetry Body weight 2019-06-19 07:15:00 76.613 kg [facility] BMI 2019-06-19 07:15:00 30.30 kg/m2 [facility] Body height 2019-06-18 10:15:00 159 cm [facility] Procedures Procedure Date / Time Performed Performing Clinician Sourc e RHYTHM STRIP - SCAN 2019-06-21 11:00:13 Provider, Default [facility] CBC (HEMOGRAM ONLY) 2019-06-19 05:20:00 Shauna Baldwin [facility] BASIC METABOLIC PANEL 2019-06-19 05:20:00 Shauna Baldwin [facility] S t [facility] () [facility] Plan of Care Planned Activity Planned Date Details Comments Source Future Scheduled 2020-02-07 INFLUENZA VACCINE (#1) [facility] - Test 00:00:00 [code = INFLUENZA Medical Ce nter VACCINE (#1)] Future Scheduled 2011-08-19 [facility] cervix (procedure) [code = 142961081] Future Scheduled 2010 [facility] 00:00:00 (procedure) [code = [facility] 07810251] Future Scheduled 1996 [facility]OCCAL [facility]ACCINE [facility] 00:00:00 0-64 YRS (1 of 1 - Medical C enter PPSV23) [code = PNEUMOCOCCAL VACCINE 0-64 YRS (1 of 1 - PPSV23)] Encounters Start End Encounter Admission Attending Care Care Encounter Source Date/Time Date/Time Type Type Clinicians Facility Department ID 2019-02-17 2019-02-17 Telephone Xiao العراقي [id number] 00:00:00 00:00:00 , Rachel AVILA [id number] [facility] [id number] [id number] 2019-02-14 2019-02-14 [address] Reagan [id number] 15:03:55 15:36:52 Cassius Abraham [facility] [id number] Visit REGIONAL [id number] MATERNAL [id number] & CHILD [address] [place] [address] 2019-02-08 2019-02-08 Nurse Visit, [facility] [id number] 15:24:16 15:40:42 Visit [facility] [id number] Nurse [facility] [id number] MATERNAL [id number] & CHILD [address] [facility] 2019-01-31 2019-01-31 Nurse Visit, [facility] [id number] 11:04:40 11:41:24 Visit [facility] [place] [id number] Nurse [facility] [id number] MATERNAL [id number] & CHILD 107 [facility] 2019-01-20 2019-01-23 [facility] Gonsalo Alejandre 1.2.8 40.114 [id number] 06:42:00 12:47:00 Encounter Marcia Wong [id number] [place] [id number] 2019-01-20 2019-01-20 Orders Doctor DULCE MARIA [id number] 00:00:00 00:00:00 Only Unassigned, [place] [id number] Richardson [place] [id number] 2019-01-17 2019-01-17 Routine Reagan, [facility] [id number] 13:43:45 14:08:19 Roshunda R [facility] [id number] Visit [facility] [id number] MATERNAL [id number] & CHILD 107 [facility] 2019-01-10 2019-01-10 Routine Reagan, [facility] [id number] 12:52:12 13:15:29 Roshunda R [facility] [id number] Visit [facility] [id number] MATERNAL [id number] & CHILD 107 [facility] 2019-01-03 2019-01-03 Routine Reagan, [facility] [id number] 12:45:52 13:13:15 Roshunda R [facility] [id number] Visit [facility] [id number] MATERNAL [id number] & CHILD [address] [place] [address] 2017-06-14 2017-06-17 Inpatient Iker TRISTAN [facility] [id number] 21:05:00 13:02:00 Frank KAUFFMAN M.D. [facility] Results Test Description Test Time Test Comments Results Result Comments Source Basic Metabolic Panel 2019-06-19 06:24:00 Test Item Value Reference Range Interpretation Comme nts Sodium (test code = 139 meq/L 688-905 3322-2) Potassium (test code = 3.8 meq/L 3.5-5.1 Speci men slightly 2823-3) hemolyzed Chloride (test code = 107 meq/L 98-107 2075-0) CO2 (test code = 2027-9) 24 meq/L 22-29 BUN (test code = 3094-0) 6 mg/dL 7-21 L Creatinine (test code = 0.65 mg/dL 0.57-1.25 Spec imen slightly 2160-0) hemolyzed Glucose (test code = 90 mg/dL 70-105 2345-7) Calcium (test code = 8.3 mg/dL 8.4-10.2 L 08674-8) EGFR (test code = 24445-3) 132 mL/min/1.73 sq m ESTIMATED GFR IS NOT ACCURATE CREATININE BRIAN GEORGE IN PREDICTING GLOMERULAR FILT RATION RATE. ESTIMATED GFR IS NOT APPLICAB LE FOR DIALYSIS PATIEN TS. DORIS (test code = DORIS) Election Assistant ID - MICHELLE Pickard Lab Interpretation (test Abnormal code = 03663-3) [id number] 06:24:00 Test Item Value Reference Range Interpretation Comments SODIUM (BEAKER) 139 meq/L 136-145 (test code = 381) POTASSIUM (BEAKER) 3.8 meq/L 3.5-5.1 Specimen slightly (test code = 379) hemolyzed CHLORIDE (BEAKER) 107 meq/L 98-107 (test code = 382) CO2 (BEAKER) (test 24 meq/L 22-29 code = 355) BLOOD UREA NITROGEN 6 mg/dL 7-21 L (BEAKER) (test code = 354) CREATININE (BEAKER) 0.65 mg/dL 0.57-1.25 Specimen slightly (test code = 358) hemolyzed GLUCOSE RANDOM 90 mg/dL 70-105 (BEAKER) (test code = 652) CALCIUM (BEAKER) 8.3 mg/dL 8.4-10.2 L (test code = 697) EGFR (BEAKER) (test 132 mL/min/1.73 ESTIM ATED GFR IS code = 1092) sq m NOT ACCURATE CREATININE CLEARANCE IN PREDICTING GLOMERULAR FILTRATION RATE . ESTIMATED GFR I S NOT APPLICABLE FOR DIALYSIS PATIEN TS. Election Assistant ID - MICHELLE [facility] (Hemogram only)2019-06-19 06:05:00 Test Item Value Reference Range Interpretation Comments WBC (test code = 6690-2) 13.2 3.5- 10.5 K/L H RBC (test code = 789-8) 3.73 3.93- 5.22 M/L L MCHC (test code = 786-4) 33.5 32.2- 35.5 GM/DL Hematocrit (test code = 4544-3) 33.4 % 34.1-44.9 L MCV (test code = 787-2) 89.5 fL 79.4-94.8 MCH (test code = 785-6) 30.0 pg 25.6-32.2 RDW (test code = 788-0) 14.7 % 11.7-14.4 H Platelets (test code = 777-3) 391 150- 450 K/CU MM MPV (test code = 94812-3) 10.3 fL 9.4-12.3 nRBC (test code = 413) 0 0- 0 /100 WBC Lab Interpretation (test code = Abnormal 16759-5) [facility] (HEMOGRAM ONLY)2019-06-19 06:05:00 Test Item Value Reference Range Interpretation Comments WHITE BLOOD CELL COUNT (BEAKER) 13.2 K/ L 3.5-10.5 H (test code = 775) RED BLOOD CELL COUNT (BEAKER) 3.73 M/ L 3.93-5.22 L (test code = 761) HEMOGLOBIN (BEAKER) (test code = 11.2 GM/DL 11.2-15.7 410) HEMATOCRIT (BEAKER) (test code = 33.4 % 34.1-44.9 L 411) MEAN CORPUSCULAR VOLUME (BEAKER) 89.5 fL 79.4-94.8 (test code = 753) MEAN CORPUSCULAR HEMOGLOBIN 30.0 pg 25.6-32.2 (BEAKER) (test code = 751) MEAN CORPUSCULAR HEMOGLOBIN CONC 33.5 GM/DL 32.2-35.5 (BEAKER) (test code = 752) RED CELL DISTRIBUTION WIDTH 14.7 % 11.7-14.4 H (BEAKER) (test code = 412) PLATELET COUNT (BEAKER) (test 391 K/CU MM 150-450 code = 756) MEAN PLATELET VOLUME (BEAKER) 10.3 fL 9.4-12.3 (test code = 754) NUCLEATED RED BLOOD CELLS 0 /100 WBC 0-0 (BEAKER) (test code = 413)
[2020-04-24] MEDS ORDERED: KETOROLAC 30 MG/ML INJ ONE (10:07)
[2020-04-24 10:13] LABS: Absolute Lymphocytes (CBC) 1.8 K/uL (0.7-4.9); Basophils % 0.9 % (0-1.3); Lymphocytes % 36.2 % (15.3-44.8); MPV 8.4 fL (7.6-11.3); RBC Red Blood Cell Count 4.37 M/uL (3.86-4.86)
[2020-04-24 10:14] LABS: Protime INR 1.07
[2020-04-24 10:28] LABS: ALT/SGPT 14 U/L (12-78); AST/SGOT 14 U/L (15-37); Albumin 3.9 g/dL (3.4-5.0); Alkaline Phosphatase 89 U/L (45-117); BUN Blood Urea Nitrogen 6 mg/dL (7-18); Bicarbonate 25 mmol/L (21-32); Bilirubin Direct < 0.1 mg/dL (0-0.2); Bilirubin Total 0.5 mg/dL (0.2-1.0); Glucose Level 86 mg/dL (74-106); Lipase 127 U/L (73-393); NT PRO-BNP 80 pg/mL (<125); Potassium 3.2 mmol/L (3.5-5.1); Protein, Total 7.8 g/dL (6.4-8.2); Sodium Level 141 mmol/L (136-145); Troponin (Emerg Dept Use Only) < 0.02 ng/mL (0.0-0.045)
--- NOTE | 2020-04-24 10:35 | RAD REPORT ---
EXAM DESCRIPTION: RAD - Chest Single View - 04/24/2020 10:13 am CLINICAL HISTORY: CHEST PAIN COMPARISON: January 2018 TECHNIQUE: AP portable chest image was obtained 04/24/2020 10:13 am . FINDINGS: Lungs are clear. Heart and vasculature are normal. No measurable pleural effusion and no p neumothorax. No acute bony abnormality seen. No acute aortic findings suspected. IMPRESSION: No acute cardiopulmonary process. No significant change from comparison study.
--- NOTE | 2020-04-24 10:52 | EDPHYS ---
Physician Documentation [facility] Name: Emilie Holland Age: 29 yrs Sex: Female : 1990 Arrival Date: 04/24/2020 Time: 08:46 Bed 23 Private MD: ED Physician Jordan Carmichael HPI: 04/24 10:04 This 29 yrs old Black Female presents to ER via Ambulatory with complaints of Chest kb Pain, Side Pain. 10:04 The patient or guardian reports chest pain that is located primarily in the substernal kb area. The pain radiates to back. Associated signs and symptoms: The patient has no apparent associated signs or symptoms. The chest pain is described as aching. Duration: The patient or guardian reports a single episode, that is still ongoing. Modifying factors: The symptoms are alleviated by nothing. the symptoms are aggravated by nothing. Severity of pain: At its worst the pain was moderate in the emergency department the pain is unchanged. The patient has not experienced similar symptoms in the past. The patient has not recently seen a physician. CRTT: 09:47 LMP 04/20/2020 em Historical: - Allergies: 09:47 Hydrocodone-Acetaminophen (Vomiting); Itching; em 09:47 Iodine; em 09:47 Tramadol HCl; em - PMHx: 09:47 "5 cysts on stomach"; Anxiety; Endometrosis; Ovarian cysts; Post concussive syndrome; em - PSHx: 09:47 ; em - Immunization history:: Adult Immunizations up to date. - Social history:: Smoking status: Patient denies any tobacco usage or history of. ROS: 10:04 Constitutional: Negative for fever, chills, and weight loss, Respiratory: Negative for kb shortness of breath, cough, wheezing, and pleuritic chest pain, Abdomen/GI: Negative for abdominal pain, nausea, vomiting, diarrhea, and constipation, Back: Negative for injury and pain, MS/Extremity: Negative for injury and deformity, Skin: Negative for injury, rash, and discoloration, Neuro: Negative for headache, weakness, numbness, tingling, and seizure. 10:04 Cardiovascular: Positive for chest pain, Negative for edema, orthopnea, palpitations, paroxysmal nocturnal dyspnea. Exam: 10:03 Constitutional: This is a well developed, well nourished patient who is awake, alert, kb and in no acute distress. Head/Face: Normocephalic, atraumatic. Cardiovascular: Regular rate and rhythm with a normal S1 and S2. No gallops, murmurs, or rubs. Normal PMI, no JVD. No pulse deficits. Respiratory: Lungs have equal breath sounds bilaterally, clear to auscultation and percussion. No rales, rhonchi or wheezes noted. No increased work of breathing, no retractions or nasal flaring. Back: No spinal tenderness. No costovertebral tenderness. Full range of motion. Skin: Warm, dry with normal turgor. Normal color with no rashes, no lesions, and no evidence of cellulitis. MS/ Extremity: Pulses equal, no cyanosis. Neurovascular intact. Full, normal range of motion. Neuro: Awake and alert, GCS 15, oriented to person, place, time, and situation. Cranial nerves II-XII grossly intact. Motor strength 5/5 in all extremities. Sensory grossly intact. Cerebellar exam normal. Normal gait. 10:03 Chest/axilla: Inspection: normal, Palpation: tenderness, that is mild, of the mid-sternal area, that partially reproduces the patient's complaints. 10:03 ECG was reviewed by the Attending Physician. 10:03 Abdomen/GI: Inspection: abdomen appears normal, Bowel sounds: normal, in all quadrants, Palpation: soft, in all quadrants, mild abdominal tenderness, in the right upper quadrant and left upper quadrant. Vital Signs: 09:46 BP 135 / 93; Pulse 81; Resp 18; Temp 98.3(O); Pulse Ox 100% on R/A; Weight 72.57 kg; em Height 5 ft. 2 in. (157.48 cm); Pain 10/10; 10:30 BP 103 / 59; Pulse 61; Resp 16; Pulse Ox 100% on R/A; Pain 5/10; em 09:46 Body Mass Index 29.26 (72.57 kg, 157.48 cm) em MDM: 09:38 Patient medically screened. kb 10:03 Data reviewed: vital signs, nurses notes. Data interpreted: Pulse oximetry: on room air kb is 100 %. Interpretation: normal. 10:51 Counseling: I had a detailed discussion with the patient and/or guardian regarding: the kb historical points, exam findings, and any diagnostic results supporting the discharge/admit diagnosis, lab results, radiology results, the need for outpatient follow up, a family practitioner, to return to the emergency department if symptoms worsen or persist or if there are any questions or concerns that arise at home. 04/24 09:44 Order name: Basic Metabolic Panel; Complete Time: 10:41 kb 04/24 09:44 Order name: CBC with Diff; Complete Time: 10:21 kb 04/24 09:44 Order name: LFT's; Complete Time: 10:41 kb 04/24 09:44 Order name: Magnesium; Complete Time: 10:41 kb 04/24 09:44 Order name: NT PRO-BNP; Complete Time: 10:41 kb 04/24 09:44 Order name: PT-INR; Complete Time: 10:50 kb 04/24 09:44 Order name: Troponin (emerg Dept Use Only); Complete Time: 10:41 kb 04/24 09:44 Order name: XRAY Chest (1 view); Complete Time: 10:41 kb 04/24 09:44 Order name: EKG; Complete Time: 09:45 kb 04/24 09:44 Order name: Lipase; Complete Time: 10:41 kb 04/24 09:44 Order name: Cardiac monitoring; Complete Time: 09:50 kb 04/24 09:44 Order name: EKG - Nurse/Tech; Complete Time: 11:11 kb 04/24 09:44 Order name: IV Saline Lock; Complete Time: 10:04 kb 04/24 09:44 Order name: Labs collected and sent; Complete Time: 09:50 kb 04/24 09:44 Order name: O2 Per Protocol; Complete Time: 09:49 kb 04/24 09:44 Order name: O2 Sat Monitoring; Complete Time: 09:49 kb EC:03 Rate is 72 beats/min. Rhythm is regular. QRS [place] is Normal. IA interval is normal at kb 128 msec. QRS interval is normal at 80 msec. QT interval is normal at 414 msec. Administered Medications: 10:00 Drug: TORadol - Ketorolac 15 mg Route: IVP; Site: left antecubital; em 10:41 Follow up: Response: No adverse reaction; Marked relief of symptoms; Pain is decreased em 11:07 Drug: Potassium Chloride 40 mEq Route: PO; em 11:07 Follow up: Response: Medication administered at discharge. em 11:07 Drug: Pepcid 20 mg Route: IVP; Site: left antecubital; em 11:07 Follow up: Response: Medication administered at discharge. em 11:07 Drug: GI Cocktail without - (Maalox Suspension 30 ml, Lidocaine Liquid 2 % 15 em ml) Route: PO; 11:07 Follow up: Response: Medication administered at discharge. em Disposition: 13:23 Co-signature as Attending Physician, Jordan Carmichael MD I agree with the assessment and kdr plan of care. Disposition: 04/24/20 10:51 Discharged to Home. Impression: Chest pain, unspecified. - Condition is Stable. - Discharge Instructions: Nonspecific Chest Pain, [id number]. - Prescriptions for Diclofenac Sodium 75 mg Oral Tablet, Delayed Release (E.C.) - take 1 tablet by ORAL route 2 times per day As needed; 30 tablet. - Medication Reconciliation Form, Thank You Letter, Antibiotic Education, Prescription Opioid Use, Work release form form. - Follow up: Emergency Department; When: As needed; Reason: Worsening of condition. Follow up: Private Physician; When: 2 - 3 days; Reason: Recheck today's complaints, Continuance of care, Re-evaluation by your physician. Signatures: Dispatcher [employer] EDMS Shey Degroot, GOVERNMENT PROFESSOR-C GOVERNMENT PROFESSOR-Jordan Mckay MD MD [facility] Chris Kelly RN RN em Corrections: (The following items were deleted from the chart) 11:11 10:51 04/24/2020 10:51 Discharged to Home. Impression: Chest pain, unspecified. em Condition is Stable. Forms are Medication Reconciliation Form, Thank You Letter, Antibiotic Education, Prescription Opioid Use. Follow up: Emergency Department; When: As needed; Reason: Worsening of condition. Follow up: Private Physician; When: 2 - 3 days; Reason: Recheck today's complaints, Continuance of care, Re-evaluation by your physician. kb
--- NOTE | 2020-04-24 10:52 | ER ---
Nurse's Notes [facility] Name: Emilie Holland Age: 29 yrs Sex: Female : 1990 Arrival Date: 04/24/2020 Time: 08:46 Bed 23 Private MD: Diagnosis: Chest pain, unspecified Presentation: 04/24 09:46 Chief complaint: Patient states: mid chest pain that radiates to back since last night. em Coronavirus screen: Client denies travel out of the [place] in the last 14 days. Ebola Screen: Patient negative for fever greater than or equal to 101.5 degrees Fahrenheit, and additional compatible Ebola Virus Disease symptoms Patient denies exposure to infectious person. Patient denies travel to an Ebola-affected area in the 21 days before illness onset. No symptoms or risks identified at this time. Initial Sepsis Screen: Does the patient meet any 2 criteria? No. Patient's initial sepsis screen is negative. Does the patient have a suspected source of infection? No. Patient's initial sepsis screen is negative. Risk Assessment: Do you want to hurt yourself or someone else? Patient reports no desire to harm self or others. Onset of symptoms was April 23, 2020. 09:46 Method Of Arrival: Ambulatory em 09:46 Acuity: ADITYA 3 em SALT GRINDER: 09:47 LMP 04/20/2020 em Historical: - Allergies: 09:47 Hydrocodone-Acetaminophen (Vomiting); Itching; em 09:47 Iodine; em 09:47 Tramadol HCl; em - PMHx: 09:47 "5 cysts on stomach"; Anxiety; Endometrosis; Ovarian cysts; Post concussive syndrome; em - PSHx: 09:47 ; em - Immunization history:: Adult Immunizations up to date. - Social history:: Smoking status: Patient denies any tobacco usage or history of. Screenin:48 Abuse screen: Denies threats or abuse. Nutritional screening: No deficits noted. em Tuberculosis screening: No symptoms or risk factors identified. Fall Risk None identified. Assessment: 09:46 General: Appears in no apparent distress. uncomfortable, Behavior is calm, cooperative, em appropriate for age, Denies fever. Pain: Complains of pain in mid-sternal area Pain radiates to back Pain currently is 9 out of 10 on a pain scale. at worst was 10 out of 10 on a pain scale. Pain began 1 day ago. Neuro: Level of Consciousness is awake, alert, obeys commands, Oriented to person, place, time, situation. Cardiovascular: Capillary refill < 3 seconds Patient's skin is warm and dry. Rhythm is sinus rhythm. Respiratory: Airway is patent Respiratory effort is even, unlabored, Respiratory pattern is regular, symmetrical. GI: Patient currently denies nausea, vomiting. Derm: Skin is intact, is healthy with good turgor, Skin is pink, warm \\T\\ dry. Musculoskeletal: Capillary refill < 3 seconds, Range of motion: intact in all extremities. 10:35 Reassessment: Patient appears in no apparent distress at this time. Patient and/or em family updated on plan of care and expected duration. Pain level reassessed. Patient is alert, oriented x 3, equal unlabored respirations, skin warm/dry/pink. rates pain 5/10 Patient states feeling better. Vital Signs: 09:46 BP 135 / 93; Pulse 81; Resp 18; Temp 98.3(O); Pulse Ox 100% on R/A; Weight 72.57 kg; em Height 5 ft. 2 in. (157.48 cm); Pain 10/10; 10:30 BP 103 / 59; Pulse 61; Resp 16; Pulse Ox 100% on R/A; Pain 5/10; em 09:46 Body Mass Index 29.26 (72.57 kg, 157.48 cm) em ED Course: 08:46 Patient arrived in ED. ds1 09:38 Shey Degroot FNP-C is [facility]. kb 09:38 Jordan Carmichael MD is Attending Physician. kb 09:45 Chris Kelly, CHAVEZ is Primary Nurse. em 09:47 Triage completed. em 09:47 Arm band placed on. em 09:48 Patient has correct armband on for positive identification. Placed in gown. Bed in low em position. Call light in reach. Side rails up X2. Pulse ox on. NIBP on. 09:48 Patient maintains SpO2 saturation greater than 95% on room air. em 10:00 Initial lab(s) drawn, by me, sent to lab. Inserted saline lock: 20 gauge in left em antecubital area, using aseptic technique. Blood collected. 10:13 XRAY Chest (1 view) In Process Unspecified. EDMS 11:10 No provider procedures requiring assistance completed. IV discontinued, intact, em bleeding controlled, No redness/swelling at site. Pressure dressing applied. Administered Medications: 10:00 Drug: TORadol - Ketorolac 15 mg Route: IVP; Site: left antecubital; em 10:41 Follow up: Response: No adverse reaction; Marked relief of symptoms; Pain is decreased em 11:07 Drug: Potassium Chloride 40 mEq Route: PO; em 11:07 Follow up: Response: Medication administered at discharge. em 11:07 Drug: Pepcid 20 mg Route: IVP; Site: left antecubital; em 11:07 Follow up: Response: Medication administered at discharge. em 11:07 Drug: GI Cocktail without - (Maalox Suspension 30 ml, Lidocaine Liquid 2 % 15 em ml) Route: PO; 11:07 Follow up: Response: Medication administered at discharge. em Outcome: 10:51 Discharge ordered by MD. kb 11:10 Discharged to home ambulatory. em 11:10 Condition: good 11:10 Discharge instructions given to patient, Instructed on discharge instructions, follow up and referral plans. medication usage, Demonstrated understanding of instructions, follow-up care, medications, Prescriptions given X 1. 11:11 Patient left the ED. em Signatures: Dispatcher [employer] Shey Ruiz, MOOKIE-Catherine DAMICO-Chris Mina, RN RN Syeda Mcneil ds1
[2020-04-24] MEDS ORDERED: MAGNES/ALUMIN/SIMET 30ML UCUP ONE (11:11)
[2020-04-24] MEDS ORDERED: FAMOTIDINE 20 MG/2 ML VIAL IV ONE (11:11)
[2020-04-24] MEDS ORDERED: POTASSIUM CL SA 10 MEQ TAB PO ONE (11:11)
[2020-04-24] MEDS ORDERED: LIDOCAINE VISCOUS 2% SOLN 15 ML UDC ONE (11:11)
[2020-04-24 15:37] VITALS: TEMP 98.3; O2SAT 100
[2020-04-24 15:39] VITALS: BP 103/59
--- NOTE | 2020-04-25 07:18 | EKG ---
Test Date: 2020-04-24 Test Time: 10:01:22 Salesperson Driver: YANET MEASUREMENT RESULTS: Intervals: Rate: 72 RI: 128 QRSD: 80 QT: 414 QTc: 453 [place]: P: 70 RI: 128 QRS: 37 T: -17 INTERPRETIVE STATEMENTS: Normal sinus rhythm T wave abnormality, consider inferior ischemia T wave abnormality, consider anterolateral ischemia Abnormal ECG Compared to ECG 01/17/2018 12:21:08 T-wave abnormality now present Possible ischemia now present Prolonged QT interval no longer present Electronically Signed On 04-25-20 07:17:36 [employer] by [place]
== END 2020-04-24 11:11 | disposition home or self-care (01) ==
LOC: ER 08:41
DX: R07.9 Chest pain, unspecified (principal); Z88.5 Allergy status to narcotic agent; Z91.048 Other nonmedicinal substance allergy status
CPT/HCPCS: 36415; 71045; 80048; 80076; 83690; 83735; 83880; 84484; 85025; 85610; 93005; 96374; 96375; 99285

== ENCOUNTER 2023-04-05 00:29 | Emergency (ER) | payer SELFPAY ==
--- OUTSIDE RECORDS SUMMARY | 2023-04-05 00:36 | XMS REPORT | Continuity of Care Document ---
:1990 Author Organization [facility] t Address [address] [facility] [address] [place] [address] Care Team Providers Name Role Phone UNKNOWN, REFFERING Primary Care Physician Unavailable Jayden Monroe MD Attending Clinician Nurse, [facility] Attending Clinician Unavailable JAYDEN MONROE Attending Clinician Unavailable Doctor Unassigned, [place] Attending Clinician Unavailable Only, Adc Test Attending Clinician Un[facility]ending Clinician Unavailable Cassius Chan Attending Clinician CASSIUS RICHARDS Attending Clinician Unavailable GLORY PELAYO Attending Clinician Unavailable MILES ZIMMERMAN Attending Clinician Unavailable Rachel Hagen LMSW Attending Clinician [facility] Attending [facility]ician Unavailable Adelia Argenis RIOS Attending Clinician [phone] Gonsalo Alejandre Attending Clinician Marcia Wong MD Attending Clinician SAMPSON TRISTAN M.D., SAMPSON Pcikard M.D. Attending Clinician Unavailable Jayden Monroe MD Admitting Clinician JAYDEN MONROE Admitting Clinician Unavailable MILES ZIMMERMAN Admitting Clinician Unavailable Gonsalo Alejandre Admitting Clinician SAMPSON TRISTAN M.D., SAMPSON Pickard M.D. Admitting Clinician Unavailable Payers Payer Name Policy Type Policy Number Effective Date Expiration Date Joanna dawson [facility] [id number] 2018 MEDICAID 00:00:00 Problems Condition Condition Condition Status Onset Resolution Last Treating Co mments Source Name Details Category Date Date Treatment Clinician Date Abdominal Abdominal Disease Active Overview: Univers wall mass wall mass 6-21 Formattin i ty of of left of left 00:00: g of this [place] lower lower 00 note Medical quadrant quadrant might be Bran ch different from the original. Added automatic ally from request for surgery [id number] Abdominal Abdominal Disease Active Overview: Univers wall mass wall mass 6-21 Formattin i ty of of left of left 00:00: g of this [place] lower lower 00 note Medical quadrant quadrant might be Bran ch different from the original. Added automatic ally from request for surgery [id number] Cervical Cervical Disease Active Overview: Un kathy high risk high risk 4-01 Formattin i ty of human human 00:00: g of this [place] papillomav papillomav 00 note Me dical irus (HPV) irus (HPV) might be Branch DNA test DNA test different positive positive from the original. Will await on 2020 pap smear results BMI BMI Disease Active Univers 34.0-34.9, 34.0-34.9, 3-30 it y of adult adult 00:00: [place] 00 Medical Branch Peritonsil Peritonsil Disease Active [facility] abscess abscess 00:00: [place] [id number] Center 39 weeks 39 weeks Disease Active Unive rs gestation gestation 8-14 ity of of of 00:00: [place] 00 [facility] Branch Drug use Drug use Disease Active Unive rs 6-18 ity of 00:00: [place] 00 Medical Branch Acute Acute Disease Active Univers bilateral bilateral 6-18 ity of low back low back 00:00: [place] pain with pain with 00 [facility] bilateral bilateral Bran ch sciatica sciatica Abnormal Abnormal Disease Active Unive rs maternal maternal 5-14 ity of glucose glucose 00:00: [place] tolerance, tolerance, 00 Me dical antepartum antepartum Br anch Maternal Maternal Disease Active Unive rs tobacco tobacco 5-13 ity of use in use in 00:00: [place] second second 00 Medical trimester trimester Bran ch Right Right Disease Active Univers ovarian ovarian 3- ity of cyst cyst 00:00: [place] [facility] Heartburn Heartburn Disease Active Uni vers during during 2-19 [place] of 00[place] Multiparit Multiparit Disease Active U nivers y y - ity of 00:00: [place] [facility] Endometrio Endometrio Disease Active U nivers sis sis - ity of 00:00: [place] [facility] Depression Depression Disease Active U nivers , , 06-29 ity of unspecifie unspecifie 00:00[place] d d 00 Medical depression depression Br anch type type Anxiety Anxiety Disease Active Univers disorder, disorder, 06-29 ity of unspecifie unspecifie 00:[place] d type d type 00 Medical Branch Screen for Screen for Disease Active U nivers STD STD 3-10 ity of (sexually (sexually 00:[place] transmit[place] transmitte 00 Me dical d disease) d disease) Br anch Class 1 Class 1 Disease Active Overview: Univ ers obesity obesity 3-10 Formattin ity o f with body with body 00:00: [place] of [place] mass index mass index 00 note Me dical (BMI) of (BMI) of might be Bran ch 34.0 to 34.0 to different 34.9 in 34.9 in from the adult, adult, original. unspecifie unspecifie ICD10 d obesity d obesity Diagnosis type, type, Term unspecifie unspecifie Living Coach d whether d whether Utility serious serious comorbidit comorbidit y present y present Hx of Hx of Disease Active Overview: Univer s abnormal abnormal -12 Formattin ity of Pap smear Pap smear 00:00: [place] of this [place] 00 note Medical might be Branch different from the original. 2020-HPV+ , Pap Smear NWL-> repeat next year in - [id number] NIL with absent ECC. Repeat in 1 - ASCUS Supervisio Supervisio Disease Active Overview : Univers n of high n of high 4-29 Formattin i ty of risk risk 00:00: g of this [place] 00 note Medi rashaad in third in third might be Bran ch trimester trimester different from the original. Medical records received. DOS- 3. O+, beta hcg- [id number]. Endovagin al US: Single IUP at 8 weeks 6 days. GERMAN-06/04.ICD 10 Diagnosis Term Living Coach Utility Tobacco Tobacco Disease Active Univers use use 10-04 ity of disorder disorder 00:00: Medical Branch Previous Previous Disease Active Overview: Un kathy 10-04 Formattin ity of section section 00:00: g of this [place] 00 note Medical might be Branch different from the original. X2. Awaiting medical records. Medical records: 1- Primary low transvers e . Failure to progress. Medical records: 2- Repeat low transvers e . Allergies, Adverse Reactions, Alerts Allergy Allergy Status Severity Reaction(s) Onset Inactive Treating Comm ents Source Name Type Date Date Clinician Tramadol Propensi Active Itching Unive rs ty to 12-14 ity of adverse 00:00: [place] reaction Medical s Branch TRAMADOL DRUG Active ITCHING Univers INGREDI 12-14 ity of 00:00: Medical Branch Iodine Propensi Active [facility] -[facility] Iodide adverse 00:00: Medical Containi reaction 00 Center ng s Products Shellfis Propensi Active [address] [facility] ty to 1-11 [facility] Containi adverse 00:00: Medical ng reaction 00 Center Products s Hydrocod Propensi Active Nausea Univer s one ty to and/or 11-11 ity of adverse Vomiting 00:00: [place] reaction 00 Medical s Branch HYDROCOD DRUG Active N/V Univers ONE INGREDI 11-11 ity of 00:00: Medical Branch Iodine Propensi Active Anaphylaxis Uni vers ty to 10-04 ity of adverse 00:00: [place] reaction Medical s Branch Seafood/ Propensi Active Anaphylaxis U nivers Fish ty to 10-04 ity of adverse 00:00: [place] reaction Medical s Branch IODINE DRUG Active Anaphylaxis Unive rs INGREDI 10-04 ity of 00:00: [place] 00 Medical Branch SEAFOOD/ Food Active Anaphylaxis Uni vers FISH 4-29 ity of 00:00: [address] Social History Social Habit Start Date Stop Date Quantity Comments Source ASSERTION 2018-05-06 [facility] 00:00:00 [facility] History of tobacco Cigarette Smoker University of use [facility] Sexual orientation Univer [facility] Exposure to 2020-11-25 2020-12-25 Not sure University SARS-CoV-2 (event) 00:00:00 14:23:00 [facility] Alcohol intake 2020-12-17 2020-12-17 .14 /d University 00:00:00 00:00:00 [facility] History of Social 2020-12-14 2020-12-14 Univers ity of function 00:00:00 00:00:00 [facility] Tobacco use and 2020-09-04 2020-09-04 Smokeless Universit y of exposure 00:00:00 00:00:00 tobacco non-user [facility] [place] [facility] Cigarettes smoked 2020-09-04 2020-09-04 Univers ity of current (pack per 00:00:00 00:00:00 [facility] ) - Reported Branch Cigarette 2020-09-04 2020-09-04 University of pack-years 00:00:00 00:00:00 [facility] Alcohol Comment 2014-04-18 2014-04-18 on occasion Universi ty of 00:00:00 00:00:00 [facility] Sex Assigned At [address] [facility] 00:00:00 00:00:00 [facility] Smoking Status Start Date Stop Date Source Smokes tobacco daily 2020-09-04 00:00:00 Univers ity of [facility] Current some day smoker 2014-08-15 00:00:00 Univ [facility] Medications Ordered Filled Start Stop Current Ordering Indication Dosage Frequency Signature Comments Components Source Medication Medication Date Date Medication? Clinician (SIG) Name Name diphenhydrA No 25mg 25 mg, Uni vers MINE 12-14 Slow IV ity of (BENADRYL) 18:45: 17:39 Push, [place] injection 00 :00 ONCE, 1 Medical 25 mg dose, Fri Branch 12/14/20 at 1345, Routine diphenhydrA 2020- No 25mg 25 mg, Uni vers MINE 12-14- Slow IV ity of (BENADRYL) 18:45: 17:39 Push, [place] injection 00 :00 ONCE, 1 Medical 25 mg dose, [facility] 12/14/20 at 1345, Routine morpHINE 2020- No 2mg 2 mg, Slow Un kathy injection 2 12-14 IV Push, ity of mg 17:45: 17:35 ONCE, 1 [place] 00 :00 dose, [facility] 12/14/20 at Branch 1245, Routine, DSU Recovery acetaminoph 2020- No 1000mg 1,000 mg, Univers en ADULT 12-14 IV ity of (OFIRMEV) 17:45: 17:26 [place]fusion, [place] injection 00 :00 Administer Medi rashaad 1,000 mg over 15 Branch Minutes, ONCE, 1 dose, [facility] 12/14/20 at 1245, Routine, PACU
Indicatio n: Perioperat dortoa Patient morpHINE 2020- No 2mg 2 mg, Slow Un kathy injection 2 12-14 IV Push, ity of mg 17:45: 17:35 ONCE, 1 [place] 00 :00 dose, [facility] 12/14/20 at Branch 1245, Routine, DSU Recovery acetaminoph 2020- No 1000mg 1,000 mg, Univers en ADULT 12-14 IV ity of (OFIRMEV) 17:45: 17:26 [place]fusion, [place] injection 00 :00 Administer Medi rashaad 1,000 mg over 15 Branch Minutes, ONCE, 1 dose, [facility] 12/14/20 at 1245, Routine, PACU
Indicatio n: Perioperat dorota Patient acetaminoph Yes 1{tbl} 1 tablet, Univers en-codeine 12-14 Oral, PRN, ity of (TYLENOL 17:37: 1 dose, [place] #3) 300-30 58 Starting Medic al mg tablet 1 Thu12/14/20 Br anch tablet at 1237, Until Discontinu ed, Routine, Pain (scale 4-6), DSU Recovery acetaminoph Yes 325mg 325 mg, Un kathy en 12-14 Oral, PRN, ity of (TYLENOL) 17:37: 10 doses, [place] as tablet 325 58 Starting Medic al mg Thu12/14/20 Branch at 1237, Until Discontinu ed, Routine, Pain (scale 1-3), DSU Recovery acetaminoph 2020- No 1{tbl} 1 tablet, Univers en-codeine 12-14 Oral, PRN, it y of (TYLENOL 17:37: 20:33 1 dose, [place] #3) 300-30 58 :49 Starting Medic al mg tablet 1 Thu12/14/20 Br anch tablet at 1237, Until Thu12/14/20 at 1533, Routine, Pain (scale 4-6), DSU Recovery acetaminoph 2020- No 325mg 325 mg, U nivers en 12-14 Oral, PRN, ity of (TYLENOL) 17:37: 20:33 10 doses, [place] tablet 325 58 :49 Starting Medic al mg Thu12/14/20 Branch at 1237, Until Thu12/14/20 at 1533, Routine, Pain (scale 1-3), DSU Recovery morpHINE Yes 4mg 4 mg, Slow Uni vers injection 4 12-14 IV Push, ity of mg 16:56: Q5MIN PRN, [place] 19 2 doses, Medical Starting Branch Thu12/14/20 at 1156, Until Discontinu ed, Routine, Pain (scale 7-10), PACU ondansetron Yes 4mg 4 mg, Slow Univers (ZOFRAN 12-14 IV Push, ity of (PF)) 16:56: PRN, 1 [place] injection 4 19 dose, Medical mg Starting Branch Thu12/14/20 at 1156, Until Discontinu ed, Routine, Nausea and Vomiting (N/V), PACU FENTanyl PF No 25ug 25 mcg, Un kathy (SUBLIMAZE 12-14 Slow IV ity o f (PF)) 16:56: 17:27 Push, [place] injection 19 :00 Q5MIN PRN, Medi rashaad 25 mcg 4 doses, Branch Starting Thu12/14/20 at 1156, Until Discontinu ed, Routine, Pain (scale 4-6), PACU morpHINE 2020- No 4mg 4 mg, Slow Un kathy injection 4 12-14 IV Push, ity of mg 16:56: 20:33 Q5MIN PRN, [place] 19 :49 2 doses, Medical Starting Branch Thu12/14/20 at 1156, Until Thu12/14/20 at 1533, Routine, Pain (scale 7-10), PACU FENTanyl PF No 25ug 25 mcg, Un kathy (SUBLIMAZE 12-14 Slow IV ity o f (PF)) 16:56: 17:27 Push, [place] injection 19 :00 Q5MIN PRN, Medi rashaad 25 mcg 4 doses, Branch Starting Thu12/14/20 at 1156, Until Discontinu ed, Routine, Pain (scale 4-6), PACU ondansetron 2020- No 4mg 4 mg, Slow Univers (ZOFRAN 12-14 IV Push, ity of (PF)) 16:56: 20:33 PRN, 1 [place] injection 4 19 :49 dose, Medical mg Starting Branch Thu12/14/20 at 1156, Until Thu12/14/20 at 1533, Routine, Nausea and Vomiting (N/V), PACU bupivacaine Yes PRN, Univer s (preserv 12-14 Starting ity of free) 16:03: Thu12/14/20 [place] (SENSORCAIN 00 at 1103, Medi rashaad E MPF) 0.25 Until Branch % (2.5 Discontinu mg/mL) ed, injection Routine, Intra-op bupivacaine 2020- No PRN, Unive rs (preserv 12-14 Starting ity of free) 16:03: 20:33 Thu12/14/20 [place] (SENSORCAIN 00 :49 at 1103, Medi rashaad E MPF) 0.25 Until Fri Bra nch % (2.5 12/14/20 at mg/mL) 1533, injection Routine, Intra-op ibuprofen 2020- No [id number] 600mg Take 1 Univers 600 mg 12-14 tablet by ity of tablet 00:00: 04:59 mouth [place] 00 :00 every 6 Medical (six) Branch hours for 30 days. ibuprofen 202-0 2021- No [id number] 600mg Take 1 Univers 600 mg 7-09 08-09 tablet by ity of tablet 00:00: 04:59 mouth [place] 00 :00 every 6 Medical (six) Branch hours for 30 days. ibuprofen 202-0 2021- No [id number] 600mg Take 1 Univers 600 mg 7-09 08-09 tablet by ity of tablet 00:00: 04:59 mouth [place] 00 :00 every 6 Medical (six) Branch hours for 30 days. ibuprofen 2020-0 1- No [id number] 600mg Take 1 Univers 600 mg 7-09 08-09 tablet by ity of tablet 00:00: 04:59 mouth [place] 00 :00 every 6 Medical (six) Branch hours for 30 days. ibuprofen 2020-0 1- No [id number] 600mg Take 1 Univers 600 mg 7-09 08-09 tablet by ity of tablet 00:00: 04:59 mouth [place] 00 :00 every 6 Medical (six) Branch hours for 30 days. ibuprofen 2020-0 1- No [id number] 600mg Take 1 Univers 600 mg 7-09 08-09 tablet by ity of tablet 00:00: 04:59 mouth [place] 00 :00 every 6 Medical (six) Branch hours for 30 days. ibuprofen 2020-0 1- No [id number] 600mg Take 1 Univers 600 mg 7-09 08-09 tablet by ity of tablet 00:00: 04:59 mouth [place] 00 :00 every 6 Medical (six) Branch hours for 30 days. ibuprofen 202-0 1- No [id number] 600mg Take 1 Univers 600 mg 7-09 08-09 tablet by ity of tablet 00:00: 04:59 mouth [place] 00 :00 every 6 Medical (six) Branch hours for 30 days. ibuprofen 202-0 1- No [id number] 600mg Take 1 Univers 600 mg 7-09 08-09 tablet by ity of tablet 00:00: 04:59 mouth [place] 00 :00 every 6 Medical (six) Branch hours for 30 days. ibuprofen 202-0 2021- No [id number] 600mg Take 1 Univers 600 mg 7-09 08-09 tablet by ity of tablet 00:00: 04:59 mouth [place] 00 :00 every 6 Medical (six) Branch hours for 30 days. acetaminoph No [id number] 1{tbl} Take 1 U nivers en-codeine 12-14 tablet by ity of (TYLENOL-CO 00:00: 04:59 [place] DEINE #3) 00 :00 every 6 Medical 300-30 mg (six) Branch tablet hours as needed for Pain (scale 7-10) for up to 7 days. Indication s: acute pain acetaminoph 2020- No 4647 1{tbl} Take 1 U nivers en-codeine 12-14 tablet by ity of (TYLENOL-CO 00:00: 04:59 mouth [place] DEINE #3) 00 :00 every 6 Medical 300-30 mg (six) Branch tablet hours as needed for Pain (scale 7-10) for up to 7 days. Indication s: acute pain acetaminoph No 4647 1{tbl} Take 1 U nivers en-codeine 12-14 tablet by ity of (TYLENOL-CO 00:00: 04:59 mouth [place] DEINE #3) 00 :00 every 6 Medical 300-30 mg (six) Branch tablet hours as needed for Pain (scale 7-10) for up to 7 days. Indication s: acute pain ketorolac 2021-0 Yes 10mg Take 1 Univer s 10 mg 6-04 tablet by ity of tablet 00:00: mouth [place] 00 every 6 Medical (six) Branch hours as needed for Pain (scale 4-6). ketorolac 2021-0 Yes 10mg Take 1 Univer s 10 mg 6-04 tablet by ity of tablet 00:00: mouth [place] 00 every 6 Medical (six) Branch hours as needed for Pain (scale 4-6). ketorolac 2021-0 Yes 10mg Take 1 Univer s 10 mg 6-04 tablet by ity of tablet 00:00: mouth [place] 00 every 6 Medical (six) Branch hours as needed for Pain (scale 4-6). ketorolac 2021-0 Yes 10mg Take 1 Univer s 10 mg 6-04 tablet by ity of tablet 00:00: mouth [place] 00 every 6 Medical (six) Branch hours as needed for Pain (scale 4-6). ketorolac 2021-0 Yes 10mg Take 1 Univer s 10 mg 6-04 tablet by ity of tablet 00:00: mouth [place] 00 every 6 Medical (six) Branch hours as needed for Pain (scale 4-6). ketorolac 2021-0 Yes 10mg Take 1 Univer s 10 mg 6-04 tablet by ity of tablet 00:00: mouth [place] 00 every 6 Medical (six) Branch hours as needed for Pain (scale 4-6). ketorolac 2021-0 Yes 10mg Take 1 Univer s 10 mg 6-04 tablet by ity of tablet 00:00: mouth [place] 00 every 6 Medical (six) Branch hours as needed for Pain (scale 4-6). ketorolac 2021-0 Yes 10mg Take 1 Univer s 10 mg 6-04 tablet by ity of tablet 00:00: mouth [place] 00 every 6 Medical (six) Branch hours as needed for Pain (scale 4-6). ketorolac 2021-0 Yes 10mg Take 1 Univer s 10 mg 6-04 tablet by ity of tablet 00:00: mouth [place] 00 every 6 Medical (six) Branch hours as needed for Pain (scale 4-6). ketorolac 2021-0 Yes 10mg Take 1 Univer s 10 mg 6-04 tablet by ity of tablet 00:00: mouth [place] 00 every 6 Medical (six) Branch hours as needed for Pain (scale 4-6). ketorolac 2021-0 Yes 10mg Take 1 Univer s 10 mg 6-04 tablet by ity of tablet 00:00: mouth [place] 00 every 6 Medical (six) Branch hours as needed for Pain (scale 4-6). ketorolac 2021-0 Yes 10mg Take 1 Univer s 10 mg 6-04 tablet by ity of tablet 00:00: mouth [place] 00 every 6 Medical (six) Branch hours as needed for Pain (scale 4-6). ketorolac 2021-0 Yes 10mg Take 1 Univer s 10 mg 6-04 tablet by ity of tablet 00:00: mouth [place] 00 every 6 Medical (six) Branch hours as needed for Pain (scale 4-6). ketorolac 2021-0 Yes 10mg Take 1 Univer s 10 mg 6-04 tablet by ity of tablet 00:00: mouth [place] 00 every 6 Medical (six) Branch hours as needed for Pain (scale 4-6). ketorolac Yes 10mg Take 1 Univer s 10 mg 6-04 tablet by ity of tablet 00:00: mouth [place] 00 every 6 Medical (six) Branch hours as needed for Pain (scale 4-6). ketorolac Yes 10mg Take 1 Univer s 10 mg 6-04 tablet by ity of tablet 00:00: mouth [place] 00 every 6 Medical (six) Branch hours as needed for Pain (scale 4-6). ketorolac Yes 10mg Take 1 Univer s 10 mg 6-04 tablet by ity of tablet 00:00: mouth [place] 00 every 6 Medical (six) Branch hours as needed for Pain (scale 4-6). metroNIDAZO 2020- No [id number] 500mg Take 1 Univers LE 500 mg 09-14 tablet by ity of tablet 00:00: 04:59 mouth 2 [place] 00 :00 (two) Medical times Branch daily for 7 days. metroNIDAZO 2020- No [id number] 500mg Take 1 Univers LE 500 mg 09-14 tablet by ity of tablet 00:00: 04:59 mouth 2 [place] 00 :00 (two) Medical times Branch daily for 7 days. metroNIDAZO 2020- No [id number] 500mg Take 1 Univers LE 500 mg 09-14 tablet by ity of tablet 00:00: 04:59 mouth 2 [place] 00 :00 (two) Medical times Branch daily for 7 days. famotidine Yes 20mg 20 mg, Unive rs (PEPCID AC) 8-18 Oral, ity of tablet 20 09:31: [id number], [place] mg 04 Starting Medical Sun Branch 01/23/19 at 0431, Until Discontinu ed, Routine, Heartburn docusate Yes [id number] 240mg Take 1 U nivers calcium 240 8-17 capsule by it y of mg capsule 00:00: mouth once [place] 00 daily as Medical needed for Branch Constipati on. ferrous Yes [id number] 325mg Take 1 Un kathy sulfate 325 8-17 tablet by ity of mg (65 mg 00:00: mouth 2 [place] iron) 00 (two) Medical tablet times Branch daily. ibuprofen Yes [id number] 600mg Take 1 Univers 600 mg 8-17 tablet by ity of tablet 00:00: mouth [place] 00 every 6 Medical (six) Branch hours as needed for Pain (scale 1-3) or Pain (scale 4-6) (Pain). Take with food or milk. docusate Yes [id number] 240mg Take 1 U nivers calcium 240 8-17 capsule by it y of mg capsule 00:00: mouth once [place] 00 daily as Medical needed for Branch Constipati on. ferrous Yes [id number] 325mg Take 1 Un kathy sulfate 325 8-17 tablet by ity of mg (65 mg 00:00: mouth 2 [place] iron) 00 (two) Medical tablet times Branch daily. ibuprofen Yes [id number] 600mg Take 1 Univers 600 mg 8-17 tablet by ity of tablet 00:00: mouth [place] 00 every 6 Medical (six) Branch hours as needed for Pain (scale 1-3) or Pain (scale 4-6) (Pain). Take with food or milk. docusate Yes [id number] 240mg Take 1 U nivers calcium 240 8-17 capsule by it y of mg capsule 00:00: mouth once [place] 00 daily as Medical needed for Branch Constipati on. ferrous 0 Yes [id number] 325mg Take 1 Un kathy sulfate 325 8-17 tablet by ity of mg (65 mg 00:00: mouth 2 [place] iron) 00 (two) Medical tablet times Branch daily. ibuprofen Yes [id number] 600mg Take 1 Univers 600 mg 8-17 tablet by ity of tablet 00:00: mouth [place] 00 every 6 Medical (six) Branch hours as needed for Pain (scale 1-3) or Pain (scale 4-6) (Pain). Take with food or milk. docusate Yes [id number] 240mg Take 1 U nivers calcium 240 8-17 capsule by it y of mg capsule 00:00: mouth once [place] 00 daily as Medical needed for Branch Constipati on. ferrous 2018-0 Yes [id number] 325mg Take 1 Un kathy sulfate 325 8-17 tablet by ity of mg (65 mg 00:00: mouth 2 [place] iron) 00 (two) Medical tablet times Branch daily. ibuprofen Yes [id number] 600mg Take 1 Univers 600 mg 8-17 tablet by ity of tablet 00:00: mouth [place] 00 every 6 Medical (six) Branch hours as needed for Pain (scale 1-3) or Pain (scale 4-6) (Pain). Take with food or milk. docusate Yes [id number] 240mg Take 1 U nivers calcium 240 8-17 capsule by it y of mg capsule 00:00: mouth once [place] 00 daily as Medical needed for Branch Constipati on. ferrous Yes [id number] 325mg Take 1 Un kathy sulfate 325 8-17 tablet by ity of mg (65 mg 00:00: mouth 2 [place] iron) 00 (two) Medical tablet times Branch daily. ibuprofen Yes [id number] 600mg Take 1 Univers 600 mg 8-17 tablet by ity of tablet 00:00: mouth [place] 00 every 6 Medical (six) Branch hours as needed for Pain (scale 1-3) or Pain (scale 4-6) (Pain). Take with food or milk. docusate Yes [id number] 240mg Take 1 U nivers calcium 240 8-17 capsule by it y of mg capsule 00:00: mouth once [place] 00 daily as Medical needed for Branch Constipati on. ferrous Yes [id number] 325mg Take 1 Un kathy sulfate 325 8-17 tablet by ity of mg (65 mg 00:00: mouth 2 [place] iron) 00 (two) Medical tablet times Branch daily. ibuprofen Yes [id number] 600mg Take 1 Univers 600 mg 8-17 tablet by ity of tablet 00:00: mouth [place] 00 every 6 Medical (six) Branch hours as needed for Pain (scale 1-3) or Pain (scale 4-6) (Pain). Take with food or milk. docusate Yes [id number] 240mg Take 1 U nivers calcium 240 8-17 capsule by it y of mg capsule 00:00: mouth once [place] 00 daily as Medical needed for Branch Constipati on. ferrous Yes [id number] 325mg Take 1 Un kathy sulfate 325 8-17 tablet by ity of mg (65 mg 00:00: mouth 2 [place] iron) 00 (two) Medical tablet times Branch daily. ibuprofen Yes [id number] 600mg Take 1 Univers 600 mg 8-17 tablet by ity of tablet 00:00: mouth [place] 00 every 6 Medical (six) Branch hours as needed for Pain (scale 1-3) or Pain (scale 4-6) (Pain). Take with food or milk. docusate Yes [id number] 240mg Take 1 U nivers calcium 240 8-17 capsule by it y of mg capsule 00:00: mouth once [place] 00 daily as Medical needed for Branch Constipati on. ferrous Yes [id number] 325mg Take 1 Un kathy sulfate 325 8-17 tablet by ity of mg (65 mg 00:00: mouth 2 [place] iron) 00 (two) Medical tablet times Branch daily. ibuprofen Yes [id number] 600mg Take 1 Univers 600 mg 8-17 tablet by ity of tablet 00:00: mouth [place] 00 every 6 Medical (six) Branch hours as needed for Pain (scale 1-3) or Pain (scale 4-6) (Pain). Take with food or milk. docusate Yes [id number] 240mg Take 1 U nivers calcium 240 8-17 capsule by it y of mg capsule 00:00: mouth once [place] 00 daily as Medical needed for Branch Constipati on. ferrous Yes [id number] 325mg Take 1 Un kathy sulfate 325 8-17 tablet by ity of mg (65 mg 00:00: mouth 2 [place] iron) 00 (two) Medical tablet times Branch daily. ibuprofen Yes [id number] 600mg Take 1 Univers 600 mg 8-17 tablet by ity of tablet 00:00: mouth [place] 00 every 6 Medical (six) Branch hours as needed for Pain (scale 1-3) or Pain (scale 4-6) (Pain). Take with food or milk. docusate Yes [id number] 240mg Take 1 U nivers calcium 240 8-17 capsule by it y of mg capsule 00:00: mouth [place] 00 daily as Medical needed for Branch Constipati on. ferrous Yes [id number] 325mg Take 1 Un kathy sulfate 325 8-17 tablet by ity of mg (65 mg 00:00: mouth 2 [place] iron) 00 (two) Medical tablet times Branch daily. ibuprofen Yes [id number] 600mg Take 1 [facility] 600 mg 8-17 tablet by ity of tablet 00:00: mouth [place] 00 every 6 Medical (six) Branch hours as needed for Pain (scale 1-3) or Pain (scale 4-6) (Pain). Take with food or milk. docusate 2020- No [id number] 240mg Take 1 [facility] calcium 240 8-17 03-30 capsule by i ty of mg capsule 00:00: 00:00 mouth once [place] 00 :00 daily as Medical needed for Branch Constipati on. ferrous 2020- No [id number] 325mg Take 1 U nivers sulfate 325 8-17 03-30 tablet by it y of mg (65 mg 00:00: 00:00 [place] iron[place] 00 :00 (two) Medical tablet times Branch daily. ibuprofen 2020- No [id number] 600mg Take 1 [facility] 600 mg 8-17 03-30 tablet by ity of tablet 00:00: 00:00 mouth [place] 00 :00 every 6 Medical (six) Branch hours as needed for Pain (scale 1-3) or Pain (scale 4-6) (Pain). Take with food or milk. docusate 2020- No [id number] 240mg Take 1 [facility] calcium 240 8-17 03-30 capsule by i ty of mg capsule 00:00: 00:00 mouth once [place] 00 :00 daily as Medical needed for Branch Constipati on. ferrous 2020- No [id number] 325mg Take 1 U nivers sulfate 325 8-17 03-30 tablet by it y of mg (65 mg 00:00: 00:00 mouth 2 [place] iron[place] 00 :00 (two) Medical tablet times Branch daily. ibuprofen 2020- No [id number] 600mg Take 1 [facility] 600 mg 8-17 03-30 tablet by ity of tablet 00:00: 00:00 mouth [place] 00 :00 every 6 Medical (six) Branch hours as needed for Pain (scale 1-3) or Pain (scale 4-6) (Pain). Take with food or milk. docusate 2020- No [id number] 240mg Take 1 [facility] calcium 240 01-2230 capsule by i ty of mg capsule 00:00: 00:00 mouth once [place] 00 :00 daily as Medical needed for Branch Constipati on. ferrous 2020- No [id number] 325mg Take 1 U nivers sulfate 325 01-2230 tablet by it y of mg (65 mg 00:00: 00:00 mouth 2 [place] iron) 00 :00 (two) Medical tablet times Branch daily. ibuprofen 2020- No [id number] 600mg Take 1 [facility] 600 mg 01-2230 tablet by ity of tablet 00:00: 00:00 mouth [place] 00 :00 every 6 Medical (six) Branch hours as needed for Pain (scale 1-3) or Pain (scale 4-6) (Pain). Take with food or milk. docusate 2020- No [id number] 240mg Take 1 [facility] calcium 240 01-2230 capsule by i ty of mg capsule 00:00: 00:00 mouth once [place] 00 :00 daily as Medical needed for Branch Constipati on. ferrous 2020- No [id number] 325mg Take 1 U nivers sulfate 325 01-2230 tablet by it y of mg (65 mg 00:00: 00:00 mouth 2 [place] iron[place] 00 :00 (two) Medical tablet times Branch daily. ibuprofen 2020- No [id number] 600mg Take 1 [facility] 600 mg 01-22 tablet by ity of tablet 00:00: 00:00 mouth [place] 00 :00 every 6 Medical (six) Branch hours as needed for Pain (scale 1-3) or Pain (scale 4-6) (Pain). Take with food or milk. HYDROcodone 2018- No [id number] 1{tbl} Take 1 [facility] -acetaminop 01-22 tablet by it y of hen 5-325 00:00: 04:59 mouth [place] mg tablet 00 :00 every 6 Medical (six) Branch hours as needed for Pain (scale 7-10) (Pain scale above 4) for up to 7 days. hydrOXYzine 2018- No 50mg 50 mg, Uni vers (ATARAX) 8-16 08-16 Oral, ity of tablet 50 13:30: 14:15 ONCE, 1 [place] mg 00 :00 dose, Fri Medical 01/21/19 at Branch 0830, Routine benzocaine- 2019-0 Yes Topical, Un kathy menthol 8-16 PRN, ity of (DERMOPLAST 10:23: [place] 20-0.5 % 34 Thu Medical topical 01/21/19 at Branch spray 0523, Until Discontinu ed, Routine, Localized pain ondansetron 2019-0 Yes 4mg 4 mg, Unive rs (ZOFRAN) 8-16 Oral, PRN ity of tablet 4 mg 10:22: - SEE [place] 05 [facility], Branch Starting 01/21/19 at 0522, Until Discontinu ed, Routine, Nausea and Vomiting (N/V) HYDROcodone 2019-0 Yes 1{tbl} 1 tablet, Univers -acetaminop 8-16 Oral, ity of hen (NORCO) 10:22: Q6HPRN, [place] as 10-325 mg 05 Starting Medica l tablet 1 Thu Branch tablet 01/21/19 at 0522, Until Discontinu ed, Routine, Pain (scale 7-10) HYDROcodone 2019-0 Yes 1{tbl} 1 tablet, Univers -acetaminop 8-16 Oral, ity of hen (NORCO 10:22: Q6HPRN, [place] 5) 5-325 mg 05 Starting Medi rashaad tablet 1 Fri Branch tablet 01/21/19 at 0522, Until Discontinu ed, Routine, Pain (scale 4-6) ibuprofen 2019-0 Yes 600mg 600 mg, Univ ers (IBU) 8-16 Oral, ity of tablet 600 10:22: Q6HPRN, [place] mg 05 Starting Medical Fri Branch 01/21/19 at 0522, Until Discontinu ed, Routine, Pain (scale 1-3) diphenhydrA 2019-0 Yes 25mg 25 mg, Univ ers MINE 8-16 Oral, ity of (BENADRYL) 10:22: Q6HPRN, [place] tablet 25 05 Starting Medica l mg Fri Branch 01/21/19 at 0522, Until Discontinu ed, Routine, Sleep, Itching ondansetron 2019-0 Yes 4mg 4 mg, Slow Univers (ZOFRAN 8-16 IV Push, ity of (PF)) 10:22: Q8HPRN, [place] injection 4 05 Starting Medi rashaad mg Fri Branch 01/21/19 at 0522, Until Discontinu ed, Routine, Nausea and Vomiting (N/V) bisacodyl 2019-0 Yes 10mg 10 mg, Univer s (DULCOLAX) 01-21 Rectal, ity of suppository 10:22: QDAILYPRN, [place] 10 mg 05 Starting Medical Fri Branch 01/21/19 at 0522, Until Discontinu ed, Routine, Constipati on simethicone 2019-0 Yes 160mg 160 mg, Un kathy (GAS 01-21 Oral, ity of RELIEF) 10:22: PC+HSPRN, [place] chewable 05 Starting Medical tablet 160 Fri [place] mg 01/21/19 at 0522, Until Discontinu ed, Routine, Gas docusate 0 Yes 240mg 240 mg, Unive rs calcium 01-21 Oral, ity of (SURFAK) 10:22: QDAILYPRN, [place] capsule 240 05 Starting Medi rashaad mg Fri Branch 01/21/19 at 0522, Until Discontinu ed, Routine, Constipati on magnesium 2018-0 Yes 30mL 30 mL, Univer s hydroxide 01-21 Oral, ity of (MILK OF 10:22: QDAILYPRN, [place] MAGNESIA) 05 Starting Medica l 400 mg/5 mL [facility] Branch suspension 01/21/19 at 30 mL 0522, Until Discontinu ed, Routine, Constipati on hydrOXYzine 2019- No 10mg 10 mg, Uni vers (ATARAX) 01-21 Oral, ONCE ity of tablet 10 07:45: 06:48 NOW, 1 [place] mg 00 :00 dose, Fri Medical 01/21/19 at Branch 0245, Routine ondansetron 0 2019- No 4mg 4 mg, Slow Univers (ZOFRAN 01-21 IV Push, ity of (PF)) 01:15: 00:28 ONCE, 1 [place] injection 4 00 :00 dose, [place] Med ical mg 01/20/19 at Branch 2015, Routine ibuprofen 2019-0 Yes 600mg 600 mg, Univ ers (IBU) 8-16 Oral, Q6H, ity of tablet 600 00:30: First dose [place] mg 00 on [place] Medical 01/20/19 at Branch 1930, Until Discontinu ed, Routine HYDROcodone Yes 2{tbl} 2 tablet, Univers -acetaminop 01-21 Oral, ity of hen (NORCO 00:13: Q6HPRN, [place] 5) 5-325 mg 01 Starting Medi rashaad tablet 2 [place] Branch tablet 01/20/19 at 1913, Until Discontinu ed, Routine, Pain (scale 7-10) bupivacaine Yes Epidural, U nivers 0.0625% 01-20 at 6 ity of epidural 22:00: mL/hr, [place] infusion 00 CONTINUOUS Medic al 250 mL , Starting Branch [facility] 01/20/19 at 1700, Until Discontinu ed, 250 mL ketorolac 2019- No 30mg 30 mg, Unive rs (TORADOL) 01-20 Slow IV ity of injection 20:00: 19:12 Push, [place] 30 mg 00 :00 ONCE, 1 Medical dose, [place] Branch 01/20/19 at 1500, Routine, PACU
Fa culty member approving Restricted medication : LD PACU nalbuphine 2019- No 5mg 5 mg, Unive rs (NUBAIN) 01-20 Intravenou ity of injection 5 18:55: 19:00 s, PRN, 1 [place] mg 15 :00 dose, Medical Starting [facility] 01/20/19 at 1355, Until [facility] 01/20/19 at 1400, Routine, itching, PACU diphenhydrA 2019- No 25mg 25 mg, Uni vers MINE 01-20 Slow IV ity of (BENADRYL) 18:01: 18:00 Push, [place] injection 17 :17 Q4HPRN, Medical 25 mg Starting Branch [facility] 01/20/19 at 1301, Until Thu01/21/19 at 1300, Routine, Itching, PACU lactated 2019- No 1000mL at 125 Univ ers ringers IV 01-20 mL/hr, ity of infusion 12:45: 10:22 1,000 mL, [place] 1,000 mL 00 :10 IV Medical Infusion, Branch CONTINUOUS , Starting [place] 01/20/19 at 0745, Until 01/21/19 at 0522, Routine acetaminoph 2019- No 650mg 650 mg, U nivers en 01-20 Oral, ity of (TYLENOL) 12:45: 13:42 ONCE, 1 [place] tablet 650 00 :00 dose, [place] Medi rashaad mg 01/20/19 at Branch 0745, Routine ceFAZolin 2019- No 2000mg 2 g (2,000 Univers in dextrose 01-20 mg), IV ity of (iso-os) 12:41: 15:45 [place], [place] (ANCEF) 2 46 :00 O.R. Medical gram/100 mL HOLDING Branc h Piggyback 2 ONCE, 1 g dose, Starting [place] 01/20/19 at 0741, Until Discontinu ed, 100 mL
Reas on for Anti-Infec tive: Surgical Prophylaxi s
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
Duration of therapy: within 24 hours of surgery sodium 2019- No 30mL 30 mL, Univers citrate-cit 01-20 Oral, ity of wade acid 12:41: 15:45 PRE-PROCED [place] (BICITRA) 46 :00 URE ONCE, Medic al 500-334 1 dose, Branch mg/5 mL Starting solution 30 [place] mL 01/20/19 at 0741, Until 01/22/19 at 2359, Routine, Surgery/Pr ocedure metroNIDAZO Yes [id number] 500mg Take 2 Univers LE 250 mg 6-10 tablets by ity of tablet 00:00: mouth 2 [place] 00 (two) Medical times Branch daily. metroNIDAZO 2018- Yes [id number] 500mg Take 2 [facility] LE 250 mg 6-10 tablets by ity of tablet 00:00: mouth 2 [place] 00 (two) Medical times Branch daily. metroNIDAZO 2018- Yes [id number] 500mg Take 2 Univers LE 250 mg 6-10 tablets by ity of tablet 00:00: mouth 2 [place] 00 (two) Medical times Branch daily. proMETHazin Yes [id number] 25mg Take 1 Univers e 25 mg 5-06 tablet by ity of tablet 00:00: mouth [place] 00 every 4 Medical (four) Branch hours as needed for Nausea and Vomiting (N/V). proMETHazin Yes [id number] 25mg Take 1 Univers e 25 mg 5-06 tablet by ity of tablet 00:00: mouth [place] 00 every 4 Medical (four) Branch hours as needed for Nausea and Vomiting (N/V). proMETHazin Yes [id number] 25mg Take 1 Univers e 25 mg 5-06 tablet by ity of tablet 00:00: mouth [place] 00 every 4 Medical (four) Branch hours as needed for Nausea and Vomiting (N/V). Yes [id number] 1{packe Take 1 Univers vit 1-22 t} Packet by ity of 33-iron-fol 00:00: mouth [place] ic-dha 00 daily. Medical (SELECT-OB Branch + DHA) 29 mg iron-1 mg -250 mg combo pack Yes [id number] 1{packe Take 1 Univers vit 1-22 t} Packet by ity of 33-iron-fol 00:00: mouth [place] ic-dha 00 daily. Medical (SELECT-OB Branch + DHA) 29 mg iron-1 mg -250 mg combo pack Yes [id number] 1{packe Take 1 Univers vit 1-22 t} Packet by ity of 33-iron-fol 00:00: mouth [place] ic-dha 00 daily. Medical (SELECT-OB Branch + DHA) 29 mg iron-1 mg -250 mg combo pack 2019- No [id number] 1{packe Take 1 Univers vit 1-22 08-17 t} Packet by ity of 33-iron-fol 00:00: 00:00 mouth [place] ic-dha 00 :00 daily. Medical (SELECT-OB Branch + DHA) 29 mg iron-1 mg -250 mg combo pack traMADOL 50 Yes 50mg Take 1 Univ ers mg tablet 6-07 tablet by ity o f 00:00: mouth [place] 00 every 6 Medical (six) Branch hours as needed for Pain (scale 7-10) for up to 12 doses. traMADOL 50 Yes 50mg Take 1 Univ ers mg tablet 6-07 tablet by ity o f 00:00: mouth [place] 00 every 6 Medical (six) Branch hours as needed for Pain (scale 7-10) for up to 12 doses. traMADOL 50 Yes 50mg Take 1 Univ ers mg tablet 6-07 tablet by ity o f 00:00: mouth [place] 00 every 6 Medical (six) Branch hours as needed for Pain (scale 7-10) for up to 12 doses. traMADOL 50 2019- No 50mg Take 1 Uni vers mg tablet 6 08-17 tablet by ity of 00:00: 00:00 mouth [place] 00 :00 every 6 Medical (six) Branch hours as needed for Pain (scale 7-10) for up to 12 doses. medroxyPROG 2014- Yes [id number] 150mg Univers ESTERone 3-10 ity of (DEPO-PROVE 21:15: [place] RA) 00 Medical injection Branch 150 mg medroxyPROG 2014- Yes [id number] 150mg Univers ESTERone 3-10 ity of (DEPO-PROVE 21:15: [place] RA) 00 Medical injection Branch 150 mg medroxyPROG Yes [id number] 150mg Univers ESTERone 3-10 ity of (DEPO-PROVE 21:15: [place] RA) 00 Medical injection Branch 150 mg medroxyPROG 2019- No [id number] 150mg Univers ESTERone 3-10 08-17 ity of (DEPO-PROVE 21:15: 23:33 [place] RA) 00 :41 Medical injection Branch 150 mg No known No Univers medications ity [facility] No known No Univers medications ity [facility] No known No Univers medications ity [facility] No known No Univers medications ity [facility] No known No Univers medications ity [facility] No known No Univers medications [facility] Immunizations Ordered Filled Date Status Comments Source Immunization Name Immunization Name TDAP (ADACEL) 2018-11-08 Completed University of VACCINE 00:00:00 [facility] TDAP (ADACEL) 2018-11-08 Completed University of VACCINE 00:00:00 [facility] TDAP (ADACEL) 2018-11-08 Completed University of VACCINE 00:00:00 [facility] TDAP (ADACEL) 2018-11-08 Completed University of VACCINE 00:00:00 [facility] TDAP (ADACEL) 2018-11-08 Completed University of VACCINE 00:00:00 [facility] TDAP (ADACEL) 2018-11-08 Completed University of VACCINE 00:00:00 [facility] TDAP (ADACEL) 2018-11-08 Completed University of VACCINE 00:00:00 [facility] TDAP (ADACEL) 2018-11-08 Completed University of VACCINE 00:00:00 [facility] Branch TDAP (ADACEL) 2018-11-08 Completed University of VACCINE 00:00:00 [facility] Branch TDAP (ADACEL) 2018-11-08 Completed University of VACCINE 00:00:00 [facility] Branch TDAP (ADACEL) 2018-11-08 Completed University of VACCINE 00:00:00 [facility] Branch TDAP (ADACEL) 2018-11-08 Completed University of VACCINE 00:00:00 [facility] Branch TDAP (ADACEL) 2018-11-08 Completed University of VACCINE 00:00:00 [facility] Branch TDAP (ADACEL) 2018-11-08 Completed University of VACCINE 00:00:00 [facility] Branch TDAP (ADACEL) 2018-11-08 Completed University of VACCINE 00:00:00 [facility] Branch TDAP (ADACEL) 2018-11-08 Completed University of VACCINE 00:00:00 [facility] Branch TDAP (ADACEL) 2018-11-08 Completed University of VACCINE 00:00:00 [facility] Branch TDAP (ADACEL) 2018-11-08 Completed University of VACCINE 00:00:00 [facility] Branch TDAP (ADACEL) 2018-11-08 Completed University of VACCINE 00:00:00 [facility] Branch TDAP (ADACEL) 2018-11-08 Completed University of VACCINE 00:00:00 [facility] Branch TDAP (ADACEL) 2018-11-08 Completed University of VACCINE 00:00:00 [facility] Branch TDAP (ADACEL) 2018-11-08 Completed University of VACCINE 00:00:00 [facility] Branch TDAP (ADACEL) 2018-11-08 Completed University of VACCINE 00:00:00 [facility] Branch TDAP (ADACEL) 2018-11-08 Completed University of VACCINE 00:00:00 [place] [facility] TDAP (ADACEL) 2018-11-08 Completed University of VACCINE 00:00:00 [facility] TDAP (ADACEL) 2018-11-08 Completed University of VACCINE 00:00:00 [facility] TDAP (ADACEL) 2018-11-08 Completed University of VACCINE 00:00:00 [facility] TDAP (ADACEL) 2018-11-08 Completed University of VACCINE 00:00:00 [facility] Branch TDAP (ADACEL) 2018-11-08 Completed University of VACCINE 00:00:00 [facility] Branch TDAP (ADACEL) 2018-11-08 Completed University of VACCINE 00:00:00 [facility] Branch TDAP (ADACEL) 2018-11-08 Completed University of VACCINE 00:00:00 [facility] Branch TDAP (ADACEL) 2018-11-08 Completed University of VACCINE 00:00:00 [facility] Branch TDAP (ADACEL) 2018-11-08 Completed University of VACCINE 00:00:00 [facility] Branch TDAP (ADACEL) 2018-11-08 Completed University of VACCINE 00:00:00 [facility] Branch TDAP (ADACEL) 2018-11-08 Completed University of VACCINE 00:00:00 [facility] Branch TDAP (ADACEL) 2018-11-08 Completed University of VACCINE 00:00:00 [facility] TDAP (ADACEL) 2018-11-08 Completed University of VACCINE 00:00:00 [facility] TDAP (ADACEL) 2018-11-08 Completed University of VACCINE 00:00:00 [facility] TDAP (ADACEL) 2018-11-08 Completed University of VACCINE 00:00:00 [facility] TDAP (ADACEL) 2018-11-08 Completed University of VACCINE 00:00:00 [facility] TDAP (ADACEL) 2018-11-08 Completed University of VACCINE 00:00:00 [facility] Influenza Virus 2017-06-14 Completed Universit y of Vaccine 00:00:00 [facility] Influenza Virus 2017-06-14 Completed Universit y of Vaccine 00:00:00 [facility] Influenza Virus 2017-06-14 Completed Universit y of Vaccine 00:00:00 [facility] Influenza Virus 2017-06-14 Completed Universit y of Vaccine 00:00:00 [facility] Influenza Virus 2017-06-14 Completed Universit y of Vaccine 00:00:00 [facility] Influenza Virus 2017-06-14 Completed Universit y of Vaccine 00:00:00 [facility] Influenza Virus 2017-06-14 Completed Universit y of Vaccine 00:00:00 [facility] Influenza Virus 2017-06-14 Completed Universit y of Vaccine 00:00:00 [facility] Influenza Virus 2017-06-14 Completed Universit y of Vaccine 00:00:00 [facility] Influenza Virus 2017-06-14 Completed Universit y of Vaccine 00:00:00 [facility] Influenza Virus 2017-06-14 Completed Universit y of Vaccine 00:00:00 [facility] Influenza Virus 2017-06-14 Completed Universit y of Vaccine 00:00:00 [facility] Influenza Virus 2017-06-14 Completed Universit y of Vaccine 00:00:00 [facility] Influenza Virus 2017-06-14 Completed Universit y of Vaccine 00:00:00 [facility] Influenza Virus 2017-06-14 Completed Universit y of Vaccine 00:00:00 [facility] Influenza Virus 2017-06-14 Completed Universit y of Vaccine 00:00:00 [facility] Influenza Virus 2017-06-14 Completed Universit y of Vaccine 00:00:00 [facility] Influenza Virus 2017-06-14 Completed Universit y of Vaccine 00:00:00 [facility] Influenza Virus 2017-06-14 Completed Universit y of Vaccine 00:00:00 [facility] Influenza Virus 2017-06-14 Completed Universit y of Vaccine 00:00:00 [facility] Influenza Virus 2017-06-14 Completed Universit y of Vaccine 00:00:00 [facility] Influenza Virus 2017-06-14 Completed Universit y of Vaccine 00:00:00 [facility] Influenza Virus 2017-06-14 Completed Universit y of Vaccine 00:00:00 [facility] Influenza Virus 2017-06-14 Completed Universit y of Vaccine 00:00:00 [facility] Influenza Virus 2017-06-14 Completed Universit y of Vaccine 00:00:00 [facility] Influenza Virus 2017-06-14 Completed Universit y of Vaccine 00:00:00 [facility] Influenza Virus 2017-06-14 Completed Universit y of Vaccine 00:00:00 [facility] Influenza Virus 2017-06-14 Completed Universit y of Vaccine 00:00:00 [facility] Influenza Virus 2017-06-14 Completed Universit y of Vaccine 00:00:00 [facility] Influenza Virus 2017-06-14 Completed Universit y of Vaccine 00:00:00 [facility] Influenza Virus 2017-06-14 Completed Universit y of Vaccine 00:00:00 [facility] Influenza Virus 2017-06-14 Completed Universit y of Vaccine 00:00:00 [facility] Influenza Virus 2017-06-14 Completed Universit y of Vaccine 00:00:00 [facility] Influenza Virus 2017-06-14 Completed Universit y of Vaccine 00:00:00 [facility] Influenza Virus 2017-06-14 Completed Universit y of Vaccine 00:00:00 [facility] Influenza Virus 2017-06-14 Completed Universit y of Vaccine 00:00:00 [facility] Influenza Virus 2017-06-14 Completed Universit y of Vaccine 00:00:00 [facility] Influenza Virus 2017-06-14 Completed Universit y of Vaccine 00:00:00 [facility] Influenza Virus 2017-06-14 Completed Universit y of Vaccine 00:00:00 [facility] Influenza Virus 2017-06-14 Completed Universit y of Vaccine 00:00:00 [facility] Influenza Virus 2017-06-14 Completed Universit y of Vaccine 00:00:00 [facility] Rubella 2012-10-04 Completed University of 00:00:00 [facility] Rubella 2012-10-04 Completed University of 00:00:00 [facility] Rubella 2012-10-04 Completed University of 00:00:00 [facility] Rubella 2012-10-04 Completed University of 00:00:00 [facility] Rubella 2012-10-04 Completed University of 00:00:00 [facility] Rubella 2012-10-04 Completed University of 00:00:00 [facility] Rubella 2012-10-04 Completed University of 00:00:00 [facility] Rubella 2012-10-04 Completed University of 00:00:00 [facility] Rubella 2012-10-04 Completed University of 00:00:00 [facility] Rubella 2012-10-04 Completed University of 00:00:00 [facility] Rubella 2012-10-04 Completed University of 00:00:00 [facility] Rubella 2012-10-04 Completed University of 00:00:00 [facility] Rubella 2012-10-04 Completed University of 00:00:00 [facility] Rubella 2012-10-04 Completed University of 00:00:00 [facility] Rubella 2012-10-04 Completed University of 00:00:00 [facility] Rubella 2012-10-04 Completed University of 00:00:00 [facility] Rubella 2012-10-04 Completed University of 00:00:00 [facility] Rubella 2012-10-04 Completed University of 00:00:00 [facility] Rubella 2012-10-04 Completed University of 00:00:00 [facility] Rubella 2012-10-04 Completed University of 00:00:00 [facility] Rubella 2012-10-04 Completed University of 00:00:00 [facility] Rubella 2012-10-04 Completed University of 00:00:00 [facility] Rubella 2012-10-04 Completed University of 00:00:00 [facility] Rubella 2012-10-04 Completed University of 00:00:00 [facility] Rubella 2012-10-04 Completed University of 00:00:00 [facility] Rubella 2012-10-04 Completed University of 00:00:00 [facility] Rubella 2012-10-04 Completed University of 00:00:00 [facility] Rubella 2012-10-04 Completed University of 00:00:00 [facility] Rubella 2012-10-04 Completed University of 00:00:00 [facility] Rubella 2012-10-04 Completed University of 00:00:00 [facility] Rubella 2012-10-04 Completed University of 00:00:00 [facility] Rubella 2012-10-04 Completed [facility] of 00:00:00 [facility] Rubella 2012-10-04 Completed University of 00:00:00 [facility] Rubella 2012-10-04 Completed [facility] of 00:00:00 [facility] Rubella 2012-10-04 Completed [facility] of 00:00:00 [facility] Rubella 2012-10-04 Completed [facility] of 00:00:00 [facility] Rubella 2012-10-04 Completed [facility] of 00:00:00 [facility] Rubella 2012-10-04 Completed [facility] of 00:00:00 [facility] Rubella 2012-10-04 Completed [facility] of 00:00:00 [facility] Rubella 2012-10-04 Completed [facility] of 00:00:00 [facility] Rubella 2012-10-04 Completed [facility] of 00:00:00 [facility] Rubella 2012-10-04 Completed [facility] of 00:00:00 [facility] Rubella 2010-09-17 Completed [facility] of 00:00:00 [facility] Varicella 2010-09-17 Completed University of (varivax)(chicken 00:00:00 [place] [facility]ox[facility] Rubella 2010-09-17 Completed [facility] of 00:00:00 [facility] Varicella 2010-09-17 Completed [facility] of (varivax)(chicken 00:00:00 [place] [facility] Rubella 2010-09-17 Completed [facility] of 00:00:00 [facility] Varicella 2010-09-17 Completed [facility] of (varivax)(chicken 00:00:00 [place] [facility] Rubella 2010-09-17 Completed [facility] 00:00:00 [facility] Varicella 2010-09-17 Completed [facility] of (varivax)(chicken 00:00:00 [place] [facility] Rubella 2010-09-17 Completed [facility] 00:00:00 [facility] Varicella 2010-09-17 Completed [facility] of (varivax)(chicken 00:00:00 [place] [facility] Rubella 2010-09-17 Completed [facility] 00:00:00 [facility] Varicella 2010-09-17 Completed [facility] of (varivax)(chicken 00:00:00 [place] [facility] Rubella 2010-09-17 Completed [facility] of 00:00:00 [facility] Varicella 2010-09-17 Completed [facility] of (varivax)(chicken 00:00:00 [place] [facility] Rubella 2010-09-17 Completed [facility] of 00:00:00 [facility] Varicella 2010-09-17 Completed [facility] of (varivax)(chicken 00:00:00 [place] [facility] Rubella 2010-09-17 Completed [facility] of 00:00:00 [facility] Varicella 2010-09-17 Completed [facility] of (varivax)(chicken 00:00:00 [place] [facility] Rubella 2010-09-17 Completed [facility] of 00:00:00 [facility] Varicella 2010-09-17 Completed [facility] of (varivax)(chicken 00:00:00 [place] [facility] Rubella 2010-09-17 Completed [facility] 00:00:00 [facility] Varicella 2010-09-17 Completed [facility] of (varivax)(chicken 00:00:00 [place] [facility] Rubella 2010-09-17 Completed [facility] 00:00:00 [facility] Varicella 2010-09-17 Completed [facility] of (varivax)(chicken 00:00:00 [place] [facility] Rubella 2010-09-17 Completed [facility] 00:00:00 [facility] Varicella 2010-09-17 Completed [facility] of (varivax)(chicken 00:00:00 [place] [facility] Rubella 2010-09-17 Completed [facility] 00:00:00 [facility] Varicella 2010-09-17 Completed [facility] of (varivax)(chicken 00:00:00 [place] [facility] Rubella 2010-09-17 Completed [facility] 00:00:00 [facility] Varicella 2010-09-17 Completed [facility] of (varivax)(chicken 00:00:00 [place] [facility] Rubella 2010-09-17 Completed [facility] 00:00:00 [facility] Varicella 2010-09-17 Completed [facility] of (varivax)(chicken 00:00:00 [place] [facility] Rubella 2010-09-17 Completed [facility] of 00:00:00 [facility] Varicella 2010-09-17 Completed [facility] of (varivax)(chicken 00:00:00 [place] [facility] Rubella 2010-09-17 Completed [facility] 00:00:00 [facility] Varicella 2010-09-17 Completed [facility] of (varivax)(chicken 00:00:00 [place] [facility]ox[facility] Rubella 2010-09-17 Completed [facility] 00:00:00 [facility] Varicella 2010-09-17 Completed [facility] of (varivax)(chicken 00:00:00 [place] [facility] Rubella 2010-09-17 Completed [facility] 00:00:00 [facility] Varicella 2010-09-17 Completed [facility] of (varivax)(chicken 00:00:00 [place] [facility] Rubella 2010-09-17 Completed [facility] 00:00:00 [facility] Varicella 2010-09-17 Completed [facility] of (varivax)(chicken 00:00:00 [place] [facility] Rubella 2010-09-17 Completed [facility] 00:00:00 [facility] Varicella 2010-09-17 Completed [facility] of (varivax)(chicken 00:00:00 [place] [facility] Rubella 2010-09-17 Completed [facility] 00:00:00 [facility] Varicella 2010-09-17 Completed [facility] of (varivax)(chicken 00:00:00 [place] [facility] Rubella 2010-09-17 Completed [facility] 00:00:00 [facility] Varicella 2010-09-17 Completed [facility] (varivax)(chicken 00:00:00 [place] [facility] Rubella 2010-09-17 Completed [facility] 00:00:00 [facility] Varicella 2010-09-17 Completed [facility] (varivax)(chicken 00:00:00 [place] [facility] Rubella 2010-09-17 Completed [facility] 00:00:00 [facility] Varicella 2010-09-17 Completed [facility] (varivax)(chicken 00:00:00 [place] [facility] Rubella 2010-09-17 Completed [facility] 00:00:00 [facility] Varicella 2010-09-17 Completed [facility] (varivax)(chicken 00:00:00 [place] [facility] Rubella 2010-09-17 Completed [facility] 00:00:00 [facility] Varicella 2010-09-17 Completed [facility] (varivax)(chicken 00:00:00 [place] [facility] Rubella 2010-09-17 Completed [facility] 00:00:00 [facility] Varicella 2010-09-17 Completed [facility] (varivax)(chicken 00:00:00 [place] [facility] Rubella 2010-09-17 Completed [facility] 00:00:00 [facility] Varicella 2010-09-17 Completed [facility] (varivax)(chicken 00:00:00 [place] [facility] Rubella 2010-09-17 Completed [facility] 00:00:00 [facility] Varicella 2010-09-17 Completed [facility] (varivax)(chicken 00:00:00 [place] [facility] Rubella 2010-09-17 Completed [facility] 00:00:00 [facility] Varicella 2010-09-17 Completed [facility] (varivax)(chicken 00:00:00 [place] [facility] Rubella 2010-09-17 Completed [facility] 00:00:00 [facility] Varicella 2010-09-17 Completed [facility] (varivax)(chicken 00:00:00 [place] [facility] Rubella 2010-09-17 Completed [facility] 00:00:00 [facility] Varicella 2010-09-17 Completed [facility] (varivax)(chicken 00:00:00 [place] [facility] Rubella 2010-09-17 Completed [facility] 00:00:00 [facility] Varicella 2010-09-17 Completed [facility] (varivax)(chicken 00:00:00 [place] [facility] Rubella 2010-09-17 Completed [facility] 00:00:00 [facility] Varicella 2010-09-17 Completed [facility] (varivax)(chicken 00:00:00 [place] [facility] Rubella 2010-09-17 Completed [facility] 00:00:00 [facility] Varicella 2010-09-17 Completed [facility] (varivax)(chicken 00:00:00 [place] [facility] Rubella 2010-09-17 Completed [facility] 00:00:00 [facility] Varicella 2010-09-17 Completed [facility] of (varivax)(chicken 00:00:00 [place] [facility] Rubella 2010-09-17 Completed [facility] 00:00:00 [facility] Varicella 2010-09-17 Completed [facility] (varivax)(chicken 00:00:00 [place] [facility] Rubella 2010-09-17 Completed [facility] 00:00:00 [facility] Varicella 2010-09-17 Completed [facility] of (varivax)(chicken 00:00:00 [place] [facility] Rubella 2010-09-17 Completed [facility] 00:00:00 [facility] Varicella 2010-09-17 Completed [facility] (varivax)(chicken 00:00:00 [place] [facility] Rubella 2010-09-17 Completed [facility] 00:00:00 [facility] Varicella 2010-09-17 Completed [facility] (varivax)(chicken 00:00:00 [place] [facility] Td 2006-02-03 Completed [facility] of 00:00:00 [facility] Td 2006-02-03 Completed [facility] of 00:00:00 [facility] Td 2006-02-03 Completed [facility] of 00:00:00 [facility] Td 2006-02-03 Completed [facility] 00:00:00 [facility] Td 2006-02-03 Completed [facility] of 00:00:00 [facility] Td 2006-02-03 Completed [facility] 00:00:00 [facility] Td 2006-02-03 Completed [facility] 00:00:00 [facility] Td 2006-02-03 Completed [facility] 00:00:00 [facility] Td 2006-02-03 Completed [facility] 00:00:00 [place] [facility] Td 2006-02-03 Completed [facility] 00:00:00 [place] [facility] Td 2006-02-03 Completed [facility] 00:00:00 [place] [facility] Td 2006-02-03 Completed [facility] 00:00:00 [place] [facility] Td 2006-02-03 Completed [facility] 00:00:00 [place] [facility] Td 2006-02-03 Completed [facility] 00:00:00 [place] [facility] Td 2006-02-03 Completed [facility] 00:00:00 [place] [facility] Td 2006-02-03 Completed [facility] 00:00:00 [place] [facility] Td 2006-02-03 Completed [facility] 00:00:00 [place] [facility] Td 2006-02-03 Completed [facility] 00:00:00 [place] [facility] Td 2006-02-03 Completed [facility] 00:00:00 [place] [facility] Td 2006-02-03 Completed [facility] 00:00:00 [place] [facility] Td 2006-02-03 Completed [facility] 00:00:00 [place] [facility] Td 2006-02-03 Completed [facility] 00:00:00 [place] [facility] Td 2006-02-03 Completed [facility] 00:00:00 [place] [facility] Td 2006-02-03 Completed [facility] 00:00:00 [place] [facility] Td 2006-02-03 Completed [facility] 00:00:00 [place] [facility] Td 2006-02-03 Completed [facility] 00:00:00 [place] [facility] Td 2006-02-03 Completed [facility] 00:00:00 [place] [facility] Td 2006-02-03 Completed [facility] 00:00:00 [place] [facility] Td 2006-02-03 Completed [facility] 00:00:00 [place] [facility] Td 2006-02-03 Completed [facility] 00:00:00 [place] [facility] Td 2006-02-03 Completed [facility] 00:00:00 [place] [facility] Td 2006-02-03 Completed [facility] 00:00:00 [place] [facility] Td 2006-02-03 Completed [facility] 00:00:00 [place] [facility] Td 2006-02-03 Completed [facility] 00:00:00 [place] [facility] Td 2006-02-03 Completed [facility] 00:00:00 [place] [facility] Td 2006-02-03 Completed [facility] 00:00:00 [place] [facility] Td 2006-02-03 Completed [facility] 00:00:00 [place] [facility] Td 2006-02-03 Completed [facility] 00:00:00 [facility] Td 2006-02-03 Completed [facility] 00:00:00 [facility] Td 2006-02-03 Completed [facility] 00:00:00 [place] [facility] Td 2006-02-03 Completed [facility] 00:00:00 [facility] Td 2006-02-03 Completed [facility] 00:00:00 [facility] TD, NOS Unknown Completed [facility] Rubella Unknown Completed [facility] Varicella Unknown Completed [facility] (varivax)(chicken [place] [facility] pox) [facility] Rubella Unknown Completed [facility] Influenza Virus Unknown Completed [facility] TDAP (ADACEL) Unknown Completed [facility] TD, NOS Unknown Completed [facility] Rubella Unknown Completed [facility] Varicella Unknown Completed [facility] (varivax)(chicken [place] [facility] pox) [facility] Rubella Unknown Completed [facility] Influenza Virus Unknown Completed [facility] TDAP (ADACEL) Unknown Completed [facility] Vital Signs Vital Name Observation Time Observation Value Comments Source Systolic blood 2020-12-25 19:36:00 130 mm[Hg] Univer [facility]ity of [facility] Diastolic blood 2020-12-25 19:36:00 89 mm[facility]Hg[facility] 2020-12-25 19:36:00 103 /min [facility] Body temperature 2020-12-25 19:36:00 37 [facility] 2020-12-25 19:36:00 157.5 cm [facility] Body weight 2020-12-25 19:36:00 85.231 kg [facility] BMI 2020-12-25 19:36:00 34.37 kg/m2 [facility] Systolic blood 2020-12-14 18:00:00 126 mm[Hg] Univer sity of [facility] Diastolic blood 2020-12-14 18:00:00 91 mm[Hg] Unive rsity of [facility] Heart rate 2020-12-14 18:00:00 83 /min [facility] Oxygen saturation in 2020-12-14 18:00:00 97 /min University of Arterial blood by [facility] Pulse oximetry Branch Respiratory rate 2020-12-14 17:27:00 16 /min Univ ersity of [place] [facility] Body temperature 2020-12-14 17:00:00 36 Mary Anne Univ ers[facility] [place] [facility] Body height 2020-12-14 14:29:00 157.5 cm [facility] [place] [facility] Body weight 2020-12-14 14:29:00 82.7 kg [facility] [place] [facility] BMI 2020-12-14 14:29:00 33.35 kg/m2 [facility] [place] [facility] Systolic blood 2020-12-14 18:00:00 126 mm[Hg] Univer sity of pressure [place] [facility] Diastolic blood 2020-12-14 18:00:00 91 mm[Hg] Unive rsity of pressure [place] [facility] Heart rate 2020-12-14 18:00:00 83 /min [facility] [place] [facility] Oxygen saturation in 2020-12-14 18:00:00 97 /min University of Arterial blood by [facility] Pulse oximetry Branch Respiratory rate 2020-12-14 17:27:00 16 /min Univ ersity of [place] [facility] Body temperature 2020-12-14 17:00:00 36 Mary Anne [facility] [place] [facility] Body height 2020-12-14 14:29:00 157.5 cm [facility] [place] [facility] Body weight 2020-12-14 14:29:00 82.7 kg [facility] [place] [facility] BMI 2020-12-14 14:29:00 33.35 kg/m2 [facility] [place] [facility] Systolic blood 2020-11-26 18:06:00 135 mm[Hg] Univer sity of pressure [place] [facility] Diastolic blood 2020-11-26 18:06:00 73 mm[Hg] Unive rsity of pressure [place] [facility] Heart rate 2020-11-26 18:06:00 106 /min [facility] [place] [facility] Respiratory rate 2020-11-26 18:06:00 20 /min Univ ers[facility] [place] [facility] Body height 2020-11-26 18:06:00 154.9 cm [facility] [place] [facility] Body weight 2020-11-26 18:06:00 83.961 kg [facility] [place] [facility] BMI 2020-11-26 18:06:00 34.97 kg/m2 [facility] [place] [facility] Systolic blood 2020-10-15 15:58:00 125 mm[Hg] Univer sity of pressure [place] [facility] Diastolic blood 2020-10-15 15:58:00 83 mm[Hg] Unive rsity of pressure [place] [facility] Heart rate 2020-10-15 15:58:00 90 /min [facility] [place] [facility] Body height 2020-10-15 15:57:00 157.5 cm [facility] [place] [facility] Body weight 2020-10-15 15:57:00 79.606 kg [facility] [place] [facility] BMI 2020-10-15 15:57:00 32.10 kg/m2 [facility] [place] [facility] Systolic blood 2020-09-21 14:55:00 128 mm[Hg] Univer sity of pressure [place] [facility] Diastolic blood 2020-09-21 14:55:00 81 mm[Hg] Unive rsity of pressure [place] [facility] Heart rate 2020-09-21 14:55:00 90 /min [facility] [place] [facility] Body temperature 2020-09-21 14:55:00 36.61 Mary Anne Univ ers[facility] [place] [facility] Respiratory rate 2020-09-21 14:55:00 16 /min Univ ersity [facility] [place] [facility] Body height 2020-09-21 14:55:00 157.5 cm [facility] [place] [facility] Body weight 2020-09-21 14:55:00 82.056 kg [facility] [place] [facility] BMI 2020-09-21 14:55:00 33.09 kg/m2 [facility] [place] [facility] Systolic blood 2020-09-04 18:20:00 122 mm[Hg] Univer sity of pressure [place] [facility] Diastolic blood 2020-09-04 18:20:00 75 mm[Hg] Unive rsity of pressure [place] [facility] Heart rate 2020-09-04 18:20:00 91 /min [facility] [place] [facility] Body temperature 2020-09-04 18:20:00 36.56 Mary Anne [facility] [place] [facility] Respiratory rate 2020-09-04 18:20:00 16 /min Univ ers[facility] [place] [facility] Body height 2020-09-04 18:20:00 157.5 cm [facility] [place] [facility] Body weight 2020-09-04 18:20:00 85.39 kg [facility] [place] [facility] BMI 2020-09-04 18:20:00 34.43 kg/m2 [facility] [place] [facility] Systolic blood 2019-02-14 20:19:00 115 mm[Hg] Univer sity of pressure [place] [facility] Diastolic blood 2019-02-14 20:19:00 70 mm[Hg] Unive rsity of pressure [place] [facility] Heart rate 2019-02-14 20:19:00 84 /min [facility] [place] [facility] Body temperature 2019-02-14 20:19:00 36.67 Mary Anne [facility] [place] [facility] Respiratory rate 2019-02-14 20:19:00 16 /min Univ ers[facility] [place] [facility] Body weight 2019-02-14 20:19:00 72.122 kg [facility] [place] [facility] BMI 2019-02-14 20:19:00 29.08 kg/m2 [facility] [place] [facility] Systolic blood 2019-02-14 20:19:00 115 mm[Hg] Univer sity of pressure [place] [facility] Diastolic blood 2019-02-14 20:19:00 70 mm[Hg] Unive rsity of pressure [place] [facility] Heart rate 2019-02-14 20:19:00 84 /min [facility] [place] [facility] Body temperature 2019-02-14 20:19:00 36.67 Mary Anne [facility] [place] [facility] Respiratory rate 2019-02-14 20:19:00 16 /min Univ [facility] [place] [facility] Body weight 2019-02-14 20:19:00 72.122 kg [facility] [place] [facility] BMI 2019-02-14 20:19:00 29.08 kg/m2 [facility] [place] [facility] Systolic blood 2019-02-08 20:30:00 130 mm[Hg] Univer sity of pressure [place] [facility] Diastolic blood 2019-02-08 20:30:00 80 mm[Hg] Unive rsity of pressure [place] [facility] Heart rate 2019-02-08 20:30:00 90 /min [facility] [place] [facility] Body temperature 2019-02-08 20:30:00 36.67 Mary Anne [facility] [place] [facility] Respiratory rate 2019-02-08 20:30:00 18 /min Univ [facility] [place] [facility] Body height 2019-02-08 20:30:00 157.5 cm [facility] [place] [facility] Body weight 2019-02-08 20:30:00 73.143 kg [facility] [place] [facility] BMI 2019-02-08 20:30:00 29.49 kg/m2 [facility] [place] [facility] Systolic blood 2019-02-08 20:30:00 130 mm[Hg] Univer sity of pressure [place] [facility] Diastolic blood 2019-02-08 20:30:00 80 mm[Hg] Unive rsity of pressure [place] [facility] Heart rate 2019-02-08 20:30:00 90 /min [facility] [place] [facility] Body temperature 2019-02-08 20:30:00 36.67 Mary Anne [facility] [place] [facility] Respiratory rate 2019-02-08 20:30:00 18 /min Univ ers[facility] [place] [facility] Body height 2019-02-08 20:30:00 157.5 cm [facility] [place] [facility] Body weight 2019-02-08 20:30:00 73.143 kg [facility] [place] [facility] BMI 2019-02-08 20:30:00 29.49 kg/m2 [facility] [place] [facility] Systolic blood 2019-01-31 16:13:00 123 mm[Hg] Univer sity of pressure [place] [facility] Diastolic blood 2019-01-31 16:13:00 78 mm[Hg] Unive rsity of pressure [place] [facility] Heart rate 2019-01-31 16:13:00 66 /min [facility] [place] [facility] Body temperature 2019-01-31 16:13:00 37.61 Mary Anne [facility] [place] [facility] Respiratory rate 2019-01-31 16:13:00 16 /min Univ ers[facility] [place] [facility] Body height 2019-01-31 16:13:00 157.5 cm [facility] [place] [facility] Body weight 2019-01-31 16:13:00 74.447 kg [facility] [place] [facility] BMI 2019-01-31 16:13:00 30.02 kg/m2 [facility] [place] [facility] Systolic blood 2019-01-31 16:13:00 123 mm[Hg] Univer sity of pressure [place] [facility] Diastolic blood 2019-01-31 16:13:00 78 mm[Hg] Unive rsity of pressure [place] [facility] Heart rate 2019-01-31 16:13:00 66 /min [facility] [place] [facility] Body temperature 2019-01-31 16:13:00 37.61 Mary Anne [facility] [place] [facility] Respiratory rate 2019-01-31 16:13:00 16 /min Univ [facility] [place] [facility] Body height 2019-01-31 16:13:00 157.5 cm [facility] [place] [facility] Body weight 2019-01-31 16:13:00 74.447 kg [facility] [place] [facility] BMI 2019-01-31 16:13:00 30.02 kg/m2 [facility] [place] [facility] Systolic blood 2019-01-23 13:00:00 119 mm[Hg] Univer sity of pressure [place] [facility] Diastolic blood 2019-01-23 13:00:00 89 mm[Hg] Unive rsity of pressure [place] [facility] Heart rate 2019-01-23 13:00:00 111 /min [facility] [place] [facility] Body temperature 2019-01-23 13:00:00 36.67 Mary Anne [facility] [place] [facility] Respiratory rate 2019-01-23 13:00:00 18 /min Univ ers[facility] [place] [facility] Oxygen saturation in 2019-01-23 13:00:00 98 /min [facility] Arterial blood by [facility] Pulse oximetry Branch Body height 2019-01-20 12:29:00 157.5 cm [facility] [place] [facility] Body weight 2019-01-20 12:29:00 85 kg [facility] [place] [facility] BMI 2019-01-20 12:29:00 34.27 kg/m2 [facility] [place] [facility] Systolic blood 2019-01-23 13:00:00 119 mm[Hg] Univer sity of pressure [place] [facility] Diastolic blood 2019-01-23 13:00:00 89 mm[Hg] Unive rsity of pressure [place] [facility] Heart rate 2019-01-23 13:00:00 111 /min [facility] [place] [facility] Body temperature 2019-01-23 13:00:00 36.67 Mary Anne [facility] [place] [facility] Respiratory rate 2019-01-23 13:00:00 18 /min Univ ersity of [place] [facility] Oxygen saturation in 2019-01-23 13:00:00 98 /min [facility] Arterial blood by [facility] Pulse oximetry Branch Body height 2019-01-20 12:29:00 157.5 cm [facility] [place] [facility] Body weight 2019-01-20 12:29:00 85 kg [facility] [place] [facility] BMI 2019-01-20 12:29:00 34.27 kg/m2 [facility] [place] [facility] Systolic blood 2019-01-17 18:54:00 130 mm[Hg] Univer sity of pressure [place] [facility] Diastolic blood 2019-01-17 18:54:00 70 mm[Hg] Unive rsity of pressure [facility] [place] [facility] Heart rate 2019-01-17 18:54:00 103 /min [facility] [place] [facility] [place] Body temperature 2019-01-17 18:54:00 36.56 Mary Anne Univ [facility] [place] [facility] Respiratory rate 2019-01-17 18:54:00 16 /min [facility] [place] [facility] [place] Body height 2019-01-17 18:54:00 157.5 cm [facility] [place] [facility] Body weight 2019-01-17 18:54:00 84.993 kg [facility] [place] [facility] BMI 2019-01-17 18:54:00 34.27 kg/m2 [facility] [place] [facility] Systolic blood 2019-01-17 18:54:00 130 mm[Hg] Univer sity of pressure [facility] [place] [facility] Diastolic blood 2019-01-17 18:54:00 70 mm[Hg] Unive rsity of pressure [facility] [place] [facility] Heart rate 2019-01-17 18:54:00 103 /min [facility] [place] [facility] Body temperature 2019-01-17 18:54:00 36.56 Mary Anne [facility] [place] [facility] Respiratory rate 2019-01-17 18:54:00 16 /min Univ ers[facility] [place] [facility] Body height 2019-01-17 18:54:00 157.5 cm [facility] Body weight 2019-01-17 18:54:00 84.993 kg [facility] [place] [facility] BMI 2019-01-17 18:54:00 34.27 kg/m2 [facility] Systolic blood 2019-01-10 17:58:00 126 mm[Hg] [facility] Diastolic blood 2019-01-10 17:58:00 70 mm[Hg] [facility] Heart rate 2019-01-10 17:58:00 99 /min [facility] [place] [facility] Body temperature 2019-01-10 17:58:00 37.06 Mary Anne [facility] [place] [facility] Respiratory rate 2019-01-10 17:58:00 18 /min [facility] Body height 2019-01-10 17:58:00 157.5 cm [facility] Body weight 2019-01-10 17:58:00 83.065 kg [facility] [place] [facility] BMI 2019-01-10 17:58:00 33.49 kg/m2 [facility] Systolic blood 2019-01-10 17:58:00 126 mm[Hg] [facility] Diastolic blood 2019-01-10 17:58:00 70 mm[Hg] [facility] Heart rate 2019-01-10 17:58:00 99 /min [facility] [place] [facility] Body temperature 2019-01-10 17:58:00 37.06 Mary Anne [facility] Respiratory rate 2019-01-10 17:58:00 18 /min [facility] Body height 2019-01-10 17:58:00 157.5 cm [facility] [place] [facility] Body weight 2019-01-10 17:58:00 83.065 kg [facility] [place] [facility] BMI 2019-01-10 17:58:00 33.49 kg/m2 [facility] [place] [facility] Systolic blood 2019-01-03 17:58:00 125 mm[Hg] [facility] Diastolic blood 2019-01-03 17:58:00 65 mm[Hg] [facility] Heart rate 2019-01-03 17:58:00 97 /min [facility] [place] [facility] Body temperature 2019-01-03 17:58:00 36.83 Mary Anne [facility] Respiratory rate 2019-01-03 17:58:00 16 /min [facility] Body height 2019-01-03 17:58:00 157.5 cm [facility] [place] [facility] Body weight 2019-01-03 17:58:00 82.101 kg [facility] BMI 2019-01-03 17:58:00 33.11 kg/m2 [facility] Systolic blood 2019-01-03 17:58:00 125 mm[Hg] [facility] Diastolic blood 2019-01-03 17:58:00 65 mm[Hg] Unive rsity of pressure [facility] Heart rate 2019-01-03 17:58:00 97 /min [facility] Body temperature 2019-01-03 17:58:[address] [facility] Res[facility] rate 2019-01-03 17:58:00 16 /min [facility] Body height 2019-01-03 17:58:00 157.5 cm [facility] Body weight 2019-01-03 17:58:00 82.101 kg [facility] BMI 2019-01-03 17:58:00 33.11 kg/m2 [facility] Procedures Procedure Date / Time Performing Clinician Source Performed ABDOMINAL WALL RESECTION 2020-12-14 15:08:00 [facility] 2020-12-14 14:47:00 Jayden Monroe [facility] HB ABO GROUPING 2020-12-14 14:47:00 Jayden Monroe [facility] CONSENT/REFUSAL FOR 2020-12-14 14:16:39 [facility] CONSENT/REFUSAL FOR 2020-12-14 14:16:39 Doctor [facility]igned, [facility] ASSIGNMENT OF BENEFITS 2020-12-14 14:16:21 Doctor Unassigned, No [facility] ASSIGNMENT OF BENEFITS 2020-12-14 14:16:21 Doctor Unassigned, No [facility] 2020-12-14 05:01:00 Doctor Unassigned, N o [facility] DISCLOSURE AND CONSENT 2020-11-26 05:01:00 Doctor Unassigned, No [facility] MEDICAL & SURGICAL Name Medical Branc h PROCEDURES - FEMALM DSU PRE-OP 2020-11-26 05:01:00 Doctor Unassigned, No [facility] 2020-11-26 05:01:00 Doctor Unassigned, No [facility] POCT TEST 2020-09-04 18:45:[address] [facility] [address] ASSIGNMENT OF BENEFITS 2020-09-04 18:10:52 Doctor Unassigned, No [facility] CBC WITH DIFFERENTIAL 2019-01-23 15:30:00 Sylvia Alfred [facility] GALV/CLC ONLY - URINE 2019-01-22 02:25:00 Christianne Taylor [facility]ASSA[facility] - Medical [facility] COMPREHENSIVE DRUG SCREEN CBC WITH DIFFERENTIAL 2019-01-21 09:40:00 Linda Villasenor [facility] VENOUS CORD GAS 2019-01-20 17:12:00 Silvestre Brownlee [facility] SECTION 2019-01-20 15:38:00 Marcia Wong [facility] CBC WITH DIFFERENTIAL 2019-01-20 13:02:00 [facility] 2019-01-20 13:02:00 [facility] GALV ONLY - SYPHILIS 2019-01-20 13:02:00 [facility] IGG/IGM [facility] TYPE AND SCREEN 2019-01-20 12:43:00 Silvestre Brownlee [facility] HOSPITAL ADMISSION 2019-01-20 05:01:00 Doctor Unassigned, No [facility]IS W/O 2019-01-17 18:56:00 [facility] PO[facility] URINALYSIS W/O 2019-01-10 18:02:[address] [facility] POCT URINALYSIS GLUCOSE 2019-01-03 18:00:00 RichardsCassius [facility] Branch L&D VISIT 2018-09-26 05:01:00 Doctor [facility]igned, [facility] Name Medical Branch Encounters Start End Encounter Admission Attending Care Care Encounter Source Date/Time Date/Time Type Type Clinicians Facility Department ID 2021-01-10 2021-01-10 Letter FLORENCIO Monroe 1.2.840.114 [id number] Univers 00:00:00 00:00:00 (Out) Jayden L Y HEALTH 350.1.13.10 i [id number] [address] 2021-01-10 2021-01-10 Telephone FLORENCIO Monroe 1.2.840.114 [id number] Univers 00:00:00 00:00:00 Jayden L Y HEALTH 350.1.13.10 i [place] [id number] [address] 2020-12-27 2020-12-27 Patient FLORENCIO Monroe 1.2.840.114 [id number] Univers 00:00:00 00:00:00 Secure Msg Jayden L Y HEALTH 350.1.13.10 [place] [id number] [address] 2020-12-25 2020-12-25 Nurse Nurse, [facility] UNIVERSIT 1.2.840.1 [id number] Univers 14:23:58 14:53:58 Visit [facility] Y HEALTH 350.1.13.10 ity [place] [id number] [address] 2020-12-25 2020-12-25 Outpatient R ERIBERTO [facility] [id number] Univers 14:00:00 14:00:00 JAYDEN ity of [facility] 2020-12-25 2020-12-25 Telephone FLORENCIO Monroe 1.2.840.114 [id number] Univers 00:00:00 00:00:00 Jayden L Y HEALTH 350.1.13.10 i [place] [id number] [facility] 095 Branch 2020-12-24 2020-12-24 Patient FLORENCIO Monroe 1.2.840.114 [id number] Univers 00:00:00 00:00:00 Secure Msg Jayden L Y HEALTH 350.1.13.10 ity [place] [id number] [facility] 095 Branch 2020-12-14 2020-12-14 Surgery Latosha Monroe 1.2.840.114 [id number] Univers 10:54:00 13:49:00 Jayden L [place] 350.1.13.10 it y of Hospital 4.2.7.2.686 Ranjan as [id number] [facility] 103 Branch 2020-12-14 2020-12-14 Hospital Latosha Monroe 1.2.336.747 [id number] Univers 09:15:00 13:28:00 Encounter Jayden Avilezy 350.1.13.10 ity of Hospital 4.2.7.2.686 Ranjan as [id number] [facility] 104 Branch 2020-12-14 2020-12-14 [facility] [employer] [facility] [id number] Univers 09:15:00 13:28:00 JAYDEN ity of [facility] 2020-12-14 2020-12-14 Telephone FLORENCIO Monroe 1.2.840.114 [id number] Univers 00:00:00 00:00:00 Jayden L Y HEALTH 350.1.13.10 i ty [place] [id number] [facility] 095 Branch 2020-12-14 2020-12-14 Orders Doctor العراقي 1.2.840.114 [id number] Univers 00:00:00 00:00:00 Only Unassigned, [place] 350.1.13.10 ity of [place] [facility] 4.2.7.2.686 Ranjan as [id number] [facility] 009 Branch 2020-12-13 2020-12-13 Laboratory Only, Adc Test [facility] 1.2.840. 114 [id number] Univers 13:04:45 13:19:45 Only EribertoJayden Rory Raghavendra 350.1.13.10 ity [place] [id number] [facility] 353 Branch 2020-12-13 2020-12-13 Outpatient R [facility] [id number] Univers 13:00:00 13:00:00 ity of [facility] 2020-11-26 2020-11-26 Office FLORENCIO Monroe 1.2.840.114 [id number] Univers 12:37:47 13:07:47 Visit Jayden L Y HEALTH 350.1.13.10 i ty [place] [id number] [place] [id number] Branch 2020-11-26 2020-11-26 Outpatient R ERIBERTO [facility] [id number] Univers 13:00:00 13:00:00 JAYDEN ity of [facility] 2020-11-26 2020-11-26 Prep For FLORENCIO Monroe 1.2.840.114 [id number] Univers 00:00:00 00:00:00 Surgery Jayden L [facility] 350.1.13.10 i ty of [place] [id number] [place] [address] Branch 2020-11-26 2020-11-26 Orders Doctor DULCE MARIA 1.2.840.114 [id number] Univers 00:00:00 00:00:00 Only Unassigned, [place] 350.1.13.10 ity of [place] [facility] 4.2.7.2.686 Ranjan as [id number] [facility] 009 Branch 2020-11-08 2020-11-08 Telephone FLORENCIO Monroe 1.2.840.114 [id number] Univers 00:00:00 00:00:00 Jayden [facility] HEALTH 350.1.13.10 i ty of [place] [id number] [facility] 095 Branch 2020-10-18 2020-10-18 Telephone FLORENCIO Monroe 1.2.840.114 [id number] Univers 00:00:00 00:00:00 [facility] HEALTH 350.1.13.10 i ty of [place] [id number] [place] [address]95 [place] 2020-10-15 2020-10-15 Office FLORENCIO Monroe 1.2.840.114 [id number] Univers 10:38:57 13:45:15 Visit [facility] HEALTH 350.1.13.10 i ty [place] [id number] [address] 2020-10-15 2020-10-15 Outpatient R ERIBERTO [facility] [id number] Univers 10:15:00 10:15:00 JAYDEN ity [facility] 2020-09-21 2020-09-21 Office [place], [facility] Resident UNIVERSIT 1.2.8 40.114 [id number] Univers 09:44:28 10:50:36 Visit Jayden Monroe [facility] 350.1.13.10 ity of CL[place] [id number] [address] 2020-09-21 2020-09-21 Outpatient R ERIBERTO [facility] [id number] Univers 09:30:00 09:30:00 JAYDEN ity [facility] 2020-09-14 2020-09-14 Telephone [facility] 1.2.901.081 [id number] Univers 00:00:00 00:00:00 Karunahannya R [employer]LL [employer]SEMBLER 350.1.13.10 ity of [facility] 4.2.7.2.686 Ranjan as MATERNAL [id number] Med ical & CHILD [address] [place] [address] 2020-09-04 2020-09-04 Office [facility] 1.2.840.114 [id number] Univers 13:12:00 13:54:20 [facility]SEM[facility] 350.1.13.10 ity of REGIONAL 4.2.7.2.686 Ranjan as MATERNAL [id number] Med ical & CHILD [address] [place] [address] 2020-09-04 2020-09-04 [facility] [id number] Univers 13:30:00 13:30:00 CASSIUS jaretfransisco henson [facility] 2020-09-04 2020-09-04 Outpatient R MAURICE [facility] [id number] Univers 13:30:00 13:30:00 EBENEZERMATTHIAS ribeiro o f [facility] 2020-09-04 2020-09-04 Orders Doctor DULCE MARIA 1.2.840.114 [id number] Univers 00:00:00 00:00:00 Only Unassigned, [place] 350.1.13.10 ity of [place] [address]686 Ranjan as [id number] [address] 2020-08-31 2020-08-31 Telephone [place] [id number] Univers 00:00:00 00:00:00 Cassius Abraham SHELL ASSEMBLER 350.1.13.10 ity [place] [address]..2.68 Ranjan as MATERNAL [id number] Med ical & CHILD [address] [place] [address] 2020-04-02 2020-04-02 Outpatient R GLORY PELAYO [facility] [id number] Univers 09:00:00 09:00:00 ity of [facility] 2019-02-17 2019-02-17 Telephone Xiao العراقي 1.2.840.114 [id number] Univers 00:00:00 00:00:00 , Rachel AVILA 350.1.13.10 i ty of [address]686 Ranjan as [phone] [address] 2019-02-17 2019-02-17 Telephone Xiao العراقي 1.2.840.114 [id number] 00:00:00 00:00:00 , Rachel AVILA [address].13.[address]686 [id number] 025 2019-02-14 2019-02-14 [facility] 1.2.840.114 [id number] 15:03:55 15:36:52 Cassius Abraham SHELL ASSEMBLER 350.1.13.10 Visit REGIONAL 4.2.7.2.686 MATERNAL [id number] & CHILD 107 [facility] 2019-02-14 2019-02-14 Routine Maurice [facility] 1.2.840.114 [id number] Univers 15:03:55 15:36:52 Cassius R [employer]LL ASSEMBLER 350.1.13.10 ity of Visit REGIONAL 4.2.7.2.686 Ranjan as MATERNAL [id number] Med ical & CHILD [address] [place] [address] 2019-02-08 2019-02-08 Nurse Visit, [facility] 1.2.840.114 [id number] 15:24:16 15:40:42 Visit Ang-Rmchp SHELL ASSEMBLER 350.1.13.10 Nurse REGIONAL 4.2.7.2.686 MATERNAL [id number] & CHILD 107 [facility] 2019-02-08 2019-02-08 Nurse Visit, Ang-Rmchp Nurse [facility] 1.2 .840.114 [id number] Univers 15:24:16 15:40:42 Visit Argenis Delvalle SHELL ASSEMBLER 350.1.13. 10 ity of REGIONAL 4.2.7.2.686 Ranjan as MATERNAL [id number] [facility] ical & CHILD [address] [place] [address] 2019-01-31 2019-01-31 Nurse Visit, [facility] 1.2.840.114 [id number] 11:04:40 11:41:24 Visit Ang-Rmchp SHELL ASSEMBLER 350.1.13.10 Nurse REGIONAL 4.2.7.2.686 MATERNAL [id number] & CHILD 107 [facility] 2019-01-31 2019-01-31 Nurse Visit, Ang-Rmchp Nurse [facility] 1.2 .840.114 [id number] Univers 11:04:40 11:41:24 Visit Cassius Richards SHELL ASSEMBLER 350.1.13.10 ity of REGIONAL 4.2.7.2.686 Ranjan as MATERNAL [id number] Med ical & CHILD 107 [facility] 2019-01-20 2019-01-23 [facility] Gonsalo Alejandre 1.2.8 40.114 [id number] 06:42:00 12:47:00 Encounter Marcia Wong [place] 350.1.13.10 HOSPITAL 4.2.7.2.686 [id number] 2019-01-20 2019-01-23 [facility] Gonsalo Alejandre DULCE MARIA 1.2.8 40.114 [id number] Univers 06:42:00 12:47:00 Encounter Marcia Wong [place] 350.1.13.10 ity of HOSPITAL 4.2.7.2.686 Ranjan as [id number] [address] 2019-01-20 2019-01-20 Orders Doctor DULCE MARIA 1.2.840.114 [id number] 00:00:00 00:00:00 Only Unassigned, [place] 350.1.13.10 [place] [facility] 4.2.7.2.686 [id number] 2019-01-20 2019-01-20 Orders Doctor DULCE MARIA 1.2.840.114 [id number] Univers 00:00:00 00:00:00 Only Unassigned, [place] 350.1.13.10 ity of [place] [facility] 4.2.7.2.686 Ranjan as [id number] [address] 2019-01-17 2019-01-17 [address] Richards 1.2.840.114 [id number] 13:43:45 14:08:19 Roshunda R SHELL ASSEMBLER 350.1.13.10 Visit REGIONAL 4.2.7.2.686 MATERNAL [id number] & CHILD [address] [place] [address] 2019-01-17 2019-01-17 Routine Maurice ILPHILLIP 1.2.840.[id number] [facility] 13:43:45 14:08:19 Roshunda R SHELL ASSEMBLER 350.1.13.10 ity of Visit REGIONAL 4.2.7.2.686 Ranjan as MATERNAL [id number] [facility] ical & CHILD 107 [facility] 2019-01-10 2019-01-10 Routine Maurice ILPHILLIP 1.2.840.114 [id number] 12:52:12 13:15:29 Roshunda R SHELL ASSEMBLER 350.1.13.10 Visit REGIONAL 4.2.7.2.686 MATERNAL [id number] & CHILD 107 [facility] 2019-01-10 2019-01-10 [facility] 1.2.840.114 [id number] Univers 12:52:12 13:15:29 Roshunda R SHELL ASSEMBLER 350.1.13.10 ity of Visit [facility] 4.2.7.2.686 Ranjan as MATERNAL [id number] Med ical & CHILD [address] [place] [address] 2019-01-03 2019-01-03 [facility] 1.2.840.114 [id number] 12:45:52 13:13:15 Roshunda R SHELL ASSEMBLER 350.1.13.10 Visit REGIONAL 4.2.7.2.686 MATERNAL [id number] & CHILD [address] [place] [address] 2019-01-03 2019-01-03 [facility] 1.2.840.114 [id number] Univers 12:45:52 13:13:15 Roshunda R SHELL ASSEMBLER 350.1.13.10 ity of Visit [facility] 4.2.7.2.686 Ranjan as MATERNAL [id number] Med ical & CHILD [address] [place] [address] 2017-06-14 2017-06-17 In[facility] [id number] 21:05:00 13:02:00 Frank KAUFFMAN M.D. [facility] 2014-08-15 2014-08-15 Patient Doctor DULCE MARIA 1.2.840.[id number] [facility] 00:00:00 00:00:00 Secure Msg Unassigned, [place] 350.1.13.10 ity of [place] [facility] 4.2.7.2.686 Ranjan as [id number] [address] Results Test Description Test Time Test Comments Results Result Comments Source Type and Screen - The Type and Screen expires at [facility] on 2020-12-14 15:30:34 the 3rd day after it was drawn. A current Type and Screen is required when RBCs are requested. For all other blood produc ts, a Type and Screen performed during the current hospitalizati ... Test Item Value Reference Range Interpretation Comme nts ABO & RH (test code = 20) O POSITIVE Pe rformed at [facility] Laboratory Services - [facility] Blood [address] [place], [place] [address]Ozcw Free: [phone] No. [id number] IAT (test code = 1185) Negative Perfo rmed at [facility] Laboratory Services [facility] Blood [address] [place], [place] [address]Uofc Free: [phone] No. [id number] [facility] - The Type and Screen expires at midnight on the 3rd day after it was drawn. A current Type and Screen is required when RBCs are requested. For all other blood products, a Type and Scree n performed during the current hospitalizati...2020-12-14 15:30:34 Test Item Value Reference Range Interpretation Comments ABO & RH (test code O POSITIVE Performe d at [facility] = 20) Laboratory Serv [facility] Blood [facility]3 [address] [facility] s [address]Cmvg Free: [phone] A No. [id number] IAT (test code = Negative Performed a t [facility] 1185) Laboratory Serv [facility] Blood [facility] [address] [facility] s [address]Ndvg Free: [phone] A No. [id number] [facility] [id number] 18:45:00 Test Item Value Reference Range Interpretation Comments POCT PREG (test code = 1605) Negative On board controls acceptable with C Yes Line (test code = 3574) POCT PREG LOT # (test code = 3575) POCT PREG TEST DATE (test code = 3576) [facility] [id number] 18:45:00 Test Item Value Reference Range Interpretation Comments POCT PREG (test code = 1605) Negative On board controls acceptable with C Yes Line (test code = 3574) POCT PREG LOT # (test code = 3575) POCT PREG TEST DATE (test code = 3576) [facility] [id number] 18:45:00 Test Item Value Reference Range Interpretation Comments POCT PREG (test code = 1605) Negative On board controls acceptable with C Yes Line (test code = 3574) POCT PREG LOT # (test code = 3575) POCT PREG TEST DATE (test code = 3576) [facility] [id number] 18:45:00 Test Item Value Reference Range Interpretation Comments POCT PREG (test code = 1605) Negative On board controls acceptable with C Yes Line (test code = 3574) POCT PREG LOT # (test code = 3575) POCT PREG TEST DATE (test code = 3576) [facility] [id number] 18:45:00 Test Item Value Reference Range Interpretation Comments POCT PREG (test code = 1605) Negative On board controls acceptable with C Yes Line (test code = 3574) POCT PREG LOT # (test code = 3575) POCT PREG TEST DATE (test code = 3576) [facility] [id number] 18:45:00 Test Item Value Reference Range Interpretation Comments POCT PREG (test code = 1605) Negative On board controls acceptable with C Yes Line (test code = 3574) POCT PREG LOT # (test code = 3575) POCT PREG TEST DATE (test code = 3576) [facility] [id number] 06:24:00 Test Item Value Reference Range Interpretation [...] S NOT APPLICABLE FOR DIALYSIS PATIEN TS. 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 The reference range was not used to interpret this result as normal/abnormal . RBC (test code = See_Comment L [Automated 658-8) message] The sy stem which generated this result transmitted reference range : 3.93 - 5.25 10*6/?L. The reference range was not used to interpret this result as normal/abnormal . HGB (test code = 8.3 g/dL 11.6-15 L 718-7) HCT (test code = 26.6 % 35.7-45.2 L 4544-3) MCV (test code = 90.5 fL 80.6-95.5 787-2) MCH (test code = 28.2 pg 25.9-32.8 785-6) MCHC (test code = 31.2 g/dL 31.6-35.1 L 786-4) RDW-SD (test code = 48.7 fL 39-49.9 05601-3) RDW-CV (test code = 14.8 % 12-15.5 788-0) PLT (test code = See_Comment [Automated 777-3) message] The sy stem which generated this result transmitted reference range : 166 - 358 10*3/ ?L. The reference r lora was not used to interpret this result as normal/abnormal . MPV (test code = 10.4 fL 9.5-12.9 35041-4) NRBC/100 WBC (test See_Comment [Automat ed code = 0100914033) message] The system which generated this result transmitted reference range : 0.0 - 10.0 /100 WBCs. The refer ence range was not u sed to interpret th is result as normal/abnormal . NRBC x10^3 (test code <0.01 See_Comment [Auto mated = 1046299425) message] The s ystem which generated this result transmitted reference range : 10*3/?L. The reference range was not used to interpret this result as normal/abnormal . GRAN MAT (NEUT) % 65.4 % (test code = 770-8) IMM GRAN % (test code 0.40 % = 3386652409) LYMPH % (test code = 21.2 % 736-9) MONO % (test code = 8.9 % 5905-5) EOS % (test code = 3.8 % 713-8) BASO % (test code = 0.3 % 706-2) GRAN MAT x10^3(ANC) 5.99 10*3/uL 1.88-7.09 (test code = 0585433273) IMM GRAN x10^3 (test 0.04 10*3/uL 0-0.06 code = 3065868797) LYMPH x10^3 (test code 1.94 10*3/uL 1.32-3.29 = 731-0) MONO x10^3 (test code 0.82 10*3/uL 0.33-0.92 = 742-7) EOS x10^3 (test code = 0.35 10*3/uL 0.03-0.39 711-2) BASO x10^3 (test code 0.03 10*3/uL 0.01-0.07 = 704-7) Lab Interpretation Abnormal (test code = 54027-5) [facility] - URINE DRUG (IMMUNOASSAY) - COMPREHENSIVE DRUG [id number] 05:31:00 Test Item Value Reference Range Interpretation Comments AMPHET (test code = Negative Negative 5262391617) QUIN U (test code = Negative Negative 6411394934) BENZO U (test code = Negative Negative 3339065923) Cocaine Metabolite (test Negative Negative code = 6034757999) METHADONE (test code = Negative Negative 7112632964) OPIATES (test code = Presumptive Positive Negative A [id number]) PCP (test code = Negative Negative 3037710216) THC (test code = Negative Negative 7202920192) DORIS (test code = DORIS) Urine Drug Cutoff RangesCocaine:? 150 ng/mLBenzodiazepines: ? 200 ng/mLMethadone:? 300 ng/mLAmphetamine:? 1,000 ng/mLOpiates:? 300 ng/mLCannabinoids:?50 ng/mLPhencyclidine:? 25 ng/mLBarbiturates:?20 0 ng/mLThe results are to be used only for medical (i.e., treatment) purposes. Unconfirmed screening results must not be used for non-medical purposes (e.g., employment testing, legal testing). Lab Interpretation (test Abnormal code = 75999-6) [facility] 2019-01-22 04:03:00 Test Item Value Reference Range Interpretation Comments Cocaine Metabolite (test Negative Negative code = 1379868522) OPIATES (test code = Presumptive Positive Negative A 5521890948) THC (test code = Negative Negative 4819710443) DORIS (test code = DORIS) Urine Drug Cutoff RangesCocaine:? 150 ng/mLOpiates:? 300 ng/mLCannabinoids:?50 ng/mLThe results are to be used only for medical (i.e., treatment) purposes. Unconfirmed screening results must not be used for non-medical purposes (e.g., employment testing, legal testing). Lab Interpretation (test Abnormal code = 16423-6) [facility] - SYPHILIS [id number] 15:17:00 Test Item Value Reference Range Interpretation Comments Syphilis IgG/IgM (test Non-reactive Non-reactive code = 05882-9) DORIS (test code = DORIS) Non-reactive - No serologic evidence of T. pallidum infection. Cannot exclude incubating or early syphilis. Submit a second specimen in 2-4 weeks if syphilis is clinically suspected.Equivocal - Further testing to follow.Reactive - Further testing to follow. Lab Interpretation (test Normal code = 22381-7) [facility] WITH [id number] 09:59:00 Test Item Value Reference Range Interpretation Comments WBC (test code = See_Comment H [Automated 9654-2) message] The system which generated this result transmit дмитрий reference range : 4.30 - 11.10 10*3/?L. The reference range was not used to interpret this result as normal/abnormal . RBC (test code = See_Comment L [Automated 309-8) message] The system which generated this result transmit дмитрий reference range : 3.93 - 5.25 10*6/?L. The reference range was not used to interpret this result as normal/abnormal . HGB (test code = 10.7 g/dL 11.6-15 L 718-7) HCT (test code = 34.1 % 35.7-45.2 L 4544-3) MCV (test code = 90.5 fL 80.6-95.5 787-2) MCH (test code = 28.4 pg 25.9-32.8 785-6) MCHC (test code = 31.4 g/dL 31.6-35.1 L 786-4) RDW-SD (test code = 48.3 fL 39-49.9 32002-4) RDW-CV (test code = 14.7 % 12-15.5 788-0) PLT (test code = See_Comment [Automated 657-3) message] The system which generated this result transmit дмитрий reference range : 166 - 358 10*3/ ?L. The reference range was not u sed to interpret th is result as normal/abnormal . MPV (test code = 10.5 fL 9.5-12.9 31585-0) NRBC/100 WBC (test See_Comment [Automat ed code = 8065914319) message] The system which generated this result transmit дмитрий reference range : 0.0 - 10.0 /100 WBCs. The reference range was not used to interpret this result as normal/abnormal . NRBC x10^3 (test code <0.01 See_Comment [Auto mated = 8041178998) message] The system which generated this result transmit дмитрий reference range : 10*3/?L. The reference range was not used to interpret this result as normal/abnormal . GRAN MAT (NEUT) % 80.9 % (test code = 770-8) IMM GRAN % (test code 0.70 % = 3973237247) LYMPH % (test code = 9.2 % 736-9) MONO % (test code = 8.0 % 5905-5) EOS % (test code = 1.0 % 713-8) BASO % (test code = 0.2 % 706-2) GRAN MAT x10^3(ANC) 10.99 10*3/uL 1.88-7.09 H (test code = 0733988341) IMM GRAN x10^3 (test 0.09 10*3/uL 0-0.06 H code = 7449897706) LYMPH x10^3 (test code 1.25 10*3/uL 1.32-3.29 L = 731-0) MONO x10^3 (test code 1.08 10*3/uL 0.33-0.92 H = 742-7) EOS x10^3 (test code = 0.13 10*3/uL 0.03-0.39 711-2) BASO x10^3 (test code 0.03 10*3/uL 0.01-0.07 = 704-7) Lab Interpretation Abnormal (test code = 16691-6) [facility] [id number] 17:16:00 Test Item Value Reference Range Interpretation Comments BASE EXCESS, CORD mEq/L (test code = 3088321255) AC PH, CORD (BEAKER) 7.18-7.38 (test code = 7146748898) PC02, CORD (test code See_Comment [Auto mated message] The = 1301576911) system which g enerated this result transmit дмитрий reference range : 32 - 66 mmHg. The refer ence range was not used to interpret this result as normal/abnormal . PO2, CORD (test code See_Comment [Autom ated message] The = 3094339473) system which g enerated this result transmit дмитрий reference range : 10 - 30 mmHg. The refer ence range was not used to interpret this result as normal/abnormal . BICARBONATE, CORD See_Comment [Automate d message] The (test code = system which ge nerated this 7949172463) result transmit дмитрий reference range : 17 - 27 mEq/L. The refe rence range was not used to interpret this result as normal/abnormal . [facility] [id number] 17:14:00 Test Item Value Reference Range Interpretation Comments VENOUS BASE EXCESS, CORD mEq/L (test code = 0950729062) VENOUS PH, CORD (test 7.25-7.45 code = 7000488593) VENOUS PC02, CORD (test See_Comment [Au tomated message] code = 3522985311) The syste m which generated this result transmitted ref erence range: 27 - 49 mmHg. The reference r lora was not used to interpret this result as normal/abnor mal. VENOUS PO2, CORD (test See_Comment H [Aut omated message] code = 0856566456) The syste m which generated this result transmitted ref erence range: 17 - 41 mmHg. The reference r lora was not used to interpret this result as normal/abnor mal. VENOUS BICARBONATE, CORD See_Comment [A utomated message] (test code = 3002964176) The system which generated this result transmitted ref erence range: 12 - 29 mEq/L. The reference r lora was not used to interpret this result as normal/abnor mal. Lab Interpretation (test Abnormal code = 88699-7) [facility] Surface [id number] 14:28:00 Test Item Value Reference Range Interpretation Comments HBsAg Semi-Quantitative (test code = 5195-3) [facility] - ONCE [id number] 13:41:05 Test Item Value Reference Range Interpretation Comments ABO & RH (test code O POSITIVE Performe d at [facility] = 20) Laboratory [facility] Blood [facility] [facility] [address]Smoc Free: [phone] A No. [id number] IAT (test code = Negative Performed a t [facility] 1185) Laboratory [facility] Blood [facility] [address] [facility] s [address]Hbgb Free: [phone] A No. [id number] [facility] WITH [id number] 13:19:00 Test Item Value Reference Range Interpretation Comments WBC (test code = See_Comment H [Automated 9790-2) message] The sy stem which generated this result transmitted reference range : 4.30 - 11.10 10*3/?L. The reference range was not used to interpret this result as normal/abnormal . RBC (test code = See_Comment L [Automated 789-8) message] The sy stem which generated this result transmitted reference range : 3.93 - 5.25 10*6/?L. The reference range was not used to interpret this result as normal/abnormal . HGB (test code = 10.4 g/dL 11.6-15 L 718-7) HCT (test code = 32.4 % 35.7-45.2 L 4544-3) MCV (test code = 89.0 fL 80.6-95.5 787-2) MCH (test code = 28.6 pg 25.9-32.8 785-6) MCHC (test code = 32.1 g/dL 31.6-35.1 786-4) RDW-SD (test code = 48.2 fL 39-49.9 15389-9) RDW-CV (test code = 14.9 % 12-15.5 788-0) PLT (test code = See_Comment [Automated 777-3) message] The sy stem which generated this result transmitted reference range : 166 - 358 10*3/ ?L. The reference r lora was not used to interpret this result as normal/abnormal . MPV (test code = 10.8 fL 9.5-12.9 31958-5) NRBC/100 WBC (test See_Comment [Automat ed code = 8577024169) message] The system which generated this result transmitted reference range : 0.0 - 10.0 /100 WBCs. The refer ence range was not u sed to interpret th is result as normal/abnormal . NRBC x10^3 (test code <0.01 See_Comment [Auto mated = 0467450999) message] The s ystem which generated this result transmitted reference range : 10*3/?L. The reference range was not used to interpret this result as normal/abnormal . GRAN MAT (NEUT) % 69.0 % (test code = 770-8) IMM GRAN % (test code 0.70 % = 0209106411) LYMPH % (test code = 21.4 % 736-9) MONO % (test code = 7.7 % 5905-5) EOS % (test code = 0.8 % 713-8) BASO % (test code = 0.4 % 706-2) GRAN MAT x10^3(ANC) 8.31 10*3/uL 1.88-7.09 H (test code = 7900950411) IMM GRAN x10^3 (test 0.08 10*3/uL 0-0.06 H code = 0161752597) LYMPH x10^3 (test code 2.58 10*3/uL 1.32-3.29 = 731-0) MONO x10^3 (test code 0.93 10*3/uL 0.33-0.92 H = 742-7) EOS x10^3 (test code = 0.10 10*3/uL 0.03-0.39 711-2) BASO x10^3 (test code 0.05 10*3/uL 0.01-0.07 = 704-7) Lab Interpretation Abnormal (test code = 54031-9) [facility] URINALYSIS W/O SPECIFIC [id number] 18:56:00 Test Item Value Reference Range Interpretation Comments POCT PH U (test code = 3254) . 5-8 POCT U LEUK EST (test code = 3263) . Negative - Negative POCT U NIT (test code = 3262) . Negative - Negative POCT U PROT (test code = 3259) Trace Negative - Negative POCT U GLU (test code = 3256) Neg Negative - Negative POCT U KETONE (test code = 3258) . Negative - Negative POCT U BLD (test code = 3257) . Negative - Negative [facility] URINALYSIS W/O SPECIFIC [id number] 18:02:00 Test Item Value Reference Range Interpretation Comments POCT PH U (test code = 3254) . 5-8 POCT U LEUK EST (test code = 3263) . Negative - Negative POCT U NIT (test code = 3262) . Negative - Negative POCT U PROT (test code = 3259) neg Negative - Negative POCT U GLU (test code = 3256) neg Negative - Negative POCT U KETONE (test code = 3258) . Negative - Negative POCT U BLD (test code = 3257) . Negative - Negative [facility] URINALYSIS GLUCOSE & PROTEIN 2019-01-03 18:00:00 Test Item Value Reference Range Interpretation Comments POCT U PROT (test code = 3259) trace Negative - Negative POCT U GLU (test code = 3256) neg Negative - Negative [facility]
[2023-04-05 01:07] LABS: Lymphocytes % 27.6 % (15.3-44.8); MCV 96.3 fL (80-100); MPV 7.7 fL (7.6-11.3); Platelets 398 thou/uL (152-406); RBC Red Blood Cell Count 3.95 M/uL (3.86-4.86)
[2023-04-05 01:39] LABS: ALT/SGPT 21 U/L (13-56); AST/SGOT 20 U/L (15-37); Albumin 3.5 g/dL (3.4-5.0); Alkaline Phosphatase 78 U/L (45-117); BUN Blood Urea Nitrogen 7 mg/dL (7-18); Bicarbonate 25 mEq/L (21-32); Bilirubin Direct < 0.1 mg/dL (0-0.2); Bilirubin Indirect, Calculated ND mg/dL (0.2-0.8); Bilirubin Total 0.3 mg/dL (0.2-1.0); Glomerular Filtration Rate 110 ml/min (=/>90); Glucose Level 101 mg/dL (74-106); Potassium 2.8 mEq/L (3.5-5.1); Protein, Total 7.8 g/dL (6.4-8.2); Sodium Level 138 mEq/L (136-145); Troponin High Sensitivity 12.6 pg/mL (<58.9)
[2023-04-05 02:04] LABS: Specific Gravity 1.027 (1.005-1.030); Urine Bacteria None Seen /HPF (<20); Urine Bilirubin NEGATIVE (Negative); Urine Blood Negative (Negative); Urine Clarity Extremely Turbid (Clear); Urine Color Yellow (Yellow); Urine Glucose NEGATIVE (Negative); Urine Mucus 3+ /HPF (None Seen); Urine Protein 1+ (Negative); Urine RBC <5 /HPF (None Seen); Urine Urobilinogen 2+ (Normal)
[2023-04-05] MEDS ORDERED: POTASSIUM 25 MEQ EFFERV TAB ONE ×2 (02:16→03:29)
[2023-04-05] MEDS ORDERED: NA CHLORIDE 0.9% 1,000 ML ONE (02:16)
[2023-04-05] MEDS ORDERED: KETOROLAC 30 MG/ML INJ ONE (02:16)
--- NOTE | 2023-04-05 03:06 | EDPHYS ---
Physician Documentation [facility] Name: Emilie Holland Age: 32 yrs Sex: Female : 1990 Arrival Date: 04/05/2023 Time: 00:29 Bed 6 Private MD: ED Physician Prosper Ríos HPI: 04/05 01:00 This 32 yrs old Black Female presents to ER via EMS with complaints of Chest Pain. cp 01:00 The patient or guardian reports chest pain that is located primarily in the anterior cp chest wall, right. The pain radiates to the right arm, the right shoulder, right back. 01:00 Associated signs and symptoms: Pertinent negatives: abdominal pain, cough, diaphoresis, cp headache, lower extremity pain, lower extremity swelling, shortness of breath, syncope, vomiting. The chest pain is described as stabbing. Duration: The patient or guardian reports multiple episodes, that are intermittent. Historical: - Allergies: 00:41 Hydrocodone-Acetaminophen (Vomiting); Itching; cm10 00:41 Iodine; cm10 00:41 Tramadol HCl; cm10 - PMHx: 00:41 Post concussive syndrome; Ovarian cysts; Endometrosis; Anxiety; cm10 - Immunization history:: Adult Immunizations unknown. - Social history:: Smoking status: Patient reports the use of cigarette tobacco products, smokes one-half pack cigarettes per day. ROS: 01:05 Constitutional: Negative for body aches, chills, fever, poor PO intake, cp 01:05 Eyes: Negative for injury, pain, redness, and discharge, cp 01:05 ENT: Negative for drainage from ear(s), ear pain, sore throat, difficulty swallowing, difficulty handling secretions, 01:05 Cardiovascular: Positive for chest pain, of the right side of chest, Negative for edema, palpitations, 01:05 Respiratory: Negative for cough, shortness of breath, wheezing, 01:05 Abdomen/GI: Negative for abdominal pain, vomiting, diarrhea, constipation, 01:05 Back: Positive for radiated pain, of the right trapezius and right scapular area, 01:05 Neuro: Negative for altered mental status, dizziness, headache, numbness, tingling, weakness, 01:05 All other systems are negative, Exam: 00:53 ECG was reviewed by the Attending Physician. cp 01:10 Constitutional: The patient appears in no acute distress, alert, awake, cp non-diaphoretic, non-toxic, well developed, well nourished, 01:10 Head/Face: Normocephalic, atraumatic. cp 01:10 Eyes: Periorbital structures: appear normal, Conjunctiva: normal, no exudate, no injection, Sclera: no appreciated abnormality, Lids and lashes: appear normal, bilaterally, 01:10 ENT: External ear(s): are unremarkable, Nose: is normal, Mouth: Lips: moist, Oral mucosa: pink and intact, moist, Posterior pharynx: is normal, airway is patent, no erythema, no exudate, 01:10 Neck: ROM/movement: is normal, is supple, without pain, no range of motions limitations, 01:10 Chest/axilla: Inspection: normal, 01:10 Cardiovascular: Rate: normal, Rhythm: regular, Edema: is not appreciated, JVD: is not appreciated, 01:10 Respiratory: the patient does not display signs of respiratory distress, Respirations: normal, no use of accessory muscles, no retractions, labored breathing, is not present, Breath sounds: are clear throughout, no decreased breath sounds, no stridor, no wheezing, 01:10 Abdomen/GI: Inspection: abdomen appears normal, Palpation: abdomen is soft and non-tender, in all quadrants, 01:10 Back: pain, of the right trapezius and right scapular area, ROM is normal, 01:10 Neuro: Orientation: to person, place \T\ time. Mentation: is normal, Motor: moves all fours, strength is normal, Sensation: is normal, 03:05 ECG was reviewed by the Attending Physician. cp Vital Signs: 00:40 BP 149 / 109; Pulse 89; Resp 16; Temp 98; Pulse Ox 99% ; Weight 77.11 kg; Height 5 ft. cm10 2 in. ; Pain 8/10; 02:16 BP 155 / 106; Pulse 93; Resp 19 S; Pulse Ox 99% on R/A; lg3 03:21 BP 137 / 89; Pulse 89; Resp 18 S; Pulse Ox 99% on R/A; lg3 00:40 Body Mass Index 31.09 (77.11 kg, 157.48 cm) cm10 00:40 Pain Scale: Adult cm10 MDM: 00:44 Patient medically screened. cp 03:05 Data reviewed: vital signs, nurses notes, lab test result(s), EKG, radiologic studies, cp plain films. 03:05 Differential diagnosis: acute myocardial infarction, acute pericarditis, cp costochondritis, pericarditis, pleurisy, pneumonia, pneumothorax, pulmonary embolus. I considered the following discharge prescriptions or medication management in the emergency department Medications were administered in the Emergency Department. See MAR. Independent interpretation of the following test(s) in the Emergency Department EKG: See my EKG interpretation above. Test considered but Not performed: CT: chest. Counseling: I had a detailed discussion with the patient and/or guardian regarding the historical points, exam findings, and any diagnostic results supporting the discharge/admit diagnosis, lab results, radiology results, to return to the emergency department if symptoms worsen or persist or if there are any questions or concerns that arise at home. Response to treatment: the patient's symptoms have markedly improved after treatment, and as a result, I will discharge patient. Special discussion: Based on the patient's history, exam, and Dx evaluation, there is no indication for emergent intervention or inpatient Tx. It is understood by the patient/guardian that if the Sx's persist or worsen they need to return immediately for re-evaluation. 04/05 00:45 Order name: Basic Metabolic Panel; Complete Time: :58 cp 04/05 02:52 Interpretation: Normal except: K 2.8; CA 8.4. cp 04/05 00:45 Order name: CBC with Diff; Complete Time: :58 cp 04/05 02:27 Interpretation: Normal except: BASO% 1.4. cp 04/05 00:45 Order name: D-Dimer; Complete Time: :58 cp 04/05 00:45 Order name: LFT's; Complete Time: :58 cp 04/05 02:52 Interpretation: Normal except: GLOB 4.3; A/G 0.8. cp 04/05 00:45 Order name: Magnesium; Complete Time: :58 cp 04/05 00:45 Order name: Troponin HS; Complete Time: :58 cp 04/05 00:45 Order name: Urinalysis W/Microscopic; Complete Time: 02:27 cp 04/05 02:27 Interpretation: Normal except: [facility] Extremely Turbid; UKET TRACE; UPROT 1+; UUROB 2+; cp MUCUS 3+. 04/05 00:45 Order name: PREGU; Complete Time: 02:27 cp 04/05 02:27 Interpretation: Reviewed. cp 04/05 00:45 Order name: XRAY Chest (1 view) cp 04/05 00:45 Order name: EKG; Complete Time: 00:45 cp 04/05 00:45 Order name: Cardiac monitoring; Complete Time: 02:01 cp 04/05 00:45 Order name: EKG - Nurse/Tech; Complete Time: 00:50 cp 04/05 00:45 Order name: IV Saline Lock; Complete Time: 00:56 cp 04/05 00:45 Order name: Labs collected and sent; Complete Time: 00:56 cp 04/05 00:45 Order name: O2 Per Protocol; Complete Time: 00:56 cp 04/05 00:45 Order name: O2 Sat Monitoring; Complete Time: 00:56 cp 04/05 02:34 Order name: EKG - Nurse/Tech; Complete Time: 02:56 cp EC:53 Rate is 79 beats/min. Rhythm is regular. NC interval is normal. QRS interval is normal. cp QT interval is normal. Interpreted by me. Reviewed by me. 03:05 Rate is 85 beats/min. Rhythm is regular. NC interval is normal. QRS interval is normal. cp QT interval is normal. Interpreted by me. Reviewed by me. Administered Medications: 02:09 Drug: Ketorolac IVP 15 mg IVP once Route: IVP; Site: left antecubital; lg3 02:56 Follow up: Response: No adverse reaction; Marked relief of symptoms lg3 02:09 Drug: NS 0.9% IV 1000 ml IV at 1 bolus Per protocol; 1000 mL bolus Route: IV; Rate: 1 lg3 bolus; Site: left antecubital; 02:56 Follow up: IV Status: Completed infusion; IV Intake: 1000ml lg3 02:09 Drug: Potassium PO Effervescent Tablet 50 mEq PO once; dissolve in 4 ounces of water or lg3 juice Route: PO; 02:56 Follow up: Response: No adverse reaction lg3 03:21 Drug: Potassium PO Effervescent Tablet 50 mEq PO once; dissolve in 4 ounces of water or lg3 juice Route: PO; 03:21 Follow up: Response: No adverse reaction lg3 Disposition: 05:20 Co-signature as Attending Physician, Prosper Ríos MD I reviewed the patient's care rt provided by the Advanced Practice Provider and agree with the diagnosis and treatment plan. Disposition Summary: 04/05/23 03:06 Discharge Ordered Notes: Location: Home cp Problem: new cp Symptoms: have improved cp Condition: Stable cp Diagnosis - Chest pain, unspecified cp - Hypokalemia cp Followup: cp - With: Private Physician - When: 2 - 3 days - Reason: Recheck today's complaints Discharge Instructions: - Discharge Summary Sheet cp - Chest Wall Pain cp - Potassium Content of Foods cp - Hypokalemia cp - Managing Anxiety, Adult cp Forms: - Medication Reconciliation Form cp - Thank You Letter cp - Antibiotic Education cp - Prescription Opioid Use cp - Patient Portal Instructions cp - Leadership Thank You Letter cp Prescriptions: - Naprosyn 500 mg Oral tablet - take 1 tablet ORAL route 2 times per day take with food; 20 tablet; Refills: 0, cp Product Selection Permitted Signatures: Dispatcher [employer] EDMS Manny Zavala PA PA cp Effie Patel, RN RN lg3 Prosper Ríos MD MD rt Nanci Mancini RN RN cm10 Corrections: (The following items were deleted from the chart) 02:52 01:58 Normal except: K 2.8. cp cp 04/06 03:04 04/05 01:00 The chest pain is described as sharp, cp cp 04/06 03:04/05 01:00 Duration: The patient or guardian reports a single episode, that is still cp ongoing, cp
--- NOTE | 2023-04-05 03:06 | ER ---
Nurse's Notes [facility] Name: Emilie Holland Age: 32 yrs Sex: Female : 1990 Arrival Date: 04/05/2023 Time: 00:29 Bed 6 Private MD: Diagnosis: Chest pain, unspecified;Hypokalemia Presentation: 04/05 00:40 Chief complaint: Patient states: Right sided chest pain onset yesterday. Pt states that cm10 the pain radiates down her right arm and into her back. pt describes the pain as a stabbing sensation and rates it a 8/10. Pt states that she was watching TV when the pain started. Pt states that the pain is intermittent. Coronavirus screen: Vaccine status: Patient reports receiving the 2nd dose of the covid vaccine. Ebola Screen: Patient denies travel to an Ebola-affected area in the 21 days before illness onset. No symptoms or risks identified at this time. Initial Sepsis Screen: Does the patient meet any 2 criteria? No. Patient's initial sepsis screen is negative. Does the patient have a suspected source of infection? No. Patient's initial sepsis screen is negative. Risk Assessment: Do you want to hurt yourself or someone else? Patient reports no desire to harm self or others. Onset of symptoms was April 05, 2023. 00:40 Method Of Arrival: EMS: [facility] cm10 00:40 Acuity: ADITYA 3 cm10 Historical: - Allergies: 00:41 Hydrocodone-Acetaminophen (Vomiting); Itching; cm10 00:41 Iodine; cm10 00:41 Tramadol HCl; cm10 - PMHx: 00:41 Post concussive syndrome; Ovarian cysts; Endometrosis; Anxiety; cm10 - Immunization history:: Adult Immunizations unknown. - Social history:: Smoking status: Patient reports the use of cigarette tobacco products, smokes one-half pack cigarettes per day. Screenin:58 [facility] ED Fall Risk Assessment (Adult) History of falling in the last 3 months, lg3 including since admission No falls in past 3 months (0 pts). Abuse screen: Denies threats or abuse. Denies injuries from another. Nutritional screening: No deficits noted. Tuberculosis screening: No symptoms or risk factors identified. Assessment: 01:58 General: Appears in no apparent distress. comfortable, Behavior is calm, cooperative. lg3 Pain: Complains of pain in chest Pain radiates to back and right arm Pain began 1 day ago. Neuro: No deficits noted. Bermudez Agitation-Sedation Scale (RASS): 0 - Alert and Calm Level of Consciousness is awake, alert, obeys commands, Oriented to person, place, time, situation. Cardiovascular: No deficits noted. Capillary refill < 3 seconds Clubbing of nail beds is absent JVD is absent Patient's skin is warm and dry. Respiratory: No deficits noted. Airway is patent Respiratory effort is even, unlabored, Respiratory pattern is regular, symmetrical. GI: No deficits noted. No signs and/or symptoms were reported involving the gastrointestinal system. : No deficits noted. No signs and/or symptoms were reported regarding the genitourinary system. EENT: No deficits noted. No signs and/or symptoms were reported regarding the EENT system. Derm: No deficits noted. No signs and/or symptoms reported regarding the dermatologic system. Skin is intact, is healthy with good turgor, Skin is dry, Skin is normal, Skin temperature is warm. Musculoskeletal: No deficits noted. No signs and/or symptoms reported regarding the musculoskeletal system. Circulation, motion, and sensation intact. Range of motion: intact in all extremities. Vital Signs: 00:40 BP 149 / 109; Pulse 89; Resp 16; Temp 98; Pulse Ox 99% ; Weight 77.11 kg; Height 5 ft. cm10 2 in. ; Pain 8/10; 02:16 BP 155 / 106; Pulse 93; Resp 19 S; Pulse Ox 99% on R/A; lg3 03:21 BP 137 / 89; Pulse 89; Resp 18 S; Pulse Ox 99% on R/A; lg3 00:40 Body Mass Index 31.09 (77.11 kg, 157.48 cm) cm10 00:40 Pain Scale: Adult cm10 ED Course: 00:37 Patient arrived in ED. gm2 00:41 Triage completed. cm10 00:42 Arm band placed on Patient placed in waiting room. EKG completed in triage. Results cm10 shown to MD. 00:43 Manny Zavala PA is PHCP. cp 00:44 Prosper Ríos MD is Attending Physician. cp 00:56 Basic Metabolic Panel Sent. cm10 00:56 CBC with Diff Sent. cm10 00:56 D-Dimer Sent. cm10 00:56 LFT's Sent. cm10 00:56 Magnesium Sent. cm10 00:56 Troponin HS Sent. cm10 00:56 Initial lab(s) drawn, by me, sent to lab. Inserted saline lock: 20 gauge in left cm10 antecubital area, using aseptic technique. Blood collected. Patient maintains SpO2 saturation greater than 95% on room air. 01:14 XRAY Chest (1 view) In Process Unspecified. EDMS 01:47 PREGU Sent. bc6 01:47 Urinalysis W/Microscopic Sent. bc6 01:58 Effie Patel, RN is Primary Nurse. lg3 01:58 Patient has correct armband on for positive identification. Placed in gown. Bed in low lg3 position. Call light in reach. Side rails up X 1. Client placed on continuous cardiac and pulse oximetry monitoring. NIBP monitoring applied. clinical research monitor on. Door closed. Noise minimized. Warm blanket given. Family accompanied patient. 03:21 No provider procedures requiring assistance completed. IV discontinued, intact, lg3 bleeding controlled, No redness/swelling at site. Pressure dressing applied. Administered Medications: 02:09 Drug: Ketorolac IVP 15 mg IVP once Route: IVP; Site: left antecubital; lg3 02:56 Follow up: Response: No adverse reaction; Marked relief of symptoms lg3 02:09 Drug: NS 0.9% IV 1000 ml IV at 1 bolus Per protocol; 1000 mL bolus Route: IV; Rate: 1 lg3 bolus; Site: left antecubital; 02:56 Follow up: IV Status: Completed infusion; IV Intake: 1000ml lg3 02:09 Drug: Potassium PO Effervescent Tablet 50 mEq PO once; dissolve in 4 ounces of water or lg3 juice Route: PO; 02:56 Follow up: Response: No adverse reaction lg3 03:21 Drug: Potassium PO Effervescent Tablet 50 mEq PO once; dissolve in 4 ounces of water or lg3 juice Route: PO; 03:21 Follow up: Response: No adverse reaction lg3 Medication: 03:22 VIS not applicable for this client. lg3 Intake: 02:56 IV: 1000ml; Total: 1000ml. lg3 Outcome: 03:06 Discharge ordered by MD. sterling 03:21 Discharged to home ambulatory, with significant other, lg3 03:21 Condition: stable 03:21 Discharge instructions given to patient, Instructed on discharge instructions, follow up and referral plans. medication usage, Demonstrated understanding of instructions, follow-up care, medications, Prescriptions given X 1 03:22 Patient left the ED. lg3 Signatures: Dispatcher [employer] EDMS Manny Zavala PA PA cp Gibson, Lacie, RN RN lg3 Vonnie Hooper Clarissa, RN RN cm10 Tania Escalera 2
[2023-04-05 03:35] VITALS: TEMP 98; O2SAT 99
[2023-04-05 03:45] VITALS: BP 137/89
--- NOTE | 2023-04-06 14:13 | RAD REPORT ---
EXAM DESCRIPTION: RAD - Chest Single View - 04/05/2023 1:12 am CLINICAL HISTORY: 32 years Female CHEST PAIN COMPARISON: None FINDINGS: Lung volumes adequate. Cardiac silhouette is normal in size. No pneumothorax. No large pleural effusion. No focal consolidation. No acute bony finding. IMPRESSION: No acute cardiopulmonary findings. Electronically signed by: José Miguel House MD 04/05/2023 1:32 AM CDT Due to temporary technical issues with the PACS/Fluency reporting system, reports are being signed by the in house radiologists without review as a courtesy to insure prompt reporting. The interpreting radiologist is fully responsible for the content of the report.
--- NOTE | 2023-04-07 07:55 | EKG ---
Test Date: 2023-04-05 Test Time: 00:48:34 Refrigeration Technician: ALVA MEASUREMENT RESULTS: Intervals: Rate: 79 [place]: 126 QRSD: 80 QT: 380 QTc: 435 [place]: P: 67 [place]: 126 QRS: 63 T: 1 INTERPRETIVE STATEMENTS: Normal sinus rhythm Nonspecific T wave abnormality Abnormal ECG Compared to ECG 04/24/2020 10:01:22 Possible ischemia no longer present T-wave abnormality still present Electronically Signed On 04-07-23 07:51:47 CDT by Jose Miguel Pinto
--- NOTE | 2023-04-07 07:55 | EKG ---
Test Date: 2023-04-05 Test Time: 02:59:01 Scratcher: DULCE MARIA MEASUREMENT RESULTS: Intervals: Rate: 90 HI: 128 QRSD: 84 QT: 412 QTc: 504 [place]: P: 82 HI: 128 QRS: 73 T: 60 INTERPRETIVE STATEMENTS: Normal sinus rhythm Prolonged QT Abnormal ECG Compared to ECG 04/05/2023 02:56:26 Prolonged QT interval now present Electronically Signed On 04-07-23 07:51:38 CDT by Jose Miguel Pinto
--- NOTE | 2023-04-07 07:55 | EKG ---
Test Date: 2023-04-05 Test Time: 02:56:26 Sliver Machine Operator: DULCE MARIA MEASUREMENT RESULTS: Intervals: Rate: 85 IN: 128 QRSD: 84 QT: 382 QTc: 454 [place]: P: 78 IN: 128 QRS: 69 T: 45 INTERPRETIVE STATEMENTS: Normal sinus rhythm Normal ECG Compared to ECG 04/24/2020 10:01:22 T-wave abnormality no longer present Possible ischemia no longer present Electronically Signed On 04-07-23 07:51:41 CDT by Jose Miguel Pinto
== END 2023-04-05 03:22 | disposition home or self-care (01) ==
LOC: ER 00:29
DX: R07.89 Other chest pain (principal); E87.6 Hypokalemia; F17.210 Nicotine dependence, cigarettes, uncomplicated; Z88.5 Allergy status to narcotic agent; Z91.048 Other nonmedicinal substance allergy status
CPT/HCPCS: 36415; 71045; 80048; 80076; 81001; 81025; 83735; 84484; 85025; 85379; 93005; 96361; 96374; 99285; J7030

== ENCOUNTER 2023-09-06 10:26 | Emergency (ER) | payer SELFPAY ==
[2023-09-06] MEDS ORDERED: NA CHLORIDE 0.9% 1,000 ML ONE (11:01)
[2023-09-06] MEDS ORDERED: ONDANSETRON 4 MG/2 ML VIAL ONE (11:01)
[2023-09-06 11:11] LABS: Absolute Eosinophils 0.2 K/uL (0-0.5); Absolute Lymphocytes (CBC) 1.5 K/uL (0.7-4.9); Absolute Monocytes 0.6 K/uL (0.1-1.3); Absolute Neutrophil 3.6 K/uL (1.8-8.0); Basophils % 0.6 % (0-1.3); Eosinophils % 2.8 % (0-4.4); Hematocrit 39.1 % (36.0-45.0); Hemoglobin 13.4 g/dL (12.0-15.0); Lymphocytes % 25.4 % (15.3-44.8); MCH 32.1 pg (27.0-35.0); MCHC 34.1 g/dL (32.0-36.0); MCV 94.1 fL (80-100); MPV 7.5 fL (7.6-11.3); Monocytes % 9.8 % (3.3-12.3); Neutrophils % 61.4 % (41.7-73.7); Nucleated Red Blood Cells % 0.2 % (0-0); Platelets 336 thou/uL (152-406); RBC Red Blood Cell Count 4.16 M/uL (3.86-4.86); Red Cell Distribution Width 13.6 % (12.1-15.2)
[2023-09-06 11:13] LABS: Urine Bacteria None Seen /HPF (<20); Urine Bilirubin NEGATIVE (Negative); Urine Blood Negative (Negative); Urine Clarity Clear (Clear); Urine Color Light-Yellow (Yellow); Urine Culture Reflex Order NOT NEEDED; Urine Glucose NEGATIVE (Negative); Urine Ketones NEGATIVE (Negative); Urine Microscopic Reflex YN ORDER UMIC; Urine Mucus Slight /HPF (None Seen); Urine Nitrite NEGATIVE (Negative); Urine Protein TRACE (Negative); Urine RBC <5 /HPF (None Seen); Urine Urobilinogen Normal (Normal); Urine WBC <5 /HPF (<5)
[2023-09-06 11:25] LABS: Albumin 3.5 g/dL (3.4-5.0); Albumin/Globulin Ratio 0.8 (1.1-1.8); Anion Gap 8.7 mEq/L (5.0-15.0); Bilirubin Total 0.3 mg/dL (0.2-1.0); Globulin 4.3 g/dL (2.3-3.5); Potassium 3.7 mEq/L (3.5-5.1); Protein, Total 7.8 g/dL (6.4-8.2)
[2023-09-06 11:28] LABS: SARS-CoV-2 Antigen CONTROL BLUE LINE VIS/BG OK; SARS-CoV-2 Antigen Rapid Res Negative (Negative)
[2023-09-06] MEDS ORDERED: FAMOTIDINE 20 MG/2 ML VIAL IV ONE (11:48)
[2023-09-06] MEDS ORDERED: MORPHINE 4 MG/ML SYR ONE (11:48)
[2023-09-06] MEDS ORDERED: DIPHENHYDRAMINE 50 MG/ML VIAL ONE (11:48)
--- NOTE | 2023-09-06 12:35 | RAD REPORT ---
EXAM DESCRIPTION: CTAbdomen Pelvis W Contrast - 09/06/2023 12:23 pm CLINICAL HISTORY: ABD PAIN COMPARISON: No comparisons TECHNIQUE: CT of the abdomen and pelvis was performed. All CT scans are performed using dose optimization technique as appropriate and may include automated exposure control or mA/KV adjustment according to patient size. FINDINGS: Lower chest: No acute abnormality. Liver: No acute abnormality or suspicious lesions. Biliary: No biliary ductal dilatation. Stomach: No significant focal abnormality. Duodenum: No significant focal abnormality. Pancreas: No significant abnormality. Spleen: No significant abnormality. Adrenal: No suspicious lesions. Kidney/ureter: No hydronephrosis. No renal calculi. Retroperitoneum: No retroperitoneal adenopathy. Vascular: No aneurysm. Bowel: Normal appendix.. Peritoneum: No ascites or free air. Bladder: Grossly unremarkable. Reproductive: 4.1 cm right adnexal lesion is almost certainly benign in a patient of this age group a nd does not require follow-up. Bones: No acute fracture. Other: n/a IMPRESSION: No acute intra-abdominal or pelvic finding. Normal appendix. No urinary tract calculi. 4 .1 cm right adnexal lesion which is statistically a benign/functional cyst in a patient of this age evangelina guzman.
--- NOTE | 2023-09-06 12:41 | ER ---
Nurse's Notes [facility] Name: Emilie Holland Age: 33 yrs Sex: Female : 1990 Arrival Date: 09/06/2023 Time: 10:26 Bed 20 Private MD: Diagnosis: Other ovarian cysts Presentation: 09/05 10:41 Chief complaint: Patient states: Diffuse abdominal pain that wraps around to back for 1 ll1 week with nausea for 1 week. Cough, congestion for 1 week. Coronavirus screen: Client denies travel out of the [place] in the last 14 days. cough unrelated to allergies, fatigue, headache, nausea, Client presents with at least one sign or symptom that may indicate coronavirus-19. Standard/surgical mask placed on the client. Ebola Screen: Patient denies travel to an Ebola-affected area in the 21 days before illness onset. Initial Sepsis Screen: Does the patient meet any 2 criteria? No. Patient's initial sepsis screen is negative. Does the patient have a suspected source of infection? No. Patient's initial sepsis screen is negative. Risk Assessment: Do you want to hurt yourself or someone else? Patient reports no desire to harm self or others. Onset of symptoms was August 31, 2023. 10:41 Method Of Arrival: Ambulatory ll1 10:41 Acuity: ADITYA 3 ll1 Triage Assessment: 10:43 General: Appears uncomfortable, Behavior is calm, cooperative, appropriate for age. ll1 General: Reports feeling ill for fatigue for. Pain: Complains of pain in abdomen Pain currently is 7 out of 10 on a pain scale. Quality of pain is described as aching. Respiratory: Reports cough that is. GI: Reports lower abdominal pain, upper abdominal pain, cramping, nausea. Historical: - Allergies: 10:40 Hydrocodone-Acetaminophen (Vomiting); Itching; ll1 10:40 Iodine; ll1 10:40 Tramadol HCl; ll1 10:40 ceftriaxone; ll1 - PMHx: 10:40 Endometrosis; Ovarian cysts; Post concussive syndrome; Anxiety; ll1 - Immunization history:: Adult Immunizations up to date. - Social history:: Smoking status: Patient reports the use of cigarette tobacco products, smokes one-half pack cigarettes per day. Screenin:03 [facility] ED Fall Risk Assessment (Adult) History of falling in the last 3 months, mb9 including since admission No falls in past 3 months (0 pts) Confusion or Disorientation No (0 pts) Intoxicated or Sedated No (0 pts) Impaired Gait No (0 pts) Mobility Assist Device Used No (0 pt) Altered Elimination No (0 pt) Score/Fall Risk Level 0 - 2 = Low Risk Oriented to surroundings, Maintained a safe environment, Educated pt \T\ family on fall prevention, incl call for assistance when getting out of bed. Abuse screen: Denies threats or abuse. Nutritional screening: No deficits noted. Tuberculosis screening: No symptoms or risk factors identified. Assessment: 11:07 General: Appears uncomfortable, Behavior is calm, cooperative. Pain: Complains of pain mb9 in abdomen Pain radiates to back. Neuro: Bermudez Agitation-Sedation Scale (RASS): 0 - Alert and Calm Level of Consciousness is awake, alert, obeys commands, Oriented to person, place, time, situation, Appropriate for age. Cardiovascular: Heart tones S1 S2 present Patient's skin is warm and dry. Respiratory: Reports cough that is Airway is patent Respiratory effort is even, unlabored, Respiratory pattern is regular, symmetrical. GI: Abdomen is round non-distended, Bowel sounds present X 4 quads. Abd is soft Abdomen is tender to palpation X 4 quads. : No signs and/or symptoms were reported regarding the genitourinary system. EENT: Reports nasal congestion. Derm: Skin is pink, warm \T\ dry. Musculoskeletal: Range of motion: intact in all extremities. 12:48 Reassessment: No changes from previously documented assessment. Patient and/or family mb9 updated on plan of care and expected duration. Pain level reassessed. Patient is alert, oriented x 3, equal unlabored respirations, skin warm/dry/pink. Vital Signs: 10:41 BP 148 / 89; Pulse 99; Resp 17; Temp 97.9; Pulse Ox 98% ; Height 5 ft. 2 in. ; Pain ll1 7/10; 11:53 BP 153 / 93; Pulse 74; Resp 16; Pulse Ox 100% on R/A; mb9 12:49 BP 153 / 96; Pulse 78; Resp 18; Pulse Ox 100% on R/A; mb9 10:41 Pain Scale: Adult ll1 ED Course: 10:31 Patient arrived in ED. im 10:32 Pallavi Concepcion PA-C is PHCP. sb4 10:32 Colette Medrano MD is Attending Physician. sb4 10:42 Triage completed. ll1 10:43 Arm band placed on. ll1 11:03 Sinai Alex, RN is Primary Nurse. mb9 11:03 Patient placed in an exam room, on a stretcher. ll1 11:07 CBC with Diff Sent. bc6 11:07 CMP Sent. bc6 11:07 Lipase Sent. bc6 11:07 Test, Urine Sent. bc6 11:07 Urinalysis w/ reflexes Sent. bc6 11:07 Initial lab(s) drawn, by me, sent to lab. Urine collected:. Inserted saline lock: 22 bc6 gauge in left antecubital area, using aseptic technique. Blood collected. 11:08 Placed in gown. Bed in low position. Call light in reach. Side rails up X 1. Client mb9 placed on continuous cardiac and pulse oximetry monitoring. NIBP monitoring applied. Door closed. Noise minimized. Warm blanket given. 11:08 Flu Sent. mb9 11:08 SARS RAPID Sent. mb9 11:08 No provider procedures requiring assistance completed. mb9 11:37 Patient requests pain medication. mb9 11:56 Thermoregulation: warm blanket given to patient. mb9 12:25 CT Abd/Pelvis - IV Contrast Only In Process Unspecified. EDMS 12:[address] via stretcher. mb9 12:41 Herlinda Solis MD is Referral Physician. sb4 12:50 IV discontinued, intact, bleeding controlled, No redness/swelling at site. Pressure mb9 dressing applied. Administered Medications: 11:08 Drug: NS 0.9% IV 1000 ml IV at 1 bolus Per protocol; 1000 mL bolus Route: IV; Rate: 1 mb9 bolus; Site: left forearm; 12:49 Follow up: Response: No adverse reaction; IV Status: Completed infusion mb9 11:08 Drug: Ondansetron IVP 4 mg IVP once; over 2 minutes Route: IVP; Site: left forearm; mb9 12:49 Follow up: Response: No adverse reaction mb9 11:53 Drug: Famotidine IVP 20 mg IVP once; dilute with 10 mL 0.9% NaCl; give over 2 minutes mb9 Route: IVP; Site: left forearm; 12:49 Follow up: Response: No adverse reaction mb9 11:53 Drug: morphine IVP or IV 4 mg IVP once over 4 mins Route: IVP; Infused Over: 4 mins; mb9 Site: left forearm; 12:49 Follow up: Response: No adverse reaction mb9 12:09 Drug: diphenhydrAMINE IVP 50 mg IVP once Route: IVP; Site: left forearm; mb9 12:49 Follow up: Response: No adverse reaction mb9 Medication: 12:50 VIS not applicable for this client. mb9 Outcome: 12:41 Discharge ordered by MD. sb4 12:50 Discharged to home ambulatory, with family, mb9 12:50 Condition: stable 12:50 Discharge instructions given to patient, family, Instructed on discharge instructions, follow up and referral plans. Demonstrated understanding of instructions, follow-up care, medications, Prescriptions given X 1, 12:53 Patient left the ED. mb9 Signatures: Dispatcher [employer] EDMS Petros Nunes RN RN ll1 Pallavi Concepcion, PA-C PA-C sb4 Sinai Alex RN RN mb9 Vonnie Hooper 6 Lucero Means Corrections: (The following items were deleted from the chart) 10:45 10:41 Resp 17bpm; Pain 12/15, Adult; ll1 ll1
--- NOTE | 2023-09-06 12:41 | EDPHYS ---
Physician Documentation [facility] Name: Emilie Holland Age: 33 yrs Sex: Female : 1990 Arrival Date: 09/06/2023 Time: 10:26 Bed 20 Private MD: ED Physician Colette Medrano HPI: 09/05 10:45 This 33 yrs old Black Female presents to ER via Ambulatory with complaints of Flu sb4 Symptoms, Abdominal Pain. 10:45 Patient states that she has been feeling generally unwell for the past week with dry sb4 cough, congestion, malaise. States that this morning she started experiencing diffuse abdominal pain that radiates around to her back. She endorses nausea denies any vomiting. Denies any urinary symptoms, vomiting, fever. States that she did have a normal bowel movement this morning and did not improve her symptoms. Historical: - Allergies: 10:40 Hydrocodone-Acetaminophen (Vomiting); Itching; ll1 10:40 Iodine; ll1 10:40 Tramadol HCl; ll1 10:40 ceftriaxone; ll1 - PMHx: 10:40 Endometrosis; Ovarian cysts; Post concussive syndrome; Anxiety; ll1 - Immunization history:: Adult Immunizations up to date. - Social history:: Smoking status: Patient reports the use of cigarette tobacco products, smokes one-half pack cigarettes per day. ROS: 10:45 Neuro: Negative for headache, weakness, numbness, tingling, and seizure, sb4 10:45 Constitutional: Positive for malaise, 10:45 ENT: Positive for sinus congestion, 10:45 Respiratory: Positive for cough, 10:45 Abdomen/GI: Positive for abdominal pain, nausea, 10:45 All other systems are negative, Exam: 10:45 Constitutional: This is a well developed, well nourished patient who is awake, alert, sb4 and in no acute distress. Head/Face: Normocephalic, atraumatic. Eyes: Extra-ocular motions intact. Periorbital areas with no swelling, redness, or edema. ENT: Mucous membranes moist. Cardiovascular: Regular rate and rhythm with a normal S1 and S2. Respiratory: Lungs have equal breath sounds bilaterally, clear to auscultation and percussion. No rales, rhonchi or wheezes noted. No increased work of breathing, no retractions or nasal flaring. Abdomen/GI: Soft, non-tender, no distension. Skin: Warm, dry with normal turgor. Normal color with no rashes, no lesions, and no evidence of cellulitis. MS/ Extremity: Pulses equal, no cyanosis. Neurovascular intact. Full, normal range of motion. Neuro: Awake and alert, GCS 15, oriented to person, place, time, and situation. Motor strength 5/5 in all extremities. Sensory grossly intact. Vital Signs: 10:41 BP 148 / 89; Pulse 99; Resp 17; Temp 97.9; Pulse Ox 98% ; Height 5 ft. 2 in. ; Pain ll1 7/10; 11:53 BP 153 / 93; Pulse 74; Resp 16; Pulse Ox 100% on R/A; mb9 12:49 BP 153 / 96; Pulse 78; Resp 18; Pulse Ox 100% on R/A; mb9 10:41 Pain Scale: Adult ll1 MDM: 10:39 Patient medically screened. sb4 17:30 Data reviewed: vital signs, nurses notes, lab test result(s), radiologic studies, and sb4 as a result, I will discharge patient. Counseling: I had a detailed discussion with the patient and/or guardian regarding the historical points, exam findings, and any diagnostic results supporting the discharge/admit diagnosis, lab results, radiology results, the need for outpatient follow up, an OB/Gyne specialist, to return to the emergency department if symptoms worsen or persist or if there are any questions or concerns that arise at home. 09/05 10:45 Order name: CBC with Diff; Complete Time: 11:13 4 09/05 10:45 Order name: CMP; Complete Time: 11:28 sb4 09/05 10:45 Order name: Lipase; Complete Time: 11:28 sb4 09/05 10:45 Order name: Test, Urine; Complete Time: 11:13 sb4 09/05 10:45 Order name: Urinalysis w/ reflexes; Complete Time: 11:15 sb4 09/05 10:45 Order name: SARS RAPID; Complete Time: 11:28 sb4 09/05 10:45 Order name: Flu; Complete Time: 11:39 sb4 09/05 10:45 Order name: CT Abd/Pelvis - IV Contrast Only; Complete Time: 12:36 sb4 09/05 10:45 Order name: IV Saline Lock; Complete Time: 11:07 sb4 09/05 10:45 Order name: Labs collected and sent; Complete Time: : sb4 Administered Medications: 11:08 Drug: NS 0.9% IV 1000 ml IV at 1 bolus Per protocol; 1000 mL bolus Route: IV; Rate: 1 mb9 bolus; Site: left forearm; 12:49 Follow up: Response: No adverse reaction; IV Status: Completed infusion mb9 11:08 Drug: Ondansetron IVP 4 mg IVP once; over 2 minutes Route: IVP; Site: left forearm; mb9 12:49 Follow up: Response: No adverse reaction mb9 11:53 Drug: Famotidine IVP 20 mg IVP once; dilute with 10 mL 0.9% NaCl; give over 2 minutes mb9 Route: IVP; Site: left forearm; 12:49 Follow up: Response: No adverse reaction mb9 11:53 Drug: morphine IVP or IV 4 mg IVP once over 4 mins Route: IVP; Infused Over: 4 mins; mb9 Site: left forearm; 12:49 Follow up: Response: No adverse reaction mb9 12:09 Drug: diphenhydrAMINE IVP 50 mg IVP once Route: IVP; Site: left forearm; mb9 12:49 Follow up: Response: No adverse reaction mb9 Disposition Summary: 09/06/23 12:41 Discharge Ordered Notes: Location: Home sb4 Problem: new sb4 Symptoms: have improved sb4 Condition: Stable sb4 Diagnosis - Other ovarian cysts sb4 Followup: sb4 - With: Herlinda Solis MD - When: As needed - Reason: Further diagnostic work-up, Recheck today's complaints, Re-evaluation by your physician Discharge Instructions: - Discharge Summary Sheet sb4 - Ovarian Cyst, [id number] sb4 Forms: - Work release form [id number] - Thank You Letter sb4 - Patient Portal Instructions sb4 - Leadership Thank You Letter sb4 Prescriptions: - Diclofenac Sodium 75 mg Oral Tablet Sustained Release - take 1 tablet ORAL route 2 times per day; 30 tablet; Refills: 0, Product sb4 Selection Permitted Signatures: Dispatcher [employer] Petros Zamora RN RN ll1 Pallavi Concepcion PA-C PA-C sb4 Sinai Alex RN RN mb9 Corrections: (The following items were deleted from the chart) 10:46 10:46 CBC+H.LAB.BRZ ordered. EDMS EDMS 10:46 10:46 COMPREHENSIVE METABOLIC PANEL+C.LAB.BRZ ordered. EDMS EDMS 10:46 10:46 LIPASE+C.LAB.BRZ ordered. EDMS EDMS 10:46 10:46 Test, Urine+UC.LAB.BRZ ordered. EDMS EDMS 10:46 10:46 Urinalysis+U.LAB.BRZ ordered. EDMS EDMS 10:46 10:46 SARS-COV-2 Antigen Rapid+I.LAB.BRZ ordered. EDMS EDMS 10:46 10:46 Influenza Screen (A \T\ B)+BA.LAB.BRZ ordered. EDMS EDMS 10:46 10:46 Abdomen Pelvis W Con+CT.RAD.BRZ ordered. EDMS EDMS
[2023-09-06 14:48] VITALS: BP 153/96; TEMP 97.9; O2SAT 100
== END 2023-09-06 12:53 | disposition home or self-care (01) ==
LOC: ER 10:26
DX: N83.299 Other ovarian cyst, unspecified side (principal); Z11.52 Encounter for screening for COVID-19
CPT/HCPCS: 36415; 74177; 80053; 81001; 81025; 83690; 85025; 87804; 87811; 96361; 96374; 96375; 99285; J1200; J2405; J7030; Q9967

== ENCOUNTER 2024-01-10 16:27 | Emergency (ER) | payer OTHER, SELFPAY ==
[2024-01-10] MEDS ORDERED: hydrOXYzine HCL 25 MG TAB ONE (16:59)
[2024-01-10] MEDS ORDERED: KETOROLAC 30 MG/ML INJ ONE (16:59)
[2024-01-10] MEDS ORDERED: NA CHLORIDE 0.9% 1,000 ML ONE (16:59)
[2024-01-10 17:09] LABS: MCV 94.8 fL (80-100); Red Cell Distribution Width 12.9 % (12.1-15.2)
[2024-01-10 17:12] LABS: Absolute Basophils 0.1 K/uL (0-0.5); Absolute Eosinophils 0.1 K/uL (0-0.5); Absolute Lymphocytes (CBC) 1.7 K/uL (0.7-4.9); Absolute Monocytes 0.6 K/uL (0.1-1.3); Absolute Neutrophil 7.5 K/uL (1.8-8.0); Basophils % 0.7 % (0-1.3); Eosinophils % 0.8 % (0-4.4); Hematocrit 39.3 % (36.0-45.0); Hemoglobin 13.3 g/dL (12.0-15.0); Lymphocytes % 17.3 % (15.3-44.8); MCHC 33.7 g/dL (32.0-36.0); MPV 7.1 fL (7.6-11.3); Monocytes % 6.3 % (3.3-12.3); Neutrophils % 74.9 % (41.7-73.7); Nucleated Red Blood Cells % 0.1 % (0-0); Platelets 387 thou/uL (152-406); RBC Red Blood Cell Count 4.15 M/uL (3.86-4.86)
[2024-01-10 17:30] LABS: Anion Gap 7.6 mEq/L (5.0-15.0); Potassium 3.6 mEq/L (3.5-5.1); Troponin High Sensitivity 11.6 pg/mL (<58.9)
--- NOTE | 2024-01-10 18:48 | RAD REPORT ---
EXAM DESCRIPTION: CT - Abdomen Pelvis Wo Contrast - 01/10/2024 5:53 pm CLINICAL HISTORY: ABD PAIN COMPARISON: Abdomen Pelvis W Contrast dated 09/06/2023; Stone Protocol dated 04/21/2018; Stone Prot ocol dated 04/29/2017; Abdomen Pelvis Wo Contrast dated 11/15/2016; Chest Single View dated 01/10/2024 TECHNIQUE: Thin cut axial CT imaging of the abdomen and pelvis was performed without IV contrast. Mu ltiplanar reformats were generated and reviewed. All CT scans are performed using dose optimization technique as appropriate and may include automated exposure control or mA/KV adjustment according to patient size. FINDINGS: No suspicious findings in the lung bases. The liver, spleen, adrenal glands, and pancreas show no suspicious findings. Gallbladder and biliary tree are also without suspicious finding apart from layering mildly hyperdense sludge. Symmetric renal contour, without suspicious parenchymal findings within limits of noncontrast techniq ue. No evidence of radiopaque calculi or hydroureteronephrosis. No dilated bowel loops or bowel wall thickening. No free air, free fluid or inflammatory stranding. N o hernia, mass or bulky lymphadenopathy. Dominant right adnexal cystic lesion measures 3.5 cm, likely physiologic. The urinary bladder is without significant finding. No suspicious bony findings. IMPRESSION: No acute intra-abdominal process. Incidental findings as above.
--- NOTE | 2024-01-10 18:49 | RAD REPORT ---
EXAM DESCRIPTION: RADChest Single View01/10/2024 5:59 pm CLINICAL HISTORY: CHEST PAIN COMPARISON: Chest Single View dated 04/05/2023; Chest Single View dated 04/24/2020; Chest Pa And Lat (2 Views) dated 01/17/2018; Chest Single View dated 12/23/2017 TECHNIQUE: Portable AP view of the chest. FINDINGS: The lungs are clear. No pneumothorax or effusion. The cardiomediastinal contours are unre markable. IMPRESSION: No acute cardiopulmonary process.
--- NOTE | 2024-01-10 18:53 | EDPHYS ---
Physician Documentation [facility] Name: Emilie Holland Age: 33 yrs Sex: Female : 1990 Arrival Date: 01/10/2024 Time: 16:27 Bed 2 Private MD: ED Physician Gonzalo Ko HPI: 01/09 16:48 This 33 yrs old Black Female presents to ER via Ambulatory with complaints of Chest ec2 Pain, Breathing Difficulty. 16:48 Patient with history of anxiety, ovarian mass arrives today for left-sided abdominal ec2 pain along with chest pain. Patient reports chest pain as well as some congestion. Patient reports no vomiting, no diarrhea. Patient reports some left-sided abdominal pain, patient is concerned about a previous ovarian mass that she had previously resected. No bowel issues, no urinary complaints. She is on her period.. Historical: - Allergies: 16:43 Iodine; me1 16:43 Hydrocodone-Acetaminophen (Vomiting); Itching; me1 16:43 ceftriaxone; me1 16:43 Tramadol HCl; me1 - PMHx: 16:43 Anxiety; Ovarian cysts; Endometrosis; Post concussive syndrome; me1 - PSHx: 16:43 resection of abdominal mass (Post concussive syndrome); me1 - Immunization history:: Adult Immunizations up to date. - Infectious Disease History:: Denies. - Social history:: Smoking status: Patient reports the use of cigarette tobacco products, smokes one-half pack cigarettes per day. ROS: 16:48 Constitutional: as per hpi ec2 Exam: 16:48 Constitutional: GEN: NAD Head: atraumatic Eyes: EOMI Ears: External ears are ec2 normal. CV: Tachycardia LUNGS: no respiratory distress ABD: non-distended, soft, nontender, no guarding, nonrigid. SKIN: no evidence of rashes MSK: no evidence of trauma NEURO: moves all extremities equally Vital Signs: 16:39 BP 155 / 89; Pulse 115; Resp 17; Temp 97.4; Pulse Ox 100% ; Weight 81.65 kg; Height 5 me1 ft. 2 in. ; Pain 7/10; 17:00 BP 140 / 89; Pulse 93; Resp 16; Pulse Ox 100% on R/A; db 17:13 BP 140 / 89; Pulse 91; ec2 18:09 BP 146 / 97; Pulse 77; Resp 16; Pulse Ox 100% on R/A; db 16:39 Body Mass Index 32.92 (81.65 kg, 157.48 cm) me1 16:39 Pain Scale: Adult me1 MDM: 16:35 Patient medically screened. ec2 16:48 Data reviewed: vital signs. ED course: Patient arrives today for chest pain and ec2 abdominal pain. Examination remarkable for well-appearing nontoxic individual is slightly tachycardic with a reassuring abdominal examination. Will obtain cardiac workup, CT imaging. Differential includes ACS, electrolyte disturbances, anemia, SBO. 16:53 ED course: EKG independently reviewed and interpreted by me, shows sinus tachycardia, ec2 rate of 102, no acute ST segment elevations, intervals are nonconcerning, nonspecific T wave abnormalities noted in the inferolateral leads.. 18:15 ED course: Metabolic profile reassuring. CBC reassuring. Troponin within normal ranges. ec2 testing negative. Pending CT abdomen pelvis as well as chest x-ray.. 18:52 ED course: Chest x-ray shows no acute intrathoracic process, CT abdomen pelvis shows no ec2 acute intra-abdominal process. Does have a physiologic cyst in the right adnexa. . 01/09 16:48 Order name: Basic Metabolic Panel; Complete Time: 18:15 ec2 01/09 16:48 Order name: CBC with Diff; Complete Time: 18:15 ec2 01/09 16:48 Order name: Troponin HS; Complete Time: 18:15 ec2 01/09 16:55 Order name: Test, Serum; Complete Time: 18:15 ec2 01/09 16:48 Order name: XRAY Chest (1 view); Complete Time: 18:51 ec2 01/09 16:48 Order name: CT Abd/Pelvis - Without Contrast; Complete Time: 18:51 ec2 01/09 16:48 Order name: Cardiac monitoring; Complete Time: 17:06 ec2 01/09 16:48 Order name: EKG - Nurse/Tech; Complete Time: 17:06 ec2 01/09 16:48 Order name: IV Saline Lock; Complete Time: 17:06 ec2 01/09 16:48 Order name: Labs collected and sent; Complete Time: 17:06 ec2 01/09 16:48 Order name: O2 Per Protocol; Complete Time: 17:06 ec2 01/09 16:48 Order name: O2 Sat Monitoring; Complete Time: 17:06 ec2 Administered Medications: 17:06 Drug: Ketorolac IVP 15 mg IVP once Route: IVP; Site: right antecubital; rs5 19:08 Follow up: Response: No adverse reaction db 17:06 Drug: hydrOXYzine PO 50 mg PO once Route: PO; rs5 19:09 Follow up: Response: No adverse reaction db 17:06 Drug: NS 0.9% IV 1000 ml IV at 1 bolus Per protocol; 1000 mL bolus Route: IV; Rate: 1 rs5 bolus; Site: right antecubital; 19:08 Follow up: Response: No adverse reaction; IV Status: Completed infusion; IV Intake: db 1000ml Disposition Summary: 01/10/24 18:52 Discharge Ordered Notes: Location: Home ec2 Condition: Stable ec2 Diagnosis - Chest pain, unspecified ec2 - Lower abdominal pain, unspecified ec2 - Nasal congestion ec2 - Anxiety disorder, unspecified ec2 Followup: ec2 - With: Private Physician - When: - Reason: Re-evaluation by your physician Discharge Instructions: - Discharge Summary Sheet ec2 - Nonspecific Chest Pain, Adult, [id number] ec2 Forms: - Medication Reconciliation Form ec2 - Antibiotic Education ec2 - Prescription Opioid Use ec2 - Patient Portal Instructions ec2 - Leadership Thank You Letter ec2 Prescriptions: - Hydroxyzine HCl 50 mg Oral Tablet - take 1 tablet ORAL route every 8 hours As needed; 20 tablet; Refills: 0, ec2 Product Selection Permitted Signatures: Dispatcher [facility]HoG[facility] CenterYoandy Alberto RN RN rs5 Theresa Cornell RN RN me1 Gonzalo Ko MD MD ec2 Anabelle Christianson RN db Corrections: (The following items were deleted from the chart) 16:49 16:48 BASIC METABOLIC PANEL+C.LAB.BRZ ordered. EDMS EDMS 16:49 16:48 CBC+H.LAB.BRZ ordered. EDMS EDMS 16:49 16:49 Troponin High Sensitivity+C.LAB.BRZ ordered. EDMS EDMS 16:49 16:49 Test, Urine+UC.LAB.BRZ ordered. EDMS EDMS 16:49 16:49 Chest Single View+RAD.RAD.BRZ ordered. EDMS EDMS 16:49 16:49 Abdomen Pelvis Wo Con+CT.RAD.BRZ ordered. EDMS EDMS 16:49 16:48 Constitutional: GEN: NAD Head: atraumatic Eyes: EOMI Ears: External ears are ec2 normal. CV: regular rate LUNGS: no respiratory distress ABD: non-distended, soft, nontender, no guarding, nonrigid. SKIN: no evidence of rashes MSK: no evidence of trauma NEURO: moves all extremities equally ec2
--- NOTE | 2024-01-10 18:53 | ER ---
Nurse's Notes [facility] Name: Emilie Holland Age: 33 yrs Sex: Female : 1990 Arrival Date: 01/10/2024 Time: 16:27 Bed 2 Private MD: Diagnosis: Chest pain, unspecified;Lower abdominal pain, unspecified;Nasal congestion;Anxiety disorder, unspecified Presentation: 01/09 16:39 Chief complaint: Patient states: c/o left sided chest pain since last night 12/15, me1 bilateral arm numbness. c/o LLQ pain 12/15 that started 3 days ago. Hx of mass in the LLQ "concerned that it is growing back". Coronavirus screen: Vaccine status: Patient reports receiving the 2nd dose of the covid vaccine. Ebola Screen: No symptoms or risks identified at this time. Initial Sepsis Screen: Does the patient meet any 2 criteria? No. Patient's initial sepsis screen is negative. Does the patient have a suspected source of infection? No. Patient's initial sepsis screen is negative. Risk Assessment: Do you want to hurt yourself or someone else? Patient reports no desire to harm self or others. Onset of symptoms was January 07, 2024. 16:39 Method Of Arrival: Ambulatory me1 16:39 Acuity: ADITYA 3 me1 Historical: - Allergies: 16:43 Iodine; me1 16:43 Hydrocodone-Acetaminophen (Vomiting); Itching; me1 16:43 ceftriaxone; me1 16:43 Tramadol HCl; me1 - PMHx: 16:43 Anxiety; Ovarian cysts; Endometrosis; Post concussive syndrome; me1 - PSHx: 16:43 resection of abdominal mass (Post concussive syndrome); me1 - Immunization history:: Adult Immunizations up to date. - Infectious Disease History:: Denies. - Social history:: Smoking status: Patient reports the use of cigarette tobacco products, smokes one-half pack cigarettes per day. Screenin:16 [facility] ED Fall Risk Assessment (Adult) History of falling in the last 3 months, db including since admission No falls in past 3 months (0 pts) Confusion or Disorientation No (0 pts) Intoxicated or Sedated No (0 pts) Impaired Gait No (0 pts) Mobility Assist Device Used No (0 pt) Altered Elimination No (0 pt) Score/Fall Risk Level 0 - 2 = Low Risk Oriented to surroundings, Maintained a safe environment. Abuse screen: Denies threats or abuse. Denies injuries from another. Nutritional screening: No deficits noted. Tuberculosis screening: No symptoms or risk factors identified. Assessment: 17:10 Reassessment: Patient appears in no apparent distress at this time. Patient and/or db family updated on plan of care and expected duration. Pain level reassessed. Patient is alert, oriented x 3, equal unlabored respirations, skin warm/dry/pink. General: Appears in no apparent distress. comfortable, Behavior is calm, cooperative. Pain: Complains of pain in chest Pain does not radiate. Pain began gradually, 1 day ago. Neuro: Level of Consciousness is awake, alert, obeys commands, Oriented to person, place, time, situation. Cardiovascular: Capillary refill < 3 seconds Patient's skin is warm and dry. Respiratory: Airway is patent Respiratory effort is even, unlabored, Respiratory pattern is regular, symmetrical. 18:16 Reassessment: Patient appears in no apparent distress at this time. Patient and/or db family updated on plan of care and expected duration. Pain level reassessed. Patient is alert, oriented x 3, equal unlabored respirations, skin warm/dry/pink. General: Appears in no apparent distress. comfortable, Behavior is calm, cooperative. Neuro: Level of Consciousness is awake, alert, obeys commands, Oriented to person, place, time, situation. 19:07 Reassessment: Patient appears in no apparent distress at this time. Patient and/or db family updated on plan of care and expected duration. Pain level reassessed. Patient is alert, oriented x 3, equal unlabored respirations, skin warm/dry/pink. Patient states feeling better. Patient states symptoms have improved. Vital Signs: 16:39 BP 155 / 89; Pulse 115; Resp 17; Temp 97.4; Pulse Ox 100% ; Weight 81.65 kg; Height 5 me1 ft. 2 in. ; Pain 7/10; 17:00 BP 140 / 89; Pulse 93; Resp 16; Pulse Ox 100% on R/A; db 17:13 BP 140 / 89; Pulse 91; ec2 18:09 BP 146 / 97; Pulse 77; Resp 16; Pulse Ox 100% on R/A; db 16:39 Body Mass Index 32.92 (81.65 kg, 157.48 cm) me1 16:39 Pain Scale: Adult me1 ED Course: 16:31 Patient arrived in ED. gm2 16:32 Gonzalo Ko MD is Attending Physician. ec2 16:43 Triage completed. me1 16:43 Arm band placed on Patient placed in an exam room. me1 16:46 Anabelle Christianson, RN is Primary Nurse. db 16:55 Initial lab(s) drawn, by me, sent to lab. EKG done, reviewed by Gonzalo Ko MD. db Inserted saline lock: 20 gauge in right antecubital area, using aseptic technique. Blood collected. Flushed with 10 mL NS. Patient maintains SpO2 saturation greater than 95% on room air. 17:17 Patient has correct armband on for positive identification. Bed in low position. Call db light in reach. Side rails up X 1. Provided Education on: LABS AND RADIOLOGY. Client placed on continuous cardiac and pulse oximetry monitoring. NIBP monitoring applied. health care marketing manager on. Pulse ox on. NIBP on. 17:54 CT Abd/Pelvis - Without Contrast In Process Unspecified. EDMS 18:01 XRAY Chest (1 view) In Process Unspecified. EDMS 19:07 Warm blanket given. Pillow given. db 19:07 No provider procedures requiring assistance completed. IV discontinued, intact, db bleeding controlled, No redness/swelling at site. Administered Medications: 17:06 Drug: Ketorolac IVP 15 mg IVP once Route: IVP; Site: right antecubital; rs5 19:08 Follow up: Response: No adverse reaction db 17:06 Drug: hydrOXYzine PO 50 mg PO once Route: PO; rs5 19:09 Follow up: Response: No adverse reaction db 17:06 Drug: NS 0.9% IV 1000 ml IV at 1 bolus Per protocol; 1000 mL bolus Route: IV; Rate: 1 rs5 bolus; Site: right antecubital; 19:08 Follow up: Response: No adverse reaction; IV Status: Completed infusion; IV Intake: db 1000ml Medication: 19:07 VIS not applicable for this client. db Intake: 19:08 IV: 1000ml; Total: 1000ml. db Outcome: 18:52 Discharge ordered by . ec2 19:07 Discharged to home ambulatory, db 19:07 Condition: stable 19:07 Discharge instructions given to patient, Instructed on discharge instructions, follow up and referral plans. Prescriptions given X 1, 19:09 Patient left the ED. db Signatures: Dispatcher [employer] Anabelle Mcgrath RN RN Yoandy Good RN RN rs5 Theresa Cornell RN RN me1 Gonzalo Ko MD MD 2 Tania Escalera 2
[2024-01-10 23:33] VITALS: TEMP 97.4; O2SAT 100
[2024-01-10 23:47] VITALS: BP 146/97
--- NOTE | 2024-01-11 16:58 | EKG ---
Test Date: 2024-01-10 Test Time: 16:49:53 Social Worker Masters: JUNO MEASUREMENT RESULTS: Intervals: Rate: 102 GA: 124 QRSD: 80 QT: 378 QTc: 492 [place]: P: 72 GA: 124 QRS: 65 T: -30 INTERPRETIVE STATEMENTS: Sinus tachycardia T wave abnormality, consider inferolateral ischemia Abnormal ECG Compared to ECG 04/05/2023 02:59:01 T-wave abnormality now present Possible ischemia now present Sinus rhythm no longer present Prolonged QT interval no longer present Electronically Signed On 01-11-24 16:56:51 CDT by Jose Miguel Pinto
== END 2024-01-10 19:09 | disposition home or self-care (01) ==
LOC: ER 16:27
DX: R07.9 Chest pain, unspecified (principal); R10.32 Left lower quadrant pain; R09.81 Nasal congestion; F41.9 Anxiety disorder, unspecified
CPT/HCPCS: 96361; 93005; 85025; 80048; 36415; 84703; 84484; 74176; 71045; 96374; 99285; J7030

== ENCOUNTER 2024-04-05 16:46 | Emergency (ER) | payer OTHER ==
[2024-04-05 17:59] LABS: SARS-CoV-2 Antigen CONTROL BLUE LINE VIS/BG OK; SARS-CoV-2 Antigen Rapid Res Negative (Negative)
--- NOTE | 2024-04-05 18:57 | RAD REPORT ---
EXAMINATION: ONE VIEW CHEST XR CLINICAL INDICATION: Female, 33 years old.,COUGH TECHNIQUE: Frontal chest projection is submitted. Examination is limited by patient positioning and t echnique. COMPARISON: 01/10/2024 FINDINGS: The lungs are well inflated and clear. No pneumothorax or sizable effusion. The heart is normal in s ize. Mediastinal contours are unremarkable. IMPRESSION: No acute intrathoracic abnormalities.
[2024-04-05] MEDS ORDERED: IBUPROFEN 400 MG TAB ONE (19:00)
[2024-04-05] MEDS ORDERED: ALBUTEROL 2.5 MG/3 ML NEB SOL ONE (19:00)
[2024-04-05] MEDS ORDERED: IPRATROPIUM BROM 0.5MG/2.5ML ONE (19:01)
--- NOTE | 2024-04-05 19:10 | ER ---
Nurse's Notes [facility] Name: Emilie Holland Age: 33 yrs Sex: Female : 1990 Arrival Date: 04/05/2024 Time: 16:46 Bed 11 Private MD: Diagnosis: Pneumonia, unspecified organism Presentation: 04/05 17:18 Chief complaint: Patient states: I feel weak, I have had a cough for the past 2 months. jb4 It got worse last night. I now have a fever that started this morning. Coronavirus screen: At this time, the client does not indicate any symptoms associated with coronavirus-19. Ebola Screen: No symptoms or risks identified at this time. Initial Sepsis Screen: Does the patient meet any 2 criteria? No. Patient's initial sepsis screen is negative. Does the patient have a suspected source of infection? No. Patient's initial sepsis screen is negative. Risk Assessment: Do you want to hurt yourself or someone else? Patient reports no desire to harm self or others. Onset of symptoms was April 05, 2024. Transition of care: patient was not received from another setting of care. 17:18 Method Of Arrival: Ambulatory jb4 17:18 Acuity: ADITYA 4 jb4 Triage Assessment: 17:21 General: Appears in no apparent distress. comfortable, Behavior is calm, cooperative, jb4 appropriate for age. Pain: Complains of pain in generalized body aches. Pain does not radiate. Pain currently is 7 out of 10 on a pain scale. Quality of pain is described as aching. Neuro: Level of Consciousness is awake, alert, obeys commands, Oriented to person, place, time, situation. Cardiovascular: Patient's skin is warm and dry. Respiratory: Reports shortness of breath at rest Airway is patent Respiratory effort is even, unlabored, Respiratory pattern is regular, symmetrical, Onset: The symptoms/episode began/occurred yesterday, the patient has mild shortness of breath. Derm: Skin is intact, Skin is dry, Skin is normal, Skin temperature is warm. Musculoskeletal: Circulation, motion, and sensation intact. Range of motion: intact in all extremities. Historical: - Allergies: 17:20 ceftriaxone; jb4 17:20 Hydrocodone-Acetaminophen (Vomiting); Itching; jb4 17:20 Iodine; jb4 17:20 Tramadol HCl; jb4 - PMHx: 17:20 Ovarian cysts; Endometrosis; Anxiety; Post concussive syndrome; 5 cyst on stomach jb4 (resection of abdominal mass); - PSHx: 17:20 resection of abdominal mass (on); jb4 - Immunization history:: Adult Immunizations up to date. - Infectious Disease History:: Denies. - Social history:: Smoking status: Patient reports the use of cigarette tobacco products, smokes one pack cigarettes per day. Screenin:06 [facility] ED Fall Risk Assessment (Adult) History of falling in the last 3 months, db including since admission No falls in past 3 months (0 pts) Confusion or Disorientation No (0 pts) Intoxicated or Sedated No (0 pts) Impaired Gait No (0 pts) Mobility Assist Device Used No (0 pt) Altered Elimination No (0 pt) Score/Fall Risk Level 0 - 2 = Low Risk Oriented to surroundings, Maintained a safe environment. Abuse screen: Denies threats or abuse. Denies injuries from another. Nutritional screening: No deficits noted. Tuberculosis screening: No symptoms or risk factors identified. Assessment: 18:06 Reassessment: Patient appears in no apparent distress at this time. General: Appears in db no apparent distress. comfortable, Behavior is calm, cooperative. Neuro: Level of Consciousness is awake, alert, obeys commands, Oriented to person, place, time, situation. Cardiovascular:. 18:06 Respiratory: Airway is patent Respiratory effort is even, unlabored, Respiratory db pattern is regular, symmetrical. 19:44 Reassessment: Patient appears in no apparent distress at this time. Patient and/or jb4 family updated on plan of care and expected duration. Pain level reassessed. Patient is alert, oriented x 3, equal unlabored respirations, skin warm/dry/pink. Vital Signs: 17:18 BP 140 / 91; Pulse 112; Resp 16; Temp 101(O); Pulse Ox 99% on R/A; Height 5 ft. 3 in. ; jb4 Pain 8/10; 18:36 BP 139 / 78; Pulse 76; Resp 16; Pulse Ox 100% on R/A; db 17:18 Pain Scale: Adult jb4 ED Course: 16:50 Patient arrived in ED. mg5 16:51 Colette Medrano MD is Attending Physician. sp3 17:20 Triage completed. jb4 17:21 Arm band placed on right wrist. jb4 17:28 SARS RAPID Sent. jb4 17:28 Flu Sent. jb4 17:28 Strep Sent. jb4 17:58 CXR XRAY In Process Unspecified. EDMS 18:05 Anabelle Christianson, RN is Primary Nurse. db 18:06 Patient has correct armband on for positive identification. Bed in low position. Call db light in reach. Side rails up X 1. Warm blanket given. 19:44 Provided Education on: discharge instructions.. jb4 19:44 No provider procedures requiring assistance completed. Patient did not have IV access jb4 during this emergency room visit. Administered Medications: 19:08 Drug: DuoNeb Nebulize (3:1) (2.5 mg - 0.5 mg) 3 ml Nebulizer once Route: Nebulizer; jb4 19:45 Follow up: Response: No adverse reaction; Marked relief of symptoms jb4 19:09 Drug: Ibuprofen PO 800 mg PO once Route: PO; jb4 19:45 Follow up: Response: No adverse reaction jb4 Medication: 19:44 VIS not applicable for this client. jb4 Outcome: 19:09 Discharge ordered by . sp3 19:44 Discharged to home ambulatory, jb4 19:44 Condition: stable 19:44 Discharge instructions given to patient, Instructed on discharge instructions, follow up and referral plans. Demonstrated understanding of instructions, follow-up care, 19:46 Patient left the ED. jb4 Signatures: Dispatcher [employer] EDAR Trino Saleem RN RN jb4 Colette Medrano MD MD sp3 Anabelle Christianson, RN RN Leeann Smiley mg5 Corrections: (The following items were deleted from the chart) 18:06 18:06 Neuro: Level of Consciousness is awake, alert, obeys commands, Oriented to db person, place, time, situation, db
--- NOTE | 2024-04-05 19:10 | EDPHYS ---
Physician Documentation [facility] Name: Emilie Holland Age: 33 yrs Sex: Female : 1990 Arrival Date: 04/05/2024 Time: 16:46 Bed 11 Private MD: ED Physician Colette Medrano HPI: 04/05 18:52 This 33 yrs old Black Female presents to ER via Ambulatory with complaints of Cough, sp3 Shortness Of Breath, Weakness. 18:56 33-year-old female with history of endometriosis, anxiety now presents to the ED with sp3 chief complaint cough, congestion, body aches positive sick contacts for the last 48 hours. Patient states she also has a productive cough. She denies objective measured fever though subjectively has felt like she has had 1. She denies shortness of breath, chest pain, abdominal pain, vomiting, diarrhea, syncope, near syncope, or any other signs or symptoms on ROS at this time.. Historical: - Allergies: 17:20 ceftriaxone; jb4 17:20 Hydrocodone-Acetaminophen (Vomiting); Itching; jb4 17:20 Iodine; jb4 17:20 Tramadol HCl; jb4 - PMHx: 17:20 Ovarian cysts; Endometrosis; Anxiety; Post concussive syndrome; 5 cyst on stomach jb4 (resection of abdominal mass); - PSHx: 17:20 resection of abdominal mass (on); jb4 - Immunization history:: Adult Immunizations up to date. - Infectious Disease History:: Denies. - Social history:: Smoking status: Patient reports the use of cigarette tobacco products, smokes one pack cigarettes per day. ROS: 18:57 Constitutional: Negative for fever, chills, and weight loss, Eyes: Negative for injury, sp3 pain, redness, and discharge, Neck: Negative for injury, pain, and swelling, Cardiovascular: Negative for chest pain, palpitations, and edema, Abdomen/GI: Negative for abdominal pain, nausea, vomiting, diarrhea, and constipation, Back: Negative for injury and pain, MS/Extremity: Negative for injury and deformity, Skin: Negative for injury, rash, and discoloration, Neuro: Negative for headache, weakness, numbness, tingling, and seizure, Psych: Negative for depression, anxiety, suicide ideation, homicidal ideation, and hallucinations, Allergy/Immunology: Negative for hives, rash, and allergies, Endocrine: Negative for neck swelling, polydipsia, polyuria, polyphagia, and marked weight changes, Hematologic/Lymphatic: Negative for swollen nodes, abnormal bleeding, and unusual bruising, 18:57 All other systems are negative, Exam: 18:57 Constitutional: This is a well developed, well nourished patient who is awake, alert, sp3 and in no acute distress. Head/Face: Normocephalic, atraumatic. Eyes: Pupils equal round and reactive to light, extra-ocular motions intact. Lids and lashes normal. Conjunctiva and sclera are non-icteric and not injected. Cornea within normal limits. Periorbital areas with no swelling, redness, or edema. ENT: Nares patent. No nasal discharge, no septal abnormalities noted. External auditory canals are clear. Oropharynx with no redness, swelling, or masses, exudates, or evidence of obstruction, uvula midline. Mucous membranes moist. Neck: Trachea midline, no thyromegaly or masses palpated, and no cervical lymphadenopathy. Supple, full range of motion without nuchal rigidity, or vertebral point tenderness. No Meningismus. Chest/axilla: Normal chest wall appearance and motion. Nontender with no deformity. No lesions are appreciated. Cardiovascular: Regular rate and rhythm with a normal S1 and S2. No gallops, murmurs, or rubs. Normal PMI, no JVD. No pulse deficits. Abdomen/GI: Soft, non-tender, with normal bowel sounds. No distension or tympany. No guarding or rebound. No evidence of tenderness throughout. Back: No spinal tenderness. No costovertebral tenderness. Full range of motion. Skin: Warm, dry with normal turgor. Normal color with no rashes, no lesions, and no evidence of cellulitis. MS/ Extremity: Pulses equal, no cyanosis. Neurovascular intact. Full, normal range of motion. Neuro: Awake and alert, GCS 15, oriented to person, place, time, and situation. Cranial nerves II-XII grossly intact. Motor strength 5/5 in all extremities. Sensory grossly intact. Cerebellar exam normal. Normal gait. Psych: Awake, alert, with orientation to person, place and time. Behavior, mood, and affect are within normal limits. Vital Signs: 17:18 BP 140 / 91; Pulse 112; Resp 16; Temp 101(O); Pulse Ox 99% on R/A; Height 5 ft. 3 in. ; jb4 Pain 8/10; 18:36 BP 139 / 78; Pulse 76; Resp 16; Pulse Ox 100% on R/A; db 17:18 Pain Scale: Adult jb4 MDM: 17:17 Medical Screening Exam initiated sp3 18:58 Data reviewed: vital signs, nurses notes, lab test result(s), radiologic studies. ED sp3 course: 33-year-old female with URI symptoms. Differential diagnose includes viral illness, URI, bronchitis, pneumonia, COVID-19, influenza, strep pharyngitis, among others. Swabs are all negative and chest x-ray demonstrates potential patchy infiltrate on my read. We will administer albuterol 1 dose here and discharge patient home on Zithromax with follow-up to PCP.. 04/05 17:18 Order name: SARS RAPID; Complete Time: 18:52 sp3 04/05 17:18 Order name: Flu; Complete Time: 18:52 sp3 04/05 17:18 Order name: Strep sp3 04/05 17:18 Order name: CXR XRAY; Complete Time: 18:59 sp3 Administered Medications: 19:08 Drug: DuoNeb Nebulize (3:1) (2.5 mg - 0.5 mg) 3 ml Nebulizer once Route: Nebulizer; 4 19:45 Follow up: Response: No adverse reaction; Marked relief of symptoms jb4 19:09 Drug: Ibuprofen PO 800 mg PO once Route: PO; jb4 19:45 Follow up: Response: No adverse reaction jb4 Disposition Summary: 04/05/24 19:09 Discharge Ordered Notes: Location: Home sp3 Condition: Stable sp3 Diagnosis - Pneumonia, unspecified organism sp3 Followup: sp3 - With: Private Physician - When: Upon discharge from the Emergency Department - Reason: Continuance of care Discharge Instructions: - Discharge Summary Sheet sp3 - Community-Acquired Pneumonia, Adult sp3 Forms: - Work release form jb4 - Medication Reconciliation Form sp3 - Antibiotic Education sp3 - Prescription Opioid Use sp3 - Patient Portal Instructions sp3 - Leadership Thank You Letter sp3 Prescriptions: - Tessalon Perles 100 mg Oral Capsule - take 1 capsule ORAL route every 8 hours As needed; 15 capsule; Refills: 0, sp3 Product Selection Permitted - Zithromax Z-Joseluis 250 mg Oral Tablet - take 1 tablet ORAL route as directed for 5 days Day 1 - take two (2) tablets sp3 one time. Day 2, 3, 4 , 5 take one (1) tablet once daily.; 6 tablet; Refills: 0, Product Selection Permitted Signatures: Dispatcher [employer] Trino Villalobos RN RN jb4 Colette Medrano MD MD sp3
[2024-04-05 19:58] VITALS: TEMP 101
[2024-04-05 19:59] VITALS: BP 139/78; O2SAT 100
== END 2024-04-05 19:46 | disposition home or self-care (01) ==
LOC: ER 16:46
DX: J18.9 Pneumonia, unspecified organism (principal); F17.210 Nicotine dependence, cigarettes, uncomplicated; Z11.52 Encounter for screening for COVID-19
CPT/HCPCS: 36415; 87081; 87804 ×2; 71045; 87811; J7613; J7644; 87070; 99284

== ENCOUNTER 2024-10-17 18:20 | Emergency (ER) | payer OTHER ==
[2024-10-17] MEDS ORDERED: IBUPROFEN 200 MG TAB PO ONE (18:29)
--- NOTE | 2024-10-17 19:25 | EDPHYS ---
Physician Documentation [facility] Name: Emilie Holland Age: 34 yrs Sex: Female : 1990 Arrival Date: 10/17/2024 Time: 18:20 Bed DX4 Private MD: ED Physician Colette Medrano HPI: 10/17 18:25 This 34 yrs old Black Female presents to ER via Unassigned with complaints of Flu kb Symptoms. 18:25 Pt is a 34 year old female who presents for left ear pain, sore throat, and bodyaches kb that started upon waking around 1300 today. States she believes she has a fever due to the way her body feels. . Historical: - Allergies: 18:31 ceftriaxone; hb 18:31 Hydrocodone-Acetaminophen (Vomiting); Itching; hb 18:31 Iodine; hb 18:31 Tramadol HCl; hb - PMHx: 18:31 Anxiety; Post concussive syndrome; Endometrosis; Ovarian cysts; hb - PSHx: 18:31 resection of abdominal mass; hb - Immunization history:: Adult Immunizations up to date. - Infectious Disease History:: Denies. - Social history:: Smoking status: Patient reports the use of cigarette tobacco products. ROS: 18:25 Constitutional: As per HPI kb Exam: 18:25 Constitutional: This is a well developed, well nourished patient who is awake, alert, kb and in no acute distress. Head/Face: Normocephalic, atraumatic. ENT: Moist Mucous membranes Respiratory: Respirations even and unlabored. No increased work of breathing. Talking in full sentences Skin: Warm, dry with normal turgor. Normal color. MS/ Extremity: Pulses equal, no cyanosis. Neurovascular intact. Full, normal range of motion. Neuro: Awake and alert, GCS 15, oriented to person, place, time, and situation. 18:27 ENT: External ear(s): are unremarkable, Ear canal(s): are normal, TM's: are normal, kb Posterior pharynx: swelling, that is mild, erythema, that is moderate, Vital Signs: 18:29 BP 151 / 100; Pulse 118; Resp 18; Temp 100.9(O); Pulse Ox 100% on R/A; Weight 90.72 kg; hb Height 5 ft. 3 in. ; Pain 9/10; 18:29 Body Mass Index 35.43 (90.72 kg, 160.02 cm) hb 18:29 Pain Scale: Adult hb MDM: 18:23 Medical Screening Exam initiated kb 18:27 Data reviewed: vital signs, nurses notes. kb 19:23 Differential diagnosis: pharyngitis, strep, otitis media. I considered the following kb discharge prescriptions or medication management in the emergency department I discussed and recommended Over The Counter medications, Antibiotics: At this time antibiotics are not recommended. Counseling: I had a detailed discussion with the patient and/or guardian regarding the historical points, exam findings, and any diagnostic results supporting the discharge/admit diagnosis, lab results, the need for outpatient follow up, an ENT specialist, a family practitioner, to return to the emergency department if symptoms worsen or persist or if there are any questions or concerns that arise at home. 10/17 18:28 Order name: Group A Streptococcus Rapid; Complete Time: 19:23 kb 10/17 19:26 Order name: Throat Culture EDMS Administered Medications: 18:36 Drug: Ibuprofen PO 600 mg PO once Route: PO; hb Disposition Summary: 10/17/24 19:24 Discharge Ordered Notes: Location: Home kb Condition: Stable kb Diagnosis - Acute pharyngitis, unspecified kb Followup: kb - With: Emergency Department - When: As needed - Reason: Worsening of condition Followup: kb - With: Private Physician - When: 2 - 3 days - Reason: Recheck today's complaints, Continuance of care, Re-evaluation by your physician Discharge Instructions: - Discharge Summary Sheet kb - Sore Throat kb - Pharyngitis, [id number] kb Forms: - Medication Reconciliation Form kb - Antibiotic Education kb - Prescription Opioid Use kb - Patient Portal Instructions kb - Leadership Thank You Letter kb - Work release form vc1 Signatures: Dispatcher [employer] Shey Ruiz FNP-C FNP-Vashti Sharp, RN RN hb
--- NOTE | 2024-10-17 19:25 | ER ---
Nurse's Notes [facility] Name: Emilie Holland Age: 34 yrs Sex: Female : 1990 Arrival Date: 10/17/2024 Time: 18:20 Bed DX4 Private MD: Diagnosis: Acute pharyngitis, unspecified Presentation: 10/17 18:29 Chief complaint: Left ear pain, sore throat, and body aches since 1400 today. hb Coronavirus screen: Client presents with at least one sign or symptom that may indicate coronavirus-19. Standard/surgical mask placed on the client. Provider contacted for isolation considerations. Ebola Screen: No symptoms or risks identified at this time. Initial Sepsis Screen: Does the patient meet any 2 criteria? No. Patient's initial sepsis screen is negative. Does the patient have a suspected source of infection? No. Patient's initial sepsis screen is negative. Risk Assessment: Do you want to hurt yourself or someone else? Patient reports no desire to harm self or others. Onset of symptoms was October 17, 2024. 18:29 Method Of Arrival: Ambulatory 18:29 Acuity: ADITYA 4 hb Triage Assessment: 20:06 General: Appears in no apparent distress. Behavior is calm, cooperative, appropriate vc1 for age. Pain: Complains of pain in throat. EENT: Reports pain when swallowing. Neuro: Level of Consciousness is awake, alert, obeys commands, Oriented to person, place, time, situation, Appropriate for age. Cardiovascular: Capillary refill < 3 seconds Patient's skin is warm and dry. Respiratory: Airway is patent Respiratory effort is even, unlabored, Respiratory pattern is regular, symmetrical. GI: No deficits noted. No signs and/or symptoms were reported involving the gastrointestinal system. : No deficits noted. No signs and/or symptoms were reported regarding the genitourinary system. Derm: Skin is intact, is healthy with good turgor, Skin is dry, Skin is normal, Skin temperature is warm. Musculoskeletal: Circulation, motion, and sensation intact. Range of motion: intact in all extremities. Historical: - Allergies: 18:31 ceftriaxone; hb 18:31 Hydrocodone-Acetaminophen (Vomiting); Itching; hb 18:31 Iodine; hb 18:31 Tramadol HCl; hb - PMHx: 18:31 Anxiety; Post concussive syndrome; Endometrosis; Ovarian cysts; hb - PSHx: 18:31 resection of abdominal mass; hb - Immunization history:: Adult Immunizations up to date. - Infectious Disease History:: Denies. - Social history:: Smoking status: Patient reports the use of cigarette tobacco products. Screenin:05 [facility] ED Fall Risk Assessment (Adult) History of falling in the last 3 months, vc1 including since admission No falls in past 3 months (0 pts) Confusion or Disorientation No (0 pts) Intoxicated or Sedated No (0 pts) Impaired Gait No (0 pts) Mobility Assist Device Used No (0 pt) Altered Elimination No (0 pt) Score/Fall Risk Level 0 - 2 = Low Risk Oriented to surroundings, Maintained a safe environment, Educated pt \T\ family on fall prevention, incl call for assistance when getting out of bed. Abuse screen: Denies threats or abuse. Nutritional screening: No deficits noted. Tuberculosis screening: No symptoms or risk factors identified. Vital Signs: 18:29 BP 151 / 100; Pulse 118; Resp 18; Temp 100.9(O); Pulse Ox 100% on R/A; Weight 90.72 kg; hb Height 5 ft. 3 in. ; Pain 9/10; 18:29 Body Mass Index 35.43 (90.72 kg, 160.02 cm) hb 18:29 Pain Scale: Adult hb ED Course: 18:22 Patient arrived in ED. im 18:23 Shey Degroot FNP-C is PHCP. kb 18:23 Colette Medrano MD is Attending Physician. kb 18:31 Triage completed. hb 18:31 Arm band placed on. hb 18:31 Group A Streptococcus Rapid Sent. hb 20:06 Patient has correct armband on for positive identification. Provided Education on: f/u vc1 with PCP. 20:07 No provider procedures requiring assistance completed. Patient did not have IV access vc1 during this emergency room visit. Administered Medications: 18:36 Drug: Ibuprofen PO 600 mg PO once Route: PO; hb Medication: 20:06 VIS not applicable for this client. vc1 Outcome: 19:24 Discharge ordered by . kb 20:07 Discharged to home ambulatory, with family, vc1 20:07 Condition: stable 20:07 Discharge instructions given to patient, Instructed on discharge instructions, follow up and referral plans. Demonstrated understanding of instructions, follow-up care, 20:08 Patient left the ED. vc1 Signatures: Shey Degroot, BAILEY DAMICO-Vashti Sharp RN RN Nathalie Gates RN RN vc1 Lucero Means
[2024-10-17 20:37] VITALS: BP 151/100; TEMP 100.9; O2SAT 100
== END 2024-10-17 20:08 | disposition home or self-care (01) ==
LOC: ER 18:20
DX: J02.9 Acute pharyngitis, unspecified (principal); H92.02 Otalgia, left ear; Z72.0 Tobacco use
CPT/HCPCS: 36415; 87070; 99283

== ENCOUNTER 2024-10-19 07:51 | Emergency (ER) | payer OTHER, SELFPAY ==
--- NOTE | 2024-10-19 08:22 | EDPHYS ---
Physician Documentation [facility] Name: Emilie Holland Age: 34 yrs Sex: Female : 1990 Arrival Date: 10/19/2024 Time: 07:51 Bed 17 Private MD: ED Physician Prosper Ríos HPI: 10/19 09:50 This 34 yrs old Black Female presents to ER via Ambulatory with complaints of Sore rt Throat, Ear Pain - BOTH, Fever. 09:50 Patient was seen in the ED few days ago, had a negative strep swab, has been taking rt ibuprofen for temporary relief. Reports an ongoing pain to the throat, fevers, did develop a bilateral ear pain. Denies other acute complaints, symptoms are moderate in severity, no other aggravating or alleviating factors.. Historical: - Allergies: 08:04 ceftriaxone; iw 08:04 Hydrocodone-Acetaminophen (Vomiting); Itching; iw 08:04 Iodine; iw 08:04 Tramadol HCl; iw - PMHx: 08:04 5 cyst on stomach (resection of abdomi); Anxiety; Endometrosis; Ovarian cysts; Post iw concussive syndrome; - PSHx: 08:04 resection of abdominal mass; iw - Immunization history:: Adult Immunizations up to date. - Infectious Disease History:: Denies. - Family history:: not pertinent. - Social history:: Smoking status: Patient denies any tobacco usage or history of. ROS: 09:50 Constitutional: Negative for fever, chills, and weight loss, Eyes: Negative for injury, rt pain, redness, and discharge, Cardiovascular: Negative for chest pain, palpitations, and edema, Respiratory: Negative for shortness of breath, cough, wheezing, and pleuritic chest pain, Abdomen/GI: Negative for abdominal pain, nausea, vomiting, diarrhea, and constipation, Skin: Negative for injury, rash, and discoloration, Neuro: Negative for headache, weakness, numbness, tingling, and seizure, 09:50 ENT: Positive for ear pain, sore throat, Exam: 09:50 Constitutional: This is a well developed, well nourished patient who is awake, alert, rt and in no acute distress. Head/Face: Normocephalic, atraumatic. Chest/axilla: Normal chest wall appearance and motion. Nontender with no deformity. No lesions are appreciated. Cardiovascular: Regular rate and rhythm with a normal S1 and S2. No gallops, murmurs, or rubs. Normal PMI, no JVD. No pulse deficits. Respiratory: Lungs have equal breath sounds bilaterally, clear to auscultation and percussion. No rales, rhonchi or wheezes noted. No increased work of breathing, no retractions or nasal flaring. Abdomen/GI: Soft, non-tender, with normal bowel sounds. No distension or tympany. No guarding or rebound. No evidence of tenderness throughout. Skin: Warm, dry with normal turgor. Normal color with no rashes, no lesions, and no evidence of cellulitis. MS/ Extremity: Pulses equal, no cyanosis. Neurovascular intact. Full, normal range of motion. 09:50 ENT: TMs bulging with effusions bilaterally, posterior pharyngeal erythema without exudates or tonsillar hypertrophy. Vital Signs: 08:05 BP 170 / 97; Pulse 111; Resp 18; Temp 98.7; Pulse Ox 99% on R/A; Weight 90.72 kg; iw Height 5 ft. 3 in. ; 08:05 Body Mass Index 35.43 (90.72 kg, 160.02 cm) iw MDM: 08:09 Medical Screening Exam initiated rt 09:50 Differential diagnosis: Pharyngitis, otitis media. Data reviewed: vital signs, nurses rt notes. I considered the following discharge prescriptions or medication management in the emergency department Medications were administered in the Emergency Department. See MAR. Test considered but Not performed: CT: No signs of RPA, [employer] INTER[employer], Tom's angina, CT scan is not indicated. Counseling: I had a detailed discussion with the patient and/or guardian regarding the historical points, exam findings, and any diagnostic results supporting the discharge/admit diagnosis, the need for outpatient follow up. Administered Medications: 08:30 Drug: Ibuprofen PO 600 mg PO once Route: PO; bp 08:44 Follow up: Response: No adverse reaction bp Disposition Summary: 10/19/24 08:21 Discharge Ordered Notes: Location: Home rt Problem: new rt Symptoms: are unchanged rt Condition: Stable rt Diagnosis - Acute suppurative otitis media rt Followup: rt - With: Private Physician - When: 2 - 3 days - Reason: Discharge Instructions: - Discharge Summary Sheet rt - Otitis Media, Adult rt Forms: - Work release form rt - Medication Reconciliation Form rt - Antibiotic Education rt - Prescription Opioid Use rt - Patient Portal Instructions rt - Leadership Thank You Letter rt Prescriptions: - ondansetron 4 mg Oral Tablet,disintegrating - take 1 tablet ORAL route every 6 hours as needed for nausea and vomiting; 15 rt tablet; Refills: 0, Product Selection Permitted - Augmentin 875-125 mg Oral Tablet - take 1 tablet ORAL route every 12 hours for 10 days; 20 tablet; Refills: 0, rt Product Selection Permitted - Ibuprofen 600 mg Oral Tablet - take 1 tablet ORAL route every 6 hours As needed take with food; 30 tablet; rt Refills: 0, Product Selection Permitted Signatures: Rosetta Velasquez RN RN iw Peltier, Brian, RN RN Prosper Sanz MD MD rt
--- NOTE | 2024-10-19 08:22 | ER ---
Nurse's Notes [facility] Name: Emilie Holland Age: 34 yrs Sex: Female : 1990 Arrival Date: 10/19/2024 Time: 07:51 Bed 17 Private MD: Diagnosis: Acute suppurative otitis media Presentation: 10/19 08:03 Chief complaint: Patient states: she was seen here 2 days ago , was told her strep was iw negative and did not need abx, she is having increased throat pain and pain in right ear, still running fever. Coronavirus screen: Client presents with at least one sign or symptom that may indicate coronavirus-19. Ebola Screen: No symptoms or risks identified at this time. Initial Sepsis Screen: Does the patient meet any 2 criteria? HR > 90 bpm. Does the patient have a suspected source of infection? No. Patient's initial sepsis screen is negative. Risk Assessment: Do you want to hurt yourself or someone else? Patient reports no desire to harm self or others. 08:03 Method Of Arrival: Ambulatory iw 08:03 Acuity: ADITYA 4 iw Triage Assessment: 08:05 General: Appears in no apparent distress. comfortable, Behavior is calm, cooperative, bp appropriate for age. Pain: Complains of pain in neck. EENT: Reports pain when swallowing. Neuro: No deficits noted. Cardiovascular: No deficits noted. Respiratory: No deficits noted. GI: No signs and/or symptoms were reported involving the gastrointestinal system. : No signs and/or symptoms were reported regarding the genitourinary system. Derm: No deficits noted. Musculoskeletal: No deficits noted. Historical: - Allergies: 08:04 ceftriaxone; iw 08:04 Hydrocodone-Acetaminophen (Vomiting); Itching; iw 08:04 Iodine; iw 08:04 Tramadol HCl; iw - PMHx: 08:04 5 cyst on stomach (resection of abdomi); Anxiety; Endometrosis; Ovarian cysts; Post iw concussive syndrome; - PSHx: 08:04 resection of abdominal mass; iw - Immunization history:: Adult Immunizations up to date. - Infectious Disease History:: Denies. - Family history:: not pertinent. - Social history:: Smoking status: Patient denies any tobacco usage or history of. Screenin:05 [facility] ED Fall Risk Assessment (Adult) History of falling in the last 3 months, bp including since admission No falls in past 3 months (0 pts) Confusion or Disorientation No (0 pts) Intoxicated or Sedated No (0 pts) Impaired Gait No (0 pts) Mobility Assist Device Used No (0 pt) Altered Elimination No (0 pt) Score/Fall Risk Level 0 - 2 = Low Risk Oriented to surroundings. Abuse screen: Denies threats or abuse. Denies injuries from another. Nutritional screening: No deficits noted. Tuberculosis screening: No symptoms or risk factors identified. Assessment: 08:05 General: Appears in no apparent distress. uncomfortable, Behavior is calm, cooperative, bp appropriate for age. Respiratory: Airway is patent Respiratory effort is even, unlabored, Breath sounds are clear bilaterally. EENT: Throat is clear. Vital Signs: 08:05 BP 170 / 97; Pulse 111; Resp 18; Temp 98.7; Pulse Ox 99% on R/A; Weight 90.72 kg; iw Height 5 ft. 3 in. ; 08:05 Body Mass Index 35.43 (90.72 kg, 160.02 cm) ED Course: 07:55 Patient arrived in ED. cj3 07:58 Prosper Ríos MD is Attending Physician. rt 08:04 Triage completed. iw 08:05 Arm band placed on. iw 08:05 Patient has correct armband on for positive identification. bp 08:05 No provider procedures requiring assistance completed. Patient did not have IV access bp during this emergency room visit. 08:35 Phil Khan, RN is Primary Nurse. bp Administered Medications: 08:30 Drug: Ibuprofen PO 600 mg PO once Route: PO; bp 08:44 Follow up: Response: No adverse reaction bp Medication: 08:05 VIS not applicable for this client. bp Outcome: 08:21 Discharge ordered by . rt 08:51 Discharged to home ambulatory, bp 08:51 Condition: stable 08:51 Discharge instructions given to patient, Instructed on discharge instructions, follow bp up and referral plans. medication usage, Demonstrated understanding of instructions, follow-up care, medications, Prescriptions given X 3, 08:52 Patient left the ED. bp Signatures: Rosetta Velasquez RN RN iw Phil Khan RN RN bp Prosper Ríos MD MD rt Margaret Morrow cj3 Corrections: (The following items were deleted from the chart) 08:06 08:05 BP 170 / 97; Pulse 111bpm; Resp 18bpm; Pulse Ox 99% RA; Temp 98.7F; iw iw
[2024-10-19] MEDS ORDERED: IBUPROFEN 400 MG TAB ONE (08:37)
[2024-10-19 08:57] VITALS: BP 170/97; TEMP 98.7; O2SAT 99
== END 2024-10-19 08:52 | disposition home or self-care (01) ==
LOC: ER 07:51
DX: H66.003 Acute suppurative otitis media without spontaneous rupture of ear drum, bilateral (principal)
CPT/HCPCS: 99283